=== PATIENT | male | born 1965 | race Caucasian/White ===

== ENCOUNTER 2018-08-15 14:25 | Inpatient (IN) | payer MEDICAID ==
[~2018-08-15] VITALS: Ht 177.8 cm; Wt 97.2 kg
[~2018-08-15 14:25] MED LIST: ACETAMINOPHEN-1 EAC1 ORAL; IBUPROFEN600 MG ORAL; NORCO 5-325 TA1 EACH ORAL
[2018-08-15 14:40] VITALS: BP 150/72
[2018-08-15 15:45] LABS: HEMATOCRIT 45.5 % (42.0-52.0); HEMOGLOBIN 15.7 G/DL (14.2-18.0); MEAN CORPUSCULAR VOLUME 87 FL (80-99); PLATELET COUNT 169 K/UL (150-450); RED CELL DISTRIBUTION WIDTH 10.8 % (11.6-14.8); WHITE BLOOD COUNT 19.7 K/UL (4.8-10.8)
[2018-08-15 15:54] LABS: ANION GAP 11 mmol/L (5-15); BLOOD UREA NITROGEN 29 mg/dL (7-18); CALCIUM 9.5 MG/DL (8.5-10.1); CARBON DIOXIDE 25 MMOL/L (21-32); CHLORIDE 94 MMOL/L (98-107); CREATININE 1.5 MG/DL (0.55-1.30); POTASSIUM 4.1 MMOL/L (3.5-5.1); SODIUM 130 MMOL/L (136-145)
[2018-08-15 15:57] LABS: ALANINE AMINOTRANSFERASE 16 U/L (12-78); ALBUMIN 3.5 G/DL (3.4-5.0); ALBUMIN/GLOBULIN RATIO 0.8 (1.0-2.7); ALKALINE PHOSPHATASE 110 U/L (46-116); ASPARTATE AMINO TRANSFERASE 12 U/L (15-37); BILIRUBIN,TOTAL 0.9 MG/DL (0.2-1.0)
[2018-08-15] MEDS ORDERED: Morphine Sulfate 4mg/ml Inj (IV/IM USE ONLY) IVP ONE (16:15)
[2018-08-15 16:40] VITALS: BP 151/71
[2018-08-15 17:15] LABS: APPEARANCE,URINE CLEAR; BILIRUBIN, URINE NEGATIVE (NEGATIVE); GLUCOSE, URINE (UA) 4+ (NEGATIVE); KETONES,URINE 4+ (NEGATIVE); LEUKOCYTE ESTERASE ,URINE NEGATIVE (NEGATIVE); NITRITE,URINE NEGATIVE (NEGATIVE); PH,URINE 5 (4.5-8.0); PROTEIN,URINE 3+ (NEGATIVE); UROBILINOGEN,URINE 1 MG/DL (0.0-1.0)
[2018-08-15 17:23] LABS: COLOR,URINE YELLOW
[2018-08-15] MEDS ORDERED: LOTENSIN20 MG ORAL (17:55)
[2018-08-15] MEDS ORDERED: LIPITOR20 MG ORAL (18:03)
[2018-08-15] MEDS ORDERED: LANTUS SOL100 UNIT/1 SUBQ (18:06)
[2018-08-15] MEDS ORDERED: HUMALOG100 UNIT/3 SUBQ (18:07)
[2018-08-15] MEDS ORDERED: ASPIR 8181 MG ORAL (18:12)
[2018-08-15] MEDS ORDERED: ENSURE113 GM PO (18:17)
[2018-08-15] MEDS ORDERED: LYRICA50 MG ORAL (18:17)
[2018-08-15] MEDS ORDERED: PROAIR HFA8.5 GM INH (18:18)
--- NOTE | 2018-08-15 18:23 | Emergency Room Report ---
History of Present Illness General Chief Complaint: Abdominal Pain Source: Patient, Medical Record Present Illness HPI 53-year-old male presents ED for evaluation. Complaining of abdominal pain vomiting and diarrhea 3 days. Pain is cramping, 8 out of 10, nonradiating. States that his sugar has been high and not responding to his insulin. Denies fevers or chills. Denies sick contacts or recent travel. Denies recent antibiotic use. No other aggravating relieving factors. Denies any other associated symptoms Allergies: Coded Allergies: No Known Allergies (Unverified , 05/23/14) Patient History Past Medical History: DM, HTN, asthma Past Surgical History: none Pertinent Family History: none Social History: Denies: smoking, alcohol use, drug use Immunizations: UTD Reviewed Nursing Documentation: PMH: Agreed; PSxH: Agreed Nursing Documentation-PMH Hx Hypertension: Yes Hx Asthma: Yes Hx Diabetes: Yes Review of Systems All Other Systems: negative except mentioned in HPI Physical Exam Vital Signs Date Time Temp Pulse Resp B/P (MAP) Pulse Ox O2 Delivery O2 Flow Rate FiO2 08/15/18 14:39 99.5 120 18 154/84 90 Room Air Sp02 EP Interpretation: reviewed, normal General Appearance: no apparent distress, alert, GCS 15, non-toxic Head: normocephalic, atraumatic Eyes: bilateral eye normal inspection, bilateral eye PERRL ENT: hearing grossly normal, normal pharynx, no angioedema, normal voice Neck: full range of motion, supple/symm/no masses Respiratory: chest non-tender, lungs clear, normal breath sounds, speaking full sentences Cardiovascular #1: regular rate, rhythm, no edema Cardiovascular #2: 2+ carotid (R), 2+ carotid (L), 2+ radial (R), 2+ radial (L) , 2+ dorsalis pedis (R), 2+ dorsalis pedis (L) Gastrointestinal: normal bowel sounds, soft, non-distended, no guarding, no rebound, tenderness Rectal: deferred Genitourinary: normal inspection, no CVA tenderness Musculoskeletal: back normal, gait/station normal, normal range of motion, non- tender Neurologic: alert, oriented x3, responsive, motor strength/tone normal, sensory intact, speech normal Psychiatric: judgement/insight normal, memory normal, mood/affect normal, no suicidal/homicidal ideation Reflexes: 3+ bicep (R), 3+ bicep (L), 3+ tricep (R), 3+ tricep (L), 3+ knee (R) , 3+ knee (L) Skin: normal color, no rash, warm/dry, well hydrated Lymphatic: no adenopathy Medical Decision Making Diagnostic Impression: Primary Impression: Gastroenteritis Additional Impressions: Renal insufficiency Intractable vomiting Qualified Codes: R11.2 - Nausea with vomiting, unspecified Hyperglycemia ER Course Hospital Course 53-year-old male presenting to ED with generalized weakness, elevated fingerstick, vomiting and diarhea Differential diagnoses include: ETOH/drug ingestion, sepsis, DKA Clinical course Patient placed on stretcher. On cardiac care nurse. After initial history and physical I ordered labs, IV fluids, EKG, zofran, pepcid Labs-glucose greater than 300, AG and bicarb ok, mild ketones, Cr 1.5, trop negative EKG - NSR, no acute ischemic changes intepreted by me I discussed findings with patient. Patient states he still has vomiting and nausea. Uncomfortable with discharge at this time. not tolerating PO. We'll admit for continued IV hydration and management of his diabetes Case discussed with Dr. Silver and he agreed to accept the patient to his service for further care and support i. I feel this is a highly complex case requiring extensive working including EKG/Rhythm strip, Xray/CT/US, Blood/urine lab work, repeat exams while in ED, and administration of strong opiates/narcotics for pain control, admission to hospital or close patient follow up. diagnosis - hyperglycemia, gastroenteritis, intractable vomiting, hyperglycemia admitted to floor in serious condition Labs Test 08/15/18 15:21 08/15/18 17:08 White Blood Count 19.7 K/UL (4.8-10.8) Red Blood Count 5.20 M/UL (4.70-6.10) Hemoglobin 15.7 G/DL (14.2-18.0) Hematocrit 45.5 % (42.0-52.0) Mean Corpuscular Volume 87 FL (80-99) Mean Corpuscular Hemoglobin 30.2 PG (27.0-31.0) Mean Corpuscular Hemoglobin Concent 34.5 G/DL (32.0-36.0) Red Cell Distribution Width 10.8 % (11.6-14.8) Platelet Count 169 K/UL (150-450) Mean Platelet Volume 10.7 FL (6.5-10.1) Neutrophils (%) (Auto) % (45.0-75.0) Lymphocytes (%) (Auto) % (20.0-45.0) Monocytes (%) (Auto) % (1.0-10.0) Eosinophils (%) (Auto) % (0.0-3.0) Basophils (%) (Auto) % (0.0-2.0) Differential Total Cells Counted 100 Neutrophils % (Manual) 83 % (45-75) Lymphocytes % (Manual) 7 % (20-45) Monocytes % (Manual) 8 % (1-10) Eosinophils % (Manual) 0 % (0-3) Basophils % (Manual) 0 % (0-2) Band Neutrophils 2 % (0-8) Platelet Estimate Adequate Platelet Morphology Normal Red Blood Cell Morphology Normal Sodium Level 130 MMOL/L (136-145) Potassium Level 4.1 MMOL/L (3.5-5.1) Chloride Level 94 MMOL/L (98-107) Carbon Dioxide Level 25 MMOL/L (21-32) Anion Gap 11 mmol/L (5-15) Blood Urea Nitrogen 29 mg/dL (7-18) Creatinine 1.5 MG/DL (0.55-1.30) Estimat Glomerular Filtration Rate 49.1 mL/min (>60) Glucose Level 374 MG/DL (74-106) Calcium Level 9.5 MG/DL (8.5-10.1) Magnesium Level 2.0 MG/DL (1.8-2.4) Total Bilirubin 0.9 MG/DL (0.2-1.0) Aspartate Amino Transf (AST/SGOT) 12 U/L (15-37) Alanine Aminotransferase (ALT/SGPT) 16 U/L (12-78) Alkaline Phosphatase 110 U/L (46-116) Troponin I 0.000 ng/mL (0.000-0.056) Total Protein 8.0 G/DL (6.4-8.2) Albumin 3.5 G/DL (3.4-5.0) Globulin 4.5 g/dL Albumin/Globulin Ratio 0.8 (1.0-2.7) Acetone Level Positive-small (NEGATIVE) Urine Color Yellow Urine Appearance Clear Urine pH 5 (4.5-8.0) Urine Specific [place] 1.015 (1.005-1.035) Urine Protein 3+ (NEGATIVE) Urine Glucose (UA) 4+ (NEGATIVE) Urine Ketones 4+ (NEGATIVE) Urine Blood 3+ (NEGATIVE) Urine Nitrite Negative (NEGATIVE) Urine Bilirubin Negative (NEGATIVE) Urine Urobilinogen 1 MG/DL (0.0-1.0) Urine Leukocyte Esterase Negative (NEGATIVE) Urine RBC 5-10 /HPF (0 - 0) Urine WBC 0-2 /HPF (0 - 0) Urine Squamous Epithelial Cells Occasional /LPF Urine Bacteria Few /HPF (NONE) EKG Diagnostic Results Rate: normal Rhythm: NSR ST Segments: no acute changes ASA given to the pt in ED: No Rhythm Strip Diag. Results EP Interpretation: yes Rhythm: NSR, no PVC's, no ectopy Last Vital Signs Date Time Temp Pulse Resp B/P (MAP) Pulse Ox O2 Delivery O2 Flow Rate FiO2 08/15/18 18:07 98.9 98 22 152/70 95 Room Air Status: improved Disposition: ADMITTED INPATIENT Condition: Serious Referrals: NON PHYSICIAN (PCP) Jose G Greenberg MD Aug 15, 2018 18:23
[2018-08-15 18:45] VITALS: BP 149/78
[2018-08-15 20:00] VITALS: BP 121/56
[2018-08-15] MEDS ORDERED: Nitroglycerin Subl 0.4mg tab SL PRN (20:15)
[2018-08-15] MEDS ORDERED: Ketorolac 30mg Inj IV PRN (20:15)
[2018-08-15] MEDS ORDERED: Mylanta II UD 30ml ORAL PRN (20:15)
[2018-08-15] MEDS ORDERED: Miralax 17gm pkt ORAL PRN (20:15)
[2018-08-15] MEDS ORDERED: Morphine Sulfate 4mg/ml Inj (IV/IM USE ONLY) IVP PRN (20:15)
[2018-08-15] MEDS: Atorvastatin 20mg tab ORAL SCH (21:54)
[2018-08-15] MEDS: Heparin 5000 units/ml inj SUBQ SCH (21:55)
[2018-08-15] MEDS: NovoLOG Insulin Flexpen SUBQ SCH (22:13)
[2018-08-16] VITALS: BP 132/60
[2018-08-16 04:00] VITALS: BP 131/62
--- NOTE | 2018-08-16 04:15 | Consultation ---
DATE OF CONSULTATION: 08/15/2018 GASTROENTEROLOGY CONSULTATION CONSULTING PHYSICIAN: Amber Brooks M.D. CHIEF COMPLAINT: I was asked to see this patient by Dr. Stuart Silver for evaluation of gastrointestinal symptoms. HISTORY OF PRESENT ILLNESS: The patient is a pleasant 53-year-old white man with a longstanding history of diabetes, who comes in with a one-week history of abdominal pain, nausea, vomiting, and diarrhea. The patient states that the emesis is low volume, but he is not able to eat much. The diarrhea happens two times a day. There is no hematochezia. He has never had endoscopy or colonoscopy, but does have a family history of colon cancer. He has not had any antibiotic . PAST MEDICAL HISTORY: History of insulin-dependent diabetes mellitus, hypertension, hypercholesterolemia, and history of myocardial infarction. FAMILY HISTORY: Positive for colon cancer in grandfather and some type of other cancer in paternal grandmother. SOCIAL HISTORY: The patient is . REVIEW OF SYSTEMS: Otherwise negative. ALLERGIES: None. PHYSICAL EXAMINATION: GENERAL: A pleasant white man, seen in his room with his at bedside. HEENT: Normocephalic and atraumatic. Sclerae anicteric. Oropharynx clear. NECK: Supple. CHEST: Clear to auscultation. CARDIOVASCULAR: Revealed regular rate. ABDOMEN: Soft and nontender. Good bowel sounds. There is no organomegaly or tenderness. EXTREMITIES: Revealed no edema. LABORATORY DATA: Noted. ASSESSMENT: This patient has a combination of nausea, vomiting, and diarrhea, which typically relates to gastroenteritis. The patient's stools should be checked to rule out any bacterial infections, which would possibly require antibiotic management. At this time, however, the patient appears well and therefore I would manage him conservatively. IV fluids can be given and his diet can be advanced as tolerated. The patient was advised to undergo a screening colonoscopy as an outpatient. RECOMMENDATIONS: Per above discussion and per orders written in the chart. Thank you for asking me to participate in the care of this patient. Amber Brooks M.D. DR: OLIVER JOB#: [id number] CC: AGUS
[2018-08-16] MEDS: NovoLOG Insulin Flexpen SUBQ SCH ×6 (06:08→20:33)
[2018-08-16 07:33] LABS: BASOPHILS % (AUTO) 0.5 % (0.0-2.0); EOSINOPHILS % (AUTO) 0.4 % (0.0-3.0); HEMATOCRIT 38.6 % (42.0-52.0); HEMOGLOBIN 13.5 G/DL (14.2-18.0); LYMPHOCYTES % (AUTO) 9.5 % (20.0-45.0); MEAN CORPUSCULAR VOLUME 86 FL (80-99); MONOCYTES % (AUTO) 12.5 % (1.0-10.0); NEUTROPHILS % (AUTO) 77.1 % (45.0-75.0); PLATELET COUNT 174 K/UL (150-450); RED BLOOD COUNT 4.46 M/UL (4.70-6.10); RED CELL DISTRIBUTION WIDTH 10.7 % (11.6-14.8); WHITE BLOOD COUNT 15.9 K/UL (4.8-10.8)
[2018-08-16 08:00] VITALS: BP 118/63
[2018-08-16 08:21] LABS: ALANINE AMINOTRANSFERASE 16 U/L (12-78); ALBUMIN 2.7 G/DL (3.4-5.0); ALBUMIN/GLOBULIN RATIO 0.8 (1.0-2.7); ALKALINE PHOSPHATASE 88 U/L (46-116); ANION GAP 9 mmol/L (5-15); ASPARTATE AMINO TRANSFERASE 16 U/L (15-37); BILIRUBIN,TOTAL 0.6 MG/DL (0.2-1.0); BLOOD UREA NITROGEN 20 mg/dL (7-18); CALCIUM 8.5 MG/DL (8.5-10.1); CARBON DIOXIDE 25 MMOL/L (21-32); CHLORIDE 102 MMOL/L (98-107); CHOLESTEROL 114 MG/DL (< 200); HDL CHOLESTEROL 40 MG/DL (40-60); POTASSIUM 3.5 MMOL/L (3.5-5.1); SODIUM 136 MMOL/L (136-145); TRIGLYCERIDES 124 MG/DL (30-150)
[2018-08-16] MEDS: Aspirin EC 81mg tab ORAL SCH (08:33)
[2018-08-16] MEDS: Lyrica 50mg cap ORAL SCH ×2 (08:34→17:53)
[2018-08-16] MEDS: Heparin 5000 units/ml inj SUBQ SCH ×2 (08:36→20:34)
[2018-08-16] MEDS ORDERED: Levemir Flexpen SUBQ SCH (09:00)
[2018-08-16 12:00] VITALS: BP 117/69
--- NOTE | 2018-08-16 12:17 | General Progress Note ---
Assessment/Plan Problem List: (1) Hyperglycemia ICD Codes: R73.9 - Hyperglycemia, unspecified SNOMED: 12188428 (2) Intractable vomiting ICD Codes: R11.10 - Vomiting, unspecified SNOMED: 417326043, 987475389 Qualifiers: Qualified Codes: R11.2 - Nausea with vomiting, unspecified (3) Renal insufficiency ICD Codes: N28.9 - Disorder of kidney and ureter, unspecified SNOMED: 555905275, 515313523 (4) Gastroenteritis ICD Codes: K52.9 - Noninfective gastroenteritis and colitis, unspecified SNOMED: 84226317 Assessment/Plan start Levemir 24 units daily start Novolog 6 units ac tid continue NISS ac / hs Subjective Allergies: Coded Allergies: No Known Allergies (Unverified , 05/23/14) All Systems: reviewed and negative except above Subjective 53-year-old male presents ED for evaluation. Complaining of abdominal pain vomiting and diarrhea 3 days. Pain is cramping, 8 out of 10, nonradiating. States that his sugar has been high and not responding to his insulin. Denies fevers or chills. Denies sick contacts or recent travel. Denies recent antibiotic use. No other aggravating relieving factors. Denies any other associated symptoms there is not evidence of DKA Objective Last 24 Hour Vital Signs Date Time Temp Pulse Resp B/P (MAP) Pulse Ox O2 Delivery O2 Flow Rate FiO2 08/16/18 09:00 Room Air 08/16/18 08:00 99.6 90 20 118/63 (81) 98 08/16/18 04:00 99.1 80 18 131/62 (85) 94 08/16/18 00:00 99.7 80 18 132/60 (84) 95 08/15/18 22:23 100.8 08/15/18 21:00 Room Air 08/15/18 20:00 101.2 86 18 121/56 (77) 95 08/15/18 19:03 Room Air 08/15/18 18:45 100.4 97 22 149/78 (101) 93 08/15/18 18:07 98.9 98 22 152/70 95 Room Air 08/15/18 16:40 98.7 99 18 151/71 97 Room Air 08/15/18 14:40 100 18 Room Air 08/15/18 14:40 98.9 100 18 150/72 98 Room Air 08/15/18 14:39 99.5 120 18 154/84 90 Room Air Intake and Output 08/15/18 08/16/18 19:00 07:00 Intake Total 1000 ml 500 ml Balance 1000 ml 500 ml Intake Oral 500 ml IV Total 1000 ml # Voids 1 1 Laboratory Tests 08/15/18 15:21: White Blood Count 19.7H, Red Blood Count 5.20, Hemoglobin 15.7, Hematocrit 45.5 , Mean Corpuscular Volume 87, Mean Corpuscular Hemoglobin 30.2, Mean Corpuscular Hemoglobin Concent 34.5, Red Cell Distribution Width 10.8L, Platelet Count 169, Mean Platelet Volume 10.7H, Neutrophils (%) (Auto) , Lymphocytes (%) (Auto) , Monocytes (%) (Auto) , Eosinophils (%) (Auto) , Basophils (%) (Auto) , Differential Total Cells Counted 100, Neutrophils % ( Manual) 83H, Lymphocytes % (Manual) 7L, Monocytes % (Manual) 8, Eosinophils % ( Manual) 0, Basophils % (Manual) 0, Band Neutrophils 2, Platelet Estimate Adequate, Platelet Morphology Normal, Red Blood Cell Morphology Normal, Sodium Level 130L, Potassium Level 4.1, Chloride Level 94L, Carbon Dioxide Level 25, Anion Gap 11, Blood Urea Nitrogen 29H, Creatinine 1.5H, Estimat Glomerular Filtration Rate 49.1, Glucose Level 374H, Calcium Level 9.5, Magnesium Level 2.0 , Total Bilirubin 0.9, Aspartate Amino Transf (AST/SGOT) 12L, Alanine Aminotransferase (ALT/SGPT) 16, Alkaline Phosphatase 110, Troponin I 0.000, Total Protein 8.0, Albumin 3.5, Globulin 4.5, Albumin/Globulin Ratio 0.8L, Acetone Level Positive-small 08/15/18 17:08: Urine Color Yellow, Urine Appearance Clear, Urine pH 5, Urine Specific [place] 1.015, Urine Protein 3+H, Urine Glucose (UA) 4+H, Urine Ketones 4+H, Urine Blood 3+H, Urine Nitrite Negative, Urine Bilirubin Negative, Urine Urobilinogen 1H, Urine Leukocyte Esterase Negative, Urine RBC 5-10H, Urine WBC 0-2, Urine Squamous Epithelial Cells Occasional, Urine Bacteria Few 08/16/18 05:28: White Blood Count 15.9H, Red Blood Count 4.46L, Hemoglobin 13.5L, Hematocrit 38.6L, Mean Corpuscular Volume 86, Mean Corpuscular Hemoglobin 30.3, Mean Corpuscular Hemoglobin Concent 35.1, Red Cell Distribution Width 10.7L, Platelet Count 174, Mean Platelet Volume 10.3H, Neutrophils (%) (Auto) 77.1H, Lymphocytes (%) (Auto) 9.5L, Monocytes (%) (Auto) 12.5H, Eosinophils (%) (Auto) 0.4, Basophils (%) (Auto) 0.5, Sodium Level 136, Potassium Level 3.5, Chloride Level 102, Carbon Dioxide Level 25, Anion Gap 9, Blood Urea Nitrogen 20H, Creatinine 1.0, Estimat Glomerular Filtration Rate > 60, Glucose Level 149#H, Calcium Level 8.5, Total Bilirubin 0.6, Aspartate Amino Transf (AST/SGOT) 16, Alanine Aminotransferase (ALT/SGPT) 16, Alkaline Phosphatase 88, Total Protein 6.3L, Albumin 2.7L, Globulin 3.6, Albumin/Globulin Ratio 0.8L, Hemoglobin A1c 9.5H, Triglycerides Level 124, Cholesterol Level 114, LDL Cholesterol 54, HDL Cholesterol 40, Cholesterol/HDL Ratio 2.9L, Thyroid Stimulating Hormone (TSH) 0.381 Height (Feet): 5 Height (Inches): 10.00 Weight (Pounds): 200 General Appearance: no apparent distress Neck: normal alignment Cardiovascular: regular rhythm Respiratory/Chest: lungs clear Abdomen: normal bowel sounds Edema: no edema noted Arm (L), no edema noted Arm (R), no edema noted Leg (L), no edema noted Leg (R), no edema noted Pedal (L), no edema noted Pedal (R), no edema noted Generalized Objective Current Medications Medications (Trade) Dose Ordered Sig/Rashel Route PRN Reason Start Time Stop Time Status Last Admin Dose Admin Acetaminophen (Tylenol) 650 mg Q4H PRN ORAL fever (temp>100.5F) 08/15/18 20:15 09/14/18 20:14 08/15/18 21:53 Al Hydroxide/Mg Hydroxide (Mylanta II) 30 ml Q6H PRN ORAL dyspepsia 08/15/18 20:15 09/14/18 20:14 Albuterol/ Ipratropium (Albuterol/ Ipratropium) 3 ml Q4H PRN HHN Shortness of Breath 08/15/18 20:15 08/20/18 20:14 Aspirin (Ecotrin) 81 mg DAILY ORAL 08/16/18 09:00 09/15/18 08:59 08/16/18 08:33 Atorvastatin Calcium (Lipitor) 20 mg BEDTIME ORAL 08/15/18 21:00 09/14/18 20:59 08/15/18 21:54 Clonidine HCl (Catapres Tab) 0.1 mg Q4H PRN ORAL sbp more than 160 08/15/18 20:15 09/14/18 20:14 Dextrose (Dextrose 50%) 25 ml Q30M PRN IV Hypoglycemia 08/16/18 07:30 09/15/18 07:29 Dextrose (Dextrose 50%) 50 ml Q30M PRN IV Hypoglycemia 08/16/18 07:30 09/15/18 07:29 Heparin Sodium (Porcine) (Heparin 5000 units/ml) 5,000 units EVERY 12 HOURS SUBQ 08/15/18 21:00 09/14/18 20:59 08/16/18 08:36 Insulin Aspart (NovoLOG) BEFORE MEALS AND HS SUBQ 08/15/18 22:00 09/14/18 21:59 08/16/18 06:08 Insulin Aspart (NovoLOG) 6 units NOVOTIAC SUBQ 08/16/18 11:50 09/15/18 11:49 Insulin Detemir (Levemir) 24 units DAILY SUBQ 08/16/18 09:00 09/15/18 08:59 Ketorolac Tromethamine (Toradol 30mg) 30 mg Q6H PRN IV moderate pain 4-6 08/15/18 20:15 08/20/18 20:14 Morphine Sulfate (Morphine Sulfate) 2 mg Q4H PRN IVP severe pain 7-10 08/15/18 20:15 08/22/18 20:14 Nitroglycerin (Ntg) 0.4 mg Q5M X 3 DOSES PRN SL Prn Chest Pain 08/15/18 20:15 09/14/18 20:14 Ondansetron HCl (Zofran) 4 mg Q6H PRN IVP Nausea & Vomiting 08/15/18 20:15 09/14/18 20:14 Polyethylene Glycol (Miralax) 17 gm HSPRN PRN ORAL Constipation 08/15/18 20:15 09/14/18 20:14 Pregabalin (Lyrica) 50 mg TWICE A DAY ORAL 08/16/18 09:00 09/15/18 08:59 08/16/18 08:34 Sodium Chloride 1,000 ml @ 100 mls/hr Q10H IVLG 08/15/18 21:30 09/14/18 21:29 08/16/18 08:33 Temazepam (Restoril) 15 mg HSPRN PRN ORAL Insomnia 08/15/18 20:15 08/22/18 20:14 Current Medications Medications (Trade) Dose Ordered Sig/Rashel Route PRN Reason Start Time Stop Time Status Last Admin Dose Admin Acetaminophen (Tylenol) 650 mg Q4H PRN ORAL fever (temp>100.5F) 08/15/18 20:15 09/14/18 20:14 08/15/18 21:53 Al Hydroxide/Mg Hydroxide (Mylanta II) 30 ml Q6H PRN ORAL dyspepsia 08/15/18 20:15 09/14/18 20:14 Albuterol/ Ipratropium (Albuterol/ Ipratropium) 3 ml Q4H PRN HHN Shortness of Breath 08/15/18 20:15 08/20/18 20:14 Aspirin (Ecotrin) 81 mg DAILY ORAL 08/16/18 09:00 09/15/18 08:59 08/16/18 08:33 Atorvastatin Calcium (Lipitor) 20 mg BEDTIME ORAL 08/15/18 21:00 09/14/18 20:59 08/15/18 21:54 Clonidine HCl (Catapres Tab) 0.1 mg Q4H PRN ORAL sbp more than 160 08/15/18 20:15 09/14/18 20:14 Dextrose (Dextrose 50%) 25 ml Q30M PRN IV Hypoglycemia 08/16/18 07:30 09/15/18 07:29 Dextrose (Dextrose 50%) 50 ml Q30M PRN IV Hypoglycemia 08/16/18 07:30 09/15/18 07:29 Heparin Sodium (Porcine) (Heparin 5000 units/ml) 5,000 units EVERY 12 HOURS SUBQ 08/15/18 21:00 09/14/18 20:59 08/16/18 08:36 Insulin Aspart (NovoLOG) BEFORE MEALS AND HS SUBQ 08/15/18 22:00 09/14/18 21:59 08/16/18 06:08 Insulin Aspart (NovoLOG) 6 units NOVOTIAC SUBQ 08/16/18 11:50 09/15/18 11:49 Insulin Detemir (Levemir) 24 units DAILY SUBQ 08/16/18 09:00 09/15/18 08:59 Ketorolac Tromethamine (Toradol 30mg) 30 mg Q6H PRN IV moderate pain 4-6 08/15/18 20:15 08/20/18 20:14 Morphine Sulfate (Morphine Sulfate) 2 mg Q4H PRN IVP severe pain 7-10 08/15/18 20:15 08/22/18 20:14 Nitroglycerin (Ntg) 0.4 mg Q5M X 3 DOSES PRN SL Prn Chest Pain 08/15/18 20:15 09/14/18 20:14 Ondansetron HCl (Zofran) 4 mg Q6H PRN IVP Nausea & Vomiting 08/15/18 20:15 09/14/18 20:14 Polyethylene Glycol (Miralax) 17 gm HSPRN PRN ORAL Constipation 08/15/18 20:15 09/14/18 20:14 Pregabalin (Lyrica) 50 mg TWICE A DAY ORAL 08/16/18 09:00 09/15/18 08:59 08/16/18 08:34 Sodium Chloride 1,000 ml @ 100 mls/hr Q10H IVLG 08/15/18 21:30 09/14/18 21:29 08/16/18 08:33 Temazepam (Restoril) 15 mg HSPRN PRN ORAL Insomnia 08/15/18 20:15 08/22/18 20:14 Mac Vegas MD Aug 16, 2018 12:17
[2018-08-16] MEDS: Piperacillin/Tazobactam 3.375 GM in D5W 110 ML IVPB SCH ×2 (14:12→21:40)
--- NOTE | 2018-08-16 15:19 | Cardiology Report ---
APPROVED REPORT EKG Measurement Heart [id number] Sinus tachycardia Left axis deviation Anteroseptal infarct, age undetermined Abnormal ECG
--- NOTE | 2018-08-16 15:30 | History and Physical Report ---
DATE OF ADMISSION: 08/15/2018 DATE AND TIME SEEN: 08/16/2018 at 10 a.m. CONSULTANTS: 1. Dr. Rohini Camargo. 2. Dr. Noé Thomas. 3. Dr. Cuate Purdy. 4. DrCristi . CHIEF COMPLAINT: Nausea, vomiting, and hyperglycemia. BRIEF HISTORY: This is a 53-year-old male with history of diabetes and for the past two days has been having some stomach issues with nausea and vomiting. The patient's sugar spiked and came to [facility] yesterday, diagnosed with the above, admitted to medical floor for further treatment. Currently, calm in bed, feeling a little bit better after IV fluids. No complaint. REVIEW OF SYSTEMS: No chest pain. Slight short of breath. Slight nausea and vomiting. No diarrhea. PAST MEDICAL HISTORY: Diabetes and hypertension. PAST SURGICAL HISTORY: Right elbow. ALLERGIES: Denies. MEDICATIONS: Include insulin, IV fluids, normal saline, aspirin, , atorvastatin, heparin, albuterol, Tylenol, and morphine. SOCIAL HISTORY: Positive smoking. No alcohol. No intravenous drug abuse. FAMILY HISTORY: Noncontributory. PHYSICAL EXAMINATION: GENERAL: Calm in bed, oriented x3, in no acute distress. VITAL SIGNS: Temperature is 99 pulse 90, respirations 20, and blood pressure 118/63. CARDIOVASCULAR: No murmur. LUNGS: Distant and clear. ABDOMEN: Bowel sounds positive. Slightly tender. No guarding. No rigidity. No rebound. EXTREMITIES: No cyanosis, clubbing or edema. NEUROLOGIC: The patient moves all extremities, slightly weak. LABORATORY AND DIAGNOSTIC DATA: White count 15.9, hemoglobin and hematocrit 13/38, and platelets 174,000. BMP shows BUN 20 and glucose 149, initially it was 374. Urine tox is positive for acetone, small. Urinalysis 3+ protein, 4+ glucose, 4+ ketone, 3+ blood, otherwise negative. ASSESSMENT: 1. Acute gastroenteritis, nausea and vomiting. 2. Renal insufficiency. 3. Diabetes. 4. Hyperglycemia. 5. Hypertension. PLAN: 1. Blood pressure and sugar control. 2. IV fluids. 3. Dietary followup. 4. Advance diet as tolerated. 5. CBC and BMP in the morning. Stuart Silver D.O. DR: BRODIE JOB#: [id number] CC:
--- NOTE | 2018-08-16 15:43 | Consultation ---
History of Present Illness General Date patient seen: Aug 16, 2018 Chief Complaint: Abdominal Pain Present Illness HPI 53-year-old male with hx of DM, HTN presents ED for evaluation of abdominal pain vomiting and diarrhea 3 days. States that his sugar has been high and not responding to his insulin. Denies fevers or chills. Denies sick contacts or recent travel. He was in renal failure. Allergies: Coded Allergies: INSULIN DETEMIR (Unverified Allergy, Unknown, Sweating, 08/16/18) Medication History Scheduled Albuterol Sulfate* (Proair Hfa*), 2 PUFFS INH Q6H, (Reported) Aspirin* (Aspir 81*), 81 MG ORAL DAILY, (Reported) Atorvastatin Calcium* (Lipitor*), 20 MG ORAL BEDTIME, (Reported) Benazepril Hcl* (Lotensin*), 20 MG ORAL DAILY, (Reported) Insulin Glargine (Lantus), 30 UNITS SUBQ BEDTIME, (Reported) Insulin Lispro (Humalog), 8 UNITS SUBQ BEFORE MEALS, (Reported) Pregabalin (Lyrica), 50 MG ORAL TWICE A DAY, (Reported) Scheduled PRN Ibuprofen* (Motrin*), 600 MG ORAL Q8H PRN for For Pain Miscellaneous Medications Nutritional Supplement (Ensure), 113 GM PO, (Reported) Discontinued Medications Acetaminophen With Codeine (T#3) (Tylenol #3 Tab*), 1 TAB ORAL Q8H PRN for For Pain Discontinued Reason: Pt stopped taking med Hydrocodone Bit/Acetaminophen 5-325* (Willard 5-325*), 1 TAB ORAL Q6H PRN for For Pain Discontinued Reason: Pt stopped taking med Patient History Healthcare decision maker Resuscitation status Full Code Advanced Directive on File Past Medical/Surgical History Past Medical/Surgical History: (1) Diabetes mellitus (2) Gastroparesis Review of Systems All Other Systems: negative except mentioned in HPI Physical Exam General Appearance: WD/WN Lines, tubes and drains: peripheral HEENT: normocephalic, anicteric Neck: non-tender, supple Respiratory/Chest: chest wall non-tender, lungs clear Cardiovascular/Chest: normal peripheral pulses, regularly irregular Last 24 Hour Vital Signs Date Time Temp Pulse Resp B/P (MAP) Pulse Ox O2 Delivery O2 Flow Rate FiO2 08/16/18 12:00 99.1 80 20 117/69 (85) 99 08/16/18 09:00 Room Air 08/16/18 08:00 99.6 90 20 118/63 (81) 98 08/16/18 04:00 99.1 80 18 131/62 (85) 94 08/16/18 00:00 99.7 80 18 132/60 (84) 95 08/15/18 22:23 100.8 08/15/18 21:00 Room Air 08/15/18 20:00 101.2 86 18 121/56 (77) 95 08/15/18 19:03 Room Air 08/15/18 18:45 100.4 97 22 149/78 (101) 93 08/15/18 18:07 98.9 98 22 152/70 95 Room Air 08/15/18 16:40 98.7 99 18 151/71 97 Room Air Intake and Output 08/15/18 08/16/18 19:00 07:00 Intake Total 1000 ml 500 ml Balance 1000 ml 500 ml Intake Oral 500 ml IV Total 1000 ml # Voids 1 1 Laboratory Tests Test 08/15/18 17:08 08/16/18 05:28 Urine Color Yellow Urine Appearance Clear Urine pH 5 (4.5-8.0) Urine Specific [place] 1.015 (1.005-1.035) Urine Protein 3+ (NEGATIVE) H Urine Glucose (UA) 4+ (NEGATIVE) H Urine Ketones 4+ (NEGATIVE) H Urine Blood 3+ (NEGATIVE) H Urine Nitrite Negative (NEGATIVE) Urine Bilirubin Negative (NEGATIVE) Urine Urobilinogen 1 MG/DL (0.0-1.0) H Urine Leukocyte Esterase Negative (NEGATIVE) Urine RBC 5-10 /HPF (0 - 0) H Urine WBC 0-2 /HPF (0 - 0) Urine Squamous Epithelial Cells Occasional /LPF Urine Bacteria Few /HPF (NONE) White Blood Count 15.9 K/UL (4.8-10.8) H Red Blood Count 4.46 M/UL (4.70-6.10) L Hemoglobin 13.5 G/DL (14.2-18.0) L Hematocrit 38.6 % (42.0-52.0) L Mean Corpuscular Volume 86 FL (80-99) Mean Corpuscular Hemoglobin 30.3 PG (27.0-31.0) Mean Corpuscular Hemoglobin Concent 35.1 G/DL (32.0-36.0) Red Cell Distribution Width 10.7 % (11.6-14.8) L Platelet Count 174 K/UL (150-450) Mean Platelet Volume 10.3 FL (6.5-10.1) H Neutrophils (%) (Auto) 77.1 % (45.0-75.0) H Lymphocytes (%) (Auto) 9.5 % (20.0-45.0) L Monocytes (%) (Auto) 12.5 % (1.0-10.0) H Eosinophils (%) (Auto) 0.4 % (0.0-3.0) Basophils (%) (Auto) 0.5 % (0.0-2.0) Sodium Level 136 MMOL/L (136-145) Potassium Level 3.5 MMOL/L (3.5-5.1) Chloride Level 102 MMOL/L (98-107) Carbon Dioxide Level 25 MMOL/L (21-32) Anion Gap 9 mmol/L (5-15) Blood Urea Nitrogen 20 mg/dL (7-18) H Creatinine 1.0 MG/DL (0.55-1.30) Estimat Glomerular Filtration Rate > 60 mL/min (>60) Glucose Level 149 MG/DL (74-106) #H Hemoglobin A1c 9.5 % (4.3-6.0) H Calcium Level 8.5 MG/DL (8.5-10.1) Total Bilirubin 0.6 MG/DL (0.2-1.0) Aspartate Amino Transf (AST/SGOT) 16 U/L (15-37) Alanine Aminotransferase (ALT/SGPT) 16 U/L (12-78) Alkaline Phosphatase 88 U/L (46-116) Total Protein 6.3 G/DL (6.4-8.2) L Albumin 2.7 G/DL (3.4-5.0) L Globulin 3.6 g/dL Albumin/Globulin Ratio 0.8 (1.0-2.7) L Triglycerides Level 124 MG/DL (30-150) Cholesterol Level 114 MG/DL (< 200) LDL Cholesterol 54 mg/dL (<100) HDL Cholesterol 40 MG/DL (40-60) Cholesterol/HDL Ratio 2.9 (3.3-4.4) L Thyroid Stimulating Hormone (TSH) 0.381 uiU/mL (0.358-3.740) Height (Feet): 5 Height (Inches): 10.00 Weight (Pounds): 200 Medications Current Medications Medications (Trade) Dose Ordered Sig/Rashel Route PRN Reason Start Time Stop Time Status Last Admin Dose Admin Acetaminophen (Tylenol) 650 mg Q4H PRN ORAL fever (temp>100.5F) 08/15/18 20:15 09/14/18 20:14 08/15/18 21:53 Al Hydroxide/Mg Hydroxide (Mylanta II) 30 ml Q6H PRN ORAL dyspepsia 08/15/18 20:15 09/14/18 20:14 Albuterol/ Ipratropium (Albuterol/ Ipratropium) 3 ml Q4H PRN HHN Shortness of Breath 08/15/18 20:15 08/20/18 20:14 Aspirin (Ecotrin) 81 mg DAILY ORAL 08/16/18 09:00 09/15/18 08:59 08/16/18 08:33 Atorvastatin Calcium (Lipitor) 20 mg BEDTIME ORAL 08/15/18 21:00 09/14/18 20:59 08/15/18 21:54 Clonidine HCl (Catapres Tab) 0.1 mg Q4H PRN ORAL sbp more than 160 08/15/18 20:15 09/14/18 20:14 Dextrose (Dextrose 50%) 25 ml Q30M PRN IV Hypoglycemia 08/16/18 07:30 09/15/18 07:29 Dextrose (Dextrose 50%) 50 ml Q30M PRN IV Hypoglycemia 08/16/18 07:30 09/15/18 07:29 Heparin Sodium (Porcine) (Heparin 5000 units/ml) 5,000 units EVERY 12 HOURS SUBQ 08/15/18 21:00 09/14/18 20:59 08/16/18 08:36 Insulin Aspart (NovoLOG) BEFORE MEALS AND HS SUBQ 08/15/18 22:00 09/14/18 21:59 08/16/18 12:54 Insulin Aspart (NovoLOG) 6 units NOVOTIAC SUBQ 08/16/18 11:50 09/15/18 11:49 08/16/18 12:53 Ketorolac Tromethamine (Toradol 30mg) 30 mg Q6H PRN IV moderate pain 4-6 08/15/18 20:15 08/20/18 20:14 Morphine Sulfate (Morphine Sulfate) 2 mg Q4H PRN IVP severe pain 7-10 08/15/18 20:15 08/22/18 20:14 Nitroglycerin (Ntg) 0.4 mg Q5M X 3 DOSES PRN SL Prn Chest Pain 08/15/18 20:15 09/14/18 20:14 Non-Formulary Medication (Non-Formulary Med) 1 ea Q24H SUBQ 08/17/18 10:00 09/16/18 09:59 UNV Ondansetron HCl (Zofran) 4 mg Q6H PRN IVP Nausea & Vomiting 08/15/18 20:15 09/14/18 20:14 Piperacillin Sod/ Tazobactam Sod 3.375 gm/Dextrose 110 ml @ 27.5 mls/hr Q8HR IVPB 08/16/18 14:00 08/23/18 13:59 08/16/18 14:12 Polyethylene Glycol (Miralax) 17 gm HSPRN PRN ORAL Constipation 08/15/18 20:15 09/14/18 20:14 Pregabalin (Lyrica) 50 mg TWICE A DAY ORAL 08/16/18 09:00 09/15/18 08:59 08/16/18 08:34 Sodium Chloride 1,000 ml @ 100 mls/hr Q10H IVLG 08/15/18 21:30 09/14/18 21:29 08/16/18 08:33 Temazepam (Restoril) 15 mg HSPRN PRN ORAL Insomnia 08/15/18 20:15 08/22/18 20:14 Assessment/Plan Problem List: (1) Hyperglycemia ICD Codes: R73.9 - Hyperglycemia, unspecified SNOMED: 22259536 (2) ATN (acute tubular necrosis) ICD Codes: N17.0 - Acute kidney failure with tubular necrosis SNOMED: 34638329 (3) Gastroenteritis ICD Codes: K52.9 - Noninfective gastroenteritis and colitis, unspecified SNOMED: 53793627 (4) Intractable vomiting ICD Codes: R11.10 - Vomiting, unspecified SNOMED: 188883117, 170945072 Qualifiers: Qualified Codes: R11.2 - Nausea with vomiting, unspecified (5) Gastroparesis ICD Codes: K31.84 - Gastroparesis SNOMED: 853684130 Assessment/Plan iv fluids sliding scale symptomatic treatment analgesics check electrolytes dvt prophylaxis. Rohini Camargo MD Aug 16, 2018 15:42
[2018-08-16 16:00] VITALS: BP 118/57
--- NOTE | 2018-08-16 18:16 | General Progress Note ---
Assessment/Plan Assessment/Plan Assessment - N/V, Diarrhea - Abd pain - IDDM - HTN Recommendations hydration PPI await stool w/u Subjective Allergies: Coded Allergies: INSULIN DETEMIR (Unverified Allergy, Unknown, Sweating, 08/16/18) Subjective Better still with some abd discomfort stool w/u pending Objective Last 24 Hour Vital Signs Date Time Temp Pulse Resp B/P (MAP) Pulse Ox O2 Delivery O2 Flow Rate FiO2 08/16/18 16:00 99.5 70 19 118/57 (77) 98 08/16/18 12:00 99.1 80 20 117/69 (85) 99 08/16/18 09:00 Room Air 08/16/18 08:00 99.6 90 20 118/63 (81) 98 08/16/18 04:00 99.1 80 18 131/62 (85) 94 08/16/18 00:00 99.7 80 18 132/60 (84) 95 08/15/18 22:23 100.8 08/15/18 21:00 Room Air 08/15/18 20:00 101.2 86 18 121/56 (77) 95 08/15/18 19:03 Room Air 08/15/18 18:45 100.4 97 22 149/78 (101) 93 Intake and Output 08/15/18 08/16/18 19:00 07:00 Intake Total 1000 ml 500 ml Balance 1000 ml 500 ml Intake Oral 500 ml IV Total 1000 ml # Voids 1 1 Laboratory Tests 08/16/18 05:28: White Blood Count 15.9H, Red Blood Count 4.46L, Hemoglobin 13.5L, Hematocrit 38.6L, Mean Corpuscular Volume 86, Mean Corpuscular Hemoglobin 30.3, Mean Corpuscular Hemoglobin Concent 35.1, Red Cell Distribution Width 10.7L, Platelet Count 174, Mean Platelet Volume 10.3H, Neutrophils (%) (Auto) 77.1H, Lymphocytes (%) (Auto) 9.5L, Monocytes (%) (Auto) 12.5H, Eosinophils (%) (Auto) 0.4, Basophils (%) (Auto) 0.5, Sodium Level 136, Potassium Level 3.5, Chloride Level 102, Carbon Dioxide Level 25, Anion Gap 9, Blood Urea Nitrogen 20H, Creatinine 1.0, Estimat Glomerular Filtration Rate > 60, Glucose Level 149#H, Hemoglobin A1c 9.5H, Calcium Level 8.5, Total Bilirubin 0.6, Aspartate Amino Transf (AST/SGOT) 16, Alanine Aminotransferase (ALT/SGPT) 16, Alkaline Phosphatase 88, Total Protein 6.3L, Albumin 2.7L, Globulin 3.6, Albumin/ Globulin Ratio 0.8L, Triglycerides Level 124, Cholesterol Level 114, LDL Cholesterol 54, HDL Cholesterol 40, Cholesterol/HDL Ratio 2.9L, Thyroid Stimulating Hormone (TSH) 0.381 08/16/18 16:00: Stool Occult Blood [Pending] Height (Feet): 5 Height (Inches): 10.00 Weight (Pounds): 200 Objective WDWN NCAT supple CTA RRR Soft ND NT no edema non focal Amber Brooks MD Aug 16, 2018 18:16
[2018-08-16 20:00] VITALS: BP 122/68
[2018-08-16] MEDS: Atorvastatin 20mg tab ORAL SCH (20:34)
[2018-08-17] VITALS: BP 126/65
[2018-08-17 03:45] VITALS: BP 131/67
--- NOTE | 2018-08-17 06:22 | General Progress Note ---
Assessment/Plan Problem List: (1) Hyperglycemia ICD Codes: R73.9 - Hyperglycemia, unspecified SNOMED: 52148184 (2) Intractable vomiting ICD Codes: R11.10 - Vomiting, unspecified SNOMED: 808488576, 232953027 Qualifiers: Qualified Codes: R11.2 - Nausea with vomiting, unspecified (3) Renal insufficiency ICD Codes: N28.9 - Disorder of kidney and ureter, unspecified SNOMED: 853250425, 122990837 (4) Gastroenteritis ICD Codes: K52.9 - Noninfective gastroenteritis and colitis, unspecified SNOMED: 31384515 Assessment/Plan continue Lantus 24 units daily continue Novolog 6 units ac tid continue NISS ac / hs Subjective Allergies: Coded Allergies: INSULIN DETEMIR (Unverified Allergy, Unknown, Sweating, 08/16/18) All Systems: reviewed and negative except above Subjective events noted allergic to Levemir he has his own supply of Lantus discussed with pharmacy Objective Last 24 Hour Vital Signs Date Time Temp Pulse Resp B/P (MAP) Pulse Ox O2 Delivery O2 Flow Rate FiO2 08/17/18 03:45 98.9 67 18 131/67 (88) 94 08/17/18 00:00 99.0 65 18 126/65 (85) 96 08/16/18 21:00 Room Air 08/16/18 20:30 72 18 Room Air 21 08/16/18 20:00 98.8 62 18 122/68 (86) 95 08/16/18 16:00 99.5 70 19 118/57 (77) 98 08/16/18 12:00 99.1 80 20 117/69 (85) 99 08/16/18 09:00 Room Air 08/16/18 08:00 99.6 90 20 118/63 (81) 98 Intake and Output 08/16/18 08/17/18 19:00 07:00 Intake Total 800 ml Balance 800 ml Intake Oral 800 ml # Voids 3 # Bowel Movements 1 Laboratory Tests 08/16/18 16:00: Stool Occult Blood [Pending] Height (Feet): 5 Height (Inches): 10.00 Weight (Pounds): 200 General Appearance: no apparent distress Neck: normal alignment Cardiovascular: normal rate Respiratory/Chest: lungs clear Abdomen: normal bowel sounds Objective Current Medications Medications (Trade) Dose Ordered Sig/Rashel Route PRN Reason Start Time Stop Time Status Last Admin Dose Admin Acetaminophen (Tylenol) 650 mg Q4H PRN ORAL fever (temp>100.5F) 08/15/18 20:15 09/14/18 20:14 08/15/18 21:53 Al Hydroxide/Mg Hydroxide (Mylanta II) 30 ml Q6H PRN ORAL dyspepsia 08/15/18 20:15 09/14/18 20:14 Albuterol/ Ipratropium (Albuterol/ Ipratropium) 3 ml Q4H PRN HHN Shortness of Breath 08/15/18 20:15 08/20/18 20:14 Aspirin (Ecotrin) 81 mg DAILY ORAL 08/16/18 09:00 09/15/18 08:59 08/16/18 08:33 Atorvastatin Calcium (Lipitor) 20 mg BEDTIME ORAL 08/15/18 21:00 09/14/18 20:59 08/16/18 20:34 Clonidine HCl (Catapres Tab) 0.1 mg Q4H PRN ORAL sbp more than 160 08/15/18 20:15 09/14/18 20:14 Dextrose (Dextrose 50%) 25 ml Q30M PRN IV Hypoglycemia 08/16/18 07:30 09/15/18 07:29 Dextrose (Dextrose 50%) 50 ml Q30M PRN IV Hypoglycemia 08/16/18 07:30 09/15/18 07:29 Heparin Sodium (Porcine) (Heparin 5000 units/ml) 5,000 units EVERY 12 HOURS SUBQ 08/15/18 21:00 09/14/18 20:59 08/16/18 20:34 Insulin Aspart (NovoLOG) BEFORE MEALS AND HS SUBQ 08/15/18 22:00 09/14/18 21:59 08/16/18 20:33 Insulin Aspart (NovoLOG) 6 units NOVOTIAC SUBQ 08/16/18 11:50 09/15/18 11:49 08/16/18 17:16 Ketorolac Tromethamine (Toradol 30mg) 30 mg Q6H PRN IV moderate pain 4-6 08/15/18 20:15 08/20/18 20:14 Morphine Sulfate (Morphine Sulfate) 2 mg Q4H PRN IVP severe pain 7-10 08/15/18 20:15 08/22/18 20:14 Nitroglycerin (Ntg) 0.4 mg Q5M X 3 DOSES PRN SL Prn Chest Pain 08/15/18 20:15 09/14/18 20:14 Non-Formulary Medication (Non-Formulary Med) 1 ea Q24H SUBQ 08/17/18 10:00 09/16/18 09:59 UNV Ondansetron HCl (Zofran) 4 mg Q6H PRN IVP Nausea & Vomiting 08/15/18 20:15 09/14/18 20:14 Piperacillin Sod/ Tazobactam Sod 3.375 gm/Dextrose 110 ml @ 27.5 mls/hr Q8HR IVPB 08/16/18 14:00 08/23/18 13:59 08/16/18 21:40 Polyethylene Glycol (Miralax) 17 gm HSPRN PRN ORAL Constipation 08/15/18 20:15 09/14/18 20:14 Pregabalin (Lyrica) 50 mg TWICE A DAY ORAL 08/16/18 09:00 09/15/18 08:59 08/16/18 17:53 Sodium Chloride 1,000 ml @ 100 mls/hr Q10H IVLG 08/15/18 21:30 09/14/18 21:29 08/17/18 03:25 Temazepam (Restoril) 15 mg HSPRN PRN ORAL Insomnia 08/15/18 20:15 08/22/18 20:14 Item Value Date Time Bedside Blood Glucose 239 mg/dl H 08/16/18 2100 Bedside Blood Glucose 198 mg/dl H 08/16/18 1716 Bedside Blood Glucose 267 mg/dl H 08/16/18 1254 Bedside Blood Glucose 180 mg/dl H 08/16/18 0610 Mac Vegas MD Aug 17, 2018 06:22
[2018-08-17] MEDS: Piperacillin/Tazobactam 3.375 GM in D5W 110 ML IVPB SCH ×3 (06:36→20:56)
[2018-08-17] MEDS: NovoLOG Insulin Flexpen SUBQ SCH ×7 (06:42→21:07)
[2018-08-17 08:00] VITALS: BP 109/49
[2018-08-17 08:12] LABS: BASOPHILS % (AUTO) 0.8 % (0.0-2.0); EOSINOPHILS % (AUTO) 1.5 % (0.0-3.0); HEMATOCRIT 38.5 % (42.0-52.0); HEMOGLOBIN 13.4 G/DL (14.2-18.0); LYMPHOCYTES % (AUTO) 13.3 % (20.0-45.0); MEAN CORPUSCULAR VOLUME 87 FL (80-99); MONOCYTES % (AUTO) 13.3 % (1.0-10.0); NEUTROPHILS % (AUTO) 71.2 % (45.0-75.0); PLATELET COUNT 194 K/UL (150-450); RED BLOOD COUNT 4.43 M/UL (4.70-6.10); RED CELL DISTRIBUTION WIDTH 10.6 % (11.6-14.8); WHITE BLOOD COUNT 11.9 K/UL (4.8-10.8)
[2018-08-17 08:25] LABS: ANION GAP 9 mmol/L (5-15); BLOOD UREA NITROGEN 9 mg/dL (7-18); CALCIUM 8.5 MG/DL (8.5-10.1); CARBON DIOXIDE 25 MMOL/L (21-32); CHLORIDE 102 MMOL/L (98-107); CREATININE 0.9 MG/DL (0.55-1.30); POTASSIUM 3.7 MMOL/L (3.5-5.1); SODIUM 136 MMOL/L (136-145)
[2018-08-17] MEDS: Aspirin EC 81mg tab ORAL SCH (09:17)
[2018-08-17] MEDS: Lyrica 50mg cap ORAL SCH ×2 (09:18→18:05)
[2018-08-17] MEDS: Heparin 5000 units/ml inj SUBQ SCH ×2 (09:19→20:56)
[2018-08-17 12:00] VITALS: BP 143/72
--- NOTE | 2018-08-17 12:18 | GI Progress Note ---
Assessment/Plan Problems: (1) Gastroparesis ICD Codes: K31.84 - Gastroparesis SNOMED: 131383342 (2) Hyperglycemia ICD Codes: R73.9 - Hyperglycemia, unspecified SNOMED: 53951042 (3) Intractable vomiting ICD Codes: R11.10 - Vomiting, unspecified SNOMED: 414428224, 848316444 Qualifiers: Qualified Codes: R11.2 - Nausea with vomiting, unspecified (4) Renal insufficiency ICD Codes: N28.9 - Disorder of kidney and ureter, unspecified SNOMED: 973439460, 959143484 (5) Gastroenteritis ICD Codes: K52.9 - Noninfective gastroenteritis and colitis, unspecified SNOMED: 07009156 Status: stable Status Narrative Discussed with Dr. Thomas Assessment/Plan Assessment - N/V, Diarrhea - Abd pain - IDDM - HTN -Gastroparesis OB stool negative Recommendations Symptomatic treatment at this time Advance to ADA diet hydration PPI Zofran as needed, Reglan for persistent vomiting Follow-up labs Outpatient EGD colonoscopy The patient was seen and examined at bedside and all new and available data was reviewed in the patients chart. I agree with the above findings, impression and plan. (Patient seen earlier today. Signature stamp does not reflect patient encounter time.). - Noé Thomas MD Subjective Subjective Denies any nausea or vomiting Denies any abdominal pain Objective Last 24 Hour Vital Signs Date Time Temp Pulse Resp B/P (MAP) Pulse Ox O2 Delivery O2 Flow Rate FiO2 08/17/18 09:00 Room Air 08/17/18 08:00 98.9 64 18 109/49 (69) 95 08/17/18 07:57 72 21 Room Air 21 08/17/18 03:45 98.9 67 18 131/67 (88) 94 08/17/18 00:00 99.0 65 18 126/65 (85) 96 08/16/18 21:00 Room Air 08/16/18 20:30 72 18 Room Air 21 08/16/18 20:00 98.8 62 18 122/68 (86) 95 08/16/18 16:00 99.5 70 19 118/57 (77) 98 Intake and Output 08/16/18 08/17/18 19:00 07:00 Intake Total 800 ml 600 ml Balance 800 ml 600 ml Intake Oral 800 ml 600 ml # Voids 3 2 # Bowel Movements 1 Laboratory Tests Test 08/16/18 16:00 08/17/18 06:34 Stool Occult Blood Negative (NEGATIVE) White Blood Count 11.9 K/UL (4.8-10.8) H Red Blood Count 4.43 M/UL (4.70-6.10) L Hemoglobin 13.4 G/DL (14.2-18.0) L Hematocrit 38.5 % (42.0-52.0) L Mean Corpuscular Volume 87 FL (80-99) Mean Corpuscular Hemoglobin 30.3 PG (27.0-31.0) Mean Corpuscular Hemoglobin Concent 34.8 G/DL (32.0-36.0) Red Cell Distribution Width 10.6 % (11.6-14.8) L Platelet Count 194 K/UL (150-450) Mean Platelet Volume 9.7 FL (6.5-10.1) Neutrophils (%) (Auto) 71.2 % (45.0-75.0) Lymphocytes (%) (Auto) 13.3 % (20.0-45.0) L Monocytes (%) (Auto) 13.3 % (1.0-10.0) H Eosinophils (%) (Auto) 1.5 % (0.0-3.0) Basophils (%) (Auto) 0.8 % (0.0-2.0) Sodium Level 136 MMOL/L (136-145) Potassium Level 3.7 MMOL/L (3.5-5.1) Chloride Level 102 MMOL/L (98-107) Carbon Dioxide Level 25 MMOL/L (21-32) Anion Gap 9 mmol/L (5-15) Blood Urea Nitrogen 9 mg/dL (7-18) Creatinine 0.9 MG/DL (0.55-1.30) Estimat Glomerular Filtration Rate > 60 mL/min (>60) Glucose Level 286 MG/DL (74-106) #H Calcium Level 8.5 MG/DL (8.5-10.1) Microbiology Date/Time Source Procedure Growth Status 08/16/18 13:00 Sputum Gram Stain - Final Resulted 08/16/18 13:00 Sputum Sputum Culture - Preliminary Resulted 08/16/18 16:00 Stool Clostridium difficile Toxin Assay - Final Complete 08/16/18 16:00 Stool Stool Culture - Preliminary Resulted Height (Feet): 5 Height (Inches): 10.00 Weight (Pounds): 200 General Appearance: WD/WN, no apparent distress, alert Cardiovascular: normal rate Respiratory/Chest: normal breath sounds, no respiratory distress Abdominal Exam: normal bowel sounds, non tender, soft Extremities: normal range of motion, non-tender Debby Vidal NP Aug 17, 2018 12:18
--- NOTE | 2018-08-17 14:13 | General Progress Note ---
Assessment/Plan Problem List: (1) Gastroenteritis ICD Codes: K52.9 - Noninfective gastroenteritis and colitis, unspecified SNOMED: 10224332 (2) Renal insufficiency ICD Codes: N28.9 - Disorder of kidney and ureter, unspecified SNOMED: 772676439, 655217584 (3) Intractable vomiting ICD Codes: R11.10 - Vomiting, unspecified SNOMED: 167781370, 127437598 Qualifiers: Qualified Codes: R11.2 - Nausea with vomiting, unspecified (4) Hyperglycemia ICD Codes: R73.9 - Hyperglycemia, unspecified SNOMED: 60683562 (5) Gastroparesis ICD Codes: K31.84 - Gastroparesis SNOMED: 417116022 Status: unchanged Assessment/Plan ivf adv diet cbc bmp am Subjective Constitutional: Reports: weakness Allergies: Coded Allergies: INSULIN DETEMIR (Unverified Allergy, Unknown, Sweating, 08/16/18) All Systems: reviewed and negative except above Subjective sl nausea Objective Last 24 Hour Vital Signs Date Time Temp Pulse Resp B/P (MAP) Pulse Ox O2 Delivery O2 Flow Rate FiO2 08/17/18 12:00 98.8 67 20 143/72 (95) 93 08/17/18 09:00 Room Air 08/17/18 08:00 98.9 64 18 109/49 (69) 95 08/17/18 07:57 72 21 Room Air 21 08/17/18 03:45 98.9 67 18 131/67 (88) 94 08/17/18 00:00 99.0 65 18 126/65 (85) 96 08/16/18 21:00 Room Air 08/16/18 20:30 72 18 Room Air 21 08/16/18 20:00 98.8 62 18 122/68 (86) 95 08/16/18 16:00 99.5 70 19 118/57 (77) 98 Intake and Output 08/16/18 08/17/18 19:00 07:00 Intake Total 800 ml 600 ml Balance 800 ml 600 ml Intake Oral 800 ml 600 ml # Voids 3 2 # Bowel Movements 1 Laboratory Tests 08/16/18 16:00: Stool Occult Blood Negative 08/17/18 06:34: White Blood Count 11.9H, Red Blood Count 4.43L, Hemoglobin 13.4L, Hematocrit 38.5L, Mean Corpuscular Volume 87, Mean Corpuscular Hemoglobin 30.3, Mean Corpuscular Hemoglobin Concent 34.8, Red Cell Distribution Width 10.6L, Platelet Count 194, Mean Platelet Volume 9.7, Neutrophils (%) (Auto) 71.2, Lymphocytes (%) (Auto) 13.3L, Monocytes (%) (Auto) 13.3H, Eosinophils (%) (Auto ) 1.5, Basophils (%) (Auto) 0.8, Sodium Level 136, Potassium Level 3.7, Chloride Level 102, Carbon Dioxide Level 25, Anion Gap 9, Blood Urea Nitrogen 9 , Creatinine 0.9, Estimat Glomerular Filtration Rate > 60, Glucose Level 286#H, Calcium Level 8.5 Height (Feet): 5 Height (Inches): 10.00 Weight (Pounds): 200 General Appearance: lethargic EENT: normal ENT inspection Neck: normal alignment Cardiovascular: normal peripheral pulses, normal rate, regular rhythm Respiratory/Chest: chest wall non-tender, lungs clear, normal breath sounds Abdomen: normal bowel sounds, non tender, soft Extremities: normal inspection Edema: no edema noted Arm (L), no edema noted Arm (R), no edema noted Leg (L), no edema noted Leg (R), no edema noted Pedal (L), no edema noted Pedal (R), no edema noted Generalized Neurologic: responsive, motor weakness Skin: normal pigmentation, warm/dry Stuart Silver DO Aug 17, 2018 14:12
[2018-08-17 16:00] VITALS: BP 154/67
--- NOTE | 2018-08-17 16:21 | Consultation ---
History of Present Illness General Date patient seen: Aug 17, 2018 Chief Complaint: Abdominal Pain Present Illness HPI 53 y/o M with hx of DM2, HLD, HTN, CAD/OR, asthma presented to on 08/15 with 1 week of abd pain, nausea, vomiting, poor PO intake and diarrhea x 3 days. Abd pain is described as cramping, 8/10 intensity, non radiating. Also refers his sugars has been high and not responding to insulin. Denied hematochezia, f/c, sick contacts, recent travel, recent antibiotic use upon admission. Allergies: Coded Allergies: INSULIN DETEMIR (Unverified Allergy, Unknown, Sweating, 08/16/18) Medication History Scheduled Albuterol Sulfate* (Proair Hfa*), 2 PUFFS INH Q6H, (Reported) Aspirin* (Aspir 81*), 81 MG ORAL DAILY, (Reported) Atorvastatin Calcium* (Lipitor*), 20 MG ORAL BEDTIME, (Reported) Benazepril Hcl* (Lotensin*), 20 MG ORAL DAILY, (Reported) Insulin Glargine (Lantus), 30 UNITS SUBQ BEDTIME, (Reported) Insulin Lispro (Humalog), 8 UNITS SUBQ BEFORE MEALS, (Reported) Pregabalin (Lyrica), 50 MG ORAL TWICE A DAY, (Reported) Scheduled PRN Ibuprofen* (Motrin*), 600 MG ORAL Q8H PRN for For Pain Miscellaneous Medications Nutritional Supplement (Ensure), 113 GM PO, (Reported) Discontinued Medications Acetaminophen With Codeine (T#3) (Tylenol #3 Tab*), 1 TAB ORAL Q8H PRN for For Pain Discontinued Reason: Pt stopped taking med Hydrocodone Bit/Acetaminophen 5-325* ([place] 5-325*), 1 TAB ORAL Q6H PRN for For Pain Discontinued Reason: Pt stopped taking med Patient History Healthcare decision maker Resuscitation status Full Code Advanced Directive on File Patient History Narrative Pmhx: as above Shx: Denies: smoking, alcohol use, drug use Fhx: non contributory Review of Systems All Other Systems: negative except mentioned in HPI Physical Exam Physical Exam Narrative GENERAL: A pleasant white man, seen in his room with his at bedside. HEENT: Normocephalic and atraumatic. Sclerae anicteric. Oropharynx clear. NECK: Supple. CHEST: Clear to auscultation. CARDIOVASCULAR: Revealed regular rate. ABDOMEN: Soft and nontender. Good bowel sounds. There is no organomegaly or tenderness. EXTREMITIES: Revealed no edema. Last 24 Hour Vital Signs Date Time Temp Pulse Resp B/P (MAP) Pulse Ox O2 Delivery O2 Flow Rate FiO2 08/17/18 12:00 98.8 67 20 143/72 (95) 93 08/17/18 09:00 Room Air 08/17/18 08:00 98.9 64 18 109/49 (69) 95 08/17/18 07:57 72 21 Room Air 21 08/17/18 03:45 98.9 67 18 131/67 (88) 94 08/17/18 00:00 99.0 65 18 126/65 (85) 96 08/16/18 21:00 Room Air 08/16/18 20:30 72 18 Room Air 21 08/16/18 20:00 98.8 62 18 122/68 (86) 95 Intake and Output 08/16/18 08/17/18 19:00 07:00 Intake Total 800 ml 600 ml Balance 800 ml 600 ml Intake Oral 800 ml 600 ml # Voids 3 2 # Bowel Movements 1 Laboratory Tests Test 08/17/18 06:34 White Blood Count 11.9 K/UL (4.8-10.8) H Red Blood Count 4.43 M/UL (4.70-6.10) L Hemoglobin 13.4 G/DL (14.2-18.0) L Hematocrit 38.5 % (42.0-52.0) L Mean Corpuscular Volume 87 FL (80-99) Mean Corpuscular Hemoglobin 30.3 PG (27.0-31.0) Mean Corpuscular Hemoglobin Concent 34.8 G/DL (32.0-36.0) Red Cell Distribution Width 10.6 % (11.6-14.8) L Platelet Count 194 K/UL (150-450) Mean Platelet Volume 9.7 FL (6.5-10.1) Neutrophils (%) (Auto) 71.2 % (45.0-75.0) Lymphocytes (%) (Auto) 13.3 % (20.0-45.0) L Monocytes (%) (Auto) 13.3 % (1.0-10.0) H Eosinophils (%) (Auto) 1.5 % (0.0-3.0) Basophils (%) (Auto) 0.8 % (0.0-2.0) Sodium Level 136 MMOL/L (136-145) Potassium Level 3.7 MMOL/L (3.5-5.1) Chloride Level 102 MMOL/L (98-107) Carbon Dioxide Level 25 MMOL/L (21-32) Anion Gap 9 mmol/L (5-15) Blood Urea Nitrogen 9 mg/dL (7-18) Creatinine 0.9 MG/DL (0.55-1.30) Estimat Glomerular Filtration Rate > 60 mL/min (>60) Glucose Level 286 MG/DL (74-106) #H Calcium Level 8.5 MG/DL (8.5-10.1) Height (Feet): 5 Height (Inches): 10.00 Weight (Pounds): 200 Medications Current Medications Medications (Trade) Dose Ordered Sig/Rashel Route PRN Reason Start Time Stop Time Status Last Admin Dose Admin Acetaminophen (Tylenol) 650 mg Q4H PRN ORAL fever (temp>100.5F) 08/15/18 20:15 09/14/18 20:14 08/15/18 21:53 Al Hydroxide/Mg Hydroxide (Mylanta II) 30 ml Q6H PRN ORAL dyspepsia 08/15/18 20:15 09/14/18 20:14 Albuterol/ Ipratropium (Albuterol/ Ipratropium) 3 ml Q4H PRN HHN Shortness of Breath 08/15/18 20:15 08/20/18 20:14 Aspirin (Ecotrin) 81 mg DAILY ORAL 08/16/18 09:00 09/15/18 08:59 08/17/18 09:17 Atorvastatin Calcium (Lipitor) 20 mg BEDTIME ORAL 08/15/18 21:00 09/14/18 20:59 08/16/18 20:34 Clonidine HCl (Catapres Tab) 0.1 mg Q4H PRN ORAL sbp more than 160 08/15/18 20:15 09/14/18 20:14 Dextrose (Dextrose 50%) 25 ml Q30M PRN IV Hypoglycemia 08/16/18 07:30 09/15/18 07:29 Dextrose (Dextrose 50%) 50 ml Q30M PRN IV Hypoglycemia 08/16/18 07:30 09/15/18 07:29 Heparin Sodium (Porcine) (Heparin 5000 units/ml) 5,000 units EVERY 12 HOURS SUBQ 08/15/18 21:00 09/14/18 20:59 08/17/18 09:19 Insulin Aspart (NovoLOG) BEFORE MEALS AND HS SUBQ 08/15/18 22:00 09/14/18 21:59 08/17/18 12:28 Insulin Aspart (NovoLOG) 6 units NOVOTIAC SUBQ 08/16/18 11:50 09/15/18 11:49 08/17/18 12:29 Insulin Glargine (Lantus (NON FORUMULARY)) 24 unit Q24H SQ 08/17/18 13:00 09/16/18 12:59 08/17/18 13:33 Ketorolac Tromethamine (Toradol 30mg) 30 mg Q6H PRN IV moderate pain 4-6 08/15/18 20:15 08/20/18 20:14 Morphine Sulfate (Morphine Sulfate) 2 mg Q4H PRN IVP severe pain 7-10 08/15/18 20:15 08/22/18 20:14 08/17/18 06:48 Nitroglycerin (Ntg) 0.4 mg Q5M X 3 DOSES PRN SL Prn Chest Pain 08/15/18 20:15 09/14/18 20:14 Ondansetron HCl (Zofran) 4 mg Q6H PRN IVP Nausea & Vomiting 08/15/18 20:15 09/14/18 20:14 Piperacillin Sod/ Tazobactam Sod 3.375 gm/Dextrose 110 ml @ 27.5 mls/hr Q8HR IVPB 08/16/18 14:00 08/23/18 13:59 08/17/18 13:33 Polyethylene Glycol (Miralax) 17 gm HSPRN PRN ORAL Constipation 08/15/18 20:15 09/14/18 20:14 Pregabalin (Lyrica) 50 mg TWICE A DAY ORAL 08/16/18 09:00 09/15/18 08:59 08/17/18 09:18 Sodium Chloride 1,000 ml @ 100 mls/hr Q10H IVLG 08/15/18 21:30 09/14/18 21:29 08/17/18 03:25 Temazepam (Restoril) 15 mg HSPRN PRN ORAL Insomnia 08/15/18 20:15 08/22/18 20:14 Assessment/Plan Assessment/Plan Abx: Zosyn 08/16- Assessment: Sepsis- from GI source- likely bacterial gastroenteritis -Cdiff neg -stool cx p Fever, improving Leukocytosis, improving AXEL, improving DM2 HLD HTN CAD/OR asthma Plan: -On Zosyn #2 -I have spent a significant amount of time talking to the patient about his condition and listening to his history. Patient often will deviated to talk primarily about his diabetes and his care at other hospitals. When I suggested that I will do changes on the antibiotics to a less broad antibiotic (Ie Cipro and Flagyl) he got upset and requested that I no longer be involved in his care. I will respect his wishes. Thank you for this consultation. Will sign of now. Discussed with RN and Dr Silver.. Lavonne Hess M.D. Aug 17, 2018 16:21
[2018-08-17] MEDS: Albuterol/Ipratropium 3ml neb HHN PRN (18:55)
[2018-08-17 20:40] VITALS: BP 139/69
[2018-08-17] MEDS: Atorvastatin 20mg tab ORAL SCH (20:58)
--- NOTE | 2018-08-17 21:39 | Pulmonology Progress Note ---
Assessment/Plan Problems: (1) Gastroenteritis (2) Intractable vomiting (3) Hyperglycemia (4) Gastroparesis (5) Diabetes mellitus (6) ATN (acute tubular necrosis) Assessment/Plan improving iv fluids, NS iv abx check sputum increase insulin as needed. Subjective ROS Limited/Unobtainable: No Constitutional: Reports: no symptoms HEENT: Repors: no symptoms Respiratory: Reports: no symptoms Allergies: Coded Allergies: INSULIN DETEMIR (Unverified Allergy, Unknown, Sweating, 08/16/18) Objective Last 24 Hour Vital Signs Date Time Temp Pulse Resp B/P (MAP) Pulse Ox O2 Delivery O2 Flow Rate FiO2 08/17/18 20:40 98.4 84 17 139/69 (92) 98 08/17/18 19:04 78 16 99 Room Air 21 08/17/18 18:58 76 18 96 Room Air 21 08/17/18 18:57 76 18 Room Air 21 08/17/18 16:00 99.2 66 18 154/67 (96) 95 08/17/18 12:00 98.8 67 20 143/72 (95) 93 08/17/18 09:00 Room Air 08/17/18 08:00 98.9 64 18 109/49 (69) 95 08/17/18 07:57 72 21 Room Air 21 08/17/18 03:45 98.9 67 18 131/67 (88) 94 08/17/18 00:00 99.0 65 18 126/65 (85) 96 Intake and Output 08/16/18 08/17/18 19:00 07:00 Intake Total 800 ml 600 ml Balance 800 ml 600 ml Intake Oral 800 ml 600 ml # Voids 3 2 # Bowel Movements 1 General Appearance: WD/WN HEENT: normocephalic, anicteric Respiratory/Chest: chest wall non-tender, lungs clear Cardiovascular: normal peripheral pulses, normal rate Genitourinary: normal external genitalia Skin: no rash Microbiology Date/Time Source Procedure Growth Status 08/16/18 13:00 Sputum Gram Stain - Final Resulted 08/16/18 13:00 Sputum Sputum Culture - Preliminary Resulted 08/16/18 16:00 Stool Clostridium difficile Toxin Assay - Final Complete 08/16/18 16:00 Stool Stool Culture - Preliminary Resulted Laboratory Tests 08/17/18 06:34: White Blood Count 11.9H, Red Blood Count 4.43L, Hemoglobin 13.4L, Hematocrit 38.5L, Mean Corpuscular Volume 87, Mean Corpuscular Hemoglobin 30.3, Mean Corpuscular Hemoglobin Concent 34.8, Red Cell Distribution Width 10.6L, Platelet Count 194, Mean Platelet Volume 9.7, Neutrophils (%) (Auto) 71.2, Lymphocytes (%) (Auto) 13.3L, Monocytes (%) (Auto) 13.3H, Eosinophils (%) (Auto ) 1.5, Basophils (%) (Auto) 0.8, Sodium Level 136, Potassium Level 3.7, Chloride Level 102, Carbon Dioxide Level 25, Anion Gap 9, Blood Urea Nitrogen 9 , Creatinine 0.9, Estimat Glomerular Filtration Rate > 60, Glucose Level 286#H, Calcium Level 8.5 Current Medications Medications (Trade) Dose Ordered Sig/Rashel Route PRN Reason Start Time Stop Time Status Last Admin Dose Admin Acetaminophen (Tylenol) 650 mg Q4H PRN ORAL fever (temp>100.5F) 08/15/18 20:15 09/14/18 20:14 08/15/18 21:53 Al Hydroxide/Mg Hydroxide (Mylanta II) 30 ml Q6H PRN ORAL dyspepsia 08/15/18 20:15 09/14/18 20:14 Albuterol/ Ipratropium (Albuterol/ Ipratropium) 3 ml Q4H PRN HHN Shortness of Breath 08/15/18 20:15 08/20/18 20:14 08/17/18 18:55 Aspirin (Ecotrin) 81 mg DAILY ORAL 08/16/18 09:00 09/15/18 08:59 08/17/18 09:17 Atorvastatin Calcium (Lipitor) 20 mg BEDTIME ORAL 08/15/18 21:00 09/14/18 20:59 08/17/18 20:58 Clonidine HCl (Catapres Tab) 0.1 mg Q4H PRN ORAL sbp more than 160 08/15/18 20:15 09/14/18 20:14 Dextrose (Dextrose 50%) 25 ml Q30M PRN IV Hypoglycemia 08/16/18 07:30 09/15/18 07:29 Dextrose (Dextrose 50%) 50 ml Q30M PRN IV Hypoglycemia 08/16/18 07:30 09/15/18 07:29 Heparin Sodium (Porcine) (Heparin 5000 units/ml) 5,000 units EVERY 12 HOURS SUBQ 08/15/18 21:00 09/14/18 20:59 08/17/18 20:56 Insulin Aspart (NovoLOG) BEFORE MEALS AND HS SUBQ 08/15/18 22:00 09/14/18 21:59 08/17/18 21:07 Insulin Aspart (NovoLOG) 6 units NOVOTIAC SUBQ 08/16/18 11:50 09/15/18 11:49 08/17/18 17:29 Insulin Glargine (Lantus (NON FORUMULARY)) 24 unit Q24H SQ 08/17/18 13:00 09/16/18 12:59 08/17/18 13:33 Ketorolac Tromethamine (Toradol 30mg) 30 mg Q6H PRN IV moderate pain 4-6 08/15/18 20:15 08/20/18 20:14 Morphine Sulfate (Morphine Sulfate) 2 mg Q4H PRN IVP severe pain 7-10 08/15/18 20:15 08/22/18 20:14 08/17/18 06:48 Nitroglycerin (Ntg) 0.4 mg Q5M X 3 DOSES PRN SL Prn Chest Pain 08/15/18 20:15 09/14/18 20:14 Ondansetron HCl (Zofran) 4 mg Q6H PRN IVP Nausea & Vomiting 08/15/18 20:15 09/14/18 20:14 Piperacillin Sod/ Tazobactam Sod 3.375 gm/Dextrose 110 ml @ 27.5 mls/hr Q8HR IVPB 08/16/18 14:00 08/23/18 13:59 08/17/18 20:56 Polyethylene Glycol (Miralax) 17 gm HSPRN PRN ORAL Constipation 08/15/18 20:15 09/14/18 20:14 Pregabalin (Lyrica) 50 mg TWICE A DAY ORAL 08/16/18 09:00 09/15/18 08:59 08/17/18 18:05 Sodium Chloride 1,000 ml @ 100 mls/hr Q10H IVLG 08/15/18 21:30 09/14/18 21:29 1/14/19 20:57 Temazepam (Restoril) 15 mg HSPRN PRN ORAL Insomnia 08/15/18 20:15 08/22/18 20:14 Rohini Camargo MD Aug 17, 2018 21:39
[2018-08-18] MEDS: Piperacillin/Tazobactam 3.375 GM in D5W 110 ML IVPB SCH ×3 (06:10→21:45)
[2018-08-18] MEDS: NovoLOG Insulin Flexpen SUBQ SCH ×7 (06:16→21:55)
--- NOTE | 2018-08-18 06:32 | General Progress Note ---
Assessment/Plan Problem List: (1) Hyperglycemia ICD Codes: R73.9 - Hyperglycemia, unspecified SNOMED: 85717244 (2) Intractable vomiting ICD Codes: R11.10 - Vomiting, unspecified SNOMED: 458673290, 023027960 Qualifiers: Qualified Codes: R11.2 - Nausea with vomiting, unspecified (3) Renal insufficiency ICD Codes: N28.9 - Disorder of kidney and ureter, unspecified SNOMED: 830249198, 786294666 (4) Gastroenteritis ICD Codes: K52.9 - Noninfective gastroenteritis and colitis, unspecified SNOMED: 99754688 Assessment/Plan increase Lantus to 30 units daily increase Novolog to 8 units ac tid continue NISS ac / hs Subjective Allergies: Coded Allergies: INSULIN DETEMIR (Unverified Allergy, Unknown, Sweating, 08/16/18) All Systems: reviewed and negative except above Subjective events noted glucose values on higher side Objective Last 24 Hour Vital Signs Date Time Temp Pulse Resp B/P (MAP) Pulse Ox O2 Delivery O2 Flow Rate FiO2 08/17/18 21:00 Room Air 08/17/18 20:40 98.4 84 17 139/69 (92) 98 08/17/18 19:04 78 16 99 Room Air 21 08/17/18 18:58 76 18 96 Room Air 21 08/17/18 18:57 76 18 Room Air 21 08/17/18 16:00 99.2 66 18 154/67 (96) 95 08/17/18 12:00 98.8 67 20 143/72 (95) 93 08/17/18 09:00 Room Air 08/17/18 08:00 98.9 64 18 109/49 (69) 95 08/17/18 07:57 72 21 Room Air 21 Intake and Output 08/17/18 08/18/18 18:59 06:59 Intake Total 960 ml 360 ml Output Total 1000 ml Balance -40 ml 360 ml Intake Oral 960 ml 360 ml Output Urine Total 1000 ml # Voids 2 # Bowel Movements 1 Laboratory Tests 08/17/18 06:34: White Blood Count 11.9H, Red Blood Count 4.43L, Hemoglobin 13.4L, Hematocrit 38.5L, Mean Corpuscular Volume 87, Mean Corpuscular Hemoglobin 30.3, Mean Corpuscular Hemoglobin Concent 34.8, Red Cell Distribution Width 10.6L, Platelet Count 194, Mean Platelet Volume 9.7, Neutrophils (%) (Auto) 71.2, Lymphocytes (%) (Auto) 13.3L, Monocytes (%) (Auto) 13.3H, Eosinophils (%) (Auto ) 1.5, Basophils (%) (Auto) 0.8, Sodium Level 136, Potassium Level 3.7, Chloride Level 102, Carbon Dioxide Level 25, Anion Gap 9, Blood Urea Nitrogen 9 , Creatinine 0.9, Estimat Glomerular Filtration Rate > 60, Glucose Level 286#H, Calcium Level 8.5 Height (Feet): 5 Height (Inches): 10.00 Weight (Pounds): 200 General Appearance: no apparent distress Neck: normal alignment Cardiovascular: normal rate Respiratory/Chest: lungs clear Abdomen: normal bowel sounds Pelvis: normal external exam Objective Current Medications Medications (Trade) Dose Ordered Sig/Rashel Route PRN Reason Start Time Stop Time Status Last Admin Dose Admin Acetaminophen (Tylenol) 650 mg Q4H PRN ORAL fever (temp>100.5F) 08/15/18 20:15 09/14/18 20:14 08/15/18 21:53 Al Hydroxide/Mg Hydroxide (Mylanta II) 30 ml Q6H PRN ORAL dyspepsia 08/15/18 20:15 09/14/18 20:14 Albuterol/ Ipratropium (Albuterol/ Ipratropium) 3 ml Q4H PRN HHN Shortness of Breath 08/15/18 20:15 08/20/18 20:14 08/17/18 18:55 Aspirin (Ecotrin) 81 mg DAILY ORAL 08/16/18 09:00 09/15/18 08:59 08/17/18 09:17 Atorvastatin Calcium (Lipitor) 20 mg BEDTIME ORAL 08/15/18 21:00 09/14/18 20:59 08/17/18 20:58 Clonidine HCl (Catapres Tab) 0.1 mg Q4H PRN ORAL sbp more than 160 08/15/18 20:15 09/14/18 20:14 Dextrose (Dextrose 50%) 25 ml Q30M PRN IV Hypoglycemia 08/16/18 07:30 09/15/18 07:29 Dextrose (Dextrose 50%) 50 ml Q30M PRN IV Hypoglycemia 08/16/18 07:30 09/15/18 07:29 Heparin Sodium (Porcine) (Heparin 5000 units/ml) 5,000 units EVERY 12 HOURS SUBQ 08/15/18 21:00 09/14/18 20:59 08/17/18 20:56 Insulin Aspart (NovoLOG) BEFORE MEALS AND HS SUBQ 08/15/18 22:00 09/14/18 21:59 08/18/18 06:16 Insulin Aspart (NovoLOG) 6 units NOVOTIAC SUBQ 08/16/18 11:50 09/15/18 11:49 08/18/18 06:16 Insulin Glargine (Lantus (NON FORUMULARY)) 24 unit Q24H SQ 08/17/18 13:00 09/16/18 12:59 08/17/18 13:33 Ketorolac Tromethamine (Toradol 30mg) 30 mg Q6H PRN IV moderate pain 4-6 08/15/18 20:15 08/20/18 20:14 Morphine Sulfate (Morphine Sulfate) 2 mg Q4H PRN IVP severe pain 7-10 08/15/18 20:15 08/22/18 20:14 08/17/18 06:48 Nitroglycerin (Ntg) 0.4 mg Q5M X 3 DOSES PRN SL Prn Chest Pain 08/15/18 20:15 09/14/18 20:14 Ondansetron HCl (Zofran) 4 mg Q6H PRN IVP Nausea & Vomiting 08/15/18 20:15 09/14/18 20:14 Piperacillin Sod/ Tazobactam Sod 3.375 gm/Dextrose 110 ml @ 27.5 mls/hr Q8HR IVPB 08/16/18 14:00 08/23/18 13:59 08/18/18 06:10 Polyethylene Glycol (Miralax) 17 gm HSPRN PRN ORAL Constipation 08/15/18 20:15 09/14/18 20:14 Pregabalin (Lyrica) 50 mg TWICE A DAY ORAL 08/16/18 09:00 09/15/18 08:59 08/17/18 18:05 Sodium Chloride 1,000 ml @ 100 mls/hr Q10H IVLG 08/15/18 21:30 09/14/18 21:29 08/17/18 20:57 Temazepam (Restoril) 15 mg HSPRN PRN ORAL Insomnia 08/15/18 20:15 08/22/18 20:14 Item Value Date Time Bedside Blood Glucose 239 mg/dl H 08/18/18 0616 Bedside Blood Glucose 259 mg/dl H 08/17/18 2107 Bedside Blood Glucose 301 mg/dl H 08/17/18 1729 Bedside Blood Glucose 185 mg/dl H 08/17/18 1229 Bedside Blood Glucose 281 mg/dl H 08/17/18 0642 Mac Vegas MD Aug 18, 2018 06:32
[2018-08-18 07:11] LABS: BASOPHILS % (AUTO) 0.8 % (0.0-2.0); EOSINOPHILS % (AUTO) 1.8 % (0.0-3.0); HEMATOCRIT 36.7 % (42.0-52.0); HEMOGLOBIN 13.1 G/DL (14.2-18.0); LYMPHOCYTES % (AUTO) 17.6 % (20.0-45.0); MEAN CORPUSCULAR VOLUME 86 FL (80-99); MONOCYTES % (AUTO) 10.9 % (1.0-10.0); NEUTROPHILS % (AUTO) 68.9 % (45.0-75.0); PLATELET COUNT 208 K/UL (150-450); RED BLOOD COUNT 4.27 M/UL (4.70-6.10); RED CELL DISTRIBUTION WIDTH 10.5 % (11.6-14.8); WHITE BLOOD COUNT 11.4 K/UL (4.8-10.8)
[2018-08-18 07:19] LABS: ANION GAP 9 mmol/L (5-15); BLOOD UREA NITROGEN 6 mg/dL (7-18); CALCIUM 8.3 MG/DL (8.5-10.1); CARBON DIOXIDE 26 MMOL/L (21-32); CHLORIDE 104 MMOL/L (98-107); CREATININE 0.8 MG/DL (0.55-1.30); POTASSIUM 3.4 MMOL/L (3.5-5.1); SODIUM 139 MMOL/L (136-145)
[2018-08-18 08:00] VITALS: BP 126/62
[2018-08-18] MEDS: Albuterol/Ipratropium 3ml neb HHN PRN (08:54)
[2018-08-18] MEDS: Lyrica 50mg cap ORAL SCH ×2 (09:24→18:21)
[2018-08-18] MEDS: Aspirin EC 81mg tab ORAL SCH (09:25)
[2018-08-18] MEDS: Heparin 5000 units/ml inj SUBQ SCH ×2 (09:26→21:45)
[2018-08-18 12:00] VITALS: BP 164/71
--- NOTE | 2018-08-18 13:43 | General Progress Note ---
Assessment/Plan Problem List: (1) Gastroenteritis ICD Codes: K52.9 - Noninfective gastroenteritis and colitis, unspecified SNOMED: 85136102 (2) Renal insufficiency ICD Codes: N28.9 - Disorder of kidney and ureter, unspecified SNOMED: 907864100, 337035703 (3) Intractable vomiting ICD Codes: R11.10 - Vomiting, unspecified SNOMED: 511922891, 311343481 Qualifiers: Qualified Codes: R11.2 - Nausea with vomiting, unspecified (4) Hyperglycemia ICD Codes: R73.9 - Hyperglycemia, unspecified SNOMED: 04820000 (5) Gastroparesis ICD Codes: K31.84 - Gastroparesis SNOMED: 017618072 Status: unchanged Assessment/Plan ivf adv diet cbc bmp am Subjective Constitutional: Reports: weakness Gastrointestinal/Abdominal: Reports: nausea Allergies: Coded Allergies: INSULIN DETEMIR (Unverified Allergy, Unknown, Sweating, 08/16/18) All Systems: reviewed and negative except above Subjective sl nausea Objective Last 24 Hour Vital Signs Date Time Temp Pulse Resp B/P (MAP) Pulse Ox O2 Delivery O2 Flow Rate FiO2 08/18/18 12:00 98.8 85 20 164/71 (102) 97 08/18/18 09:02 61 16 97 Room Air 21 08/18/18 09:00 Room Air 08/18/18 08:52 63 18 97 Room Air 21 08/18/18 08:52 63 20 Room Air 21 08/18/18 08:00 98.2 76 20 126/62 (83) 95 08/17/18 21:00 Room Air 08/17/18 20:40 98.4 84 17 139/69 (92) 98 08/17/18 19:04 78 16 99 Room Air 21 08/17/18 18:58 76 18 96 Room Air 21 08/17/18 18:57 76 18 Room Air 21 08/17/18 16:00 99.2 66 18 154/67 (96) 95 Intake and Output 08/17/18 08/18/18 19:00 07:00 Intake Total 960 ml 360 ml Output Total 1000 ml Balance -40 ml 360 ml Intake Oral 960 ml 360 ml Output Urine Total 1000 ml # Voids 2 # Bowel Movements 1 Laboratory Tests 08/18/18 05:45: White Blood Count 11.4H, Red Blood Count 4.27L, Hemoglobin 13.1L, Hematocrit 36.7L, Mean Corpuscular Volume 86, Mean Corpuscular Hemoglobin 30.7, Mean Corpuscular Hemoglobin Concent 35.6, Red Cell Distribution Width 10.5L, Platelet Count 208, Mean Platelet Volume 8.7, Neutrophils (%) (Auto) 68.9, Lymphocytes (%) (Auto) 17.6L, Monocytes (%) (Auto) 10.9H, Eosinophils (%) (Auto ) 1.8, Basophils (%) (Auto) 0.8, Sodium Level 139, Potassium Level 3.4L, Chloride Level 104, Carbon Dioxide Level 26, Anion Gap 9, Blood Urea Nitrogen 6L , Creatinine 0.8, Estimat Glomerular Filtration Rate > 60, Glucose Level 231H, Calcium Level 8.3L Height (Feet): 5 Height (Inches): 10.00 Weight (Pounds): 200 General Appearance: lethargic EENT: normal ENT inspection Neck: normal alignment Cardiovascular: normal peripheral pulses, normal rate, regular rhythm Respiratory/Chest: chest wall non-tender, lungs clear, normal breath sounds Abdomen: normal bowel sounds, non tender, soft Extremities: normal inspection Edema: no edema noted Arm (L), no edema noted Arm (R), no edema noted Leg (L), no edema noted Leg (R), no edema noted Pedal (L), no edema noted Pedal (R), no edema noted Generalized Neurologic: responsive, motor weakness Skin: normal pigmentation, warm/dry Stuart Silver DO Aug 18, 2018 13:43
--- NOTE | 2018-08-18 13:47 | Pulmonology Progress Note ---
Assessment/Plan Problems: (1) Gastroenteritis (2) Intractable vomiting (3) Hyperglycemia (4) Gastroparesis (5) Diabetes mellitus (6) ATN (acute tubular necrosis) Assessment/Plan BS betterimproving iv fluids, NS iv abx check sputum increase insulin as needed.\ get cxr Subjective ROS Limited/Unobtainable: No Constitutional: Reports: no symptoms HEENT: Repors: no symptoms Allergies: Coded Allergies: INSULIN DETEMIR (Unverified Allergy, Unknown, Sweating, 08/16/18) Objective Last 24 Hour Vital Signs Date Time Temp Pulse Resp B/P (MAP) Pulse Ox O2 Delivery O2 Flow Rate FiO2 08/18/18 12:00 98.8 85 20 164/71 (102) 97 08/18/18 09:02 61 16 97 Room Air 21 08/18/18 09:00 Room Air 08/18/18 08:52 63 18 97 Room Air 21 08/18/18 08:52 63 20 Room Air 21 08/18/18 08:00 98.2 76 20 126/62 (83) 95 08/17/18 21:00 Room Air 08/17/18 20:40 98.4 84 17 139/69 (92) 98 08/17/18 19:04 78 16 99 Room Air 21 08/17/18 18:58 76 18 96 Room Air 21 08/17/18 18:57 76 18 Room Air 21 08/17/18 16:00 99.2 66 18 154/67 (96) 95 Intake and Output 08/17/18 08/18/18 19:00 07:00 Intake Total 960 ml 360 ml Output Total 1000 ml Balance -40 ml 360 ml Intake Oral 960 ml 360 ml Output Urine Total 1000 ml # Voids 2 # Bowel Movements 1 General Appearance: WD/WN HEENT: normocephalic, anicteric Respiratory/Chest: chest wall non-tender, lungs clear Cardiovascular: normal peripheral pulses, normal rate Abdomen: normal bowel sounds, soft, non tender Skin: no ulcers Neurologic/Psychiatric: no motor/sensory deficits, normal mood/affect Microbiology Date/Time Source Procedure Growth Status 08/16/18 13:00 Sputum Gram Stain - Final Resulted 08/16/18 13:00 Sputum Culture - Preliminary Staphylococcus Aureus Usual Respiratory Alba Resulted 08/16/18 16:00 Stool Clostridium difficile Toxin Assay - Final Complete 08/16/18 16:00 Stool Stool Culture - Preliminary NORMAL FECAL ALBA. Resulted Laboratory Tests 08/18/18 05:45: White Blood Count 11.4H, Red Blood Count 4.27L, Hemoglobin 13.1L, Hematocrit 36.7L, Mean Corpuscular Volume 86, Mean Corpuscular Hemoglobin 30.7, Mean Corpuscular Hemoglobin Concent 35.6, Red Cell Distribution Width 10.5L, Platelet Count 208, Mean Platelet Volume 8.7, Neutrophils (%) (Auto) 68.9, Lymphocytes (%) (Auto) 17.6L, Monocytes (%) (Auto) 10.9H, Eosinophils (%) (Auto ) 1.8, Basophils (%) (Auto) 0.8, Sodium Level 139, Potassium Level 3.4L, Chloride Level 104, Carbon Dioxide Level 26, Anion Gap 9, Blood Urea Nitrogen 6L , Creatinine 0.8, Estimat Glomerular Filtration Rate > 60, Glucose Level 231H, Calcium Level 8.3L Current Medications Medications (Trade) Dose Ordered Sig/Rashel Route PRN Reason Start Time Stop Time Status Last Admin Dose Admin Acetaminophen (Tylenol) 650 mg Q4H PRN ORAL fever (temp>100.5F) 08/15/18 20:15 09/14/18 20:14 08/15/18 21:53 Al Hydroxide/Mg Hydroxide (Mylanta II) 30 ml Q6H PRN ORAL dyspepsia 08/15/18 20:15 09/14/18 20:14 Albuterol/ Ipratropium (Albuterol/ Ipratropium) 3 ml Q4H PRN HHN Shortness of Breath 08/15/18 20:15 08/20/18 20:14 08/18/18 08:54 Aspirin (Ecotrin) 81 mg DAILY ORAL 08/16/18 09:00 09/15/18 08:59 08/18/18 09:25 Atorvastatin Calcium (Lipitor) 20 mg BEDTIME ORAL 08/15/18 21:00 09/14/18 20:59 08/17/18 20:58 Clonidine HCl (Catapres Tab) 0.1 mg Q4H PRN ORAL sbp more than 160 08/15/18 20:15 09/14/18 20:14 Dextrose (Dextrose 50%) 25 ml Q30M PRN IV Hypoglycemia 08/16/18 07:30 2/12/19 07:29 Dextrose (Dextrose 50%) 50 ml Q30M PRN IV Hypoglycemia 08/16/18 07:30 09/15/18 07:29 Heparin Sodium (Porcine) (Heparin 5000 units/ml) 5,000 units EVERY 12 HOURS SUBQ 08/15/18 21:00 09/14/18 20:59 08/18/18 09:26 Insulin Aspart (NovoLOG) BEFORE MEALS AND HS SUBQ 08/15/18 22:00 09/14/18 21:59 08/18/18 12:43 Insulin Aspart (NovoLOG) 8 units NOVOTIAC SUBQ 08/18/18 11:50 09/15/18 11:49 Insulin Glargine (Lantus (NON FORUMULARY)) 30 unit Q24H SQ 08/18/18 13:00 09/16/18 12:59 08/18/18 13:20 Ketorolac Tromethamine (Toradol 30mg) 30 mg Q6H PRN IV moderate pain 4-6 08/15/18 20:15 08/20/18 20:14 Piperacillin Sod/ Tazobactam Sod 3.375 gm/Dextrose 110 ml @ 27.5 mls/hr Q8HR IVPB 08/16/18 14:00 08/23/18 13:59 08/18/18 06:10 Potassium Chloride (K-Dur) 40 meq ONCE ORAL 08/18/18 12:45 08/18/18 14:00 08/18/18 13:21 Pregabalin (Lyrica) 50 mg TWICE A DAY ORAL 08/16/18 09:00 09/15/18 08:59 08/18/18 09:24 Sodium Chloride 1,000 ml @ 100 mls/hr Q10H IVLG 08/15/18 21:30 09/14/18 21:29 08/18/18 11:35 Temazepam (Restoril) 15 mg HSPRN PRN ORAL Insomnia 08/15/18 20:15 08/22/18 20:14 Rohini Camargo MD Aug 18, 2018 13:47
--- NOTE | 2018-08-18 13:49 | GI Progress Note ---
Assessment/Plan Problems: (1) Gastroparesis ICD Codes: K31.84 - Gastroparesis SNOMED: 072469182 (2) Hyperglycemia ICD Codes: R73.9 - Hyperglycemia, unspecified SNOMED: 04064124 (3) Intractable vomiting ICD Codes: R11.10 - Vomiting, unspecified SNOMED: 874571233, 584916668 Qualifiers: Qualified Codes: R11.2 - Nausea with vomiting, unspecified (4) Renal insufficiency ICD Codes: N28.9 - Disorder of kidney and ureter, unspecified SNOMED: 647012189, 788657151 (5) Gastroenteritis ICD Codes: K52.9 - Noninfective gastroenteritis and colitis, unspecified SNOMED: 83386564 Status: stable, progressing Status Narrative Discussed with Dr. Thomas Assessment/Plan Assessment - N/V, Diarrhea - Abd pain - IDDM - HTN -Gastroparesis OB stool negative Recommendations Symptomatic treatment at this time Advance to ADA diet hydration PPI Zofran as needed, Reglan for persistent vomiting Follow-up labs Outpatient EGD colonoscopy The patient was seen and examined at bedside and all new and available data was reviewed in the patients chart. I agree with the above findings, impression and plan. (Patient seen earlier today. Signature stamp does not reflect patient encounter time.). - Noé Thomas MD Subjective Subjective Denies any nausea or vomiting Denies any abdominal pain Able to tolerate small amounts of food Objective Last 24 Hour Vital Signs Date Time Temp Pulse Resp B/P (MAP) Pulse Ox O2 Delivery O2 Flow Rate FiO2 08/18/18 12:00 98.8 85 20 164/71 (102) 97 08/18/18 09:02 61 16 97 Room Air 21 08/18/18 09:00 Room Air 08/18/18 08:52 63 18 97 Room Air 21 08/18/18 08:52 63 20 Room Air 21 08/18/18 08:00 98.2 76 20 126/62 (83) 95 08/17/18 21:00 Room Air 08/17/18 20:40 98.4 84 17 139/69 (92) 98 08/17/18 19:04 78 16 99 Room Air 21 08/17/18 18:58 76 18 96 Room Air 21 08/17/18 18:57 76 18 Room Air 21 1/14/19 16:00 99.2 66 18 154/67 (96) 95 Intake and Output 08/17/18 08/18/18 19:00 07:00 Intake Total 960 ml 387.5 ml Output Total 1000 ml Balance -40 ml 387.5 ml Intake Oral 960 ml 360 ml IV Total 27.5 ml Output Urine Total 1000 ml # Voids 2 # Bowel Movements 1 Laboratory Tests Test 08/18/18 05:45 White Blood Count 11.4 K/UL (4.8-10.8) H Red Blood Count 4.27 M/UL (4.70-6.10) L Hemoglobin 13.1 G/DL (14.2-18.0) L Hematocrit 36.7 % (42.0-52.0) L Mean Corpuscular Volume 86 FL (80-99) Mean Corpuscular Hemoglobin 30.7 PG (27.0-31.0) Mean Corpuscular Hemoglobin Concent 35.6 G/DL (32.0-36.0) Red Cell Distribution Width 10.5 % (11.6-14.8) L Platelet Count 208 K/UL (150-450) Mean Platelet Volume 8.7 FL (6.5-10.1) Neutrophils (%) (Auto) 68.9 % (45.0-75.0) Lymphocytes (%) (Auto) 17.6 % (20.0-45.0) L Monocytes (%) (Auto) 10.9 % (1.0-10.0) H Eosinophils (%) (Auto) 1.8 % (0.0-3.0) Basophils (%) (Auto) 0.8 % (0.0-2.0) Sodium Level 139 MMOL/L (136-145) Potassium Level 3.4 MMOL/L (3.5-5.1) L Chloride Level 104 MMOL/L (98-107) Carbon Dioxide Level 26 MMOL/L (21-32) Anion Gap 9 mmol/L (5-15) Blood Urea Nitrogen 6 mg/dL (7-18) L Creatinine 0.8 MG/DL (0.55-1.30) Estimat Glomerular Filtration Rate > 60 mL/min (>60) Glucose Level 231 MG/DL (74-106) H Calcium Level 8.3 MG/DL (8.5-10.1) L Height (Feet): 5 Height (Inches): 10.00 Weight (Pounds): 200 General Appearance: WD/WN, no apparent distress, alert Cardiovascular: normal rate Respiratory/Chest: normal breath sounds, no respiratory distress Abdominal Exam: normal bowel sounds, non tender, soft Extremities: normal range of motion, non-tender Debby Vidal NP Aug 18, 2018 13:49
[2018-08-18 20:00] VITALS: BP 163/76
[2018-08-18] MEDS: Atorvastatin 20mg tab ORAL SCH (21:00)
[2018-08-18 22:00] VITALS: BP 151/67
[2018-08-19] VITALS: BP 152/80
[2018-08-19 04:00] VITALS: BP 145/90
[2018-08-19] MEDS: Piperacillin/Tazobactam 3.375 GM in D5W 110 ML IVPB SCH ×2 (06:22→13:20)
[2018-08-19] MEDS: NovoLOG Insulin Flexpen SUBQ SCH ×7 (06:32→22:09)
--- NOTE | 2018-08-19 06:49 | General Progress Note ---
Assessment/Plan Problem List: (1) Hyperglycemia ICD Codes: R73.9 - Hyperglycemia, unspecified SNOMED: 01820314 (2) Intractable vomiting ICD Codes: R11.10 - Vomiting, unspecified SNOMED: 293786129, 862879415 Qualifiers: Qualified Codes: R11.2 - Nausea with vomiting, unspecified (3) Renal insufficiency ICD Codes: N28.9 - Disorder of kidney and ureter, unspecified SNOMED: 149161403, 238996530 (4) Gastroenteritis ICD Codes: K52.9 - Noninfective gastroenteritis and colitis, unspecified SNOMED: 61914067 Assessment/Plan increase Lantus to 34 units daily continue Novolog 8 units ac tid continue NISS ac / hs Subjective Allergies: Coded Allergies: INSULIN DETEMIR (Unverified Allergy, Unknown, Sweating, 08/16/18) All Systems: reviewed and negative except above Subjective events noted glucose values on higher side but improving Objective Last 24 Hour Vital Signs Date Time Temp Pulse Resp B/P (MAP) Pulse Ox O2 Delivery O2 Flow Rate FiO2 08/19/18 04:00 98.1 80 18 145/90 (108) 96 08/19/18 00:00 99.5 75 19 152/80 (104) 95 08/18/18 22:00 98.8 66 19 151/67 (95) 96 08/18/18 21:00 Room Air 08/18/18 20:20 74 17 Room Air 21 08/18/18 20:00 99.7 74 19 163/76 (105) 97 08/18/18 12:00 98.8 85 20 164/71 (102) 97 08/18/18 09:02 61 16 97 Room Air 21 08/18/18 09:00 Room Air 08/18/18 08:52 63 18 97 Room Air 21 08/18/18 08:52 63 20 Room Air 21 08/18/18 08:00 98.2 76 20 126/62 (83) 95 Intake and Output 08/18/18 08/19/18 18:59 06:59 Intake Total 1412.5 ml 710.0 ml Output Total 1330 ml Balance 82.5 ml 710.0 ml Intake Oral 720 ml 200 ml IV Total 692.5 ml 510.0 ml Output Urine Total 1330 ml # Voids 1 Height (Feet): 5 Height (Inches): 10.00 Weight (Pounds): 200 General Appearance: no apparent distress Neck: normal alignment Cardiovascular: normal rate Respiratory/Chest: lungs clear Abdomen: normal bowel sounds Objective Current Medications Medications (Trade) Dose Ordered Sig/Rashel Route PRN Reason Start Time Stop Time Status Last Admin Dose Admin Acetaminophen (Tylenol) 650 mg Q4H PRN ORAL fever (temp>100.5F) 08/15/18 20:15 09/14/18 20:14 08/15/18 21:53 Al Hydroxide/Mg Hydroxide (Mylanta II) 30 ml Q6H PRN ORAL dyspepsia 08/15/18 20:15 09/14/18 20:14 Albuterol/ Ipratropium (Albuterol/ Ipratropium) 3 ml Q4H PRN HHN Shortness of Breath 08/15/18 20:15 08/20/18 20:14 08/18/18 08:54 Aspirin (Ecotrin) 81 mg DAILY ORAL 08/16/18 09:00 09/15/18 08:59 08/18/18 09:25 Atorvastatin Calcium (Lipitor) 20 mg BEDTIME ORAL 08/15/18 21:00 09/14/18 20:59 08/18/18 21:00 Clonidine HCl (Catapres Tab) 0.1 mg Q4H PRN ORAL sbp more than 160 08/15/18 20:15 09/14/18 20:14 Dextrose (Dextrose 50%) 25 ml Q30M PRN IV Hypoglycemia 08/16/18 07:30 09/15/18 07:29 Dextrose (Dextrose 50%) 50 ml Q30M PRN IV Hypoglycemia 08/16/18 07:30 09/15/18 07:29 Heparin Sodium (Porcine) (Heparin 5000 units/ml) 5,000 units EVERY 12 HOURS SUBQ 08/15/18 21:00 09/14/18 20:59 08/18/18 21:45 Insulin Aspart (NovoLOG) BEFORE MEALS AND HS SUBQ 08/15/18 22:00 09/14/18 21:59 08/19/18 06:32 Insulin Aspart (NovoLOG) 8 units NOVOTIAC SUBQ 08/18/18 11:50 09/15/18 11:49 08/19/18 06:34 Insulin Glargine (Lantus (NON FORUMULARY)) 30 unit Q24H SQ 08/18/18 13:00 09/16/18 12:59 08/18/18 13:20 Ketorolac Tromethamine (Toradol 30mg) 30 mg Q6H PRN IV moderate pain 4-6 08/15/18 20:15 08/20/18 20:14 Piperacillin Sod/ Tazobactam Sod 3.375 gm/Dextrose 110 ml @ 27.5 mls/hr Q8HR IVPB 08/16/18 14:00 08/23/18 13:59 08/19/18 06:22 Pregabalin (Lyrica) 50 mg TWICE A DAY ORAL 08/16/18 09:00 09/15/18 08:59 08/18/18 18:21 Sodium Chloride 1,000 ml @ 100 mls/hr Q10H IVLG 08/15/18 21:30 09/14/18 21:29 08/19/18 06:23 Temazepam (Restoril) 15 mg HSPRN PRN ORAL Insomnia 08/15/18 20:15 08/22/18 20:14 Item Value Date Time Bedside Blood Glucose 215 mg/dl H 08/19/18 0634 Bedside Blood Glucose 201 mg/dl H 08/18/18 2155 Bedside Blood Glucose 286 mg/dl H 08/18/18 1741 Bedside Blood Glucose 274 mg/dl H 08/18/18 1243 Bedside Blood Glucose 239 mg/dl H 08/18/18 0616 Mac Vegas MD Aug 19, 2018 06:49
[2018-08-19 08:00] VITALS: BP 132/68
[2018-08-19 08:07] LABS: EOSINOPHILS % (AUTO) 1.6 % (0.0-3.0); HEMATOCRIT 37.1 % (42.0-52.0); LYMPHOCYTES % (AUTO) 15.3 % (20.0-45.0); MEAN CORPUSCULAR VOLUME 86 FL (80-99); MONOCYTES % (AUTO) 10.8 % (1.0-10.0); NEUTROPHILS % (AUTO) 71.4 % (45.0-75.0); PLATELET COUNT 226 K/UL (150-450); RED BLOOD COUNT 4.31 M/UL (4.70-6.10); RED CELL DISTRIBUTION WIDTH 10.6 % (11.6-14.8); WHITE BLOOD COUNT 12.4 K/UL (4.8-10.8)
[2018-08-19] MEDS: Albuterol/Ipratropium 3ml neb HHN PRN ×2 (08:07→22:35)
[2018-08-19 08:33] LABS: ANION GAP 9 mmol/L (5-15); BLOOD UREA NITROGEN 6 mg/dL (7-18); CALCIUM 8.5 MG/DL (8.5-10.1); CARBON DIOXIDE 26 MMOL/L (21-32); CHLORIDE 102 MMOL/L (98-107); CREATININE 0.8 MG/DL (0.55-1.30); POTASSIUM 3.4 MMOL/L (3.5-5.1); SODIUM 137 MMOL/L (136-145)
[2018-08-19] MEDS: Aspirin EC 81mg tab ORAL SCH (10:01)
[2018-08-19] MEDS: Lyrica 50mg cap ORAL SCH ×2 (10:01→17:11)
[2018-08-19] MEDS: Heparin 5000 units/ml inj SUBQ SCH ×2 (10:02→21:57)
--- NOTE | 2018-08-19 11:41 | GI Progress Note ---
Assessment/Plan Problems: (1) Gastroparesis ICD Codes: K31.84 - Gastroparesis SNOMED: 505952867 (2) Hyperglycemia ICD Codes: R73.9 - Hyperglycemia, unspecified SNOMED: 35574607 (3) Intractable vomiting ICD Codes: R11.10 - Vomiting, unspecified SNOMED: 215868615, 084037800 Qualifiers: Qualified Codes: R11.2 - Nausea with vomiting, unspecified (4) Renal insufficiency ICD Codes: N28.9 - Disorder of kidney and ureter, unspecified SNOMED: 790867361, 975101168 (5) Gastroenteritis ICD Codes: K52.9 - Noninfective gastroenteritis and colitis, unspecified SNOMED: 38583805 Status: stable Status Narrative Discussed with Dr. Thomas Assessment/Plan Assessment - N/V, Diarrhea - Abd pain - IDDM - HTN -Gastroparesis OB stool negative Recommendations Symptomatic treatment at this time Advance to ADA diet hydration PPI Zofran as needed, Reglan for persistent vomiting Follow-up labs PT evaluation Outpatient EGD colonoscopy The patient was seen and examined at bedside and all new and available data was reviewed in the patients chart. I agree with the above findings, impression and plan. (Patient seen earlier today. Signature stamp does not reflect patient encounter time.). - Noé Thomas MD Subjective Subjective Denies any nausea or vomiting Denies any abdominal pain Able to tolerate small amounts of food Now complaining of hip pain Objective Last 24 Hour Vital Signs Date Time Temp Pulse Resp B/P (MAP) Pulse Ox O2 Delivery O2 Flow Rate FiO2 08/19/18 09:00 Room Air 08/19/18 08:13 67 16 99 Room Air 21 08/19/18 08:05 69 18 Room Air 21 08/19/18 08:05 69 18 96 Room Air 21 08/19/18 08:00 98.5 67 20 132/68 (89) 98 08/19/18 04:00 98.1 80 18 145/90 (108) 96 08/19/18 00:00 99.5 75 19 152/80 (104) 95 08/18/18 22:00 98.8 66 19 151/67 (95) 96 08/18/18 21:00 Room Air 08/18/18 20:20 74 17 Room Air 21 08/18/18 20:00 99.7 74 19 163/76 (105) 97 08/18/18 12:00 98.8 85 20 164/71 (102) 97 Intake and Output 08/18/18 08/19/18 19:00 07:00 Intake Total 1385.0 ml 710.0 ml Output Total 1330 ml Balance 55.0 ml 710.0 ml Intake Oral 720 ml 200 ml IV Total 665.0 ml 510.0 ml Output Urine Total 1330 ml # Voids 1 Laboratory Tests Test 08/19/18 06:50 White Blood Count 12.4 K/UL (4.8-10.8) H Red Blood Count 4.31 M/UL (4.70-6.10) L Hemoglobin 13.0 G/DL (14.2-18.0) L Hematocrit 37.1 % (42.0-52.0) L Mean Corpuscular Volume 86 FL (80-99) Mean Corpuscular Hemoglobin 30.3 PG (27.0-31.0) Mean Corpuscular Hemoglobin Concent 35.2 G/DL (32.0-36.0) Red Cell Distribution Width 10.6 % (11.6-14.8) L Platelet Count 226 K/UL (150-450) Mean Platelet Volume 8.1 FL (6.5-10.1) Neutrophils (%) (Auto) 71.4 % (45.0-75.0) Lymphocytes (%) (Auto) 15.3 % (20.0-45.0) L Monocytes (%) (Auto) 10.8 % (1.0-10.0) H Eosinophils (%) (Auto) 1.6 % (0.0-3.0) Basophils (%) (Auto) 1.0 % (0.0-2.0) Sodium Level 137 MMOL/L (136-145) Potassium Level 3.4 MMOL/L (3.5-5.1) L Chloride Level 102 MMOL/L (98-107) Carbon Dioxide Level 26 MMOL/L (21-32) Anion Gap 9 mmol/L (5-15) Blood Urea Nitrogen 6 mg/dL (7-18) L Creatinine 0.8 MG/DL (0.55-1.30) Estimat Glomerular Filtration Rate > 60 mL/min (>60) Glucose Level 252 MG/DL (74-106) H Calcium Level 8.5 MG/DL (8.5-10.1) Height (Feet): 5 Height (Inches): 10.00 Weight (Pounds): 200 General Appearance: WD/WN, no apparent distress, alert Cardiovascular: normal rate Respiratory/Chest: normal breath sounds, no respiratory distress Abdominal Exam: normal bowel sounds, non tender, soft Extremities: normal range of motion, non-tender Debby Vidal NP Aug 19, 2018 11:41
[2018-08-19 12:00] VITALS: BP 140/66
--- NOTE | 2018-08-19 14:31 | General Progress Note ---
Assessment/Plan Problem List: (1) Gastroenteritis ICD Codes: K52.9 - Noninfective gastroenteritis and colitis, unspecified SNOMED: 98043647 (2) Renal insufficiency ICD Codes: N28.9 - Disorder of kidney and ureter, unspecified SNOMED: 332860022, 919379633 (3) Intractable vomiting ICD Codes: R11.10 - Vomiting, unspecified SNOMED: 047984894, 700789299 Qualifiers: Qualified Codes: R11.2 - Nausea with vomiting, unspecified (4) Hyperglycemia ICD Codes: R73.9 - Hyperglycemia, unspecified SNOMED: 59204138 (5) Gastroparesis ICD Codes: K31.84 - Gastroparesis SNOMED: 886944286 Status: unchanged Assessment/Plan ivf adv diet cbc bmp am dc plan Subjective Constitutional: Reports: weakness Allergies: Coded Allergies: INSULIN DETEMIR (Unverified Allergy, Unknown, Sweating, 08/16/18) All Systems: reviewed and negative except above Subjective getting xray Objective Last 24 Hour Vital Signs Date Time Temp Pulse Resp B/P (MAP) Pulse Ox O2 Delivery O2 Flow Rate FiO2 08/19/18 09:00 Room Air 08/19/18 08:13 67 16 99 Room Air 21 08/19/18 08:05 69 18 Room Air 21 08/19/18 08:05 69 18 96 Room Air 21 08/19/18 08:00 98.5 67 20 132/68 (89) 98 08/19/18 04:00 98.1 80 18 145/90 (108) 96 08/19/18 00:00 99.5 75 19 152/80 (104) 95 08/18/18 22:00 98.8 66 19 151/67 (95) 96 08/18/18 21:00 Room Air 08/18/18 20:20 74 17 Room Air 21 08/18/18 20:00 99.7 74 19 163/76 (105) 97 Intake and Output 08/18/18 08/19/18 19:00 07:00 Intake Total 1385.0 ml 710.0 ml Output Total 1330 ml Balance 55.0 ml 710.0 ml Intake Oral 720 ml 200 ml IV Total 665.0 ml 510.0 ml Output Urine Total 1330 ml # Voids 1 Laboratory Tests 08/19/18 06:50: White Blood Count 12.4H, Red Blood Count 4.31L, Hemoglobin 13.0L, Hematocrit 37.1L, Mean Corpuscular Volume 86, Mean Corpuscular Hemoglobin 30.3, Mean Corpuscular Hemoglobin Concent 35.2, Red Cell Distribution Width 10.6L, Platelet Count 226, Mean Platelet Volume 8.1, Neutrophils (%) (Auto) 71.4, Lymphocytes (%) (Auto) 15.3L, Monocytes (%) (Auto) 10.8H, Eosinophils (%) (Auto ) 1.6, Basophils (%) (Auto) 1.0, Sodium Level 137, Potassium Level 3.4L, Chloride Level 102, Carbon Dioxide Level 26, Anion Gap 9, Blood Urea Nitrogen 6L , Creatinine 0.8, Estimat Glomerular Filtration Rate > 60, Glucose Level 252H, Calcium Level 8.5 Height (Feet): 5 Height (Inches): 10.00 Weight (Pounds): 200 General Appearance: lethargic EENT: normal ENT inspection Neck: normal alignment Cardiovascular: normal peripheral pulses, normal rate, regular rhythm Respiratory/Chest: chest wall non-tender, lungs clear, normal breath sounds, no respiratory distress Abdomen: normal bowel sounds, non tender, soft Extremities: normal inspection Edema: no edema noted Arm (L), no edema noted Arm (R), no edema noted Leg (L), no edema noted Leg (R), no edema noted Pedal (L), no edema noted Pedal (R), no edema noted Generalized Neurologic: motor weakness Skin: normal pigmentation, warm/dry Stuart Silver DO Aug 19, 2018 14:31
--- NOTE | 2018-08-19 15:48 | Pulmonology Progress Note ---
Assessment/Plan Problems: (1) Gastroenteritis (2) Intractable vomiting (3) Hyperglycemia (4) Gastroparesis (5) Diabetes mellitus (6) ATN (acute tubular necrosis) Assessment/Plan stiil coughing sputum Staph is almost pansensitive. iv fluids, NS iv abx check sputum increase insulin as needed.\ cxr shows RLL infiltrate Subjective ROS Limited/Unobtainable: No Allergies: Coded Allergies: INSULIN DETEMIR (Unverified Allergy, Unknown, Sweating, 08/16/18) Objective Last 24 Hour Vital Signs Date Time Temp Pulse Resp B/P (MAP) Pulse Ox O2 Delivery O2 Flow Rate FiO2 08/19/18 12:00 98.1 78 19 140/66 (90) 98 08/19/18 09:00 Room Air 08/19/18 08:13 67 16 99 Room Air 21 08/19/18 08:05 69 18 Room Air 21 08/19/18 08:05 69 18 96 Room Air 21 08/19/18 08:00 98.5 67 20 132/68 (89) 98 08/19/18 04:00 98.1 80 18 145/90 (108) 96 08/19/18 00:00 99.5 75 19 152/80 (104) 95 08/18/18 22:00 98.8 66 19 151/67 (95) 96 08/18/18 21:00 Room Air 08/18/18 20:20 74 17 Room Air 21 08/18/18 20:00 99.7 74 19 163/76 (105) 97 Intake and Output 08/18/18 08/19/18 19:00 07:00 Intake Total 1385.0 ml 710.0 ml Output Total 1330 ml Balance 55.0 ml 710.0 ml Intake Oral 720 ml 200 ml IV Total 665.0 ml 510.0 ml Output Urine Total 1330 ml # Voids 1 General Appearance: WD/WN HEENT: normocephalic, anicteric Respiratory/Chest: chest wall non-tender, lungs clear Cardiovascular: normal peripheral pulses, normal rate Genitourinary: normal external genitalia Microbiology Date/Time Source Procedure Growth Status 08/16/18 16:00 Stool Clostridium difficile Toxin Assay - Final Complete 08/16/18 16:00 Stool Stool Culture - Final NO SALMONELLA,SHIGELLA,OR CAMPYLOBACT... Complete Laboratory Tests 08/19/18 06:50: White Blood Count 12.4H, Red Blood Count 4.31L, Hemoglobin 13.0L, Hematocrit 37.1L, Mean Corpuscular Volume 86, Mean Corpuscular Hemoglobin 30.3, Mean Corpuscular Hemoglobin Concent 35.2, Red Cell Distribution Width 10.6L, Platelet Count 226, Mean Platelet Volume 8.1, Neutrophils (%) (Auto) 71.4, Lymphocytes (%) (Auto) 15.3L, Monocytes (%) (Auto) 10.8H, Eosinophils (%) (Auto ) 1.6, Basophils (%) (Auto) 1.0, Sodium Level 137, Potassium Level 3.4L, Chloride Level 102, Carbon Dioxide Level 26, Anion Gap 9, Blood Urea Nitrogen 6L , Creatinine 0.8, Estimat Glomerular Filtration Rate > 60, Glucose Level 252H, Calcium Level 8.5 Current Medications Medications (Trade) Dose Ordered Sig/Rashel Route PRN Reason Start Time Stop Time Status Last Admin Dose Admin Acetaminophen (Tylenol) 650 mg Q4H PRN ORAL fever (temp>100.5F) 08/15/18 20:15 09/14/18 20:14 08/15/18 21:53 Al Hydroxide/Mg Hydroxide (Mylanta II) 30 ml Q6H PRN ORAL dyspepsia 08/15/18 20:15 09/14/18 20:14 Albuterol/ Ipratropium (Albuterol/ Ipratropium) 3 ml Q4H PRN HHN Shortness of Breath 08/15/18 20:15 08/20/18 20:14 08/19/18 08:07 Aspirin (Ecotrin) 81 mg DAILY ORAL 08/16/18 09:00 09/15/18 08:59 08/19/18 10:01 Atorvastatin Calcium (Lipitor) 20 mg BEDTIME ORAL 08/15/18 21:00 09/14/18 20:59 08/18/18 21:00 Clonidine HCl (Catapres Tab) 0.1 mg Q4H PRN ORAL sbp more than 160 08/15/18 20:15 09/14/18 20:14 Dextrose (Dextrose 50%) 25 ml Q30M PRN IV Hypoglycemia 08/16/18 07:30 09/15/18 07:29 Dextrose (Dextrose 50%) 50 ml Q30M PRN IV Hypoglycemia 08/16/18 07:30 09/15/18 07:29 Heparin Sodium (Porcine) (Heparin 5000 units/ml) 5,000 units EVERY 12 HOURS SUBQ 08/15/18 21:00 09/14/18 20:59 08/19/18 10:02 Insulin Aspart (NovoLOG) BEFORE MEALS AND HS SUBQ 08/15/18 22:00 09/14/18 21:59 08/19/18 15:06 Insulin Aspart (NovoLOG) 8 units NOVOTIAC SUBQ 08/18/18 11:50 09/15/18 11:49 08/19/18 11:52 Insulin Glargine (Lantus (NON FORUMULARY)) 32 unit Q24H SQ 08/19/18 13:00 09/16/18 12:59 08/19/18 13:20 Ketorolac Tromethamine (Toradol 30mg) 30 mg Q6H PRN IV moderate pain 4-6 08/15/18 20:15 08/20/18 20:14 08/19/18 15:03 Pregabalin (Lyrica) 50 mg TWICE A DAY ORAL 08/16/18 09:00 09/15/18 08:59 08/19/18 10:01 Temazepam (Restoril) 15 mg HSPRN PRN ORAL Insomnia 08/15/18 20:15 08/22/18 20:14 Rohini Camargo MD Aug 19, 2018 15:48
[2018-08-19 16:00] VITALS: BP 146/79
[2018-08-19 20:00] VITALS: BP 139/61
[2018-08-19] MEDS: Bactrim-DS 1 tab ORAL SCH ×2 (21:00→21:51)
[2018-08-19] MEDS: Atorvastatin 20mg tab ORAL SCH (21:49)
[2018-08-20] VITALS: BP 153/71
[2018-08-20] MEDS: NovoLOG Insulin Flexpen SUBQ SCH ×7 (06:17→20:47)
[2018-08-20 07:21] LABS: HEMATOCRIT 35.7 % (42.0-52.0); HEMOGLOBIN 12.4 G/DL (14.2-18.0); LYMPHOCYTES % (AUTO) 16.4 % (20.0-45.0); MEAN CORPUSCULAR VOLUME 87 FL (80-99); MONOCYTES % (AUTO) 13.3 % (1.0-10.0); NEUTROPHILS % (AUTO) 67.4 % (45.0-75.0); PLATELET COUNT 253 K/UL (150-450); RED BLOOD COUNT 4.12 M/UL (4.70-6.10); RED CELL DISTRIBUTION WIDTH 10.8 % (11.6-14.8); WHITE BLOOD COUNT 10.4 K/UL (4.8-10.8)
[2018-08-20 07:47] LABS: ALANINE AMINOTRANSFERASE 30 U/L (12-78); ALBUMIN 2.4 G/DL (3.4-5.0); ALBUMIN/GLOBULIN RATIO 0.6 (1.0-2.7); ALKALINE PHOSPHATASE 81 U/L (46-116); ANION GAP 9 mmol/L (5-15); ASPARTATE AMINO TRANSFERASE 29 U/L (15-37); BILIRUBIN,TOTAL 0.5 MG/DL (0.2-1.0); BLOOD UREA NITROGEN 6 mg/dL (7-18); CALCIUM 8.7 MG/DL (8.5-10.1); CARBON DIOXIDE 27 MMOL/L (21-32); CHLORIDE 102 MMOL/L (98-107); CREATININE 0.9 MG/DL (0.55-1.30); POTASSIUM 3.6 MMOL/L (3.5-5.1); SODIUM 138 MMOL/L (136-145)
[2018-08-20 07:48] LABS: PHOSPHORUS 3.2 MG/DL (2.5-4.9)
[2018-08-20 08:00] VITALS: BP 145/80
[2018-08-20] MEDS: Aspirin EC 81mg tab ORAL SCH (09:04)
[2018-08-20] MEDS: Levofloxacin 500mg tab ORAL SCH (09:04)
[2018-08-20] MEDS: Lyrica 50mg cap ORAL SCH ×2 (09:04→17:22)
[2018-08-20] MEDS: Heparin 5000 units/ml inj SUBQ SCH ×2 (09:05→20:48)
[2018-08-20 12:00] VITALS: BP 144/79
[2018-08-20] MEDS: Tylenol #3 tab (300mg/30mg) ORAL PRN ×2 (12:14→18:00)
[2018-08-20] MEDS: Benazepril 10mg tab ORAL SCH (12:15)
--- NOTE | 2018-08-20 13:16 | GI Progress Note ---
Assessment/Plan Problems: (1) Gastroparesis ICD Codes: K31.84 - Gastroparesis SNOMED: 998634448 (2) Hyperglycemia ICD Codes: R73.9 - Hyperglycemia, unspecified SNOMED: 90738290 (3) Intractable vomiting ICD Codes: R11.10 - Vomiting, unspecified SNOMED: 383431879, 733705176 Qualifiers: Qualified Codes: R11.2 - Nausea with vomiting, unspecified (4) Renal insufficiency ICD Codes: N28.9 - Disorder of kidney and ureter, unspecified SNOMED: 915903832, 333065065 (5) Gastroenteritis ICD Codes: K52.9 - Noninfective gastroenteritis and colitis, unspecified SNOMED: 46990875 Status: stable, unchanged Status Narrative Discussed with Dr. Thomas Assessment/Plan Assessment - N/V, Diarrhea - Abd pain - IDDM - HTN -Gastroparesis OB stool negative Recommendations Symptomatic treatment at this time Advance to ADA diet hydration PPI Zofran as needed, Reglan for persistent vomiting Follow-up labs PT evaluation Outpatient EGD colonoscopy The patient was seen and examined at bedside and all new and available data was reviewed in the patients chart. I agree with the above findings, impression and plan. (Patient seen earlier today. Signature stamp does not reflect patient encounter time.). - Noé Thomas MD Subjective Subjective Denies any nausea or vomiting Denies any abdominal pain Able to tolerate small amounts of food Now complaining of hip pain Objective Last 24 Hour Vital Signs Date Time Temp Pulse Resp B/P (MAP) Pulse Ox O2 Delivery O2 Flow Rate FiO2 08/20/18 12:15 144/79 08/20/18 12:00 98.4 79 20 144/79 (100) 96 08/20/18 09:00 Room Air 08/20/18 08:01 84 16 Room Air 21 08/20/18 08:00 97.9 74 20 145/80 (101) 98 08/20/18 00:00 98.6 73 19 153/71 (98) 95 08/19/18 22:44 62 20 98 Room Air 21 08/19/18 22:34 67 20 96 Room Air 21 08/19/18 22:33 67 20 Room Air 21 08/19/18 21:00 Room Air 08/19/18 20:00 98.6 68 18 139/61 (87) 97 08/19/18 16:00 98.1 72 19 146/79 (101) 99 Intake and Output 08/19/18 08/20/18 18:59 06:59 Intake Total 400 ml 360 ml Output Total 500 ml 775 ml Balance -100 ml -415 ml Intake Oral 400 ml 360 ml Output Urine Total 500 ml 775 ml # Voids 3 Laboratory Tests Test 08/20/18 05:47 White Blood Count 10.4 K/UL (4.8-10.8) Red Blood Count 4.12 M/UL (4.70-6.10) L Hemoglobin 12.4 G/DL (14.2-18.0) L Hematocrit 35.7 % (42.0-52.0) L Mean Corpuscular Volume 87 FL (80-99) Mean Corpuscular Hemoglobin 30.2 PG (27.0-31.0) Mean Corpuscular Hemoglobin Concent 34.9 G/DL (32.0-36.0) Red Cell Distribution Width 10.8 % (11.6-14.8) L Platelet Count 253 K/UL (150-450) Mean Platelet Volume 8.9 FL (6.5-10.1) Neutrophils (%) (Auto) 67.4 % (45.0-75.0) Lymphocytes (%) (Auto) 16.4 % (20.0-45.0) L Monocytes (%) (Auto) 13.3 % (1.0-10.0) H Eosinophils (%) (Auto) 2.0 % (0.0-3.0) Basophils (%) (Auto) 1.0 % (0.0-2.0) Erythrocyte Sedimentation Rate 93 MM/HR (0-20) H Sodium Level 138 MMOL/L (136-145) Potassium Level 3.6 MMOL/L (3.5-5.1) Chloride Level 102 MMOL/L (98-107) Carbon Dioxide Level 27 MMOL/L (21-32) Anion Gap 9 mmol/L (5-15) Blood Urea Nitrogen 6 mg/dL (7-18) L Creatinine 0.9 MG/DL (0.55-1.30) Estimat Glomerular Filtration Rate > 60 mL/min (>60) Glucose Level 240 MG/DL (74-106) H Calcium Level 8.7 MG/DL (8.5-10.1) Phosphorus Level 3.2 MG/DL (2.5-4.9) Magnesium Level 1.6 MG/DL (1.8-2.4) L Total Bilirubin 0.5 MG/DL (0.2-1.0) Aspartate Amino Transf (AST/SGOT) 29 U/L (15-37) Alanine Aminotransferase (ALT/SGPT) 30 U/L (12-78) Alkaline Phosphatase 81 U/L (46-116) C-Reactive Protein, Quantitative 11.4 mg/dL (0.00-0.90) H Total Protein 6.3 G/DL (6.4-8.2) L Albumin 2.4 G/DL (3.4-5.0) L Globulin 3.9 g/dL Albumin/Globulin Ratio 0.6 (1.0-2.7) L Height (Feet): 5 Height (Inches): 10.00 Weight (Pounds): 200 General Appearance: WD/WN, no apparent distress, alert Cardiovascular: normal rate Respiratory/Chest: normal breath sounds, no respiratory distress Abdominal Exam: normal bowel sounds, non tender, soft Extremities: normal range of motion, non-tender Debby Vidal NP Aug 20, 2018 13:16
[2018-08-20] MEDS ORDERED: LEVOFLOXACIN500 MG ORAL (14:05)
--- NOTE | 2018-08-20 14:07 | Pulmonology Progress Note ---
Assessment/Plan Problems: (1) Gastroenteritis (2) Intractable vomiting (3) Hyperglycemia (4) Gastroparesis (5) Diabetes mellitus (6) ATN (acute tubular necrosis) Assessment/Plan less coughing iv abx check sputum increase insulin as needed.\ cxr shows RLL infiltrate pt wants to go home tomorrow Subjective ROS Limited/Unobtainable: No Constitutional: Reports: no symptoms HEENT: Repors: no symptoms Respiratory: Reports: no symptoms Allergies: Coded Allergies: INSULIN DETEMIR (Unverified Allergy, Unknown, Sweating, 08/16/18) Objective Last 24 Hour Vital Signs Date Time Temp Pulse Resp B/P (MAP) Pulse Ox O2 Delivery O2 Flow Rate FiO2 08/20/18 12:15 144/79 08/20/18 12:00 98.4 79 20 144/79 (100) 96 08/20/18 09:00 Room Air 08/20/18 08:01 84 16 Room Air 21 08/20/18 08:00 97.9 74 20 145/80 (101) 98 08/20/18 00:00 98.6 73 19 153/71 (98) 95 08/19/18 22:44 62 20 98 Room Air 21 08/19/18 22:34 67 20 96 Room Air 21 08/19/18 22:33 67 20 Room Air 21 08/19/18 21:00 Room Air 08/19/18 20:00 98.6 68 18 139/61 (87) 97 08/19/18 16:00 98.1 72 19 146/79 (101) 99 Intake and Output 08/19/18 08/20/18 19:00 07:00 Intake Total 400 ml 360 ml Output Total 500 ml 775 ml Balance -100 ml -415 ml Intake Oral 400 ml 360 ml Output Urine Total 500 ml 775 ml # Voids 3 General Appearance: WD/WN HEENT: normocephalic Respiratory/Chest: chest wall non-tender, lungs clear Cardiovascular: normal peripheral pulses, normal rate Abdomen: soft, non tender Skin: no rash Laboratory Tests 08/20/18 05:47: White Blood Count 10.4, Red Blood Count 4.12L, Hemoglobin 12.4L, Hematocrit 35.7L, Mean Corpuscular Volume 87, Mean Corpuscular Hemoglobin 30.2, Mean Corpuscular Hemoglobin Concent 34.9, Red Cell Distribution Width 10.8L, Platelet Count 253, Mean Platelet Volume 8.9, Neutrophils (%) (Auto) 67.4, Lymphocytes (%) (Auto) 16.4L, Monocytes (%) (Auto) 13.3H, Eosinophils (%) (Auto ) 2.0, Basophils (%) (Auto) 1.0, Erythrocyte Sedimentation Rate 93H, Sodium Level 138, Potassium Level 3.6, Chloride Level 102, Carbon Dioxide Level 27, Anion Gap 9, Blood Urea Nitrogen 6L, Creatinine 0.9, Estimat Glomerular Filtration Rate > 60, Glucose Level 240H, Calcium Level 8.7, Phosphorus Level 3.2, Magnesium Level 1.6L, Total Bilirubin 0.5, Aspartate Amino Transf (AST/SGOT ) 29, Alanine Aminotransferase (ALT/SGPT) 30, Alkaline Phosphatase 81, C- Reactive Protein, Quantitative 11.4H, Total Protein 6.3L, Albumin 2.4L, Globulin 3.9, Albumin/Globulin Ratio 0.6L Current Medications Medications (Trade) Dose Ordered Sig/Rashel Route PRN Reason Start Time Stop Time Status Last Admin Dose Admin Acetaminophen (Tylenol) 650 mg Q4H PRN ORAL fever (temp>100.5F) 08/15/18 20:15 09/14/18 20:14 08/15/18 21:53 Acetaminophen/ Codeine Phosphate (Tylenol #3) 1 tab Q4H PRN ORAL SEVERE PAIN 08/20/18 12:00 08/27/18 11:59 08/20/18 12:14 Al Hydroxide/Mg Hydroxide (Mylanta II) 30 ml Q6H PRN ORAL dyspepsia 08/15/18 20:15 09/14/18 20:14 Albuterol/ Ipratropium (Albuterol/ Ipratropium) 3 ml Q4H PRN HHN Shortness of Breath 08/15/18 20:15 08/20/18 20:14 08/19/18 22:35 Aspirin (Ecotrin) 81 mg DAILY ORAL 08/16/18 09:00 09/15/18 08:59 08/20/18 09:04 Atorvastatin Calcium (Lipitor) 20 mg BEDTIME ORAL 08/15/18 21:00 09/14/18 20:59 08/19/18 21:49 Benazepril HCl (Lotensin) 20 mg DAILY ORAL 08/20/18 12:01 09/19/18 12:00 08/20/18 12:15 Clonidine HCl (Catapres Tab) 0.1 mg Q4H PRN ORAL sbp more than 160 08/15/18 20:15 09/14/18 20:14 Dextrose (Dextrose 50%) 25 ml Q30M PRN IV Hypoglycemia 08/16/18 07:30 09/15/18 07:29 Dextrose (Dextrose 50%) 50 ml Q30M PRN IV Hypoglycemia 08/16/18 07:30 09/15/18 07:29 Heparin Sodium (Porcine) (Heparin 5000 units/ml) 5,000 units EVERY 12 HOURS SUBQ 08/15/18 21:00 09/14/18 20:59 08/20/18 09:05 Ibuprofen (Advil) 600 mg Q8H PRN ORAL mild pain 08/20/18 12:00 09/19/18 11:59 Insulin Aspart (NovoLOG) BEFORE MEALS AND HS SUBQ 08/15/18 22:00 09/14/18 21:59 08/20/18 12:19 Insulin Aspart (NovoLOG) 8 units NOVOTIAC SUBQ 08/18/18 11:50 09/15/18 11:49 08/20/18 12:18 Insulin Glargine (Lantus (NON FORUMULARY)) 32 unit Q24H SQ 08/19/18 13:00 09/16/18 12:59 08/20/18 13:01 Ketorolac Tromethamine (Toradol 30mg) 30 mg Q6H PRN IV moderate pain 4-6 08/15/18 20:15 08/20/18 20:14 08/19/18 15:03 Levofloxacin (Levaquin) 500 mg DAILY ORAL 08/20/18 09:00 08/27/18 08:59 08/20/18 09:04 Pregabalin (Lyrica) 50 mg TWICE A DAY ORAL 08/16/18 09:00 09/15/18 08:59 08/20/18 09:04 Temazepam (Restoril) 15 mg HSPRN PRN ORAL Insomnia 08/15/18 20:15 08/22/18 20:14 Rohini Camargo MD Aug 20, 2018 14:07
--- NOTE | 2018-08-20 14:16 | Diagnostic Imaging Report ---
Indications: hip pain Findings: 2 views of both hips were obtained. No fracture or malalignment identified on the examination. Soft tissues are unremarkable. No evidence of AVN. Other osseous structures are unremarkable. IMPRESSION: Negative evaluation
--- NOTE | 2018-08-20 14:16 | Diagnostic Imaging Report ---
Indication: Cough Comparison: 11/01/2009 A single view chest radiograph was obtained. Findings: Ill-defined infiltrate noted within the right midlung consistent with pneumonia. Correlate clinically. Lung volumes are low bilaterally. Heart size is normal. Bones are unremarkable. IMPRESSION: Right perihilar pneumonia. Correlate clinically.
--- NOTE | 2018-08-20 14:19 | General Progress Note ---
Assessment/Plan Problem List: (1) Gastroenteritis ICD Codes: K52.9 - Noninfective gastroenteritis and colitis, unspecified SNOMED: 15680015 (2) Renal insufficiency ICD Codes: N28.9 - Disorder of kidney and ureter, unspecified SNOMED: 924673915, 544001970 (3) Intractable vomiting ICD Codes: R11.10 - Vomiting, unspecified SNOMED: 680820707, 934762208 Qualifiers: Qualified Codes: R11.2 - Nausea with vomiting, unspecified (4) Hyperglycemia ICD Codes: R73.9 - Hyperglycemia, unspecified SNOMED: 63563176 (5) Gastroparesis ICD Codes: K31.84 - Gastroparesis SNOMED: 155834869 Status: stable, progressing Assessment/Plan ivf adv diet cbc bmp am dc if clear Subjective Constitutional: Reports: weakness Allergies: Coded Allergies: INSULIN DETEMIR (Unverified Allergy, Unknown, Sweating, 08/16/18) All Systems: reviewed and negative except above Subjective calm in bed Objective Last 24 Hour Vital Signs Date Time Temp Pulse Resp B/P (MAP) Pulse Ox O2 Delivery O2 Flow Rate FiO2 08/20/18 12:15 144/79 08/20/18 12:00 98.4 79 20 144/79 (100) 96 08/20/18 09:00 Room Air 08/20/18 08:01 84 16 Room Air 21 08/20/18 08:00 97.9 74 20 145/80 (101) 98 08/20/18 00:00 98.6 73 19 153/71 (98) 95 08/19/18 22:44 62 20 98 Room Air 21 08/19/18 22:34 67 20 96 Room Air 21 08/19/18 22:33 67 20 Room Air 21 08/19/18 21:00 Room Air 08/19/18 20:00 98.6 68 18 139/61 (87) 97 08/19/18 16:00 98.1 72 19 146/79 (101) 99 Intake and Output 08/19/18 08/20/18 19:00 07:00 Intake Total 400 ml 360 ml Output Total 500 ml 775 ml Balance -100 ml -415 ml Intake Oral 400 ml 360 ml Output Urine Total 500 ml 775 ml # Voids 3 Laboratory Tests 08/20/18 05:47: White Blood Count 10.4, Red Blood Count 4.12L, Hemoglobin 12.4L, Hematocrit 35.7L, Mean Corpuscular Volume 87, Mean Corpuscular Hemoglobin 30.2, Mean Corpuscular Hemoglobin Concent 34.9, Red Cell Distribution Width 10.8L, Platelet Count 253, Mean Platelet Volume 8.9, Neutrophils (%) (Auto) 67.4, Lymphocytes (%) (Auto) 16.4L, Monocytes (%) (Auto) 13.3H, Eosinophils (%) (Auto ) 2.0, Basophils (%) (Auto) 1.0, Erythrocyte Sedimentation Rate 93H, Sodium Level 138, Potassium Level 3.6, Chloride Level 102, Carbon Dioxide Level 27, Anion Gap 9, Blood Urea Nitrogen 6L, Creatinine 0.9, Estimat Glomerular Filtration Rate > 60, Glucose Level 240H, Calcium Level 8.7, Phosphorus Level 3.2, Magnesium Level 1.6L, Total Bilirubin 0.5, Aspartate Amino Transf (AST/SGOT ) 29, Alanine Aminotransferase (ALT/SGPT) 30, Alkaline Phosphatase 81, C- Reactive Protein, Quantitative 11.4H, Total Protein 6.3L, Albumin 2.4L, Globulin 3.9, Albumin/Globulin Ratio 0.6L Height (Feet): 5 Height (Inches): 10.00 Weight (Pounds): 200 General Appearance: alert EENT: normal ENT inspection Neck: normal alignment Cardiovascular: normal peripheral pulses, normal rate, regular rhythm Respiratory/Chest: chest wall non-tender, lungs clear, normal breath sounds Abdomen: normal bowel sounds, non tender, soft Extremities: normal inspection Edema: no edema noted Arm (L), no edema noted Arm (R), no edema noted Leg (L), no edema noted Leg (R), no edema noted Pedal (L), no edema noted Pedal (R), no edema noted Generalized Neurologic: responsive, motor weakness Skin: normal pigmentation, warm/dry Stuart Silver DO Aug 20, 2018 14:19
[2018-08-20] MEDS: Albuterol/Ipratropium 3ml neb HHN PRN (15:41)
[2018-08-20 16:00] VITALS: BP 137/60
[2018-08-20 20:00] VITALS: BP 133/71
[2018-08-20] MEDS: Atorvastatin 20mg tab ORAL SCH (20:44)
[2018-08-21] VITALS: BP 142/68
[2018-08-21 04:00] VITALS: BP 143/69
[2018-08-21] MEDS: NovoLOG Insulin Flexpen SUBQ SCH ×7 (06:23→21:40)
[2018-08-21 07:32] LABS: BASOPHILS % (AUTO) 1.3 % (0.0-2.0); EOSINOPHILS % (AUTO) 2.9 % (0.0-3.0); HEMATOCRIT 38.5 % (42.0-52.0); HEMOGLOBIN 13.4 G/DL (14.2-18.0); LYMPHOCYTES % (AUTO) 26.6 % (20.0-45.0); MEAN CORPUSCULAR VOLUME 87 FL (80-99); MONOCYTES % (AUTO) 10.5 % (1.0-10.0); NEUTROPHILS % (AUTO) 58.7 % (45.0-75.0); PLATELET COUNT 319 K/UL (150-450); RED BLOOD COUNT 4.43 M/UL (4.70-6.10); RED CELL DISTRIBUTION WIDTH 11.1 % (11.6-14.8); WHITE BLOOD COUNT 9.7 K/UL (4.8-10.8)
--- NOTE | 2018-08-21 07:44 | General Progress Note ---
Assessment/Plan Problem List: (1) Gastroenteritis ICD Codes: K52.9 - Noninfective gastroenteritis and colitis, unspecified SNOMED: 27653513 (2) Renal insufficiency ICD Codes: N28.9 - Disorder of kidney and ureter, unspecified SNOMED: 230592728, 909643507 (3) Intractable vomiting ICD Codes: R11.10 - Vomiting, unspecified SNOMED: 666972239, 894716133 Qualifiers: Qualified Codes: R11.2 - Nausea with vomiting, unspecified (4) Hyperglycemia ICD Codes: R73.9 - Hyperglycemia, unspecified SNOMED: 15315118 (5) Gastroparesis ICD Codes: K31.84 - Gastroparesis SNOMED: 679321137 Status: stable, progressing Assessment/Plan ivf adv diet cbc bmp am dc if clear Subjective Constitutional: Reports: weakness Allergies: Coded Allergies: INSULIN DETEMIR (Unverified Allergy, Unknown, Sweating, 08/16/18) All Systems: reviewed and negative except above Subjective eating calm in bed Objective Last 24 Hour Vital Signs Date Time Temp Pulse Resp B/P (MAP) Pulse Ox O2 Delivery O2 Flow Rate FiO2 08/21/18 04:00 98.2 72 18 143/69 (93) 94 08/21/18 00:00 97.6 73 18 142/68 (92) 99 08/20/18 21:10 73 16 Room Air 21 08/20/18 21:00 Room Air 08/20/18 20:00 98.0 78 18 133/71 (91) 95 08/20/18 16:00 98.7 68 20 137/60 (85) 96 08/20/18 15:54 68 20 97 Room Air 21 08/20/18 15:41 68 16 94 Room Air 21 08/20/18 12:15 144/79 08/20/18 12:00 98.4 79 20 144/79 (100) 96 08/20/18 09:00 Room Air 08/20/18 08:01 84 16 Room Air 21 08/20/18 08:00 97.9 74 20 145/80 (101) 98 Intake and Output 08/20/18 08/21/18 19:00 07:00 Intake Total 1400 ml Output Total 600 ml Balance 800 ml Intake Oral 1400 ml Output Urine Total 600 ml # Voids 3 Laboratory Tests 08/21/18 06:33: White Blood Count 9.7, Red Blood Count 4.43L, Hemoglobin 13.4L, Hematocrit 38.5L , Mean Corpuscular Volume 87, Mean Corpuscular Hemoglobin 30.2, Mean Corpuscular Hemoglobin Concent 34.7, Red Cell Distribution Width 11.1L, Platelet Count 319, Mean Platelet Volume 8.1, Neutrophils (%) (Auto) 58.7, Lymphocytes (%) (Auto) 26.6, Monocytes (%) (Auto) 10.5H, Eosinophils (%) (Auto) 2.9, Basophils (%) (Auto) 1.3, Sodium Level [Pending], Potassium Level [Pending] , Chloride Level [Pending], Carbon Dioxide Level [Pending], Blood Urea Nitrogen [Pending], Creatinine [Pending], Estimat Glomerular Filtration Rate [Pending], Glucose Level [Pending], Calcium Level [Pending] Height (Feet): 5 Height (Inches): 10.00 Weight (Pounds): 200 General Appearance: lethargic EENT: normal ENT inspection Neck: normal alignment Cardiovascular: normal peripheral pulses, normal rate, regular rhythm Respiratory/Chest: chest wall non-tender, lungs clear, normal breath sounds Abdomen: normal bowel sounds, non tender, soft Extremities: normal inspection Edema: no edema noted Arm (L), no edema noted Arm (R), no edema noted Leg (L), no edema noted Leg (R), no edema noted Pedal (L), no edema noted Pedal (R), no edema noted Generalized Neurologic: responsive, motor weakness Skin: normal pigmentation, warm/dry Stuart Silver DO Aug 21, 2018 07:44
[2018-08-21 07:50] LABS: ANION GAP 6 mmol/L (5-15); BLOOD UREA NITROGEN 8 mg/dL (7-18); CARBON DIOXIDE 28 MMOL/L (21-32); CHLORIDE 105 MMOL/L (98-107); CREATININE 0.9 MG/DL (0.55-1.30); POTASSIUM 3.8 MMOL/L (3.5-5.1); SODIUM 139 MMOL/L (136-145)
[2018-08-21 08:00] VITALS: BP 128/69
[2018-08-21] MEDS: Lyrica 50mg cap ORAL SCH ×2 (09:24→18:03)
[2018-08-21] MEDS: Aspirin EC 81mg tab ORAL SCH (09:24)
[2018-08-21] MEDS: Levofloxacin 500mg tab ORAL SCH (09:24)
[2018-08-21] MEDS: Benazepril 10mg tab ORAL SCH (09:24)
[2018-08-21] MEDS: Heparin 5000 units/ml inj SUBQ SCH ×2 (09:26→21:39)
--- NOTE | 2018-08-21 10:53 | GI Progress Note ---
Assessment/Plan Problems: (1) Gastroparesis ICD Codes: K31.84 - Gastroparesis SNOMED: 895504988 (2) Hyperglycemia ICD Codes: R73.9 - Hyperglycemia, unspecified SNOMED: 60953294 (3) Intractable vomiting ICD Codes: R11.10 - Vomiting, unspecified SNOMED: 288434959, 055922997 Qualifiers: Qualified Codes: R11.2 - Nausea with vomiting, unspecified (4) Renal insufficiency ICD Codes: N28.9 - Disorder of kidney and ureter, unspecified SNOMED: 823586851, 591908378 (5) Gastroenteritis ICD Codes: K52.9 - Noninfective gastroenteritis and colitis, unspecified SNOMED: 49373145 Status: stable Status Narrative Discussed with Dr. Thomas Assessment/Plan Assessment - N/V, Diarrhea - Abd pain - IDDM - HTN -Gastroparesis OB stool negative Recommendations Symptomatic treatment at this time Advance to ADA diet hydration PPI Zofran as needed, Reglan for persistent vomiting Follow-up labs PT evaluation Outpatient EGD colonoscopy DC planning The patient was seen and examined at bedside and all new and available data was reviewed in the patients chart. I agree with the above findings, impression and plan. (Patient seen earlier today. Signature stamp does not reflect patient encounter time.). - Noé Thomas MD Subjective Subjective Denies any nausea or vomiting Denies any abdominal pain Able to tolerate small amounts of food Now complaining of hip pain Objective Last 24 Hour Vital Signs Date Time Temp Pulse Resp B/P (MAP) Pulse Ox O2 Delivery O2 Flow Rate FiO2 08/21/18 09:24 128/69 08/21/18 09:00 Room Air 08/21/18 08:00 98.7 82 21 128/69 (88) 97 08/21/18 04:00 98.2 72 18 143/69 (93) 94 08/21/18 00:00 97.6 73 18 142/68 (92) 99 08/20/18 21:10 73 16 Room Air 21 08/20/18 21:00 Room Air 08/20/18 20:00 98.0 78 18 133/71 (91) 95 08/20/18 16:00 98.7 68 20 137/60 (85) 96 08/20/18 15:54 68 20 97 Room Air 21 08/20/18 15:41 68 16 94 Room Air 21 08/20/18 12:15 144/79 08/20/18 12:00 98.4 79 20 144/79 (100) 96 Intake and Output 08/20/18 08/21/18 18:59 06:59 Intake Total 1400 ml Output Total 600 ml Balance 800 ml Intake Oral 1400 ml Output Urine Total 600 ml # Voids 3 Laboratory Tests Test 08/21/18 06:33 White Blood Count 9.7 K/UL (4.8-10.8) Red Blood Count 4.43 M/UL (4.70-6.10) L Hemoglobin 13.4 G/DL (14.2-18.0) L Hematocrit 38.5 % (42.0-52.0) L Mean Corpuscular Volume 87 FL (80-99) Mean Corpuscular Hemoglobin 30.2 PG (27.0-31.0) Mean Corpuscular Hemoglobin Concent 34.7 G/DL (32.0-36.0) Red Cell Distribution Width 11.1 % (11.6-14.8) L Platelet Count 319 K/UL (150-450) Mean Platelet Volume 8.1 FL (6.5-10.1) Neutrophils (%) (Auto) 58.7 % (45.0-75.0) Lymphocytes (%) (Auto) 26.6 % (20.0-45.0) Monocytes (%) (Auto) 10.5 % (1.0-10.0) H Eosinophils (%) (Auto) 2.9 % (0.0-3.0) Basophils (%) (Auto) 1.3 % (0.0-2.0) Sodium Level 139 MMOL/L (136-145) Potassium Level 3.8 MMOL/L (3.5-5.1) Chloride Level 105 MMOL/L (98-107) Carbon Dioxide Level 28 MMOL/L (21-32) Anion Gap 6 mmol/L (5-15) Blood Urea Nitrogen 8 mg/dL (7-18) Creatinine 0.9 MG/DL (0.55-1.30) Estimat Glomerular Filtration Rate > 60 mL/min (>60) Glucose Level 137 MG/DL (74-106) #H Calcium Level 9.0 MG/DL (8.5-10.1) Height (Feet): 5 Height (Inches): 10.00 Weight (Pounds): 200 General Appearance: WD/WN, no apparent distress, alert Cardiovascular: normal rate Respiratory/Chest: normal breath sounds, no respiratory distress Abdominal Exam: normal bowel sounds, non tender, soft Extremities: normal range of motion, non-tender Debby Vidal NP Aug 21, 2018 10:53
[2018-08-21] MEDS: Tylenol #3 tab (300mg/30mg) ORAL PRN ×2 (10:57→18:03)
--- NOTE | 2018-08-21 11:08 | Diagnostic Imaging Report ---
Indication: Dyspnea Comparison: 08/19/2018 A single view chest radiograph was obtained. Findings: Patchy infiltrates in the right midlung again demonstrated. Recommend follow-up to resolution. Heart size is borderline and stable. IMPRESSION: Right pulmonary infiltrate
[2018-08-21 12:00] VITALS: BP 135/76
--- NOTE | 2018-08-21 13:18 | Pulmonology Progress Note ---
Assessment/Plan Problems: (1) Gastroenteritis (2) Intractable vomiting (3) Hyperglycemia (4) Gastroparesis (5) Diabetes mellitus (6) ATN (acute tubular necrosis) Assessment/Plan less coughing on Levofloxacin check sputum increase insulin as needed.\ repeat cxr shows RLL infiltrate Subjective Interval Events: feeling dizzy Allergies: Coded Allergies: INSULIN DETEMIR (Unverified Allergy, Unknown, Sweating, 08/16/18) Objective Last 24 Hour Vital Signs Date Time Temp Pulse Resp B/P (MAP) Pulse Ox O2 Delivery O2 Flow Rate FiO2 08/21/18 12:15 78 16 Room Air 21 08/21/18 12:00 98.3 76 19 135/76 (95) 96 08/21/18 09:24 128/69 08/21/18 09:00 Room Air 08/21/18 08:00 98.7 82 21 128/69 (88) 97 08/21/18 04:00 98.2 72 18 143/69 (93) 94 08/21/18 00:00 97.6 73 18 142/68 (92) 99 08/20/18 21:10 73 16 Room Air 21 08/20/18 21:00 Room Air 08/20/18 20:00 98.0 78 18 133/71 (91) 95 08/20/18 16:00 98.7 68 20 137/60 (85) 96 08/20/18 15:54 68 20 97 Room Air 21 08/20/18 15:41 68 16 94 Room Air 21 Intake and Output 08/20/18 08/21/18 18:59 06:59 Intake Total 1400 ml Output Total 600 ml Balance 800 ml Intake Oral 1400 ml Output Urine Total 600 ml # Voids 3 General Appearance: WD/WN HEENT: normocephalic, atraumatic Respiratory/Chest: chest wall non-tender, lungs clear Cardiovascular: normal peripheral pulses, normal rate Abdomen: normal bowel sounds, soft, non tender Genitourinary: normal external genitalia Laboratory Tests 08/21/18 06:33: White Blood Count 9.7, Red Blood Count 4.43L, Hemoglobin 13.4L, Hematocrit 38.5L , Mean Corpuscular Volume 87, Mean Corpuscular Hemoglobin 30.2, Mean Corpuscular Hemoglobin Concent 34.7, Red Cell Distribution Width 11.1L, Platelet Count 319, Mean Platelet Volume 8.1, Neutrophils (%) (Auto) 58.7, Lymphocytes (%) (Auto) 26.6, Monocytes (%) (Auto) 10.5H, Eosinophils (%) (Auto) 2.9, Basophils (%) (Auto) 1.3, Sodium Level 139, Potassium Level 3.8, Chloride Level 105, Carbon Dioxide Level 28, Anion Gap 6, Blood Urea Nitrogen 8, Creatinine 0.9, Estimat Glomerular Filtration Rate > 60, Glucose Level 137#H, Calcium Level 9.0 Current Medications Medications (Trade) Dose Ordered Sig/Rashel Route PRN Reason Start Time Stop Time Status Last Admin Dose Admin Acetaminophen (Tylenol) 650 mg Q4H PRN ORAL fever (temp>100.5F) 08/15/18 20:15 09/14/18 20:14 08/15/18 21:53 Acetaminophen/ Codeine Phosphate (Tylenol #3) 1 tab Q4H PRN ORAL SEVERE PAIN 08/20/18 12:00 08/27/18 11:59 08/21/18 10:57 Al Hydroxide/Mg Hydroxide (Mylanta II) 30 ml Q6H PRN ORAL dyspepsia 08/15/18 20:15 09/14/18 20:14 Aspirin (Ecotrin) 81 mg DAILY ORAL 08/16/18 09:00 09/15/18 08:59 08/21/18 09:24 Atorvastatin Calcium (Lipitor) 20 mg BEDTIME ORAL 08/15/18 21:00 09/14/18 20:59 08/20/18 20:44 Benazepril HCl (Lotensin) 20 mg DAILY ORAL 08/20/18 12:01 09/19/18 12:00 08/21/18 09:24 Clonidine HCl (Catapres Tab) 0.1 mg Q4H PRN ORAL sbp more than 160 08/15/18 20:15 09/14/18 20:14 Dextrose (Dextrose 50%) 25 ml Q30M PRN IV Hypoglycemia 08/16/18 07:30 09/15/18 07:29 Dextrose (Dextrose 50%) 50 ml Q30M PRN IV Hypoglycemia 08/16/18 07:30 09/15/18 07:29 Heparin Sodium (Porcine) (Heparin 5000 units/ml) 5,000 units EVERY 12 HOURS SUBQ 08/15/18 21:00 09/14/18 20:59 08/21/18 09:26 Ibuprofen (Advil) 600 mg Q8H PRN ORAL mild pain 08/20/18 12:00 09/19/18 11:59 Insulin Aspart (NovoLOG) BEFORE MEALS AND HS SUBQ 08/15/18 22:00 09/14/18 21:59 08/21/18 06:23 Insulin Aspart (NovoLOG) 10 units NOVOTIAC SUBQ 08/21/18 11:50 09/15/18 11:49 08/21/18 12:24 Insulin Glargine (Lantus (NON FORUMULARY)) 32 unit Q24H SQ 08/19/18 13:00 09/16/18 12:59 08/21/18 13:10 Levofloxacin (Levaquin) 500 mg DAILY ORAL 08/20/18 09:00 08/27/18 08:59 08/21/18 09:24 Pregabalin (Lyrica) 50 mg TWICE A DAY ORAL 08/16/18 09:00 09/15/18 08:59 08/21/18 09:24 Temazepam (Restoril) 15 mg HSPRN PRN ORAL Insomnia 08/15/18 20:15 08/22/18 20:14 Rohini Camargo MD Aug 21, 2018 13:18
[2018-08-21] MEDS: Promethazine/Codeine 5ml UD ORAL PRN (15:00)
[2018-08-21] MEDS: Albuterol/Ipratropium 3ml neb HHN PRN ×3 (15:09→23:33)
[2018-08-21 16:00] VITALS: BP 133/74
[2018-08-21 20:00] VITALS: BP 123/70
[2018-08-21] MEDS: Atorvastatin 20mg tab ORAL SCH (21:37)
[2018-08-22] VITALS: BP 132/72
[2018-08-22] MEDS: Promethazine/Codeine 5ml UD ORAL PRN ×3 (00:41→17:02)
[2018-08-22 04:00] VITALS: BP 142/70
[2018-08-22] MEDS: NovoLOG Insulin Flexpen SUBQ SCH ×8 (05:59→21:00)
[2018-08-22] MEDS: Albuterol/Ipratropium 3ml neb HHN PRN ×4 (07:08→23:17)
[2018-08-22 07:37] LABS: BASOPHILS % (AUTO) 1.4 % (0.0-2.0); EOSINOPHILS % (AUTO) 2.6 % (0.0-3.0); HEMATOCRIT 37.1 % (42.0-52.0); HEMOGLOBIN 12.8 G/DL (14.2-18.0); LYMPHOCYTES % (AUTO) 22.3 % (20.0-45.0); MEAN CORPUSCULAR VOLUME 87 FL (80-99); MONOCYTES % (AUTO) 11.4 % (1.0-10.0); NEUTROPHILS % (AUTO) 62.4 % (45.0-75.0); PLATELET COUNT 299 K/UL (150-450); RED BLOOD COUNT 4.25 M/UL (4.70-6.10); RED CELL DISTRIBUTION WIDTH 11.3 % (11.6-14.8); WHITE BLOOD COUNT 8.5 K/UL (4.8-10.8)
[2018-08-22 08:00] VITALS: BP 148/76
[2018-08-22 08:23] LABS: ALANINE AMINOTRANSFERASE 34 U/L (12-78); ALBUMIN 2.5 G/DL (3.4-5.0); ALBUMIN/GLOBULIN RATIO 0.6 (1.0-2.7); ALKALINE PHOSPHATASE 77 U/L (46-116); ANION GAP 6 mmol/L (5-15); ASPARTATE AMINO TRANSFERASE 30 U/L (15-37); BILIRUBIN,TOTAL 0.4 MG/DL (0.2-1.0); BLOOD UREA NITROGEN 8 mg/dL (7-18); CALCIUM 8.8 MG/DL (8.5-10.1); CARBON DIOXIDE 27 MMOL/L (21-32); CHLORIDE 103 MMOL/L (98-107); SODIUM 135 MMOL/L (136-145)
[2018-08-22 08:25] LABS: PHOSPHORUS 3.2 MG/DL (2.5-4.9)
[2018-08-22] MEDS: Aspirin EC 81mg tab ORAL SCH (09:06)
[2018-08-22] MEDS: Levofloxacin 500mg tab ORAL SCH (09:07)
[2018-08-22] MEDS: Benazepril 10mg tab ORAL SCH (09:07)
[2018-08-22] MEDS: Lyrica 50mg cap ORAL SCH ×2 (09:08→17:32)
[2018-08-22] MEDS: Heparin 5000 units/ml inj SUBQ SCH ×2 (09:08→20:26)
[2018-08-22] MEDS: Tylenol #3 tab (300mg/30mg) ORAL PRN ×2 (10:17→20:22)
[2018-08-22 12:00] VITALS: BP 133/76
--- NOTE | 2018-08-22 14:39 | General Progress Note ---
Assessment/Plan Problem List: (1) Hyperglycemia ICD Codes: R73.9 - Hyperglycemia, unspecified SNOMED: 55940732 (2) Intractable vomiting ICD Codes: R11.10 - Vomiting, unspecified SNOMED: 628126508, 717983307 Qualifiers: Qualified Codes: R11.2 - Nausea with vomiting, unspecified (3) Renal insufficiency ICD Codes: N28.9 - Disorder of kidney and ureter, unspecified SNOMED: 788909409, 922430568 (4) Gastroenteritis ICD Codes: K52.9 - Noninfective gastroenteritis and colitis, unspecified SNOMED: 44928384 Assessment/Plan increase Lantus to 40 units daily change Novolog to units ac B / L / D continue NISS ac / hs Subjective Allergies: Coded Allergies: INSULIN DETEMIR (Unverified Allergy, Unknown, Sweating, 08/16/18) All Systems: reviewed and negative except above Subjective fasting and mealtime glucose are both elevated Objective Last 24 Hour Vital Signs Date Time Temp Pulse Resp B/P (MAP) Pulse Ox O2 Delivery O2 Flow Rate FiO2 08/22/18 13:55 74 18 97 Room Air 21 08/22/18 13:50 78 18 96 Room Air 21 08/22/18 12:00 97.9 77 18 133/76 (95) 100 08/22/18 09:07 148/76 08/22/18 09:00 Room Air 08/22/18 08:00 97.9 88 18 148/76 (100) 98 08/22/18 07:08 76 16 Room Air 21 08/22/18 07:08 78 16 97 Room Air 21 08/22/18 07:00 76 16 95 Room Air 21 08/22/18 04:00 98.5 86 18 142/70 (94) 98 08/22/18 00:00 98.2 77 18 132/72 (92) 97 08/21/18 23:44 71 16 98 Room Air 21 08/21/18 23:34 74 16 93 Room Air 21 08/21/18 21:00 Room Air 08/21/18 20:07 71 18 99 Room Air 21 08/21/18 20:00 98.5 75 18 123/70 (87) 96 08/21/18 19:57 77 16 94 Room Air 21 08/21/18 19:57 77 16 Room Air 21 08/21/18 16:00 97.9 85 19 133/74 (93) 97 08/21/18 15:18 66 20 97 Room Air 21 08/21/18 15:11 67 18 98 Room Air 21 Intake and Output 08/21/18 08/22/18 18:59 06:59 Intake Total 980 ml 860 ml Output Total 700 ml Balance 980 ml 160 ml Intake Oral 980 ml 860 ml Output Urine Total 700 ml # Voids 3 3 Laboratory Tests 08/22/18 07:02: White Blood Count 8.5, Red Blood Count 4.25L, Hemoglobin 12.8L, Hematocrit 37.1L , Mean Corpuscular Volume 87, Mean Corpuscular Hemoglobin 30.2, Mean Corpuscular Hemoglobin Concent 34.6, Red Cell Distribution Width 11.3L, Platelet Count 299, Mean Platelet Volume 7.8, Neutrophils (%) (Auto) 62.4, Lymphocytes (%) (Auto) 22.3, Monocytes (%) (Auto) 11.4H, Eosinophils (%) (Auto) 2.6, Basophils (%) (Auto) 1.4, Sodium Level 135L, Potassium Level 4.0, Chloride Level 103, Carbon Dioxide Level 27, Anion Gap 6, Blood Urea Nitrogen 8, Creatinine 1.0, Estimat Glomerular Filtration Rate > 60, Glucose Level 294#H, Calcium Level 8.8, Phosphorus Level 3.2, Magnesium Level 1.8, Total Bilirubin 0.4, Aspartate Amino Transf (AST/SGOT) 30, Alanine Aminotransferase (ALT/SGPT) 34, Alkaline Phosphatase 77, Total Protein 6.6, Albumin 2.5L, Globulin 4.1, Albumin/Globulin Ratio 0.6L Height (Feet): 5 Height (Inches): 10.00 Weight (Pounds): 199 General Appearance: no apparent distress Neck: normal alignment Cardiovascular: normal rate Respiratory/Chest: decreased breath sounds Abdomen: normal bowel sounds Objective Current Medications Medications (Trade) Dose Ordered Sig/Rashel Route PRN Reason Start Time Stop Time Status Last Admin Dose Admin Acetaminophen (Tylenol) 650 mg Q4H PRN ORAL fever (temp>100.5F) 08/15/18 20:15 09/14/18 20:14 08/15/18 21:53 Acetaminophen/ Codeine Phosphate (Tylenol #3) 1 tab Q4H PRN ORAL SEVERE PAIN 08/20/18 12:00 08/27/18 11:59 08/22/18 10:17 Al Hydroxide/Mg Hydroxide (Mylanta II) 30 ml Q6H PRN ORAL dyspepsia 08/15/18 20:15 09/14/18 20:14 Albuterol/ Ipratropium (Albuterol/ Ipratropium) 3 ml Q4H PRN HHN Shortness of Breath 08/21/18 15:06 08/26/18 15:05 08/22/18 13:55 Aspirin (Ecotrin) 81 mg DAILY ORAL 08/16/18 09:00 09/15/18 08:59 08/22/18 09:06 Atorvastatin Calcium (Lipitor) 20 mg BEDTIME ORAL 08/15/18 21:00 09/14/18 20:59 08/21/18 21:37 Benazepril HCl (Lotensin) 20 mg DAILY ORAL 08/20/18 12:01 09/19/18 12:00 08/22/18 09:07 Clonidine HCl (Catapres Tab) 0.1 mg Q4H PRN ORAL sbp more than 160 08/15/18 20:15 09/14/18 20:14 Dextrose (Dextrose 50%) 25 ml Q30M PRN IV Hypoglycemia 08/16/18 07:30 09/15/18 07:29 Dextrose (Dextrose 50%) 50 ml Q30M PRN IV Hypoglycemia 08/16/18 07:30 09/15/18 07:29 Heparin Sodium (Porcine) (Heparin 5000 units/ml) 5,000 units EVERY 12 HOURS SUBQ 08/15/18 21:00 09/14/18 20:59 08/22/18 09:08 Ibuprofen (Advil) 600 mg Q8H PRN ORAL mild pain 08/20/18 12:00 09/19/18 11:59 Insulin Aspart (NovoLOG) BEFORE MEALS AND HS SUBQ 08/15/18 22:00 09/14/18 21:59 08/22/18 12:16 Insulin Aspart (NovoLOG) 10 units NOVOTIAC SUBQ 08/21/18 11:50 09/15/18 11:49 08/22/18 12:15 Insulin Glargine (Lantus (NON FORUMULARY)) 40 unit Q24H SQ 08/22/18 13:00 09/16/18 12:59 08/22/18 13:32 Levofloxacin (Levaquin) 750 mg DAILY ORAL 08/22/18 09:00 08/27/18 08:59 08/22/18 09:07 Pregabalin (Lyrica) 50 mg TWICE A DAY ORAL 08/16/18 09:00 09/15/18 08:59 08/22/18 09:08 Promethazine HCl/ Codeine (Phenergan with Codeine) 5 ml Q8H PRN ORAL For Cough 08/21/18 14:45 09/20/18 14:44 08/22/18 09:06 Temazepam (Restoril) 15 mg HSPRN PRN ORAL Insomnia 08/15/18 20:15 08/22/18 20:14 08/21/18 21:37 Item Value Date Time Bedside Blood Glucose 405 mg/dl H 08/22/18 1216 Bedside Blood Glucose 282 mg/dl H 08/22/18 0630 Bedside Blood Glucose 219 mg/dl H 08/21/18 2140 Bedside Blood Glucose 103 mg/dl 08/21/18 1712 Mac Vegas MD Aug 22, 2018 14:39
[2018-08-22 16:00] VITALS: BP 131/64
--- NOTE | 2018-08-22 18:35 | General Progress Note ---
Assessment/Plan Problem List: (1) Renal insufficiency ICD Codes: N28.9 - Disorder of kidney and ureter, unspecified SNOMED: 474406223, 259876452 (2) Intractable vomiting ICD Codes: R11.10 - Vomiting, unspecified SNOMED: 171675934, 684770244 Qualifiers: Qualified Codes: R11.2 - Nausea with vomiting, unspecified (3) Hyperglycemia ICD Codes: R73.9 - Hyperglycemia, unspecified SNOMED: 27372343 (4) Gastroparesis ICD Codes: K31.84 - Gastroparesis SNOMED: 328958348 (5) Diabetes mellitus ICD Codes: E11.9 - Type 2 diabetes mellitus without complications SNOMED: 04037553 Status: progressing Assessment/Plan afebrile nausea s/p vomitting hyperglycemia niddm sugar improving reviewed chart and labs Subjective Allergies: Coded Allergies: INSULIN DETEMIR (Unverified Allergy, Unknown, Sweating, 08/16/18) Subjective nausea Objective Last 24 Hour Vital Signs Date Time Temp Pulse Resp B/P (MAP) Pulse Ox O2 Delivery O2 Flow Rate FiO2 08/22/18 16:00 98.4 90 17 131/64 (86) 95 08/22/18 13:55 74 18 97 Room Air 21 08/22/18 13:50 78 18 96 Room Air 21 08/22/18 12:00 97.9 77 18 133/76 (95) 100 08/22/18 09:07 148/76 08/22/18 09:00 Room Air 08/22/18 08:00 97.9 88 18 148/76 (100) 98 08/22/18 07:08 76 16 Room Air 21 08/22/18 07:08 78 16 97 Room Air 21 08/22/18 07:00 76 16 95 Room Air 21 08/22/18 04:00 98.5 86 18 142/70 (94) 98 08/22/18 00:00 98.2 77 18 132/72 (92) 97 08/21/18 23:44 71 16 98 Room Air 21 08/21/18 23:34 74 16 93 Room Air 21 08/21/18 21:00 Room Air 08/21/18 20:07 71 18 99 Room Air 21 08/21/18 20:00 98.5 75 18 123/70 (87) 96 08/21/18 19:57 77 16 94 Room Air 21 08/21/18 19:57 77 16 Room Air 21 Intake and Output 08/21/18 08/22/18 18:59 06:59 Intake Total 980 ml 860 ml Output Total 700 ml Balance 980 ml 160 ml Intake Oral 980 ml 860 ml Output Urine Total 700 ml # Voids 3 3 Laboratory Tests 08/22/18 07:02: White Blood Count 8.5, Red Blood Count 4.25L, Hemoglobin 12.8L, Hematocrit 37.1L , Mean Corpuscular Volume 87, Mean Corpuscular Hemoglobin 30.2, Mean Corpuscular Hemoglobin Concent 34.6, Red Cell Distribution Width 11.3L, Platelet Count 299, Mean Platelet Volume 7.8, Neutrophils (%) (Auto) 62.4, Lymphocytes (%) (Auto) 22.3, Monocytes (%) (Auto) 11.4H, Eosinophils (%) (Auto) 2.6, Basophils (%) (Auto) 1.4, Sodium Level 135L, Potassium Level 4.0, Chloride Level 103, Carbon Dioxide Level 27, Anion Gap 6, Blood Urea Nitrogen 8, Creatinine 1.0, Estimat Glomerular Filtration Rate > 60, Glucose Level 294#H, Calcium Level 8.8, Phosphorus Level 3.2, Magnesium Level 1.8, Total Bilirubin 0.4, Aspartate Amino Transf (AST/SGOT) 30, Alanine Aminotransferase (ALT/SGPT) 34, Alkaline Phosphatase 77, Total Protein 6.6, Albumin 2.5L, Globulin 4.1, Albumin/Globulin Ratio 0.6L Height (Feet): 5 Height (Inches): 10.00 Weight (Pounds): 199 Cardiovascular: normal rate Respiratory/Chest: lungs clear Abdomen: tender Kim Billings MD Aug 22, 2018 18:35
[2018-08-22] MEDS ORDERED: Sterile Water For Irrig 2000ml IRRIG ONE (19:54)
[2018-08-22 20:00] VITALS: BP 139/68
[2018-08-22] MEDS: Atorvastatin 20mg tab ORAL SCH (20:22)
[2018-08-23] VITALS: BP 110/54
[2018-08-23] MEDS: Promethazine/Codeine 5ml UD ORAL PRN ×2 (03:12→13:35)
[2018-08-23] MEDS: Albuterol/Ipratropium 3ml neb HHN PRN ×4 (03:18→15:11)
[2018-08-23 04:00] VITALS: BP 116/53
[2018-08-23] MEDS ORDERED: NovoLOG Insulin Flexpen SUBQ SCH ×3 (06:30→16:50)
[2018-08-23] MEDS ORDERED: NovoLOG Insulin Flexpen SUBQ ONE (06:30)
[2018-08-23] MEDS: NovoLOG Insulin Flexpen SUBQ SCH ×5 (06:30→21:54)
--- NOTE | 2018-08-23 07:20 | General Progress Note ---
Assessment/Plan Problem List: (1) Hyperglycemia ICD Codes: R73.9 - Hyperglycemia, unspecified SNOMED: 63867295 (2) Intractable vomiting ICD Codes: R11.10 - Vomiting, unspecified SNOMED: 996056293, 217767224 Qualifiers: Qualified Codes: R11.2 - Nausea with vomiting, unspecified (3) Renal insufficiency ICD Codes: N28.9 - Disorder of kidney and ureter, unspecified SNOMED: 791188017, 877265728 (4) Gastroenteritis ICD Codes: K52.9 - Noninfective gastroenteritis and colitis, unspecified SNOMED: 79707954 Assessment/Plan continue Lantus 40 units daily change Novolog to units ac B / L / D continue NISS ac / hs Subjective Allergies: Coded Allergies: INSULIN DETEMIR (Unverified Allergy, Unknown, Sweating, 08/16/18) All Systems: reviewed and negative except above Subjective events noted hypoglycemia yesterday evening this morning glucose is stable Objective Last 24 Hour Vital Signs Date Time Temp Pulse Resp B/P (MAP) Pulse Ox O2 Delivery O2 Flow Rate FiO2 08/23/18 04:00 99.0 80 17 116/53 (74) 95 08/23/18 03:30 75 16 98 Room Air 21 08/23/18 03:19 77 16 94 Room Air 21 08/23/18 00:00 98.9 84 17 110/54 (72) 94 08/22/18 23:28 77 16 98 Room Air 21 08/22/18 23:18 78 16 94 Room Air 21 08/22/18 21:00 Room Air 08/22/18 20:13 80 18 95 Room Air 21 08/22/18 20:01 75 16 Room Air 21 08/22/18 20:00 99.5 91 18 139/68 (91) 95 08/22/18 19:59 79 18 95 Room Air 21 08/22/18 16:00 98.4 90 17 131/64 (86) 95 08/22/18 13:55 74 18 97 Room Air 21 08/22/18 13:50 78 18 96 Room Air 21 08/22/18 12:00 97.9 77 18 133/76 (95) 100 08/22/18 09:07 148/76 08/22/18 09:00 Room Air 08/22/18 08:00 97.9 88 18 148/76 (100) 98 Intake and Output 08/22/18 08/23/18 19:00 07:00 Intake Total 240 ml 850 ml Output Total 475 ml 800 ml Balance -235 ml 50 ml Intake Oral 240 ml 850 ml Output Urine Total 475 ml 800 ml # Voids 3 4 Height (Feet): 5 Height (Inches): 10.00 Weight (Pounds): 199 General Appearance: no apparent distress Neck: normal alignment Cardiovascular: normal rate Respiratory/Chest: lungs clear Abdomen: normal bowel sounds Objective Current Medications Medications (Trade) Dose Ordered Sig/Rashel Route PRN Reason Start Time Stop Time Status Last Admin Dose Admin Acetaminophen (Tylenol) 650 mg Q4H PRN ORAL fever (temp>100.5F) 08/15/18 20:15 09/14/18 20:14 08/15/18 21:53 Acetaminophen/ Codeine Phosphate (Tylenol #3) 1 tab Q4H PRN ORAL SEVERE PAIN 08/20/18 12:00 08/27/18 11:59 08/22/18 20:22 Al Hydroxide/Mg Hydroxide (Mylanta II) 30 ml Q6H PRN ORAL dyspepsia 08/15/18 20:15 09/14/18 20:14 Albuterol/ Ipratropium (Albuterol/ Ipratropium) 3 ml Q4H PRN HHN Shortness of Breath 08/21/18 15:06 08/26/18 15:05 08/23/18 03:18 Aspirin (Ecotrin) 81 mg DAILY ORAL 08/16/18 09:00 09/15/18 08:59 08/22/18 09:06 Atorvastatin Calcium (Lipitor) 20 mg BEDTIME ORAL 08/23/18 21:00 09/22/18 20:59 Benazepril HCl (Lotensin) 20 mg DAILY ORAL 08/20/18 12:01 09/19/18 12:00 08/22/18 09:07 Clonidine HCl (Catapres Tab) 0.1 mg Q4H PRN ORAL sbp more than 160 08/15/18 20:15 09/14/18 20:14 Dextrose (Dextrose 50%) 25 ml Q30M PRN IV Hypoglycemia 08/16/18 07:30 09/15/18 07:29 Dextrose (Dextrose 50%) 50 ml Q30M PRN IV Hypoglycemia 08/16/18 07:30 09/15/18 07:29 08/22/18 20:15 Heparin Sodium (Porcine) (Heparin 5000 units/ml) 5,000 units EVERY 12 HOURS SUBQ 08/15/18 21:00 09/14/18 20:59 08/22/18 20:26 Ibuprofen (Advil) 600 mg Q8H PRN ORAL mild pain 08/20/18 12:00 09/19/18 11:59 Insulin Aspart (NovoLOG) BEFORE MEALS AND HS SUBQ 08/15/18 22:00 09/14/18 21:59 08/22/18 12:16 Insulin Aspart (NovoLOG) 10 units NOVOLOGL SUBQ 08/23/18 11:50 09/22/18 11:49 Insulin Aspart (NovoLOG) 12 units NOVOLOGS SUBQ 08/22/18 16:50 09/21/18 16:49 08/22/18 18:46 Insulin Aspart (NovoLOG) 18 units NOVOLOGB SUBQ 08/23/18 06:30 09/22/18 06:29 Insulin Glargine (Lantus (NON FORUMULARY)) 40 unit Q24H SQ 08/22/18 13:00 09/16/18 12:59 08/22/18 13:32 Levofloxacin (Levaquin) 750 mg DAILY ORAL 08/22/18 09:00 08/27/18 08:59 08/22/18 09:07 Pregabalin (Lyrica) 50 mg TWICE A DAY ORAL 08/16/18 09:00 09/15/18 08:59 08/22/18 17:32 Promethazine HCl/ Codeine (Phenergan with Codeine) 5 ml Q8H PRN ORAL For Cough 08/21/18 14:45 09/20/18 14:44 08/23/18 03:12 Item Value Date Time Bedside Blood Glucose 137 mg/dl H 08/23/18 0650 Bedside Blood Glucose 48 mg/dl L 08/22/18 2100 Bedside Blood Glucose 89 mg/dl 08/22/18 1846 Bedside Blood Glucose 405 mg/dl H 08/22/18 1216 Bedside Blood Glucose 282 mg/dl H 08/22/18 0630 Mac Vegas MD Aug 23, 2018 07:20
[2018-08-23 08:00] VITALS: BP 143/75
[2018-08-23] MEDS: Tylenol #3 tab (300mg/30mg) ORAL PRN ×2 (08:06→23:49)
[2018-08-23] MEDS: Benazepril 10mg tab ORAL SCH (08:42)
[2018-08-23] MEDS: Levofloxacin 500mg tab ORAL SCH (08:43)
[2018-08-23] MEDS: Lyrica 50mg cap ORAL SCH ×2 (08:43→17:27)
[2018-08-23] MEDS: Aspirin EC 81mg tab ORAL SCH (08:43)
[2018-08-23] MEDS: Heparin 5000 units/ml inj SUBQ SCH ×2 (08:44→21:55)
[2018-08-23 12:00] VITALS: BP 140/64
[2018-08-23 16:00] VITALS: BP 148/72
[2018-08-23 20:00] VITALS: BP 140/75
--- NOTE | 2018-08-23 20:37 | General Progress Note ---
Assessment/Plan Problem List: (1) Renal insufficiency ICD Codes: N28.9 - Disorder of kidney and ureter, unspecified SNOMED: 840172135, 979449190 (2) Intractable vomiting ICD Codes: R11.10 - Vomiting, unspecified SNOMED: 164418600, 982809623 Qualifiers: Qualified Codes: R11.2 - Nausea with vomiting, unspecified (3) Hyperglycemia ICD Codes: R73.9 - Hyperglycemia, unspecified SNOMED: 13784291 (4) Gastroparesis ICD Codes: K31.84 - Gastroparesis SNOMED: 652988220 (5) Diabetes mellitus ICD Codes: E11.9 - Type 2 diabetes mellitus without complications SNOMED: 31486035 Status: progressing Assessment/Plan gastroparesis no acute evetns s/p vomitting hyperglycemia niddm sugar improving reviewed chart and labs Subjective ROS Limited/Unobtainable: Yes Allergies: Coded Allergies: INSULIN DETEMIR (Unverified Allergy, Unknown, Sweating, 08/16/18) Subjective nausea Objective Last 24 Hour Vital Signs Date Time Temp Pulse Resp B/P (MAP) Pulse Ox O2 Delivery O2 Flow Rate FiO2 08/23/18 19:32 80 18 Room Air 21 08/23/18 16:00 98.7 89 20 148/72 (97) 99 08/23/18 15:13 98 18 89 Room Air 21 08/23/18 15:08 89 16 97 Room Air 21 08/23/18 12:00 98.5 90 19 140/64 (89) 97 08/23/18 11:24 98 16 98 Room Air 21 08/23/18 11:14 101 16 99 Room Air 21 08/23/18 09:00 Room Air 08/23/18 08:42 143/75 08/23/18 08:42 77 18 98 Room Air 21 08/23/18 08:34 73 16 95 Room Air 21 08/23/18 08:00 98.1 90 20 143/75 (97) 95 08/23/18 07:25 78 18 Room Air 21 08/23/18 04:00 99.0 80 17 116/53 (74) 95 08/23/18 03:30 75 16 98 Room Air 21 08/23/18 03:19 77 16 94 Room Air 21 08/23/18 00:00 98.9 84 17 110/54 (72) 94 08/22/18 23:28 77 16 98 Room Air 21 08/22/18 23:18 78 16 94 Room Air 21 08/22/18 21:00 Room Air Intake and Output 08/22/18 08/23/18 18:59 06:59 Intake Total 240 ml 850 ml Output Total 475 ml 800 ml Balance -235 ml 50 ml Intake Oral 240 ml 850 ml Output Urine Total 475 ml 800 ml # Voids 3 4 Height (Feet): 5 Height (Inches): 10.00 Weight (Pounds): 199 General Appearance: alert Neck: supple Cardiovascular: normal rate Respiratory/Chest: lungs clear Abdomen: soft Kim Billings MD Aug 23, 2018 20:37
[2018-08-23] MEDS: Atorvastatin 20mg tab ORAL SCH (21:52)
[2018-08-24] VITALS: BP 114/60
[2018-08-24 04:00] VITALS: BP 115/59
[2018-08-24] MEDS: NovoLOG Insulin Flexpen SUBQ SCH ×8 (06:30→21:00)
--- NOTE | 2018-08-24 07:17 | General Progress Note ---
Assessment/Plan Problem List: (1) Hyperglycemia ICD Codes: R73.9 - Hyperglycemia, unspecified SNOMED: 61655634 (2) Intractable vomiting ICD Codes: R11.10 - Vomiting, unspecified SNOMED: 277732236, 575740797 Qualifiers: Qualified Codes: R11.2 - Nausea with vomiting, unspecified (3) Renal insufficiency ICD Codes: N28.9 - Disorder of kidney and ureter, unspecified SNOMED: 828192611, 111766937 (4) Gastroenteritis ICD Codes: K52.9 - Noninfective gastroenteritis and colitis, unspecified SNOMED: 32241370 Assessment/Plan continue Lantus 40 units daily change Novolog to units ac B / L / D continue NISS ac / hs Subjective Allergies: Coded Allergies: INSULIN DETEMIR (Unverified Allergy, Unknown, Sweating, 08/16/18) All Systems: reviewed and negative except above Subjective events noted hypoglycemia this morning due to Novolog coverage last night Objective Last 24 Hour Vital Signs Date Time Temp Pulse Resp B/P (MAP) Pulse Ox O2 Delivery O2 Flow Rate FiO2 08/24/18 04:00 98.3 71 18 115/59 (77) 96 08/24/18 00:39 98.5 08/24/18 00:00 98.5 80 18 114/60 (78) 94 08/23/18 21:00 Room Air 08/23/18 20:00 98.7 81 18 140/75 (96) 95 08/23/18 19:32 80 18 Room Air 21 08/23/18 16:00 98.7 89 20 148/72 (97) 99 08/23/18 15:13 98 18 89 Room Air 21 08/23/18 15:08 89 16 97 Room Air 21 08/23/18 12:00 98.5 90 19 140/64 (89) 97 08/23/18 11:24 98 16 98 Room Air 21 08/23/18 11:14 101 16 99 Room Air 21 08/23/18 09:00 Room Air 08/23/18 08:42 143/75 08/23/18 08:42 77 18 98 Room Air 21 08/23/18 08:34 73 16 95 Room Air 21 08/23/18 08:00 98.1 90 20 143/75 (97) 95 08/23/18 07:25 78 18 Room Air 21 Intake and Output 08/23/18 08/24/18 19:00 07:00 Intake Total 1336 ml 780 ml Output Total 950 ml Balance 1336 ml -170 ml Intake Oral 1336 ml 780 ml Output Urine Total 950 ml # Voids 1 Height (Feet): 5 Height (Inches): 10.00 Weight (Pounds): 199 General Appearance: no apparent distress Neck: normal alignment Cardiovascular: normal rate Respiratory/Chest: lungs clear Abdomen: normal bowel sounds Objective Current Medications Medications (Trade) Dose Ordered Sig/Rashel Route PRN Reason Start Time Stop Time Status Last Admin Dose Admin Acetaminophen (Tylenol) 650 mg Q4H PRN ORAL fever (temp>100.5F) 08/15/18 20:15 09/14/18 20:14 08/15/18 21:53 Acetaminophen/ Codeine Phosphate (Tylenol #3) 1 tab Q4H PRN ORAL SEVERE PAIN 08/20/18 12:00 08/27/18 11:59 08/23/18 23:49 Al Hydroxide/Mg Hydroxide (Mylanta II) 30 ml Q6H PRN ORAL dyspepsia 08/15/18 20:15 09/14/18 20:14 Albuterol/ Ipratropium (Albuterol/ Ipratropium) 3 ml Q4H PRN HHN Shortness of Breath 08/21/18 15:06 08/26/18 15:05 08/23/18 15:11 Aspirin (Ecotrin) 81 mg DAILY ORAL 08/16/18 09:00 09/15/18 08:59 08/23/18 08:43 Atorvastatin Calcium (Lipitor) 20 mg BEDTIME ORAL 08/23/18 21:00 09/22/18 20:59 08/23/18 21:52 Benazepril HCl (Lotensin) 20 mg DAILY ORAL 08/20/18 12:01 09/19/18 12:00 08/23/18 08:42 Clonidine HCl (Catapres Tab) 0.1 mg Q4H PRN ORAL sbp more than 160 08/15/18 20:15 09/14/18 20:14 Dextrose (Dextrose 50%) 25 ml Q30M PRN IV Hypoglycemia 08/16/18 07:30 09/15/18 07:29 Dextrose (Dextrose 50%) 50 ml Q30M PRN IV Hypoglycemia 08/16/18 07:30 09/15/18 07:29 08/22/18 20:15 Heparin Sodium (Porcine) (Heparin 5000 units/ml) 5,000 units EVERY 12 HOURS SUBQ 08/15/18 21:00 09/14/18 20:59 08/23/18 21:55 Ibuprofen (Advil) 600 mg Q8H PRN ORAL mild pain 08/20/18 12:00 09/19/18 11:59 Insulin Aspart (NovoLOG) BEFORE MEALS AND HS SUBQ 08/15/18 22:00 09/14/18 21:59 08/24/18 07:10 Insulin Aspart (NovoLOG) 8 units NOVOLOGS SUBQ 08/23/18 16:50 09/21/18 16:49 08/23/18 17:25 Insulin Aspart (NovoLOG) 10 units NOVOLOGL SUBQ 08/23/18 11:50 09/22/18 11:49 08/23/18 12:38 Insulin Aspart (NovoLOG) 12 units NOVOLOGB SUBQ 08/24/18 06:30 09/22/18 06:29 Insulin Glargine (Lantus (NON FORUMULARY)) 40 unit Q24H SQ 08/22/18 13:00 09/16/18 12:59 08/23/18 13:30 Levofloxacin (Levaquin) 750 mg DAILY ORAL 08/22/18 09:00 08/27/18 08:59 08/23/18 08:43 Pregabalin (Lyrica) 50 mg TWICE A DAY ORAL 08/16/18 09:00 09/15/18 08:59 08/23/18 17:27 Promethazine HCl/ Codeine (Phenergan with Codeine) 5 ml Q8H PRN ORAL For Cough 08/21/18 14:45 09/20/18 14:44 08/23/18 13:35 Item Value Date Time Bedside Blood Glucose 168 mg/dl H 08/24/18 0630 Bedside Blood Glucose 103 mg/dl 08/24/18 0030 Bedside Blood Glucose 367 mg/dl H 08/23/18 2154 Bedside Blood Glucose 292 mg/dl H 08/23/18 1726 Bedside Blood Glucose 130 mg/dl H 08/23/18 1239 Bedside Blood Glucose 137 mg/dl H 08/23/18 0650 Mac Vegas MD Aug 24, 2018 07:17
[2018-08-24] MEDS: Aspirin EC 81mg tab ORAL SCH ×2 (07:22→08:33)
[2018-08-24] MEDS: Albuterol/Ipratropium 3ml neb HHN PRN ×4 (07:47→22:58)
[2018-08-24 08:00] VITALS: BP 130/82
[2018-08-24] MEDS: Levofloxacin 500mg tab ORAL SCH (08:33)
[2018-08-24] MEDS: Lyrica 50mg cap ORAL SCH ×2 (08:34→17:34)
[2018-08-24] MEDS: Benazepril 10mg tab ORAL SCH (08:34)
[2018-08-24] MEDS: Heparin 5000 units/ml inj SUBQ SCH ×2 (08:36→21:08)
[2018-08-24] MEDS: Tylenol #3 tab (300mg/30mg) ORAL PRN (10:19)
--- NOTE | 2018-08-24 10:33 | GI Progress Note ---
Assessment/Plan Problems: (1) Gastroparesis ICD Codes: K31.84 - Gastroparesis SNOMED: 982212977 (2) Hyperglycemia ICD Codes: R73.9 - Hyperglycemia, unspecified SNOMED: 10008960 (3) Intractable vomiting ICD Codes: R11.10 - Vomiting, unspecified SNOMED: 373811678, 113402639 Qualifiers: Qualified Codes: R11.2 - Nausea with vomiting, unspecified (4) Renal insufficiency ICD Codes: N28.9 - Disorder of kidney and ureter, unspecified SNOMED: 635299572, 068455230 (5) Gastroenteritis ICD Codes: K52.9 - Noninfective gastroenteritis and colitis, unspecified SNOMED: 21385730 (6) Malingering ICD Codes: Z76.5 - Malingerer [conscious simulation] SNOMED: 865503344 Status: stable Status Narrative Discussed with Dr. Thomas Assessment/Plan Assessment - N/V, Diarrhea - Abd pain - IDDM - HTN -Gastroparesis OB stool negative Recommendations Symptomatic treatment at this time Advance to ADA diet hydration PPI Zofran as needed, Reglan for persistent vomiting Follow-up labs PT evaluation Outpatient EGD colonoscopy DC planning The patient was seen and examined at bedside and all new and available data was reviewed in the patients chart. I agree with the above findings, impression and plan. (Patient seen earlier today. Signature stamp does not reflect patient encounter time.). - Noé Thomas MD Subjective Subjective Denies any nausea or vomiting Denies any abdominal pain Able to tolerate small amounts of food Now complaining of hip pain Has new onset of chest pain Objective Last 24 Hour Vital Signs Date Time Temp Pulse Resp B/P (MAP) Pulse Ox O2 Delivery O2 Flow Rate FiO2 08/24/18 08:34 130/82 08/24/18 08:00 98.5 74 20 130/82 (98) 92 08/24/18 07:48 71 15 Room Air 21 08/24/18 07:47 71 15 95 Room Air 21 08/24/18 04:00 98.3 71 18 115/59 (77) 96 08/24/18 00:39 98.5 08/24/18 00:00 98.5 80 18 114/60 (78) 94 08/23/18 21:00 Room Air 08/23/18 20:00 98.7 81 18 140/75 (96) 95 08/23/18 19:32 80 18 Room Air 21 08/23/18 16:00 98.7 89 20 148/72 (97) 99 08/23/18 15:13 98 18 89 Room Air 21 08/23/18 15:08 89 16 97 Room Air 21 08/23/18 12:00 98.5 90 19 140/64 (89) 97 08/23/18 11:24 98 16 98 Room Air 21 08/23/18 11:14 101 16 99 Room Air 21 Intake and Output 08/23/18 08/24/18 19:00 07:00 Intake Total 1336 ml 780 ml Output Total 950 ml Balance 1336 ml -170 ml Intake Oral 1336 ml 780 ml Output Urine Total 950 ml # Voids 1 Laboratory Tests Test 08/24/18 10:10 Troponin I Pending Height (Feet): 5 Height (Inches): 10.00 Weight (Pounds): 199 General Appearance: WD/WN, no apparent distress, alert Cardiovascular: normal rate Respiratory/Chest: normal breath sounds, no respiratory distress Abdominal Exam: normal bowel sounds, non tender, soft Extremities: normal range of motion, non-tender Debby Vidal NP Aug 24, 2018 10:33
[2018-08-24 12:00] VITALS: BP 128/77
--- NOTE | 2018-08-24 14:22 | Pulmonology Progress Note ---
Assessment/Plan Problems: (1) Gastroenteritis (2) Intractable vomiting (3) Hyperglycemia (4) Gastroparesis (5) Diabetes mellitus (6) ATN (acute tubular necrosis) Assessment/Plan CT chest dc Levofloxacin pt got 9 days of abx check sputum again increase insulin as needed.\ Subjective ROS Limited/Unobtainable: No Interval Events: still coughing Allergies: Coded Allergies: INSULIN DETEMIR (Unverified Allergy, Unknown, Sweating, 08/16/18) Objective Last 24 Hour Vital Signs Date Time Temp Pulse Resp B/P (MAP) Pulse Ox O2 Delivery O2 Flow Rate FiO2 08/24/18 12:00 98.2 76 20 128/77 (94) 94 08/24/18 11:55 82 17 99 Room Air 21 08/24/18 11:42 74 19 97 Room Air 21 08/24/18 09:00 Room Air 08/24/18 08:34 130/82 08/24/18 08:00 79 16 98 Room Air 21 08/24/18 08:00 98.5 74 20 130/82 (98) 92 08/24/18 07:48 71 15 Room Air 21 08/24/18 07:47 71 15 95 Room Air 21 08/24/18 04:00 98.3 71 18 115/59 (77) 96 08/24/18 00:39 98.5 08/24/18 00:00 98.5 80 18 114/60 (78) 94 08/23/18 21:00 Room Air 08/23/18 20:00 98.7 81 18 140/75 (96) 95 08/23/18 19:32 80 18 Room Air 21 08/23/18 16:00 98.7 89 20 148/72 (97) 99 08/23/18 15:13 98 18 89 Room Air 21 08/23/18 15:08 89 16 97 Room Air 21 Intake and Output 08/23/18 08/24/18 19:00 07:00 Intake Total 1336 ml 780 ml Output Total 950 ml Balance 1336 ml -170 ml Intake Oral 1336 ml 780 ml Output Urine Total 950 ml # Voids 1 General Appearance: WD/WN HEENT: normocephalic, atraumatic Respiratory/Chest: chest wall non-tender, lungs clear Cardiovascular: normal peripheral pulses, normal rate Abdomen: normal bowel sounds, soft, non tender Genitourinary: normal external genitalia Extremities: no clubbing Skin: no rash Laboratory Tests 08/24/18 10:10: Troponin I 0.010 Current Medications Medications (Trade) Dose Ordered Sig/Rashel Route PRN Reason Start Time Stop Time Status Last Admin Dose Admin Acetaminophen (Tylenol) 650 mg Q4H PRN ORAL fever (temp>100.5F) 08/15/18 20:15 09/14/18 20:14 08/15/18 21:53 Acetaminophen/ Codeine Phosphate (Tylenol #3) 1 tab Q4H PRN ORAL SEVERE PAIN 08/20/18 12:00 08/27/18 11:59 08/24/18 10:19 Al Hydroxide/Mg Hydroxide (Mylanta II) 30 ml Q6H PRN ORAL dyspepsia 08/15/18 20:15 09/14/18 20:14 Albuterol/ Ipratropium (Albuterol/ Ipratropium) 3 ml Q4H PRN HHN Shortness of Breath 08/21/18 15:06 08/26/18 15:05 08/24/18 11:41 Aspirin (Ecotrin) 81 mg DAILY ORAL 08/16/18 09:00 09/15/18 08:59 08/24/18 08:33 Atorvastatin Calcium (Lipitor) 20 mg BEDTIME ORAL 08/23/18 21:00 09/22/18 20:59 08/23/18 21:52 Benazepril HCl (Lotensin) 20 mg DAILY ORAL 08/20/18 12:01 09/19/18 12:00 08/24/18 08:34 Clonidine HCl (Catapres Tab) 0.1 mg Q4H PRN ORAL sbp more than 160 08/15/18 20:15 09/14/18 20:14 Dextrose (Dextrose 50%) 25 ml Q30M PRN IV Hypoglycemia 08/16/18 07:30 09/15/18 07:29 Dextrose (Dextrose 50%) 50 ml Q30M PRN IV Hypoglycemia 08/16/18 07:30 09/15/18 07:29 08/22/18 20:15 Heparin Sodium (Porcine) (Heparin 5000 units/ml) 5,000 units EVERY 12 HOURS SUBQ 08/15/18 21:00 09/14/18 20:59 08/24/18 08:36 Ibuprofen (Advil) 600 mg Q8H PRN ORAL mild pain 08/20/18 12:00 09/19/18 11:59 Insulin Aspart (NovoLOG) BEFORE MEALS AND HS SUBQ 08/15/18 22:00 09/14/18 21:59 08/24/18 12:28 Insulin Aspart (NovoLOG) 10 units NOVOLOGL SUBQ 08/23/18 11:50 09/22/18 11:49 08/24/18 12:22 Insulin Aspart (NovoLOG) 10 units NOVOLOGS SUBQ 08/24/18 16:50 09/21/18 16:49 Insulin Aspart (NovoLOG) 12 units NOVOLOGB SUBQ 08/24/18 06:30 09/22/18 06:29 08/24/18 06:30 Insulin Glargine (Lantus (NON FORUMULARY)) 40 unit Q24H SQ 08/22/18 13:00 09/16/18 12:59 08/24/18 13:42 Iopamidol (Isovue-300 100ml) 100 ml NOW PRN INJ Radiology Procedure 08/24/18 14:30 08/26/18 14:19 UNV Levofloxacin (Levaquin) 750 mg DAILY ORAL 08/22/18 09:00 08/27/18 08:59 08/24/18 08:33 Pregabalin (Lyrica) 50 mg TWICE A DAY ORAL 08/16/18 09:00 09/15/18 08:59 08/24/18 08:34 Promethazine HCl/ Codeine (Phenergan with Codeine) 5 ml Q8H PRN ORAL For Cough 08/21/18 14:45 09/20/18 14:44 08/23/18 13:35 Rohini Camargo MD Aug 24, 2018 14:22
[2018-08-24] MEDS ORDERED: Isovue-300 100ml vial INJ PRN ×2 (14:30→17:00)
[2018-08-24] MEDS: Sennosides 8.6mg tab ORAL SCH (14:46)
[2018-08-24 16:00] VITALS: BP 126/67
[2018-08-24] MEDS ORDERED: NovoLOG Insulin Flexpen SUBQ SCH (16:50)
[2018-08-24] MEDS: Lactulose 20gm/30ml UDC ORAL SCH (17:33)
[2018-08-24 20:58] VITALS: BP 140/75
[2018-08-24] MEDS: Miralax 17gm pkt ORAL SCH (21:06)
[2018-08-24] MEDS: Atorvastatin 20mg tab ORAL SCH (21:06)
--- NOTE | 2018-08-24 21:45 | General Progress Note ---
Assessment/Plan Problem List: (1) Renal insufficiency ICD Codes: N28.9 - Disorder of kidney and ureter, unspecified SNOMED: 239884148, 619552903 (2) Intractable vomiting ICD Codes: R11.10 - Vomiting, unspecified SNOMED: 458466966, 421680358 Qualifiers: Qualified Codes: R11.2 - Nausea with vomiting, unspecified (3) Hyperglycemia ICD Codes: R73.9 - Hyperglycemia, unspecified SNOMED: 77011814 (4) Gastroparesis ICD Codes: K31.84 - Gastroparesis SNOMED: 727097425 (5) Diabetes mellitus ICD Codes: E11.9 - Type 2 diabetes mellitus without complications SNOMED: 88371758 Status: progressing Assessment/Plan abdomin is soft no acute events s/p vomitting sugar improving reviewed chart and labs Subjective ROS Limited/Unobtainable: Yes Allergies: Coded Allergies: INSULIN DETEMIR (Unverified Allergy, Unknown, Sweating, 08/16/18) Subjective nausea Objective Last 24 Hour Vital Signs Date Time Temp Pulse Resp B/P (MAP) Pulse Ox O2 Delivery O2 Flow Rate FiO2 08/24/18 20:58 98.8 88 19 140/75 (96) 95 08/24/18 16:00 98.3 80 20 126/67 (86) 94 08/24/18 15:39 81 19 97 Room Air 21 08/24/18 15:27 79 22 96 Room Air 21 08/24/18 12:00 98.2 76 20 128/77 (94) 94 08/24/18 11:55 82 17 99 Room Air 21 08/24/18 11:42 74 19 97 Room Air 21 08/24/18 09:00 Room Air 08/24/18 08:34 130/82 08/24/18 08:00 79 16 98 Room Air 21 08/24/18 08:00 98.5 74 20 130/82 (98) 92 08/24/18 07:48 71 15 Room Air 21 08/24/18 07:47 71 15 95 Room Air 21 08/24/18 04:00 98.3 71 18 115/59 (77) 96 08/24/18 00:39 98.5 08/24/18 00:00 98.5 80 18 114/60 (78) 94 Intake and Output 08/23/18 08/24/18 18:59 06:59 Intake Total 1336 ml 780 ml Output Total 950 ml Balance 1336 ml -170 ml Intake Oral 1336 ml 780 ml Output Urine Total 950 ml # Voids 1 Laboratory Tests 08/24/18 10:10: Troponin I 0.010 08/24/18 15:45: Troponin I 0.011 Height (Feet): 5 Height (Inches): 10.00 Weight (Pounds): 199 Cardiovascular: normal rate Respiratory/Chest: lungs clear Abdomen: soft Kim Billings MD Aug 24, 2018 21:45
--- NOTE | 2018-08-24 23:37 | Cardiology Progress Note ---
Assessment/Plan Assessment/Plan The patient is seen and examined, full consult note will be dictated. Objective Last 24 Hour Vital Signs Date Time Temp Pulse Resp B/P (MAP) Pulse Ox O2 Delivery O2 Flow Rate FiO2 08/24/18 23:16 88 19 98 Room Air 21 08/24/18 22:58 88 18 98 Room Air 21 08/24/18 22:58 88 18 Room Air 21 08/24/18 21:00 Room Air 08/24/18 20:58 98.8 88 19 140/75 (96) 95 08/24/18 16:00 98.3 80 20 126/67 (86) 94 08/24/18 15:39 81 19 97 Room Air 21 08/24/18 15:27 79 22 96 Room Air 21 08/24/18 12:00 98.2 76 20 128/77 (94) 94 08/24/18 11:55 82 17 99 Room Air 21 08/24/18 11:42 74 19 97 Room Air 08/24/18 09:00 Room Air 08/24/18 08:34 130/82 08/24/18 08:00 79 16 98 Room Air 08/24/18 08:00 98.5 74 20 130/82 (98) 92 08/24/18 07:48 71 15 Room Air 08/24/18 07:47 71 15 95 Room Air 08/24/18 04:00 98.3 71 18 115/59 (77) 96 08/24/18 00:39 98.5 08/24/18 00:00 98.5 80 18 114/60 (78) 94 Intake and Output 08/23/18 08/24/18 18:59 06:59 Intake Total 1336 ml 780 ml Output Total 950 ml Balance 1336 ml -170 ml Intake Oral 1336 ml 780 ml Output Urine Total 950 ml # Voids 1 Laboratory Tests Test 08/24/18 10:10 08/24/18 15:45 Troponin I 0.010 ng/mL (0.000-0.056) 0.011 ng/mL (0.000-0.056) Miguel Angel Beckford MD Aug 24, 2018 23:37
[2018-08-25 00:14] VITALS: BP 134/77
[2018-08-25 04:04] VITALS: BP 137/71
--- NOTE | 2018-08-25 06:46 | General Progress Note ---
Assessment/Plan Problem List: (1) Hyperglycemia ICD Codes: R73.9 - Hyperglycemia, unspecified SNOMED: 99022930 (2) Intractable vomiting ICD Codes: R11.10 - Vomiting, unspecified SNOMED: 490443864, 112755388 Qualifiers: Qualified Codes: R11.2 - Nausea with vomiting, unspecified (3) Renal insufficiency ICD Codes: N28.9 - Disorder of kidney and ureter, unspecified SNOMED: 642798024, 909585060 (4) Gastroenteritis ICD Codes: K52.9 - Noninfective gastroenteritis and colitis, unspecified SNOMED: 83098509 Assessment/Plan continue Lantus 40 units daily change Novolog to units ac B / L / D continue NISS ac / hs - will lower dosage NOTE: patient has T1DM which is very brittle in nature therefore it would be impossible to have perfect glucose values. from DM stand point there is no barrier for discharge Subjective Allergies: Coded Allergies: INSULIN DETEMIR (Unverified Allergy, Unknown, Sweating, 08/16/18) All Systems: reviewed and negative except above Subjective events noted glucose values are mostly stable except low glucose last night Objective Last 24 Hour Vital Signs Date Time Temp Pulse Resp B/P (MAP) Pulse Ox O2 Delivery O2 Flow Rate FiO2 08/25/18 04:04 97.7 103 19 137/71 (93) 95 08/25/18 00:14 98.6 85 20 134/77 (96) 97 08/24/18 23:16 88 19 98 Room Air 21 08/24/18 22:58 88 18 98 Room Air 21 08/24/18 22:58 88 18 Room Air 21 08/24/18 21:00 Room Air 08/24/18 20:58 98.8 88 19 140/75 (96) 95 08/24/18 16:00 98.3 80 20 126/67 (86) 94 08/24/18 15:39 81 19 97 Room Air 21 08/24/18 15:27 79 22 96 Room Air 21 08/24/18 12:00 98.2 76 20 128/77 (94) 94 08/24/18 11:55 82 17 99 Room Air 21 08/24/18 11:42 74 19 97 Room Air 21 08/24/18 09:00 Room Air 08/24/18 08:34 130/82 08/24/18 08:00 79 16 98 Room Air 21 08/24/18 08:00 98.5 74 20 130/82 (98) 92 08/24/18 07:48 71 15 Room Air 21 08/24/18 07:47 71 15 95 Room Air 21 Intake and Output 08/24/18 08/25/18 19:00 07:00 Intake Total 920 ml 650 ml Balance 920 ml 650 ml Intake Oral 920 ml 650 ml # Voids 2 Laboratory Tests 08/24/18 10:10: Troponin I 0.010 08/24/18 15:45: Troponin I 0.011 Height (Feet): 5 Height (Inches): 10.00 Weight (Pounds): 199 General Appearance: no apparent distress Neck: normal alignment Cardiovascular: normal rate Respiratory/Chest: decreased breath sounds Abdomen: normal bowel sounds Edema: no edema noted Arm (L), no edema noted Arm (R), no edema noted Leg (L), no edema noted Leg (R), no edema noted Pedal (L), no edema noted Pedal (R), no edema noted Generalized Objective Current Medications Medications (Trade) Dose Ordered Sig/Rashel Route PRN Reason Start Time Stop Time Status Last Admin Dose Admin Acetaminophen (Tylenol) 650 mg Q4H PRN ORAL fever (temp>100.5F) 08/15/18 20:15 09/14/18 20:14 08/15/18 21:53 Acetaminophen/ Codeine Phosphate (Tylenol #3) 1 tab Q4H PRN ORAL SEVERE PAIN 08/20/18 12:00 08/27/18 11:59 08/24/18 10:19 Al Hydroxide/Mg Hydroxide (Mylanta II) 30 ml Q6H PRN ORAL dyspepsia 08/15/18 20:15 09/14/18 20:14 Albuterol/ Ipratropium (Albuterol/ Ipratropium) 3 ml Q4H PRN HHN Shortness of Breath 08/21/18 15:06 08/26/18 15:05 08/24/18 22:58 Aspirin (Ecotrin) 81 mg DAILY ORAL 08/16/18 09:00 09/15/18 08:59 08/24/18 08:33 Atorvastatin Calcium (Lipitor) 20 mg BEDTIME ORAL 08/23/18 21:00 09/22/18 20:59 08/24/18 21:06 Benazepril HCl (Lotensin) 20 mg DAILY ORAL 08/20/18 12:01 09/19/18 12:00 08/24/18 08:34 Clonidine HCl (Catapres Tab) 0.1 mg Q4H PRN ORAL sbp more than 160 08/15/18 20:15 09/14/18 20:14 Dextrose (Dextrose 50%) 25 ml Q30M PRN IV Hypoglycemia 08/16/18 07:30 09/15/18 07:29 Dextrose (Dextrose 50%) 50 ml Q30M PRN IV Hypoglycemia 08/16/18 07:30 09/15/18 07:29 08/24/18 19:11 Heparin Sodium (Porcine) (Heparin 5000 units/ml) 5,000 units EVERY 12 HOURS SUBQ 08/15/18 21:00 09/14/18 20:59 08/24/18 21:08 Ibuprofen (Advil) 600 mg Q8H PRN ORAL mild pain 08/20/18 12:00 09/19/18 11:59 Insulin Aspart (NovoLOG) BEFORE MEALS AND HS SUBQ 08/15/18 22:00 09/14/18 21:59 08/24/18 17:35 Insulin Aspart (NovoLOG) 10 units NOVOLOGL SUBQ 08/23/18 11:50 09/22/18 11:49 08/24/18 12:22 Insulin Aspart (NovoLOG) 10 units NOVOLOGS SUBQ 08/24/18 16:50 09/21/18 16:49 08/24/18 17:36 Insulin Aspart (NovoLOG) 12 units NOVOLOGB SUBQ 08/24/18 06:30 09/22/18 06:29 08/24/18 06:30 Insulin Glargine (Lantus (NON FORUMULARY)) 40 unit Q24H SQ 08/22/18 13:00 09/16/18 12:59 08/24/18 13:42 Iopamidol (Isovue-300 100ml) 100 ml NOW PRN INJ Radiology Procedure 08/24/18 14:30 08/26/18 14:19 Lactulose (Cephulac) 30 gm THREE TIMES A DAY ORAL 08/24/18 18:00 09/23/18 17:59 08/24/18 17:33 Mineral Oil (Fleet's Mineral Oil Enema) 133 ml EVERY OTHER DAY RECTAL 08/26/18 09:00 09/25/18 08:59 Polyethylene Glycol (Miralax) 17 gm BEDTIME ORAL 08/24/18 21:00 09/23/18 20:59 08/24/18 21:06 Pregabalin (Lyrica) 50 mg TWICE A DAY ORAL 08/16/18 09:00 09/15/18 08:59 08/24/18 17:34 Promethazine HCl/ Codeine (Phenergan with Codeine) 5 ml Q8H PRN ORAL For Cough 08/21/18 14:45 09/20/18 14:44 08/23/18 13:35 Sennosides (Senokot) 8.6 mg DAILY ORAL 08/24/18 14:30 09/23/18 14:29 08/24/18 14:46 Item Value Date Time Bedside Blood Glucose 163 mg/dl H 08/25/18 0630 Bedside Blood Glucose 131 mg/dl H 08/24/18 2100 Bedside Blood Glucose 137 mg/dl H 08/24/18 1736 Bedside Blood Glucose 185 mg/dl H 08/24/18 1228 Bedside Blood Glucose 168 mg/dl H 08/24/18 0630 Bedside Blood Glucose 103 mg/dl 08/24/18 0030 Mac Vegas MD Aug 25, 2018 06:46
[2018-08-25] MEDS: NovoLOG Insulin Flexpen SUBQ SCH ×6 (06:58→21:00)
[2018-08-25] MEDS: Albuterol/Ipratropium 3ml neb HHN PRN (07:49)
[2018-08-25 08:00] VITALS: BP 119/69
[2018-08-25 08:30] LABS: BASOPHILS % (AUTO) 1.1 % (0.0-2.0); EOSINOPHILS % (AUTO) 2.7 % (0.0-3.0); HEMATOCRIT 40.6 % (42.0-52.0); HEMOGLOBIN 13.9 G/DL (14.2-18.0); LYMPHOCYTES % (AUTO) 19.1 % (20.0-45.0); MEAN CORPUSCULAR VOLUME 88 FL (80-99); MONOCYTES % (AUTO) 9.1 % (1.0-10.0); NEUTROPHILS % (AUTO) 68.1 % (45.0-75.0); PLATELET COUNT 336 K/UL (150-450); RED BLOOD COUNT 4.61 M/UL (4.70-6.10); WHITE BLOOD COUNT 8.9 K/UL (4.8-10.8)
[2018-08-25] MEDS: Heparin 5000 units/ml inj SUBQ SCH ×2 (08:48→20:25)
[2018-08-25] MEDS: Sennosides 8.6mg tab ORAL SCH (08:49)
[2018-08-25] MEDS: Benazepril 10mg tab ORAL SCH (08:49)
[2018-08-25] MEDS: Aspirin EC 81mg tab ORAL SCH (08:49)
[2018-08-25] MEDS: Lyrica 50mg cap ORAL SCH ×2 (08:50→17:24)
[2018-08-25] MEDS: Lactulose 20gm/30ml UDC ORAL SCH ×3 (08:51→17:23)
--- NOTE | 2018-08-25 08:55 | Diagnostic Imaging Report ---
Clinical Indication: Shortness of breath Technique: Spiral acquisitions obtained through the chest. No IV contrast utilized, reason not stated. Multiplanar reconstructions generated. Total dose length product 700.34 mGycm. CTDIvol(s) 19.71 mGy. Dose reduction achieved using automated exposure control Comparison: none Findings: Patchy areas of consolidation are seen scattered through the right upper and lower lobes, sparing the middle lobe. These represent a combination of nodular, consolidative, and groundglass opacities. Some of these have a questionable tree-in-bud appearance as well. No infiltrates are seen in the left lung. A few areas of scarring are seen in the inferior right lower lobe. There are no effusions. No definite masses. Heart size is normal. There is minimal pericardial thickening. No mediastinal or hilar lymphadenopathy is demonstrated. Unremarkable esophagus. The included portion of the thyroid is unremarkable. No axillary or chest wall mass or adenopathy. The bones are unremarkable. The included upper abdominal anatomy is unremarkable Impression: Right upper and lower lobe scattered areas of consolidation, nodularity, groundglass and equivocal tree-in-bud opacities. Most likely represents infectious inflammatory process. Given possibly tree-in-bud opacities, the possibility of atypical infectious processes, including tuberculosis or other mycobacterial infections or fungal pneumonia pulmonary to be considered but are less likely. Noninfectious inflammatory processes should also be considered. Multifocal neoplasm such as bronchoalveolar carcinoma must less likely but also possible Findings discussed by phone with Dr. Camargo at the time of interpretation The CT scanner at [facility] is accredited by the [employer] and the scans are performed using protocols designed to limit radiation exposure to as low as reasonably achievable to attain images of sufficient resolution adequate for diagnostic evaluation.
[2018-08-25 08:57] LABS: ANION GAP 9 mmol/L (5-15); BLOOD UREA NITROGEN 13 mg/dL (7-18); CALCIUM 9.5 MG/DL (8.5-10.1); CARBON DIOXIDE 27 MMOL/L (21-32); CHLORIDE 102 MMOL/L (98-107); CREATININE 1.2 MG/DL (0.55-1.30); POTASSIUM 4.6 MMOL/L (3.5-5.1); SODIUM 138 MMOL/L (136-145)
[2018-08-25] MEDS ORDERED: Isovue-300 100ml vial INJ PRN (09:30)
[2018-08-25] MEDS ORDERED: PPD Tuberculin Skin Test 5TU IDERMAL ONE (11:00)
[2018-08-25 11:16] LABS: BASOPHILS % (AUTO) 1.5 % (0.0-2.0); EOSINOPHILS % (AUTO) 2.8 % (0.0-3.0); HEMOGLOBIN 14.7 G/DL (14.2-18.0); LYMPHOCYTES % (AUTO) 14.8 % (20.0-45.0); MEAN CORPUSCULAR VOLUME 88 FL (80-99); MONOCYTES % (AUTO) 9.7 % (1.0-10.0); NEUTROPHILS % (AUTO) 71.2 % (45.0-75.0); PLATELET COUNT 360 K/UL (150-450); RED BLOOD COUNT 4.87 M/UL (4.70-6.10); RED CELL DISTRIBUTION WIDTH 11.5 % (11.6-14.8); WHITE BLOOD COUNT 10.4 K/UL (4.8-10.8)
[2018-08-25 12:00] VITALS: BP 115/61
--- NOTE | 2018-08-25 12:53 | Pulmonology Progress Note ---
Assessment/Plan Problems: (1) Gastroenteritis (2) Intractable vomiting (3) Hyperglycemia (4) Gastroparesis (5) Diabetes mellitus (6) ATN (acute tubular necrosis) Assessment/Plan CT chest reviewed, rule out interstitial nodular pneumonia, d/w radiologist, TB needs to be ruled out Sputum for Af[employer] TB skin test increase insulin as needed.\ Subjective Interval Events: feeling weak Allergies: Coded Allergies: INSULIN DETEMIR (Unverified Allergy, Unknown, Sweating, 08/16/18) Objective Last 24 Hour Vital Signs Date Time Temp Pulse Resp B/P (MAP) Pulse Ox O2 Delivery O2 Flow Rate FiO2 08/25/18 09:00 Room Air 08/25/18 08:49 119/69 08/25/18 08:00 98.5 90 20 119/69 (86) 94 08/25/18 07:47 91 18 96 Room Air 21 08/25/18 07:47 91 18 Room Air 21 08/25/18 04:04 97.7 103 19 137/71 (93) 95 08/25/18 00:14 98.6 85 20 134/77 (96) 97 08/24/18 23:16 88 19 98 Room Air 21 08/24/18 22:58 88 18 98 Room Air 21 08/24/18 22:58 88 18 Room Air 21 08/24/18 21:00 Room Air 08/24/18 20:58 98.8 88 19 140/75 (96) 95 08/24/18 16:00 98.3 80 20 126/67 (86) 94 08/24/18 15:39 81 19 97 Room Air 21 08/24/18 15:27 79 22 96 Room Air 21 Intake and Output 08/24/18 08/25/18 19:00 07:00 Intake Total 920 ml 650 ml Balance 920 ml 650 ml Intake Oral 920 ml 650 ml # Voids 2 General Appearance: WD/WN HEENT: atraumatic, anicteric Respiratory/Chest: chest wall non-tender, normal breath sounds Cardiovascular: normal peripheral pulses, normal rate Abdomen: normal bowel sounds, soft, non tender Extremities: no cyanosis Skin: no rash Laboratory Tests 08/24/18 15:45: Troponin I 0.011 08/25/18 08:10: White Blood Count 8.9, Red Blood Count 4.61L, Hemoglobin 13.9L, Hematocrit 40.6L , Mean Corpuscular Volume 88, Mean Corpuscular Hemoglobin 30.0, Mean Corpuscular Hemoglobin Concent 34.1, Red Cell Distribution Width 11.0L, Platelet Count 336, Mean Platelet Volume 7.6, Neutrophils (%) (Auto) 68.1, Lymphocytes (%) (Auto) 19.1L, Monocytes (%) (Auto) 9.1, Eosinophils (%) (Auto) 2.7, Basophils (%) (Auto) 1.1, Sodium Level 138, Potassium Level 4.6, Chloride Level 102, Carbon Dioxide Level 27, Anion Gap 9, Blood Urea Nitrogen 13, Creatinine 1.2, Estimat Glomerular Filtration Rate > 60, Glucose Level 201H, Calcium Level 9.5 08/25/18 10:55: White Blood Count 10.4, Red Blood Count 4.87, Hemoglobin 14.7, Hematocrit 43.0, Mean Corpuscular Volume 88, Mean Corpuscular Hemoglobin 30.1, Mean Corpuscular Hemoglobin Concent 34.1, Red Cell Distribution Width 11.5L, Platelet Count 360, Mean Platelet Volume 7.7, Neutrophils (%) (Auto) 71.2, Lymphocytes (%) (Auto) 14.8L, Monocytes (%) (Auto) 9.7, Eosinophils (%) (Auto) 2.8, Basophils (%) (Auto ) 1.5, Lactate Dehydrogenase 239H, Carcinoembryonic Antigen [Pending], Blastomyces Ab Immunodiffusion [Pending], Histoplasma Mycelial Antibody [Pending ], Histoplasma Antibody w Mycelial Ag [Pending], Histoplasma Antibody with Yeast Ag [Pending], TB Test (T-Spot) [Pending], TB Test Nil Control (T-Spot) [ Pending], TB Test Panel A (T-Spot) [Pending], TB Test Panel B (T-Spot) [Pending] , TB Test Positive Control (T-Spot) [Pending] Current Medications Medications (Trade) Dose Ordered Sig/Rashel Route PRN Reason Start Time Stop Time Status Last Admin Dose Admin Acetaminophen (Tylenol) 650 mg Q4H PRN ORAL fever (temp>100.5F) 08/15/18 20:15 09/14/18 20:14 08/15/18 21:53 Acetaminophen/ Codeine Phosphate (Tylenol #3) 1 tab Q4H PRN ORAL SEVERE PAIN 08/20/18 12:00 08/27/18 11:59 08/24/18 10:19 Al Hydroxide/Mg Hydroxide (Mylanta II) 30 ml Q6H PRN ORAL dyspepsia 08/15/18 20:15 09/14/18 20:14 Albuterol/ Ipratropium (Albuterol/ Ipratropium) 3 ml Q4H PRN HHN Shortness of Breath 08/21/18 15:06 08/26/18 15:05 08/25/18 07:49 Aspirin (Ecotrin) 81 mg DAILY ORAL 08/16/18 09:00 09/15/18 08:59 08/25/18 08:49 Atorvastatin Calcium (Lipitor) 20 mg BEDTIME ORAL 08/23/18 21:00 09/22/18 20:59 08/24/18 21:06 Benazepril HCl (Lotensin) 20 mg DAILY ORAL 08/20/18 12:01 09/19/18 12:00 08/25/18 08:49 Clonidine HCl (Catapres Tab) 0.1 mg Q4H PRN ORAL sbp more than 160 08/15/18 20:15 09/14/18 20:14 Dextrose (Dextrose 50%) 25 ml Q30M PRN IV Hypoglycemia 08/16/18 07:30 09/15/18 07:29 Dextrose (Dextrose 50%) 50 ml Q30M PRN IV Hypoglycemia 08/16/18 07:30 09/15/18 07:29 08/24/18 19:11 Heparin Sodium (Porcine) (Heparin 5000 units/ml) 5,000 units EVERY 12 HOURS SUBQ 08/15/18 21:00 09/14/18 20:59 08/25/18 08:48 Ibuprofen (Advil) 600 mg Q8H PRN ORAL mild pain 08/20/18 12:00 09/19/18 11:59 Insulin Aspart (NovoLOG) BEFORE MEALS AND HS SUBQ 08/25/18 11:30 09/14/18 21:59 Insulin Aspart (NovoLOG) 8 units NOVOLOGS SUBQ 08/25/18 16:50 09/21/18 16:49 Insulin Aspart (NovoLOG) 10 units NOVOLOGL SUBQ 08/23/18 11:50 09/22/18 11:49 08/24/18 12:22 Insulin Aspart (NovoLOG) 12 units NOVOLOGB SUBQ 08/24/18 06:30 09/22/18 06:29 08/25/18 06:58 Insulin Glargine (Lantus (NON FORUMULARY)) 40 unit Q24H SQ 08/22/18 13:00 09/16/18 12:59 08/24/18 13:42 Iopamidol (Isovue-300 100ml) 100 ml NOW PRN INJ Radiology Procedure 08/24/18 14:30 08/26/18 14:19 Iopamidol (Isovue-300 100ml) 100 ml NOW PRN INJ Radiology Procedure 08/25/18 09:30 08/27/18 09:22 Lactulose (Cephulac) 30 gm THREE TIMES A DAY ORAL 08/24/18 18:00 09/23/18 17:59 08/25/18 08:51 Mineral Oil (Fleet's Mineral Oil Enema) 133 ml EVERY OTHER DAY RECTAL 08/26/18 09:00 09/25/18 08:59 Polyethylene Glycol (Miralax) 17 gm BEDTIME ORAL 08/24/18 21:00 09/23/18 20:59 08/24/18 21:06 Pregabalin (Lyrica) 50 mg TWICE A DAY ORAL 08/16/18 09:00 09/15/18 08:59 08/25/18 08:50 Promethazine HCl/ Codeine (Phenergan with Codeine) 5 ml Q8H PRN ORAL For Cough 08/21/18 14:45 09/20/18 14:44 08/23/18 13:35 Sennosides (Senokot) 8.6 mg DAILY ORAL 08/24/18 14:30 09/23/18 14:29 08/25/18 08:49 Rohini Camargo MD Aug 25, 2018 12:52
--- NOTE | 2018-08-25 12:56 | General Progress Note ---
Assessment/Plan Problem List: (1) Gastroenteritis ICD Codes: K52.9 - Noninfective gastroenteritis and colitis, unspecified SNOMED: 44387602 (2) Renal insufficiency ICD Codes: N28.9 - Disorder of kidney and ureter, unspecified SNOMED: 888697208, 093523499 (3) Intractable vomiting ICD Codes: R11.10 - Vomiting, unspecified SNOMED: 007007887, 377126909 Qualifiers: Qualified Codes: R11.2 - Nausea with vomiting, unspecified (4) Hyperglycemia ICD Codes: R73.9 - Hyperglycemia, unspecified SNOMED: 87132380 (5) Gastroparesis ICD Codes: K31.84 - Gastroparesis SNOMED: 045586944 Status: stable, progressing Assessment/Plan ivf adv diet cbc bmp am dc if clear Subjective Constitutional: Reports: weakness Allergies: Coded Allergies: INSULIN DETEMIR (Unverified Allergy, Unknown, Sweating, 08/16/18) All Systems: reviewed and negative except above Subjective in mask calm in bed Objective Last 24 Hour Vital Signs Date Time Temp Pulse Resp B/P (MAP) Pulse Ox O2 Delivery O2 Flow Rate FiO2 08/25/18 09:00 Room Air 08/25/18 08:49 119/69 08/25/18 08:00 98.5 90 20 119/69 (86) 94 08/25/18 07:47 91 18 96 Room Air 21 08/25/18 07:47 91 18 Room Air 21 08/25/18 04:04 97.7 103 19 137/71 (93) 95 08/25/18 00:14 98.6 85 20 134/77 (96) 97 08/24/18 23:16 88 19 98 Room Air 21 08/24/18 22:58 88 18 98 Room Air 21 08/24/18 22:58 88 18 Room Air 21 08/24/18 21:00 Room Air 08/24/18 20:58 98.8 88 19 140/75 (96) 95 08/24/18 16:00 98.3 80 20 126/67 (86) 94 08/24/18 15:39 81 19 97 Room Air 21 08/24/18 15:27 79 22 96 Room Air 21 Intake and Output 08/24/18 08/25/18 19:00 07:00 Intake Total 920 ml 650 ml Balance 920 ml 650 ml Intake Oral 920 ml 650 ml # Voids 2 Laboratory Tests 08/24/18 15:45: Troponin I 0.011 08/25/18 08:10: White Blood Count 8.9, Red Blood Count 4.61L, Hemoglobin 13.9L, Hematocrit 40.6L , Mean Corpuscular Volume 88, Mean Corpuscular Hemoglobin 30.0, Mean Corpuscular Hemoglobin Concent 34.1, Red Cell Distribution Width 11.0L, Platelet Count 336, Mean Platelet Volume 7.6, Neutrophils (%) (Auto) 68.1, Lymphocytes (%) (Auto) 19.1L, Monocytes (%) (Auto) 9.1, Eosinophils (%) (Auto) 2.7, Basophils (%) (Auto) 1.1, Sodium Level 138, Potassium Level 4.6, Chloride Level 102, Carbon Dioxide Level 27, Anion Gap 9, Blood Urea Nitrogen 13, Creatinine 1.2, Estimat Glomerular Filtration Rate > 60, Glucose Level 201H, Calcium Level 9.5 08/25/18 10:55: White Blood Count 10.4, Red Blood Count 4.87, Hemoglobin 14.7, Hematocrit 43.0, Mean Corpuscular Volume 88, Mean Corpuscular Hemoglobin 30.1, Mean Corpuscular Hemoglobin Concent 34.1, Red Cell Distribution Width 11.5L, Platelet Count 360, Mean Platelet Volume 7.7, Neutrophils (%) (Auto) 71.2, Lymphocytes (%) (Auto) 14.8L, Monocytes (%) (Auto) 9.7, Eosinophils (%) (Auto) 2.8, Basophils (%) (Auto ) 1.5, Lactate Dehydrogenase 239H, Carcinoembryonic Antigen [Pending], Blastomyces Ab Immunodiffusion [Pending], Histoplasma Mycelial Antibody [Pending ], Histoplasma Antibody w Mycelial Ag [Pending], Histoplasma Antibody with Yeast Ag [Pending], TB Test (T-Spot) [Pending], TB Test Nil Control (T-Spot) [ Pending], TB Test Panel A (T-Spot) [Pending], TB Test Panel B (T-Spot) [Pending] , TB Test Positive Control (T-Spot) [Pending] Height (Feet): 5 Height (Inches): 10.00 Weight (Pounds): 199 General Appearance: alert EENT: normal ENT inspection Neck: normal alignment Cardiovascular: normal peripheral pulses, normal rate, regular rhythm Respiratory/Chest: chest wall non-tender, lungs clear, normal breath sounds Abdomen: normal bowel sounds, non tender, soft Extremities: normal inspection Edema: no edema noted Arm (L), no edema noted Arm (R), no edema noted Leg (L), no edema noted Leg (R), no edema noted Pedal (L), no edema noted Pedal (R), no edema noted Generalized Neurologic: responsive, motor weakness Skin: normal pigmentation, warm/dry Stuart Silver DO Aug 25, 2018 12:56
--- NOTE | 2018-08-25 13:08 | GI Progress Note ---
Assessment/Plan Problems: (1) Gastroparesis ICD Codes: K31.84 - Gastroparesis SNOMED: 503371451 (2) Hyperglycemia ICD Codes: R73.9 - Hyperglycemia, unspecified SNOMED: 28129571 (3) Intractable vomiting ICD Codes: R11.10 - Vomiting, unspecified SNOMED: 153940024, 304032054 Qualifiers: Qualified Codes: R11.2 - Nausea with vomiting, unspecified (4) Renal insufficiency ICD Codes: N28.9 - Disorder of kidney and ureter, unspecified SNOMED: 655175179, 558618124 (5) Gastroenteritis ICD Codes: K52.9 - Noninfective gastroenteritis and colitis, unspecified SNOMED: 01364587 (6) Malingering ICD Codes: Z76.5 - Malingerer [conscious simulation] SNOMED: 128222274 Status: unchanged Status Narrative Discussed with Dr. Thomas Assessment/Plan Assessment - N/V, Diarrhea - Abd pain - IDDM - HTN -Gastroparesis OB stool negative Now airborne precautions to rule out TB Recommendations Symptomatic treatment at this time Advance to ADA diet hydration PPI Zofran as needed, Reglan for persistent vomiting Follow-up labs PT evaluation Outpatient EGD colonoscopy The patient was seen and examined at bedside and all new and available data was reviewed in the patients chart. I agree with the above findings, impression and plan. (Patient seen earlier today. Signature stamp does not reflect patient encounter time.). - Noé Thomas MD Subjective Subjective Denies any nausea or vomiting Denies any abdominal pain Able to tolerate small amounts of food Now complaining of hip pain Has new onset of chest pain Objective Last 24 Hour Vital Signs Date Time Temp Pulse Resp B/P (MAP) Pulse Ox O2 Delivery O2 Flow Rate FiO2 08/25/18 09:00 Room Air 08/25/18 08:49 119/69 08/25/18 08:00 98.5 90 20 119/69 (86) 94 08/25/18 07:47 91 18 96 Room Air 21 08/25/18 07:47 91 18 Room Air 21 08/25/18 04:04 97.7 103 19 137/71 (93) 95 08/25/18 00:14 98.6 85 20 134/77 (96) 97 08/24/18 23:16 88 19 98 Room Air 21 08/24/18 22:58 88 18 98 Room Air 21 08/24/18 22:58 88 18 Room Air 21 08/24/18 21:00 Room Air 08/24/18 20:58 98.8 88 19 140/75 (96) 95 08/24/18 16:00 98.3 80 20 126/67 (86) 94 08/24/18 15:39 81 19 97 Room Air 21 08/24/18 15:27 79 22 96 Room Air 21 Intake and Output 08/24/18 08/25/18 19:00 07:00 Intake Total 920 ml 650 ml Balance 920 ml 650 ml Intake Oral 920 ml 650 ml # Voids 2 Laboratory Tests Test 08/24/18 15:45 08/25/18 08:10 08/25/18 10:55 Troponin I 0.011 ng/mL (0.000-0.056) White Blood Count 8.9 K/UL (4.8-10.8) 10.4 K/UL (4.8-10.8) Red Blood Count 4.61 M/UL (4.70-6.10) L 4.87 M/UL (4.70-6.10) Hemoglobin 13.9 G/DL (14.2-18.0) L 14.7 G/DL (14.2-18.0) Hematocrit 40.6 % (42.0-52.0) L 43.0 % (42.0-52.0) Mean Corpuscular Volume 88 FL (80-99) 88 FL (80-99) Mean Corpuscular Hemoglobin 30.0 PG (27.0-31.0) 30.1 PG (27.0-31.0) Mean Corpuscular Hemoglobin Concent 34.1 G/DL (32.0-36.0) 34.1 G/DL (32.0-36.0) Red Cell Distribution Width 11.0 % (11.6-14.8) L 11.5 % (11.6-14.8) L Platelet Count 336 K/UL (150-450) 360 K/UL (150-450) Mean Platelet Volume 7.6 FL (6.5-10.1) 7.7 FL (6.5-10.1) Neutrophils (%) (Auto) 68.1 % (45.0-75.0) 71.2 % (45.0-75.0) Lymphocytes (%) (Auto) 19.1 % (20.0-45.0) L 14.8 % (20.0-45.0) L Monocytes (%) (Auto) 9.1 % (1.0-10.0) 9.7 % (1.0-10.0) Eosinophils (%) (Auto) 2.7 % (0.0-3.0) 2.8 % (0.0-3.0) Basophils (%) (Auto) 1.1 % (0.0-2.0) 1.5 % (0.0-2.0) Sodium Level 138 MMOL/L (136-145) Potassium Level 4.6 MMOL/L (3.5-5.1) Chloride Level 102 MMOL/L (98-107) Carbon Dioxide Level 27 MMOL/L (21-32) Anion Gap 9 mmol/L (5-15) Blood Urea Nitrogen 13 mg/dL (7-18) Creatinine 1.2 MG/DL (0.55-1.30) Estimat Glomerular Filtration Rate > 60 mL/min (>60) Glucose Level 201 MG/DL (74-106) H Calcium Level 9.5 MG/DL (8.5-10.1) Lactate Dehydrogenase 239 U/L (81-234) H Carcinoembryonic Antigen Pending Blastomyces Ab Immunodiffusion Pending Histoplasma Mycelial Antibody Pending Histoplasma Antibody w Mycelial Ag Pending Histoplasma Antibody with Yeast Ag Pending HIV (1&2) Antibody Rapid Pending TB Test (T-Spot) Pending TB Test Nil Control (T-Spot) Pending TB Test Panel A (T-Spot) Pending TB Test Panel B (T-Spot) Pending TB Test Positive Control (T-Spot) Pending Height (Feet): 5 Height (Inches): 10.00 Weight (Pounds): 199 General Appearance: WD/WN, no apparent distress, alert Cardiovascular: normal rate Respiratory/Chest: normal breath sounds, no respiratory distress Abdominal Exam: normal bowel sounds, non tender, soft Extremities: normal range of motion, non-tender Debby Vidal NP Aug 25, 2018 13:08
[2018-08-25] MEDS: Promethazine/Codeine 5ml UD ORAL PRN (14:14)
[2018-08-25 16:00] VITALS: BP 119/69
[2018-08-25 20:00] VITALS: BP 128/64
[2018-08-25] MEDS: Atorvastatin 20mg tab ORAL SCH (20:19)
[2018-08-25] MEDS: Miralax 17gm pkt ORAL SCH (20:20)
--- NOTE | 2018-08-25 23:09 | Cardiology Progress Note ---
Assessment/Plan Assessment/Plan 1. Atypical chest pain, AMI rule out by negative cardiac enzymes. Will obtain 2D echocardiography to assess LV function. 2. DM, continue ASA and atorvastatin. 3. HTN, continue benazepril. 4. CKD 5. Gastroparesis Subjective Subjective No cardiac events. Denies chest pain. Objective Last 24 Hour Vital Signs Date Time Temp Pulse Resp B/P (MAP) Pulse Ox O2 Delivery O2 Flow Rate FiO2 08/25/18 21:00 Room Air 08/25/18 20:00 97.5 84 18 128/64 (85) 94 08/25/18 16:00 98.4 92 20 119/69 (86) 97 08/25/18 12:00 98.2 83 20 115/61 (79) 97 08/25/18 09:00 Room Air 08/25/18 08:49 119/69 08/25/18 08:00 98.5 90 20 119/69 (86) 94 08/25/18 07:47 91 18 96 Room Air 21 08/25/18 07:47 91 18 Room Air 21 08/25/18 04:04 97.7 103 19 137/71 (93) 95 08/25/18 00:14 98.6 85 20 134/77 (96) 97 08/24/18 23:16 88 19 98 Room Air 21 Intake and Output 08/24/18 08/25/18 18:59 06:59 Intake Total 920 ml 650 ml Balance 920 ml 650 ml Intake Oral 920 ml 650 ml # Voids 2 Laboratory Tests Test 08/25/18 08:10 08/25/18 10:10 08/25/18 10:55 White Blood Count 8.9 K/UL (4.8-10.8) 10.4 K/UL (4.8-10.8) Red Blood Count 4.61 M/UL (4.70-6.10) L 4.87 M/UL (4.70-6.10) Hemoglobin 13.9 G/DL (14.2-18.0) L 14.7 G/DL (14.2-18.0) Hematocrit 40.6 % (42.0-52.0) L 43.0 % (42.0-52.0) Mean Corpuscular Volume 88 FL (80-99) 88 FL (80-99) Mean Corpuscular Hemoglobin 30.0 PG (27.0-31.0) 30.1 PG (27.0-31.0) Mean Corpuscular Hemoglobin Concent 34.1 G/DL (32.0-36.0) 34.1 G/DL (32.0-36.0) Red Cell Distribution Width 11.0 % (11.6-14.8) L 11.5 % (11.6-14.8) L Platelet Count 336 K/UL (150-450) 360 K/UL (150-450) Mean Platelet Volume 7.6 FL (6.5-10.1) 7.7 FL (6.5-10.1) Neutrophils (%) (Auto) 68.1 % (45.0-75.0) 71.2 % (45.0-75.0) Lymphocytes (%) (Auto) 19.1 % (20.0-45.0) L 14.8 % (20.0-45.0) L Monocytes (%) (Auto) 9.1 % (1.0-10.0) 9.7 % (1.0-10.0) Eosinophils (%) (Auto) 2.7 % (0.0-3.0) 2.8 % (0.0-3.0) Basophils (%) (Auto) 1.1 % (0.0-2.0) 1.5 % (0.0-2.0) Sodium Level 138 MMOL/L (136-145) Potassium Level 4.6 MMOL/L (3.5-5.1) Chloride Level 102 MMOL/L (98-107) Carbon Dioxide Level 27 MMOL/L (21-32) Anion Gap 9 mmol/L (5-15) Blood Urea Nitrogen 13 mg/dL (7-18) Creatinine 1.2 MG/DL (0.55-1.30) Estimat Glomerular Filtration Rate > 60 mL/min (>60) Glucose Level 201 MG/DL (74-106) H Calcium Level 9.5 MG/DL (8.5-10.1) Cryptococcus Antigen Pending Lactate Dehydrogenase 239 U/L (81-234) H Carcinoembryonic Antigen Pending Blastomyces Ab Immunodiffusion Pending Histoplasma Mycelial Antibody Pending Histoplasma Antibody w Mycelial Ag Pending Histoplasma Antibody with Yeast Ag Pending HIV (1&2) Antibody Rapid Negative (NEGATIVE) TB Test (T-Spot) Pending TB Test Nil Control (T-Spot) Pending TB Test Panel A (T-Spot) Pending TB Test Panel B (T-Spot) Pending TB Test Positive Control (T-Spot) Pending Objective HEENT: Normocephalic and atraumatic. PERRLA, EOMI. NECK: No JVD, no carotid bruit. CHEST: Clear to auscultation. CARDIOVASCULAR: Regular rate and rhythm, normal S1 S2, no murmurs, gallops or rubs. ABDOMEN: Soft and nontender. Good bowel sounds. There is no organomegaly or tenderness. EXTREMITIES: no edema, clubbing or cyanosis. Miguel Angel Beckford MD Aug 25, 2018 23:09
[2018-08-26] VITALS: BP 130/79
[2018-08-26 04:00] VITALS: BP 150/72
[2018-08-26] MEDS: NovoLOG Insulin Flexpen SUBQ SCH ×7 (06:15→21:18)
[2018-08-26] MEDS ORDERED: NovoLOG Insulin Flexpen SUBQ ONE (06:40)
--- NOTE | 2018-08-26 06:51 | General Progress Note ---
Assessment/Plan Problem List: (1) Hyperglycemia ICD Codes: R73.9 - Hyperglycemia, unspecified SNOMED: 38549494 (2) Intractable vomiting ICD Codes: R11.10 - Vomiting, unspecified SNOMED: 479182370, 478357426 Qualifiers: Qualified Codes: R11.2 - Nausea with vomiting, unspecified (3) Renal insufficiency ICD Codes: N28.9 - Disorder of kidney and ureter, unspecified SNOMED: 183832075, 358252773 (4) Gastroenteritis ICD Codes: K52.9 - Noninfective gastroenteritis and colitis, unspecified SNOMED: 98230451 Assessment/Plan reduce Lantus to 32 units qhs change Novolog to units ac B / L / D continue NISS ac / hs - will lower dosage NOTE: patient has T1DM which is very brittle in nature therefore it would be impossible to have perfect glucose values. from DM stand point there is no barrier for discharge Subjective Allergies: Coded Allergies: INSULIN DETEMIR (Unverified Allergy, Unknown, Sweating, 08/16/18) All Systems: reviewed and negative except above Subjective events noted Objective Last 24 Hour Vital Signs Date Time Temp Pulse Resp B/P (MAP) Pulse Ox O2 Delivery O2 Flow Rate FiO2 08/26/18 04:00 97.6 75 18 150/72 (98) 92 08/26/18 00:00 97.7 75 16 130/79 (96) 94 08/25/18 21:00 Room Air 08/25/18 20:00 97.5 84 18 128/64 (85) 94 08/25/18 16:00 98.4 92 20 119/69 (86) 97 08/25/18 12:00 98.2 83 20 115/61 (79) 97 08/25/18 09:00 Room Air 08/25/18 08:49 119/69 08/25/18 08:00 98.5 90 20 119/69 (86) 94 08/25/18 07:47 91 18 96 Room Air 21 08/25/18 07:47 91 18 Room Air 21 Intake and Output 08/25/18 08/26/18 19:00 07:00 Intake Total 840 ml Balance 840 ml Intake Oral 840 ml # Voids 2 2 Laboratory Tests 08/25/18 08:10: White Blood Count 8.9, Red Blood Count 4.61L, Hemoglobin 13.9L, Hematocrit 40.6L , Mean Corpuscular Volume 88, Mean Corpuscular Hemoglobin 30.0, Mean Corpuscular Hemoglobin Concent 34.1, Red Cell Distribution Width 11.0L, Platelet Count 336, Mean Platelet Volume 7.6, Neutrophils (%) (Auto) 68.1, Lymphocytes (%) (Auto) 19.1L, Monocytes (%) (Auto) 9.1, Eosinophils (%) (Auto) 2.7, Basophils (%) (Auto) 1.1, Sodium Level 138, Potassium Level 4.6, Chloride Level 102, Carbon Dioxide Level 27, Anion Gap 9, Blood Urea Nitrogen 13, Creatinine 1.2, Estimat Glomerular Filtration Rate > 60, Glucose Level 201H, Calcium Level 9.5 08/25/18 10:10: Cryptococcus Antigen [Pending] 08/25/18 10:55: White Blood Count 10.4, Red Blood Count 4.87, Hemoglobin 14.7, Hematocrit 43.0, Mean Corpuscular Volume 88, Mean Corpuscular Hemoglobin 30.1, Mean Corpuscular Hemoglobin Concent 34.1, Red Cell Distribution Width 11.5L, Platelet Count 360, Mean Platelet Volume 7.7, Neutrophils (%) (Auto) 71.2, Lymphocytes (%) (Auto) 14.8L, Monocytes (%) (Auto) 9.7, Eosinophils (%) (Auto) 2.8, Basophils (%) (Auto ) 1.5, Lactate Dehydrogenase 239H, Carcinoembryonic Antigen [Pending], Blastomyces Ab Immunodiffusion [Pending], Histoplasma Mycelial Antibody [Pending ], Histoplasma Antibody w Mycelial Ag [Pending], Histoplasma Antibody with Yeast Ag [Pending], HIV (1&2) Antibody Rapid Negative, TB Test (T-Spot) [Pending ], TB Test Nil Control (T-Spot) [Pending], TB Test Panel A (T-Spot) [Pending], TB Test Panel B (T-Spot) [Pending], TB Test Positive Control (T-Spot) [Pending] Height (Feet): 5 Height (Inches): 10.00 Weight (Pounds): 205 General Appearance: no apparent distress Neck: normal alignment Cardiovascular: normal rate Respiratory/Chest: lungs clear Abdomen: normal bowel sounds Edema: 1+ Arm (L), 1+ Arm (R), 1+ Leg (L), 1+ Leg (R), 1+ Pedal (L), 1+ Pedal ( R), 1+ Generalized Objective Current Medications Medications (Trade) Dose Ordered Sig/Rashel Route PRN Reason Start Time Stop Time Status Last Admin Dose Admin Acetaminophen (Tylenol) 650 mg Q4H PRN ORAL fever (temp>100.5F) 08/15/18 20:15 09/14/18 20:14 08/15/18 21:53 Acetaminophen/ Codeine Phosphate (Tylenol #3) 1 tab Q4H PRN ORAL SEVERE PAIN 08/20/18 12:00 08/27/18 11:59 08/24/18 10:19 Al Hydroxide/Mg Hydroxide (Mylanta II) 30 ml Q6H PRN ORAL dyspepsia 08/15/18 20:15 09/14/18 20:14 Albuterol/ Ipratropium (Albuterol/ Ipratropium) 3 ml Q4H PRN HHN Shortness of Breath 08/21/18 15:06 08/26/18 15:05 08/25/18 07:49 Aspirin (Ecotrin) 81 mg DAILY ORAL 08/16/18 09:00 09/15/18 08:59 08/25/18 08:49 Atorvastatin Calcium (Lipitor) 20 mg BEDTIME ORAL 08/23/18 21:00 09/22/18 20:59 08/25/18 20:19 Benazepril HCl (Lotensin) 20 mg DAILY ORAL 08/20/18 12:01 09/19/18 12:00 08/25/18 08:49 Clonidine HCl (Catapres Tab) 0.1 mg Q4H PRN ORAL sbp more than 160 08/15/18 20:15 09/14/18 20:14 Dextrose (Dextrose 50%) 25 ml Q30M PRN IV Hypoglycemia 08/16/18 07:30 09/15/18 07:29 Dextrose (Dextrose 50%) 50 ml Q30M PRN IV Hypoglycemia 08/16/18 07:30 09/15/18 07:29 08/24/18 19:11 Heparin Sodium (Porcine) (Heparin 5000 units/ml) 5,000 units EVERY 12 HOURS SUBQ 08/15/18 21:00 09/14/18 20:59 08/25/18 20:25 Ibuprofen (Advil) 600 mg Q8H PRN ORAL mild pain 08/20/18 12:00 09/19/18 11:59 Insulin Aspart (NovoLOG) BEFORE MEALS AND HS SUBQ 08/25/18 11:30 09/14/18 21:59 08/25/18 17:36 Insulin Aspart (NovoLOG) 8 units NOVOLOGS SUBQ 08/25/18 16:50 09/21/18 16:49 08/25/18 17:36 Insulin Aspart (NovoLOG) 8 units ONCE SUBQ 08/26/18 07:00 08/26/18 08:00 Insulin Aspart (NovoLOG) 10 units NOVOLOGL SUBQ 08/23/18 11:50 09/22/18 11:49 08/25/18 14:24 Insulin Aspart (NovoLOG) 12 units NOVOLOGB SUBQ 08/24/18 06:30 09/22/18 06:29 08/25/18 06:58 Insulin Glargine (Lantus (NON FORUMULARY)) 32 unit QHS SQ 08/26/18 21:00 09/24/18 22:00 Iopamidol (Isovue-300 100ml) 100 ml NOW PRN INJ Radiology Procedure 08/24/18 14:30 08/26/18 14:19 Iopamidol (Isovue-300 100ml) 100 ml NOW PRN INJ Radiology Procedure 08/25/18 09:30 08/27/18 09:22 Lactulose (Cephulac) 30 gm THREE TIMES A DAY ORAL 08/24/18 18:00 09/23/18 17:59 08/25/18 17:23 Mineral Oil (Fleet's Mineral Oil Enema) 133 ml EVERY OTHER DAY RECTAL 08/26/18 09:00 09/25/18 08:59 Polyethylene Glycol (Miralax) 17 gm BEDTIME ORAL 08/24/18 21:00 09/23/18 20:59 08/25/18 20:20 Pregabalin (Lyrica) 50 mg TWICE A DAY ORAL 08/16/18 09:00 09/15/18 08:59 08/25/18 17:24 Promethazine HCl/ Codeine (Phenergan with Codeine) 5 ml Q8H PRN ORAL For Cough 08/21/18 14:45 09/20/18 14:44 08/25/18 14:14 Sennosides (Senokot) 8.6 mg DAILY ORAL 08/24/18 14:30 09/23/18 14:29 08/25/18 08:49 Item Value Date Time Bedside Blood Glucose 79 mg/dl 08/26/18 0637 Bedside Blood Glucose 111 mg/dl 08/25/18 2100 Bedside Blood Glucose 256 mg/dl H 08/25/18 1736 Bedside Blood Glucose 121 mg/dl H 08/25/18 1424 Bedside Blood Glucose 163 mg/dl H 08/25/18 0658 Mac Vegas MD Aug 26, 2018 06:51
[2018-08-26] MEDS ORDERED: NovoLOG Insulin Flexpen SUBQ SCH (07:00)
[2018-08-26 08:00] VITALS: BP 146/70
[2018-08-26 08:14] LABS: BASOPHILS % (AUTO) 1.4 % (0.0-2.0); EOSINOPHILS % (AUTO) 2.3 % (0.0-3.0); HEMATOCRIT 44.5 % (42.0-52.0); HEMOGLOBIN 15.3 G/DL (14.2-18.0); LYMPHOCYTES % (AUTO) 12.5 % (20.0-45.0); MEAN CORPUSCULAR VOLUME 89 FL (80-99); MONOCYTES % (AUTO) 6.8 % (1.0-10.0); NEUTROPHILS % (AUTO) 76.9 % (45.0-75.0); PLATELET COUNT 353 K/UL (150-450); RED BLOOD COUNT 5.02 M/UL (4.70-6.10); RED CELL DISTRIBUTION WIDTH 11.2 % (11.6-14.8); WHITE BLOOD COUNT 12.1 K/UL (4.8-10.8)
[2018-08-26] MEDS ORDERED: Fleet's Mineral Oil Enema RECTAL SCH (09:00)
[2018-08-26 09:41] LABS: ALANINE AMINOTRANSFERASE 55 U/L (12-78); ALBUMIN 3.2 G/DL (3.4-5.0); ALBUMIN/GLOBULIN RATIO 0.7 (1.0-2.7); ALKALINE PHOSPHATASE 90 U/L (46-116); ANION GAP 9 mmol/L (5-15); ASPARTATE AMINO TRANSFERASE 42 U/L (15-37); BILIRUBIN,TOTAL 0.8 MG/DL (0.2-1.0); BLOOD UREA NITROGEN 10 mg/dL (7-18); CALCIUM 9.5 MG/DL (8.5-10.1); CARBON DIOXIDE 26 MMOL/L (21-32); CHLORIDE 99 MMOL/L (98-107); CREATININE 0.9 MG/DL (0.55-1.30); PHOSPHORUS 3.5 MG/DL (2.5-4.9); POTASSIUM 4.6 MMOL/L (3.5-5.1); SODIUM 134 MMOL/L (136-145)
[2018-08-26] MEDS: Lyrica 50mg cap ORAL SCH ×2 (10:20→18:30)
[2018-08-26] MEDS: Aspirin EC 81mg tab ORAL SCH (10:20)
[2018-08-26] MEDS: Benazepril 10mg tab ORAL SCH (10:20)
[2018-08-26] MEDS: Sennosides 8.6mg tab ORAL SCH (10:20)
[2018-08-26] MEDS: Lactulose 20gm/30ml UDC ORAL SCH ×2 (10:21→13:00)
[2018-08-26] MEDS: Heparin 5000 units/ml inj SUBQ SCH ×2 (10:39→21:04)
--- NOTE | 2018-08-26 11:01 | GI Progress Note ---
Assessment/Plan Problems: (1) Gastroparesis ICD Codes: K31.84 - Gastroparesis SNOMED: 965795140 (2) Hyperglycemia ICD Codes: R73.9 - Hyperglycemia, unspecified SNOMED: 00008256 (3) Intractable vomiting ICD Codes: R11.10 - Vomiting, unspecified SNOMED: 813355255, 318828945 Qualifiers: Qualified Codes: R11.2 - Nausea with vomiting, unspecified (4) Renal insufficiency ICD Codes: N28.9 - Disorder of kidney and ureter, unspecified SNOMED: 810624550, 601227315 (5) Gastroenteritis ICD Codes: K52.9 - Noninfective gastroenteritis and colitis, unspecified SNOMED: 07692524 (6) Malingering ICD Codes: Z76.5 - Malingerer [conscious simulation] SNOMED: 846210242 Status: stable Status Narrative Discussed with Dr. Thomas Assessment/Plan Assessment - N/V, Diarrhea - Abd pain - IDDM - HTN -Gastroparesis OB stool negative Now airborne precautions to rule out TB Recommendations Symptomatic treatment at this time Advance to ADA diet hydration PPI Zofran as needed, Reglan for persistent vomiting Follow-up labs PT evaluation Outpatient EGD colonoscopy The patient was seen and examined at bedside and all new and available data was reviewed in the patients chart. I agree with the above findings, impression and plan. (Patient seen earlier today. Signature stamp does not reflect patient encounter time.). - Noé Thomas MD Subjective Subjective Denies any nausea or vomiting Denies any abdominal pain Able to tolerate small amounts of food Now complaining of hip pain Has new onset of chest pain Objective Last 24 Hour Vital Signs Date Time Temp Pulse Resp B/P (MAP) Pulse Ox O2 Delivery O2 Flow Rate FiO2 08/26/18 10:20 146/70 08/26/18 09:00 Room Air 08/26/18 08:00 98.0 77 18 146/70 (95) 93 08/26/18 04:00 97.6 75 18 150/72 (98) 92 08/26/18 00:00 97.7 75 16 130/79 (96) 94 08/25/18 21:00 Room Air 08/25/18 20:00 97.5 84 18 128/64 (85) 94 08/25/18 16:00 98.4 92 20 119/69 (86) 97 08/25/18 12:00 98.2 83 20 115/61 (79) 97 Intake and Output 08/25/18 08/26/18 19:00 07:00 Intake Total 840 ml Balance 840 ml Intake Oral 840 ml # Voids 2 2 Laboratory Tests Test 08/26/18 07:38 White Blood Count 12.1 K/UL (4.8-10.8) H Red Blood Count 5.02 M/UL (4.70-6.10) Hemoglobin 15.3 G/DL (14.2-18.0) Hematocrit 44.5 % (42.0-52.0) Mean Corpuscular Volume 89 FL (80-99) Mean Corpuscular Hemoglobin 30.4 PG (27.0-31.0) Mean Corpuscular Hemoglobin Concent 34.3 G/DL (32.0-36.0) Red Cell Distribution Width 11.2 % (11.6-14.8) L Platelet Count 353 K/UL (150-450) Mean Platelet Volume 7.3 FL (6.5-10.1) Neutrophils (%) (Auto) 76.9 % (45.0-75.0) H Lymphocytes (%) (Auto) 12.5 % (20.0-45.0) L Monocytes (%) (Auto) 6.8 % (1.0-10.0) Eosinophils (%) (Auto) 2.3 % (0.0-3.0) Basophils (%) (Auto) 1.4 % (0.0-2.0) Erythrocyte Sedimentation Rate 21 MM/HR (0-20) H Sodium Level 134 MMOL/L (136-145) L Potassium Level 4.6 MMOL/L (3.5-5.1) Chloride Level 99 MMOL/L (98-107) Carbon Dioxide Level 26 MMOL/L (21-32) Anion Gap 9 mmol/L (5-15) Blood Urea Nitrogen 10 mg/dL (7-18) Creatinine 0.9 MG/DL (0.55-1.30) Estimat Glomerular Filtration Rate > 60 mL/min (>60) Glucose Level 243 MG/DL (74-106) H Calcium Level 9.5 MG/DL (8.5-10.1) Phosphorus Level 3.5 MG/DL (2.5-4.9) Magnesium Level 2.0 MG/DL (1.8-2.4) Total Bilirubin 0.8 MG/DL (0.2-1.0) Aspartate Amino Transf (AST/SGOT) 42 U/L (15-37) H Alanine Aminotransferase (ALT/SGPT) 55 U/L (12-78) Alkaline Phosphatase 90 U/L (46-116) C-Reactive Protein, Quantitative 1.7 mg/dL (0.00-0.90) H Total Protein 7.8 G/DL (6.4-8.2) Albumin 3.2 G/DL (3.4-5.0) L Globulin 4.6 g/dL Albumin/Globulin Ratio 0.7 (1.0-2.7) L Height (Feet): 5 Height (Inches): 10.00 Weight (Pounds): 205 General Appearance: WD/WN, no apparent distress, alert Cardiovascular: normal rate Respiratory/Chest: normal breath sounds, no respiratory distress Abdominal Exam: normal bowel sounds, non tender, soft Extremities: normal range of motion, non-tender Debby Vidal NP Aug 26, 2018 11:01
--- NOTE | 2018-08-26 13:19 | Pulmonology Progress Note ---
Assessment/Plan Problems: (1) Pneumonia (2) Gastroenteritis (3) Intractable vomiting (4) Hyperglycemia (5) Gastroparesis (6) Diabetes mellitus (7) ATN (acute tubular necrosis) Assessment/Plan CT chest reviewed, rule out interstitial nodular pneumonia, d/w radiologist, TB needs to be ruled out Sputum for Af[employer] TB skin test increase insulin as needed.\ Subjective ROS Limited/Unobtainable: No Constitutional: Reports: no symptoms HEENT: Repors: no symptoms Respiratory: Reports: no symptoms Allergies: Coded Allergies: INSULIN DETEMIR (Unverified Allergy, Unknown, Sweating, 08/16/18) Objective Last 24 Hour Vital Signs Date Time Temp Pulse Resp B/P (MAP) Pulse Ox O2 Delivery O2 Flow Rate FiO2 08/26/18 10:20 146/70 08/26/18 09:00 Room Air 08/26/18 08:00 98.0 77 18 146/70 (95) 93 08/26/18 04:00 97.6 75 18 150/72 (98) 92 08/26/18 00:00 97.7 75 16 130/79 (96) 94 08/25/18 21:00 Room Air 08/25/18 20:00 97.5 84 18 128/64 (85) 94 08/25/18 16:00 98.4 92 20 119/69 (86) 97 Intake and Output 08/25/18 08/26/18 19:00 07:00 Intake Total 840 ml Balance 840 ml Intake Oral 840 ml # Voids 2 2 General Appearance: WD/WN HEENT: normocephalic Respiratory/Chest: chest wall non-tender, lungs clear Cardiovascular: normal peripheral pulses, normal rate Abdomen: no organomegaly Extremities: no clubbing Skin: no rash Laboratory Tests 08/26/18 07:38: White Blood Count 12.1H, Red Blood Count 5.02, Hemoglobin 15.3, Hematocrit 44.5 , Mean Corpuscular Volume 89, Mean Corpuscular Hemoglobin 30.4, Mean Corpuscular Hemoglobin Concent 34.3, Red Cell Distribution Width 11.2L, Platelet Count 353, Mean Platelet Volume 7.3, Neutrophils (%) (Auto) 76.9H, Lymphocytes (%) (Auto) 12.5L, Monocytes (%) (Auto) 6.8, Eosinophils (%) (Auto) 2.3, Basophils (%) (Auto) 1.4, Erythrocyte Sedimentation Rate 21H, Sodium Level 134L, Potassium Level 4.6, Chloride Level 99, Carbon Dioxide Level 26, Anion Gap 9, Blood Urea Nitrogen 10, Creatinine 0.9, Estimat Glomerular Filtration Rate > 60, Glucose Level 243H, Calcium Level 9.5, Phosphorus Level 3.5, Magnesium Level 2.0, Total Bilirubin 0.8, Aspartate Amino Transf (AST/SGOT) 42H , Alanine Aminotransferase (ALT/SGPT) 55, Alkaline Phosphatase 90, C-Reactive Protein, Quantitative 1.7H, Total Protein 7.8, Albumin 3.2L, Globulin 4.6, Albumin/Globulin Ratio 0.7L Current Medications Medications (Trade) Dose Ordered Sig/Rashel Route PRN Reason Start Time Stop Time Status Last Admin Dose Admin Acetaminophen (Tylenol) 650 mg Q4H PRN ORAL fever (temp>100.5F) 08/15/18 20:15 09/14/18 20:14 08/15/18 21:53 Acetaminophen/ Codeine Phosphate (Tylenol #3) 1 tab Q4H PRN ORAL SEVERE PAIN 08/20/18 12:00 08/27/18 11:59 08/24/18 10:19 Al Hydroxide/Mg Hydroxide (Mylanta II) 30 ml Q6H PRN ORAL dyspepsia 08/15/18 20:15 09/14/18 20:14 Albuterol/ Ipratropium (Albuterol/ Ipratropium) 3 ml Q4H PRN HHN Shortness of Breath 08/21/18 15:06 08/26/18 15:05 08/25/18 07:49 Aspirin (Ecotrin) 81 mg DAILY ORAL 08/16/18 09:00 09/15/18 08:59 08/26/18 10:20 Atorvastatin Calcium (Lipitor) 20 mg BEDTIME ORAL 08/23/18 21:00 09/22/18 20:59 08/25/18 20:19 Benazepril HCl (Lotensin) 20 mg DAILY ORAL 08/20/18 12:01 09/19/18 12:00 08/26/18 10:20 Clonidine HCl (Catapres Tab) 0.1 mg Q4H PRN ORAL sbp more than 160 08/15/18 20:15 09/14/18 20:14 Dextrose (Dextrose 50%) 25 ml Q30M PRN IV Hypoglycemia 08/16/18 07:30 09/15/18 07:29 Dextrose (Dextrose 50%) 50 ml Q30M PRN IV Hypoglycemia 08/16/18 07:30 09/15/18 07:29 08/24/18 19:11 Heparin Sodium (Porcine) (Heparin 5000 units/ml) 5,000 units EVERY 12 HOURS SUBQ 08/15/18 21:00 09/14/18 20:59 08/26/18 10:39 Ibuprofen (Advil) 600 mg Q8H PRN ORAL mild pain 08/20/18 12:00 09/19/18 11:59 Insulin Aspart (NovoLOG) BEFORE MEALS AND HS SUBQ 08/25/18 11:30 09/14/18 21:59 08/25/18 17:36 Insulin Aspart (NovoLOG) 8 units NOVOLOGS SUBQ 08/25/18 16:50 09/21/18 16:49 08/25/18 17:36 Insulin Aspart (NovoLOG) 10 units NOVOLOGL SUBQ 08/23/18 11:50 09/22/18 11:49 08/26/18 12:28 Insulin Aspart (NovoLOG) 12 units NOVOLOGB SUBQ 08/24/18 06:30 09/22/18 06:29 08/25/18 06:58 Insulin Glargine (Lantus (NON FORUMULARY)) 32 unit QHS SQ 08/26/18 21:00 09/24/18 22:00 Iopamidol (Isovue-300 100ml) 100 ml NOW PRN INJ Radiology Procedure 08/24/18 14:30 08/26/18 14:19 Iopamidol (Isovue-300 100ml) 100 ml NOW PRN INJ Radiology Procedure 08/25/18 09:30 08/27/18 09:22 Ondansetron HCl (Zofran) 4 mg Q6H PRN IVP Nausea & Vomiting 08/26/18 13:15 09/25/18 13:14 Pregabalin (Lyrica) 50 mg TWICE A DAY ORAL 08/16/18 09:00 09/15/18 08:59 08/26/18 10:20 Promethazine HCl/ Codeine (Phenergan with Codeine) 5 ml Q8H PRN ORAL For Cough 08/21/18 14:45 09/20/18 14:44 08/25/18 14:14 Rohini Camargo MD Aug 26, 2018 13:19
--- NOTE | 2018-08-26 14:27 | General Progress Note ---
Assessment/Plan Problem List: (1) Gastroenteritis ICD Codes: K52.9 - Noninfective gastroenteritis and colitis, unspecified SNOMED: 16612004 (2) Renal insufficiency ICD Codes: N28.9 - Disorder of kidney and ureter, unspecified SNOMED: 766046125, 592601771 (3) Intractable vomiting ICD Codes: R11.10 - Vomiting, unspecified SNOMED: 447981545, 427975349 Qualifiers: Qualified Codes: R11.2 - Nausea with vomiting, unspecified (4) Hyperglycemia ICD Codes: R73.9 - Hyperglycemia, unspecified SNOMED: 17232552 (5) Gastroparesis ICD Codes: K31.84 - Gastroparesis SNOMED: 748443266 Status: stable, progressing Assessment/Plan ivf adv diet cbc bmp am dc if clear Subjective Constitutional: Reports: weakness Allergies: Coded Allergies: INSULIN DETEMIR (Unverified Allergy, Unknown, Sweating, 08/16/18) All Systems: reviewed and negative except above Subjective calm in bed Objective Last 24 Hour Vital Signs Date Time Temp Pulse Resp B/P (MAP) Pulse Ox O2 Delivery O2 Flow Rate FiO2 08/26/18 10:20 146/70 08/26/18 09:00 Room Air 08/26/18 08:00 98.0 77 18 146/70 (95) 93 08/26/18 04:00 97.6 75 18 150/72 (98) 92 08/26/18 00:00 97.7 75 16 130/79 (96) 94 08/25/18 21:00 Room Air 08/25/18 20:00 97.5 84 18 128/64 (85) 94 08/25/18 16:00 98.4 92 20 119/69 (86) 97 Intake and Output 08/25/18 08/26/18 19:00 07:00 Intake Total 840 ml Balance 840 ml Intake Oral 840 ml # Voids 2 2 Laboratory Tests 08/26/18 07:38: White Blood Count 12.1H, Red Blood Count 5.02, Hemoglobin 15.3, Hematocrit 44.5 , Mean Corpuscular Volume 89, Mean Corpuscular Hemoglobin 30.4, Mean Corpuscular Hemoglobin Concent 34.3, Red Cell Distribution Width 11.2L, Platelet Count 353, Mean Platelet Volume 7.3, Neutrophils (%) (Auto) 76.9H, Lymphocytes (%) (Auto) 12.5L, Monocytes (%) (Auto) 6.8, Eosinophils (%) (Auto) 2.3, Basophils (%) (Auto) 1.4, Erythrocyte Sedimentation Rate 21H, Sodium Level 134L, Potassium Level 4.6, Chloride Level 99, Carbon Dioxide Level 26, Anion Gap 9, Blood Urea Nitrogen 10, Creatinine 0.9, Estimat Glomerular Filtration Rate > 60, Glucose Level 243H, Calcium Level 9.5, Phosphorus Level 3.5, Magnesium Level 2.0, Total Bilirubin 0.8, Aspartate Amino Transf (AST/SGOT) 42H , Alanine Aminotransferase (ALT/SGPT) 55, Alkaline Phosphatase 90, C-Reactive Protein, Quantitative 1.7H, Total Protein 7.8, Albumin 3.2L, Globulin 4.6, Albumin/Globulin Ratio 0.7L Height (Feet): 5 Height (Inches): 10.00 Weight (Pounds): 205 General Appearance: lethargic EENT: normal ENT inspection Neck: normal alignment Cardiovascular: normal peripheral pulses, normal rate, regular rhythm Respiratory/Chest: chest wall non-tender, lungs clear, normal breath sounds Abdomen: normal bowel sounds, non tender, soft Extremities: normal inspection Edema: no edema noted Arm (L), no edema noted Arm (R), no edema noted Leg (L), no edema noted Leg (R), no edema noted Pedal (L), no edema noted Pedal (R), no edema noted Generalized Neurologic: responsive, motor weakness Skin: normal pigmentation, warm/dry Stuart Silver DO Aug 26, 2018 14:27
[2018-08-26 16:00] VITALS: BP 139/72
--- NOTE | 2018-08-26 18:05 | Cardiology Report ---
APPROVED REPORT EXAM: Two-dimensional and M-mode echocardiogram with Doppler and color Doppler. INDICATION Chest Pain M-Mode DIMENSIONS IVSd0.8 (0.7-1.1cm)Left Atrium (MM)2.5 (1.6-4.0cm) LVDd4.8 (3.5-5.6cm)Aortic Root3.5 (2.0-3.7cm) PWd0.9 (0.7-1.1cm)Aortic Cusp Exc.1.7 (1.5-2.0cm) IVSs1.4 cm LVDs3.3 (2.5-4.0cm) PWs2.2 cm Normal left ventricular chamber size, systolic function and wall motion . Left ventricular ejection fraction estimated to be 60-65%. No evidence of left ventricular hypertrophy. No evidence of pericardial effusion. All other cardiac chamber sizes are within normal limits. Aortic valve sclerosis with adequate cusp excursion. Mildly thickened mitral valve leaflets with normal excursion. Mitral annulus and aortic root calcification. Pulmonic valve not well visualized. IVC at 1.8cm without physiologic collapse suggestive of increased RA pressure. A color flow and spectral Doppler study was performed and revealed: No aortic regurgitation. Mitral diastolic velocities suggest reduced left ventricular relaxation c/w mild LV diastolic dysfunction (Grade I ) Trace mitral regurgitation. Trace tricuspid regurgitation. Tricuspid systolic velocities suggests peak right ventricular systolic pressure of 16mmHg.
[2018-08-26 20:00] VITALS: BP 140/71
[2018-08-26] MEDS: Promethazine/Codeine 5ml UD ORAL PRN (20:05)
[2018-08-26] MEDS: Atorvastatin 20mg tab ORAL SCH (21:02)
[2018-08-26] MEDS: Tylenol #3 tab (300mg/30mg) ORAL PRN (22:41)
--- NOTE | 2018-08-26 23:26 | Cardiology Progress Note ---
Assessment/Plan Assessment/Plan 1. Atypical chest pain, AMI rule out by negative cardiac enzymes. 2D echocardiography reveals normal LV systolic function with LVEF at 55%. 2. DM, continue ASA and atorvastatin. 3. HTN, continue benazepril. 4. CKD 5. Gastroparesis Subjective Subjective No cardiac events reported. Objective Last 24 Hour Vital Signs Date Time Temp Pulse Resp B/P (MAP) Pulse Ox O2 Delivery O2 Flow Rate FiO2 08/26/18 21:00 Room Air 08/26/18 20:59 89 20 Room Air 21 08/26/18 20:00 97.5 99 18 140/71 (94) 96 08/26/18 16:00 97.9 89 20 139/72 (94) 96 08/26/18 10:20 146/70 08/26/18 09:00 Room Air 08/26/18 08:00 98.0 77 18 146/70 (95) 93 08/26/18 04:00 97.6 75 18 150/72 (98) 92 08/26/18 00:00 97.7 75 16 130/79 (96) 94 Intake and Output 08/25/18 08/26/18 19:00 07:00 Intake Total 840 ml Balance 840 ml Intake Oral 840 ml # Voids 2 2 2D Echo: LVEF 55-60%, Grade I LVDD, RVSP 16 mmHg Laboratory Tests Test 08/26/18 07:38 White Blood Count 12.1 K/UL (4.8-10.8) H Red Blood Count 5.02 M/UL (4.70-6.10) Hemoglobin 15.3 G/DL (14.2-18.0) Hematocrit 44.5 % (42.0-52.0) Mean Corpuscular Volume 89 FL (80-99) Mean Corpuscular Hemoglobin 30.4 PG (27.0-31.0) Mean Corpuscular Hemoglobin Concent 34.3 G/DL (32.0-36.0) Red Cell Distribution Width 11.2 % (11.6-14.8) L Platelet Count 353 K/UL (150-450) Mean Platelet Volume 7.3 FL (6.5-10.1) Neutrophils (%) (Auto) 76.9 % (45.0-75.0) H Lymphocytes (%) (Auto) 12.5 % (20.0-45.0) L Monocytes (%) (Auto) 6.8 % (1.0-10.0) Eosinophils (%) (Auto) 2.3 % (0.0-3.0) Basophils (%) (Auto) 1.4 % (0.0-2.0) Erythrocyte Sedimentation Rate 21 MM/HR (0-20) H Sodium Level 134 MMOL/L (136-145) L Potassium Level 4.6 MMOL/L (3.5-5.1) Chloride Level 99 MMOL/L (98-107) Carbon Dioxide Level 26 MMOL/L (21-32) Anion Gap 9 mmol/L (5-15) Blood Urea Nitrogen 10 mg/dL (7-18) Creatinine 0.9 MG/DL (0.55-1.30) Estimat Glomerular Filtration Rate > 60 mL/min (>60) Glucose Level 243 MG/DL (74-106) H Calcium Level 9.5 MG/DL (8.5-10.1) Phosphorus Level 3.5 MG/DL (2.5-4.9) Magnesium Level 2.0 MG/DL (1.8-2.4) Total Bilirubin 0.8 MG/DL (0.2-1.0) Aspartate Amino Transf (AST/SGOT) 42 U/L (15-37) H Alanine Aminotransferase (ALT/SGPT) 55 U/L (12-78) Alkaline Phosphatase 90 U/L (46-116) C-Reactive Protein, Quantitative 1.7 mg/dL (0.00-0.90) H Total Protein 7.8 G/DL (6.4-8.2) Albumin 3.2 G/DL (3.4-5.0) L Globulin 4.6 g/dL Albumin/Globulin Ratio 0.7 (1.0-2.7) L Objective HEENT: Normocephalic and atraumatic. PERRLA, EOMI. NECK: No JVD, no carotid bruit. CHEST: Clear to auscultation. CARDIOVASCULAR: Regular rate and rhythm, normal S1 S2, no murmurs, gallops or rubs. ABDOMEN: Soft and nontender. Good bowel sounds. There is no organomegaly or tenderness. EXTREMITIES: no edema, clubbing or cyanosis. Miguel Angel Beckford MD Aug 26, 2018 23:26
[2018-08-27] VITALS: BP 130/52
[2018-08-27 04:00] VITALS: BP 112/58
--- NOTE | 2018-08-27 06:37 | General Progress Note ---
Assessment/Plan Problem List: (1) Hyperglycemia ICD Codes: R73.9 - Hyperglycemia, unspecified SNOMED: 29803023 (2) Intractable vomiting ICD Codes: R11.10 - Vomiting, unspecified SNOMED: 817091877, 119392335 Qualifiers: Qualified Codes: R11.2 - Nausea with vomiting, unspecified (3) Renal insufficiency ICD Codes: N28.9 - Disorder of kidney and ureter, unspecified SNOMED: 788500097, 406504244 (4) Gastroenteritis ICD Codes: K52.9 - Noninfective gastroenteritis and colitis, unspecified SNOMED: 66567640 Assessment/Plan increase Lantus to 36 units qhs change Novolog to 12 units ac B / L / D continue NISS ac / hs - will lower dosage NOTE: patient has T1DM which is very brittle in nature therefore it would be impossible to have perfect glucose values. from DM stand point there is no barrier for discharge Subjective Allergies: Coded Allergies: INSULIN DETEMIR (Unverified Allergy, Unknown, Sweating, 08/16/18) All Systems: reviewed and negative except above Subjective events noted Objective Last 24 Hour Vital Signs Date Time Temp Pulse Resp B/P (MAP) Pulse Ox O2 Delivery O2 Flow Rate FiO2 08/27/18 04:00 97.9 83 19 112/58 (76) 93 08/27/18 00:00 98.1 88 19 130/52 (78) 93 08/26/18 21:00 Room Air 08/26/18 20:59 89 20 Room Air 21 08/26/18 20:00 97.5 99 18 140/71 (94) 96 08/26/18 16:00 97.9 89 20 139/72 (94) 96 08/26/18 10:20 146/70 08/26/18 09:00 Room Air 08/26/18 08:00 98.0 77 18 146/70 (95) 93 Intake and Output 08/26/18 08/27/18 18:59 06:59 Intake Total 240 ml 400 ml Balance 240 ml 400 ml Intake Oral 240 ml 400 ml # Voids 2 # Bowel Movements 2 Laboratory Tests 08/26/18 07:38: White Blood Count 12.1H, Red Blood Count 5.02, Hemoglobin 15.3, Hematocrit 44.5 , Mean Corpuscular Volume 89, Mean Corpuscular Hemoglobin 30.4, Mean Corpuscular Hemoglobin Concent 34.3, Red Cell Distribution Width 11.2L, Platelet Count 353, Mean Platelet Volume 7.3, Neutrophils (%) (Auto) 76.9H, Lymphocytes (%) (Auto) 12.5L, Monocytes (%) (Auto) 6.8, Eosinophils (%) (Auto) 2.3, Basophils (%) (Auto) 1.4, Erythrocyte Sedimentation Rate 21H, Sodium Level 134L, Potassium Level 4.6, Chloride Level 99, Carbon Dioxide Level 26, Anion Gap 9, Blood Urea Nitrogen 10, Creatinine 0.9, Estimat Glomerular Filtration Rate > 60, Glucose Level 243H, Calcium Level 9.5, Phosphorus Level 3.5, Magnesium Level 2.0, Total Bilirubin 0.8, Aspartate Amino Transf (AST/SGOT) 42H , Alanine Aminotransferase (ALT/SGPT) 55, Alkaline Phosphatase 90, C-Reactive Protein, Quantitative 1.7H, Total Protein 7.8, Albumin 3.2L, Globulin 4.6, Albumin/Globulin Ratio 0.7L Height (Feet): 5 Height (Inches): 10.00 Weight (Pounds): 205 General Appearance: no apparent distress Neck: normal alignment Cardiovascular: normal rate Respiratory/Chest: crackles/rales Abdomen: normal bowel sounds Pelvis: normal external exam Objective Current Medications Medications (Trade) Dose Ordered Sig/Rashel Route PRN Reason Start Time Stop Time Status Last Admin Dose Admin Acetaminophen (Tylenol) 650 mg Q4H PRN ORAL fever (temp>100.5F) 08/15/18 20:15 09/14/18 20:14 08/15/18 21:53 Acetaminophen/ Codeine Phosphate (Tylenol #3) 1 tab Q4H PRN ORAL SEVERE PAIN 08/20/18 12:00 08/27/18 11:59 08/26/18 22:41 Al Hydroxide/Mg Hydroxide (Mylanta II) 30 ml Q6H PRN ORAL dyspepsia 08/15/18 20:15 09/14/18 20:14 Aspirin (Ecotrin) 81 mg DAILY ORAL 08/16/18 09:00 09/15/18 08:59 08/26/18 10:20 Atorvastatin Calcium (Lipitor) 20 mg BEDTIME ORAL 08/23/18 21:00 09/22/18 20:59 08/26/18 21:02 Benazepril HCl (Lotensin) 20 mg DAILY ORAL 08/20/18 12:01 09/19/18 12:00 08/26/18 10:20 Clonidine HCl (Catapres Tab) 0.1 mg Q4H PRN ORAL sbp more than 160 08/15/18 20:15 09/14/18 20:14 Dextrose (Dextrose 50%) 25 ml Q30M PRN IV Hypoglycemia 08/16/18 07:30 09/15/18 07:29 Dextrose (Dextrose 50%) 50 ml Q30M PRN IV Hypoglycemia 08/16/18 07:30 09/15/18 07:29 08/24/18 19:11 Heparin Sodium (Porcine) (Heparin 5000 units/ml) 5,000 units EVERY 12 HOURS SUBQ 08/15/18 21:00 09/14/18 20:59 08/26/18 21:04 Ibuprofen (Advil) 600 mg Q8H PRN ORAL mild pain 08/20/18 12:00 09/19/18 11:59 Insulin Aspart (NovoLOG) BEFORE MEALS AND HS SUBQ 08/25/18 11:30 09/14/18 21:59 08/26/18 21:18 Insulin Aspart (NovoLOG) 8 units NOVOLOGS SUBQ 08/25/18 16:50 09/21/18 16:49 08/26/18 18:32 Insulin Aspart (NovoLOG) 10 units NOVOLOGL SUBQ 08/23/18 11:50 09/22/18 11:49 08/26/18 12:28 Insulin Aspart (NovoLOG) 12 units NOVOLOGB SUBQ 08/24/18 06:30 09/22/18 06:29 08/25/18 06:58 Insulin Glargine (Lantus (NON FORUMULARY)) 32 unit QHS SQ 08/26/18 21:00 09/24/18 22:00 08/26/18 21:02 Iopamidol (Isovue-300 100ml) 100 ml NOW PRN INJ Radiology Procedure 08/25/18 09:30 08/27/18 09:22 Ondansetron HCl (Zofran) 4 mg Q6H PRN IVP Nausea & Vomiting 08/26/18 13:15 09/25/18 13:14 Pregabalin (Lyrica) 50 mg TWICE A DAY ORAL 08/16/18 09:00 09/15/18 08:59 08/26/18 18:30 Promethazine HCl/ Codeine (Phenergan with Codeine) 5 ml Q8H PRN ORAL For Cough 08/21/18 14:45 09/20/18 14:44 08/26/18 20:05 Item Value Date Time Bedside Blood Glucose 309 mg/dl H 08/26/18 2118 Bedside Blood Glucose 362 mg/dl H 08/26/18 1833 Bedside Blood Glucose 332 mg/dl H 08/26/18 1228 Bedside Blood Glucose 79 mg/dl 08/26/18 0726 Bedside Blood Glucose 79 mg/dl 08/26/18 0637 Mac Vegas MD Aug 27, 2018 06:37
[2018-08-27] MEDS: NovoLOG Insulin Flexpen SUBQ SCH ×7 (07:16→21:16)
[2018-08-27 08:00] VITALS: BP 107/61
[2018-08-27 08:22] LABS: BASOPHILS % (AUTO) 1.1 % (0.0-2.0); EOSINOPHILS % (AUTO) 1.9 % (0.0-3.0); HEMATOCRIT 43.4 % (42.0-52.0); LYMPHOCYTES % (AUTO) 14.6 % (20.0-45.0); MEAN CORPUSCULAR VOLUME 88 FL (80-99); MONOCYTES % (AUTO) 6.6 % (1.0-10.0); NEUTROPHILS % (AUTO) 75.8 % (45.0-75.0); PLATELET COUNT 332 K/UL (150-450); RED BLOOD COUNT 4.93 M/UL (4.70-6.10); RED CELL DISTRIBUTION WIDTH 11.2 % (11.6-14.8); WHITE BLOOD COUNT 13.8 K/UL (4.8-10.8)
[2018-08-27 08:42] LABS: ANION GAP 6 mmol/L (5-15); BLOOD UREA NITROGEN 11 mg/dL (7-18); CALCIUM 9.1 MG/DL (8.5-10.1); CARBON DIOXIDE 28 MMOL/L (21-32); CHLORIDE 99 MMOL/L (98-107); POTASSIUM 4.2 MMOL/L (3.5-5.1); SODIUM 133 MMOL/L (136-145)
[2018-08-27] MEDS: Benazepril 10mg tab ORAL SCH (09:00)
[2018-08-27] MEDS: Aspirin EC 81mg tab ORAL SCH (09:16)
[2018-08-27] MEDS: Lyrica 50mg cap ORAL SCH ×2 (09:17→17:16)
[2018-08-27] MEDS: Heparin 5000 units/ml inj SUBQ SCH ×2 (09:18→21:17)
[2018-08-27] MEDS: Promethazine/Codeine 5ml UD ORAL PRN ×2 (09:41→21:15)
--- NOTE | 2018-08-27 10:37 | Infectious Diseases Prog Note ---
Assessment/Plan Assessment/Plan Assessment: Pneumonia ( CAP vs fungal vs mycobacterial ) SCx: MSSA ( ? contaminant ) CT: Right upper and lower lobe scattered areas of consolidation, nodularity, groundglass and equivocal tree-in-bud opacities. Most likely represents infectious inflammatory process. Given possibly tree-in-bud opacities, the possibility of atypical infectious processes, including tuberculosis or other mycobacterial infections or fungal pneumonia pulmonary to be considered but are less likely. Noninfectious inflammatory processes should also be considered. Multifocal neoplasm such as bronchoalveolar carcinoma must less likely but also possible 2dEcho no Veg Fever, improving Leukocytosis, Crypt Ag, HIV: Neg DM2 HLD HTN CAD/WI asthma P: Cont pt on Zithro and Ancef d# 1 Monitor CBC Monitor CMP Monitor Sputum Cx , AFB x 3, Fungal Blood Cx x 2 Sputum MTB-PCR x 2 Coccidio AB Fungitell QFTB legio Ur Ag Subjective Allergies: Coded Allergies: INSULIN DETEMIR (Unverified Allergy, Unknown, Sweating, 08/16/18) Subjective cough and Sputum + Objective Vital Signs Last 24 Hour Vital Signs Date Time Temp Pulse Resp B/P (MAP) Pulse Ox O2 Delivery O2 Flow Rate FiO2 08/27/18 09:00 Room Air 08/27/18 09:00 107/61 08/27/18 08:52 81 20 Room Air 21 08/27/18 08:00 98.1 90 20 107/61 (76) 95 08/27/18 04:00 97.9 83 19 112/58 (76) 93 08/27/18 00:00 98.1 88 19 130/52 (78) 93 08/26/18 21:00 Room Air 08/26/18 20:59 89 20 Room Air 21 08/26/18 20:00 97.5 99 18 140/71 (94) 96 08/26/18 16:00 97.9 89 20 139/72 (94) 96 Height (Feet): 5 Height (Inches): 10.00 Weight (Pounds): 205 HEENT: atraumatic Respiratory/Chest: no respiratory distress, no accessory muscle use, rhonchi - bilaterally Cardiovascular: regular rhythm Abdomen: no organomegaly Skin: no rash Laboratory Tests Test 08/27/18 08:05 White Blood Count 13.8 K/UL (4.8-10.8) H Red Blood Count 4.93 M/UL (4.70-6.10) Hemoglobin 15.0 G/DL (14.2-18.0) Hematocrit 43.4 % (42.0-52.0) Mean Corpuscular Volume 88 FL (80-99) Mean Corpuscular Hemoglobin 30.4 PG (27.0-31.0) Mean Corpuscular Hemoglobin Concent 34.5 G/DL (32.0-36.0) Red Cell Distribution Width 11.2 % (11.6-14.8) L Platelet Count 332 K/UL (150-450) Mean Platelet Volume 8.1 FL (6.5-10.1) Neutrophils (%) (Auto) 75.8 % (45.0-75.0) H Lymphocytes (%) (Auto) 14.6 % (20.0-45.0) L Monocytes (%) (Auto) 6.6 % (1.0-10.0) Eosinophils (%) (Auto) 1.9 % (0.0-3.0) Basophils (%) (Auto) 1.1 % (0.0-2.0) Sodium Level 133 MMOL/L (136-145) L Potassium Level 4.2 MMOL/L (3.5-5.1) Chloride Level 99 MMOL/L (98-107) Carbon Dioxide Level 28 MMOL/L (21-32) Anion Gap 6 mmol/L (5-15) Blood Urea Nitrogen 11 mg/dL (7-18) Creatinine 1.0 MG/DL (0.55-1.30) Estimat Glomerular Filtration Rate > 60 mL/min (>60) Glucose Level 272 MG/DL (74-106) H Calcium Level 9.1 MG/DL (8.5-10.1) Current Medications Medications (Trade) Dose Ordered Sig/Rashel Route PRN Reason Start Time Stop Time Status Last Admin Dose Admin Acetaminophen (Tylenol) 650 mg Q4H PRN ORAL fever (temp>100.5F) 08/15/18 20:15 09/14/18 20:14 08/15/18 21:53 Acetaminophen/ Codeine Phosphate (Tylenol #3) 1 tab Q4H PRN ORAL SEVERE PAIN 08/20/18 12:00 08/27/18 11:59 08/26/18 22:41 Al Hydroxide/Mg Hydroxide (Mylanta II) 30 ml Q6H PRN ORAL dyspepsia 08/15/18 20:15 09/14/18 20:14 Aspirin (Ecotrin) 81 mg DAILY ORAL 08/16/18 09:00 09/15/18 08:59 08/27/18 09:16 Atorvastatin Calcium (Lipitor) 20 mg BEDTIME ORAL 08/23/18 21:00 09/22/18 20:59 08/26/18 21:02 Benazepril HCl (Lotensin) 20 mg DAILY ORAL 08/20/18 12:01 09/19/18 12:00 08/26/18 10:20 Clonidine HCl (Catapres Tab) 0.1 mg Q4H PRN ORAL sbp more than 160 08/15/18 20:15 09/14/18 20:14 Dextrose (Dextrose 50%) 25 ml Q30M PRN IV Hypoglycemia 08/16/18 07:30 09/15/18 07:29 Dextrose (Dextrose 50%) 50 ml Q30M PRN IV Hypoglycemia 08/16/18 07:30 09/15/18 07:29 08/24/18 19:11 Heparin Sodium (Porcine) (Heparin 5000 units/ml) 5,000 units EVERY 12 HOURS SUBQ 08/15/18 21:00 09/14/18 20:59 08/27/18 09:18 Ibuprofen (Advil) 600 mg Q8H PRN ORAL mild pain 08/20/18 12:00 09/19/18 11:59 Insulin Aspart (NovoLOG) BEFORE MEALS AND HS SUBQ 08/25/18 11:30 09/14/18 21:59 08/27/18 07:19 Insulin Aspart (NovoLOG) 12 units NOVOLOGB SUBQ 08/24/18 06:30 09/22/18 06:29 08/27/18 07:16 Insulin Aspart (NovoLOG) 12 units NOVOLOGL SUBQ 08/27/18 11:50 09/22/18 11:49 Insulin Aspart (NovoLOG) 12 units NOVOLOGS SUBQ 08/27/18 16:50 09/21/18 16:49 Insulin Glargine (Lantus (NON FORUMULARY)) 36 unit QHS SQ 08/27/18 21:00 09/24/18 22:00 Ondansetron HCl (Zofran) 4 mg Q6H PRN IVP Nausea & Vomiting 08/26/18 13:15 09/25/18 13:14 Pregabalin (Lyrica) 50 mg TWICE A DAY ORAL 08/16/18 09:00 09/15/18 08:59 08/27/18 09:17 Promethazine HCl/ Codeine (Phenergan with Codeine) 5 ml Q8H PRN ORAL For Cough 08/21/18 14:45 09/20/18 14:44 08/27/18 09:41 Lamont Wasserman MD Aug 27, 2018 10:37
[2018-08-27 12:00] VITALS: BP 113/62
[2018-08-27] MEDS: Azithromycin 500 MG in D5W 275 ML IV SCH (12:27)
[2018-08-27] MEDS: ceFAZolin sod 1 GM in D5W 55 ML IVPB SCH ×2 (12:27→20:27)
--- NOTE | 2018-08-27 12:45 | GI Progress Note ---
Assessment/Plan Problems: (1) Gastroparesis ICD Codes: K31.84 - Gastroparesis SNOMED: 274251659 (2) Hyperglycemia ICD Codes: R73.9 - Hyperglycemia, unspecified SNOMED: 22722198 (3) Intractable vomiting ICD Codes: R11.10 - Vomiting, unspecified SNOMED: 467074580, 523504059 Qualifiers: Qualified Codes: R11.2 - Nausea with vomiting, unspecified (4) Renal insufficiency ICD Codes: N28.9 - Disorder of kidney and ureter, unspecified SNOMED: 937288595, 178388755 (5) Gastroenteritis ICD Codes: K52.9 - Noninfective gastroenteritis and colitis, unspecified SNOMED: 27213100 (6) Malingering ICD Codes: Z76.5 - Malingerer [conscious simulation] SNOMED: 631576579 Status: stable, unchanged Status Narrative Discussed with Dr. Thomas Assessment/Plan Assessment - N/V, Diarrhea - Abd pain - IDDM - HTN -Gastroparesis OB stool negative Now airborne precautions to rule out TB Recommendations Symptomatic treatment at this time Advance to ADA diet hydration PPI Zofran as needed, Reglan for persistent vomiting Follow-up labs PT evaluation Outpatient EGD colonoscopy The patient was seen and examined at bedside and all new and available data was reviewed in the patients chart. I agree with the above findings, impression and plan. (Patient seen earlier today. Signature stamp does not reflect patient encounter time.). - Noé Thomas MD Subjective Subjective Denies any nausea or vomiting Denies any abdominal pain Able to tolerate small amounts of food Now complaining of hip pain Has new onset of chest pain Objective Last 24 Hour Vital Signs Date Time Temp Pulse Resp B/P (MAP) Pulse Ox O2 Delivery O2 Flow Rate FiO2 08/27/18 12:00 98.2 81 20 113/62 (79) 97 08/27/18 09:00 Room Air 08/27/18 09:00 107/61 08/27/18 08:52 81 20 Room Air 21 08/27/18 08:00 98.1 90 20 107/61 (76) 95 08/27/18 04:00 97.9 83 19 112/58 (76) 93 08/27/18 00:00 98.1 88 19 130/52 (78) 93 08/26/18 21:00 Room Air 08/26/18 20:59 89 20 Room Air 21 08/26/18 20:00 97.5 99 18 140/71 (94) 96 08/26/18 16:00 97.9 89 20 139/72 (94) 96 Intake and Output 08/26/18 08/27/18 19:00 07:00 Intake Total 240 ml 400 ml Balance 240 ml 400 ml Intake Oral 240 ml 400 ml # Voids 2 # Bowel Movements 2 Laboratory Tests Test 08/27/18 06:40 08/27/18 08:05 M. tuberculosis Complex DNA (PCR) Pending White Blood Count 13.8 K/UL (4.8-10.8) H Red Blood Count 4.93 M/UL (4.70-6.10) Hemoglobin 15.0 G/DL (14.2-18.0) Hematocrit 43.4 % (42.0-52.0) Mean Corpuscular Volume 88 FL (80-99) Mean Corpuscular Hemoglobin 30.4 PG (27.0-31.0) Mean Corpuscular Hemoglobin Concent 34.5 G/DL (32.0-36.0) Red Cell Distribution Width 11.2 % (11.6-14.8) L Platelet Count 332 K/UL (150-450) Mean Platelet Volume 8.1 FL (6.5-10.1) Neutrophils (%) (Auto) 75.8 % (45.0-75.0) H Lymphocytes (%) (Auto) 14.6 % (20.0-45.0) L Monocytes (%) (Auto) 6.6 % (1.0-10.0) Eosinophils (%) (Auto) 1.9 % (0.0-3.0) Basophils (%) (Auto) 1.1 % (0.0-2.0) Sodium Level 133 MMOL/L (136-145) L Potassium Level 4.2 MMOL/L (3.5-5.1) Chloride Level 99 MMOL/L (98-107) Carbon Dioxide Level 28 MMOL/L (21-32) Anion Gap 6 mmol/L (5-15) Blood Urea Nitrogen 11 mg/dL (7-18) Creatinine 1.0 MG/DL (0.55-1.30) Estimat Glomerular Filtration Rate > 60 mL/min (>60) Glucose Level 272 MG/DL (74-106) H Calcium Level 9.1 MG/DL (8.5-10.1) Coccidioides Antibody (Comp Fix) Pending Coccidioides IgG Antibody Pending Coccidioides IgM Antibody Pending Cryptococcus Antigen Pending HIV (1&2) Antibody Rapid Negative (NEGATIVE) Height (Feet): 5 Height (Inches): 10.00 Weight (Pounds): 205 General Appearance: WD/WN, no apparent distress, alert Cardiovascular: normal rate Respiratory/Chest: normal breath sounds, no respiratory distress Abdominal Exam: normal bowel sounds, non tender, soft Extremities: normal range of motion, non-tender Debby Vidal NP Aug 27, 2018 12:45
--- NOTE | 2018-08-27 13:51 | Pulmonology Progress Note ---
Assessment/Plan Problems: (1) Pneumonia (2) Gastroenteritis (3) Intractable vomiting (4) Hyperglycemia (5) Gastroparesis (6) Diabetes mellitus (7) ATN (acute tubular necrosis) Assessment/Plan ID input appreciated awaiting sputum Sputum for Af[employer] TB skin test pending, to be read tomorrow increase insulin as needed.\ Subjective ROS Limited/Unobtainable: No Constitutional: Reports: no symptoms HEENT: Repors: no symptoms Allergies: Coded Allergies: INSULIN DETEMIR (Unverified Allergy, Unknown, Sweating, 08/16/18) Objective Last 24 Hour Vital Signs Date Time Temp Pulse Resp B/P (MAP) Pulse Ox O2 Delivery O2 Flow Rate FiO2 08/27/18 12:00 98.2 81 20 113/62 (79) 97 08/27/18 09:00 Room Air 08/27/18 09:00 107/61 08/27/18 08:52 81 20 Room Air 21 08/27/18 08:00 98.1 90 20 107/61 (76) 95 08/27/18 04:00 97.9 83 19 112/58 (76) 93 08/27/18 00:00 98.1 88 19 130/52 (78) 93 08/26/18 21:00 Room Air 08/26/18 20:59 89 20 Room Air 21 08/26/18 20:00 97.5 99 18 140/71 (94) 96 08/26/18 16:00 97.9 89 20 139/72 (94) 96 Intake and Output 08/26/18 08/27/18 19:00 07:00 Intake Total 240 ml 400 ml Balance 240 ml 400 ml Intake Oral 240 ml 400 ml # Voids 2 # Bowel Movements 2 Objective General Appearance: WD/WN HEENT: normocephalic, atraumatic, anicteric Respiratory/Chest: chest wall non-tender, lungs clear Breasts: no masses Cardiovascular: normal peripheral pulses, normal rate Abdomen: normal bowel sounds, soft, non tender Extremities: no cyanosis Skin: no rash Neurologic/Psychiatric: punch hand II-XII grossly normal Lymphatic: no neck adenopathy General Appearance: WD/WN, no acute distress Microbiology Date/Time Source Procedure Growth Status 08/26/18 07:00 Sputum AFB Specimen Processing Tissue - Final Resulted 08/26/18 07:00 Sputum Acid Fast Bacilli Smear - Final Resulted 08/26/18 07:00 Sputum Acid Fast Bacilli Culture Pending Resulted Laboratory Tests 08/27/18 06:40: M. tuberculosis Complex DNA (PCR) [Pending] 08/27/18 08:05: White Blood Count 13.8H, Red Blood Count 4.93, Hemoglobin 15.0, Hematocrit 43.4 , Mean Corpuscular Volume 88, Mean Corpuscular Hemoglobin 30.4, Mean Corpuscular Hemoglobin Concent 34.5, Red Cell Distribution Width 11.2L, Platelet Count 332, Mean Platelet Volume 8.1, Neutrophils (%) (Auto) 75.8H, Lymphocytes (%) (Auto) 14.6L, Monocytes (%) (Auto) 6.6, Eosinophils (%) (Auto) 1.9, Basophils (%) (Auto) 1.1, Sodium Level 133L, Potassium Level 4.2, Chloride Level 99, Carbon Dioxide Level 28, Anion Gap 6, Blood Urea Nitrogen 11, Creatinine 1.0, Estimat Glomerular Filtration Rate > 60, Glucose Level 272H, Calcium Level 9.1, Coccidioides Antibody (Comp Fix) [Pending], Coccidioides IgG Antibody [Pending], Coccidioides IgM Antibody [Pending], Cryptococcus Antigen [ Pending], HIV (1&2) Antibody Rapid Negative Current Medications Medications (Trade) Dose Ordered Sig/Rashel Route PRN Reason Start Time Stop Time Status Last Admin Dose Admin Acetaminophen (Tylenol) 650 mg Q4H PRN ORAL fever (temp>100.5F) 08/15/18 20:15 09/14/18 20:14 08/15/18 21:53 Al Hydroxide/Mg Hydroxide (Mylanta II) 30 ml Q6H PRN ORAL dyspepsia 08/15/18 20:15 09/14/18 20:14 Aspirin (Ecotrin) 81 mg DAILY ORAL 08/16/18 09:00 09/15/18 08:59 08/27/18 09:16 Atorvastatin Calcium (Lipitor) 20 mg BEDTIME ORAL 08/23/18 21:00 09/22/18 20:59 08/26/18 21:02 Azithromycin 500 mg/Dextrose 275 ml @ 275 mls/hr Q24HRS IV 08/27/18 12:00 09/02/18 12:59 08/27/18 12:27 Benazepril HCl (Lotensin) 20 mg DAILY ORAL 08/20/18 12:01 09/19/18 12:00 08/26/18 10:20 Cefazolin Sodium 1 gm/Dextrose 55 ml @ 110 mls/hr Q8H IVPB 08/27/18 12:00 09/03/18 11:59 08/27/18 12:27 Clonidine HCl (Catapres Tab) 0.1 mg Q4H PRN ORAL sbp more than 160 08/15/18 20:15 09/14/18 20:14 Dextrose (Dextrose 50%) 25 ml Q30M PRN IV Hypoglycemia 08/16/18 07:30 09/15/18 07:29 Dextrose (Dextrose 50%) 50 ml Q30M PRN IV Hypoglycemia 08/16/18 07:30 09/15/18 07:29 08/24/18 19:11 Heparin Sodium (Porcine) (Heparin 5000 units/ml) 5,000 units EVERY 12 HOURS SUBQ 08/15/18 21:00 09/14/18 20:59 08/27/18 09:18 Ibuprofen (Advil) 600 mg Q8H PRN ORAL mild pain 08/20/18 12:00 09/19/18 11:59 Insulin Aspart (NovoLOG) BEFORE MEALS AND HS SUBQ 08/25/18 11:30 09/14/18 21:59 08/27/18 11:54 Insulin Aspart (NovoLOG) 12 units NOVOLOGB SUBQ 08/24/18 06:30 09/22/18 06:29 08/27/18 07:16 Insulin Aspart (NovoLOG) 12 units NOVOLOGL SUBQ 08/27/18 11:50 09/22/18 11:49 08/27/18 11:52 Insulin Aspart (NovoLOG) 12 units NOVOLOGS SUBQ 08/27/18 16:50 09/21/18 16:49 Insulin Glargine (Lantus (NON FORUMULARY)) 36 unit QHS SQ 08/27/18 21:00 09/24/18 22:00 Ondansetron HCl (Zofran) 4 mg Q6H PRN IVP Nausea & Vomiting 08/26/18 13:15 09/25/18 13:14 Pregabalin (Lyrica) 50 mg TWICE A DAY ORAL 08/16/18 09:00 09/15/18 08:59 08/27/18 09:17 Promethazine HCl/ Codeine (Phenergan with Codeine) 5 ml Q8H PRN ORAL For Cough 08/21/18 14:45 09/20/18 14:44 08/27/18 09:41 Rohini Camargo MD Aug 27, 2018 13:51
--- NOTE | 2018-08-27 15:01 | General Progress Note ---
Assessment/Plan Problem List: (1) Gastroenteritis ICD Codes: K52.9 - Noninfective gastroenteritis and colitis, unspecified SNOMED: 20292856 (2) Renal insufficiency ICD Codes: N28.9 - Disorder of kidney and ureter, unspecified SNOMED: 467150199, 645143260 (3) Intractable vomiting ICD Codes: R11.10 - Vomiting, unspecified SNOMED: 635385213, 225541717 Qualifiers: Qualified Codes: R11.2 - Nausea with vomiting, unspecified (4) Hyperglycemia ICD Codes: R73.9 - Hyperglycemia, unspecified SNOMED: 15018743 (5) Gastroparesis ICD Codes: K31.84 - Gastroparesis SNOMED: 435099896 Status: unchanged Assessment/Plan ivf adv diet cbc bmp am dc if clear Subjective Constitutional: Reports: weakness Allergies: Coded Allergies: INSULIN DETEMIR (Unverified Allergy, Unknown, Sweating, 08/16/18) All Systems: reviewed and negative except above Subjective calm in bed Objective Last 24 Hour Vital Signs Date Time Temp Pulse Resp B/P (MAP) Pulse Ox O2 Delivery O2 Flow Rate FiO2 08/27/18 12:00 98.2 81 20 113/62 (79) 97 08/27/18 09:00 Room Air 08/27/18 09:00 107/61 08/27/18 08:52 81 20 Room Air 21 08/27/18 08:00 98.1 90 20 107/61 (76) 95 08/27/18 04:00 97.9 83 19 112/58 (76) 93 08/27/18 00:00 98.1 88 19 130/52 (78) 93 08/26/18 21:00 Room Air 08/26/18 20:59 89 20 Room Air 21 08/26/18 20:00 97.5 99 18 140/71 (94) 96 08/26/18 16:00 97.9 89 20 139/72 (94) 96 Intake and Output 08/26/18 08/27/18 19:00 07:00 Intake Total 240 ml 400 ml Balance 240 ml 400 ml Intake Oral 240 ml 400 ml # Voids 2 # Bowel Movements 2 Laboratory Tests 08/27/18 06:40: M. tuberculosis Complex DNA (PCR) [Pending] 08/27/18 08:05: White Blood Count 13.8H, Red Blood Count 4.93, Hemoglobin 15.0, Hematocrit 43.4 , Mean Corpuscular Volume 88, Mean Corpuscular Hemoglobin 30.4, Mean Corpuscular Hemoglobin Concent 34.5, Red Cell Distribution Width 11.2L, Platelet Count 332, Mean Platelet Volume 8.1, Neutrophils (%) (Auto) 75.8H, Lymphocytes (%) (Auto) 14.6L, Monocytes (%) (Auto) 6.6, Eosinophils (%) (Auto) 1.9, Basophils (%) (Auto) 1.1, Sodium Level 133L, Potassium Level 4.2, Chloride Level 99, Carbon Dioxide Level 28, Anion Gap 6, Blood Urea Nitrogen 11, Creatinine 1.0, Estimat Glomerular Filtration Rate > 60, Glucose Level 272H, Calcium Level 9.1, Coccidioides Antibody (Comp Fix) [Pending], Coccidioides IgG Antibody [Pending], Coccidioides IgM Antibody [Pending], Cryptococcus Antigen [ Pending], HIV (1&2) Antibody Rapid Negative 08/27/18 08:10: Beta-(1,3)-D-Glucan [Pending] Height (Feet): 5 Height (Inches): 10.00 Weight (Pounds): 205 General Appearance: lethargic EENT: normal ENT inspection Neck: normal alignment Cardiovascular: normal peripheral pulses, normal rate, regular rhythm Respiratory/Chest: chest wall non-tender, lungs clear, normal breath sounds Abdomen: normal bowel sounds, non tender, soft Extremities: normal inspection Edema: no edema noted Arm (L), no edema noted Arm (R), no edema noted Leg (L), no edema noted Leg (R), no edema noted Pedal (L), no edema noted Pedal (R), no edema noted Generalized Neurologic: motor weakness Skin: normal pigmentation, warm/dry Stuart Silver DO Aug 27, 2018 15:01
[2018-08-27 16:00] VITALS: BP 109/52
[2018-08-27 20:13] VITALS: BP 116/68
[2018-08-27] MEDS: Atorvastatin 20mg tab ORAL SCH (21:15)
[2018-08-27] MEDS ORDERED: Albuterol/Ipratropium 3ml neb HHN PRN (22:30)
--- NOTE | 2018-08-27 23:19 | Cardiology Progress Note ---
Assessment/Plan Assessment/Plan 1. Atypical chest pain, AMI rule out by negative cardiac enzymes. 2D echocardiography reveals normal LV systolic function with LVEF at 55%. 2. DM, continue ASA and atorvastatin. 3. HTN, well controlled, continue benazepril. 4. CKD 5. Gastroparesis Subjective Subjective No cardiac events reported. Objective Last 24 Hour Vital Signs Date Time Temp Pulse Resp B/P (MAP) Pulse Ox O2 Delivery O2 Flow Rate FiO2 08/27/18 21:48 Room Air 08/27/18 20:13 98.4 81 20 116/68 (84) 96 08/27/18 16:00 97.9 74 20 109/52 (71) 97 08/27/18 12:00 98.2 81 20 113/62 (79) 97 08/27/18 09:00 Room Air 08/27/18 09:00 107/61 08/27/18 08:52 81 20 Room Air 21 08/27/18 08:00 98.1 90 20 107/61 (76) 95 08/27/18 04:00 97.9 83 19 112/58 (76) 93 08/27/18 00:00 98.1 88 19 130/52 (78) 93 Intake and Output 08/26/18 08/27/18 19:00 07:00 Intake Total 240 ml 400 ml Balance 240 ml 400 ml Intake Oral 240 ml 400 ml # Voids 2 # Bowel Movements 2 2D Echo: LVEF 55-60%, Grade I LVDD, RVSP 16 mmHg Laboratory Tests Test 08/27/18 06:40 08/27/18 08:05 08/27/18 19:20 M. tuberculosis Complex DNA (PCR) Pending White Blood Count 13.8 K/UL (4.8-10.8) H Red Blood Count 4.93 M/UL (4.70-6.10) Hemoglobin 15.0 G/DL (14.2-18.0) Hematocrit 43.4 % (42.0-52.0) Mean Corpuscular Volume 88 FL (80-99) Mean Corpuscular Hemoglobin 30.4 PG (27.0-31.0) Mean Corpuscular Hemoglobin Concent 34.5 G/DL (32.0-36.0) Red Cell Distribution Width 11.2 % (11.6-14.8) L Platelet Count 332 K/UL (150-450) Mean Platelet Volume 8.1 FL (6.5-10.1) Neutrophils (%) (Auto) 75.8 % (45.0-75.0) H Lymphocytes (%) (Auto) 14.6 % (20.0-45.0) L Monocytes (%) (Auto) 6.6 % (1.0-10.0) Eosinophils (%) (Auto) 1.9 % (0.0-3.0) Basophils (%) (Auto) 1.1 % (0.0-2.0) Sodium Level 133 MMOL/L (136-145) L Potassium Level 4.2 MMOL/L (3.5-5.1) Chloride Level 99 MMOL/L (98-107) Carbon Dioxide Level 28 MMOL/L (21-32) Anion Gap 6 mmol/L (5-15) Blood Urea Nitrogen 11 mg/dL (7-18) Creatinine 1.0 MG/DL (0.55-1.30) Estimat Glomerular Filtration Rate > 60 mL/min (>60) Glucose Level 272 MG/DL (74-106) H Calcium Level 9.1 MG/DL (8.5-10.1) Coccidioides Antibody (Comp Fix) Pending Coccidioides IgG Antibody Pending Coccidioides IgM Antibody Pending Cryptococcus Antigen Pending HIV (1&2) Antibody Rapid Negative (NEGATIVE) Beta-(1,3)-D-Glucan Pending Microbiology Date/Time Source Procedure Growth Status 08/27/18 06:40 Sputum Gram Stain - Final Resulted 08/27/18 06:40 Sputum Sputum Culture Pending Resulted 08/26/18 07:00 Sputum AFB Specimen Processing Tissue - Final Resulted 08/26/18 07:00 Sputum Acid Fast Bacilli Smear - Final Resulted 08/26/18 07:00 Sputum Acid Fast Bacilli Culture Pending Resulted Objective HEENT: Normocephalic and atraumatic. PERRLA, EOMI. NECK: No JVD, no carotid bruit. CHEST: Clear to auscultation. CARDIOVASCULAR: Regular rate and rhythm, normal S1 S2, no murmurs, gallops or rubs. ABDOMEN: Soft and nontender. Good bowel sounds. There is no organomegaly or tenderness. EXTREMITIES: no edema, clubbing or cyanosis. Miguel Angel Beckford MD Aug 27, 2018 23:19
[2018-08-28] VITALS (7 sets, daily range): BP systolic 99–129; BP diastolic 56–77
[2018-08-28] MEDS: ceFAZolin sod 1 GM in D5W 55 ML IVPB SCH ×3 (04:52→20:30)
--- NOTE | 2018-08-28 06:21 | General Progress Note ---
Assessment/Plan Problem List: (1) Hyperglycemia ICD Codes: R73.9 - Hyperglycemia, unspecified SNOMED: 09783004 (2) Intractable vomiting ICD Codes: R11.10 - Vomiting, unspecified SNOMED: 729175255, 132812439 Qualifiers: Qualified Codes: R11.2 - Nausea with vomiting, unspecified (3) Renal insufficiency ICD Codes: N28.9 - Disorder of kidney and ureter, unspecified SNOMED: 821105176, 052803074 (4) Gastroenteritis ICD Codes: K52.9 - Noninfective gastroenteritis and colitis, unspecified SNOMED: 72562792 Assessment/Plan continue Lantus 36 units qhs continue Novolog 12 units ac B / L / D continue NISS ac / hs - will lower dosage NOTE: patient has T1DM which is very brittle in nature therefore it would be impossible to have perfect glucose values. from DM stand point there is no barrier for discharge Subjective Allergies: Coded Allergies: INSULIN DETEMIR (Unverified Allergy, Unknown, Sweating, 08/16/18) All Systems: reviewed and negative except above Subjective events noted Objective Last 24 Hour Vital Signs Date Time Temp Pulse Resp B/P (MAP) Pulse Ox O2 Delivery O2 Flow Rate FiO2 08/28/18 04:00 97.6 75 18 111/59 (76) 95 08/28/18 03:33 77 20 Room Air 21 08/28/18 00:52 98.2 92 20 99/56 (70) 95 08/27/18 21:48 Room Air 08/27/18 20:13 98.4 81 20 116/68 (84) 96 08/27/18 16:00 97.9 74 20 109/52 (71) 97 08/27/18 12:00 98.2 81 20 113/62 (79) 97 08/27/18 09:00 Room Air 08/27/18 09:00 107/61 08/27/18 08:52 81 20 Room Air 21 08/27/18 08:00 98.1 90 20 107/61 (76) 95 Intake and Output 08/27/18 08/28/18 19:00 07:00 Intake Total 810 ml 55 ml Balance 810 ml 55 ml Intake Oral 480 ml IV Total 330 ml 55 ml Laboratory Tests 08/27/18 06:40: M. tuberculosis Complex DNA (PCR) [Pending] 08/27/18 08:05: White Blood Count 13.8H, Red Blood Count 4.93, Hemoglobin 15.0, Hematocrit 43.4 , Mean Corpuscular Volume 88, Mean Corpuscular Hemoglobin 30.4, Mean Corpuscular Hemoglobin Concent 34.5, Red Cell Distribution Width 11.2L, Platelet Count 332, Mean Platelet Volume 8.1, Neutrophils (%) (Auto) 75.8H, Lymphocytes (%) (Auto) 14.6L, Monocytes (%) (Auto) 6.6, Eosinophils (%) (Auto) 1.9, Basophils (%) (Auto) 1.1, Sodium Level 133L, Potassium Level 4.2, Chloride Level 99, Carbon Dioxide Level 28, Anion Gap 6, Blood Urea Nitrogen 11, Creatinine 1.0, Estimat Glomerular Filtration Rate > 60, Glucose Level 272H, Calcium Level 9.1, Coccidioides Antibody (Comp Fix) [Pending], Coccidioides IgG Antibody [Pending], Coccidioides IgM Antibody [Pending], Cryptococcus Antigen [ Pending], HIV (1&2) Antibody Rapid Negative 08/27/18 19:20: Beta-(1,3)-D-Glucan [Pending] Height (Feet): 5 Height (Inches): 10.00 Weight (Pounds): 205 General Appearance: no apparent distress Neck: normal alignment Cardiovascular: normal rate Respiratory/Chest: normal breath sounds Abdomen: normal bowel sounds Objective Current Medications Medications (Trade) Dose Ordered Sig/Rashel Route PRN Reason Start Time Stop Time Status Last Admin Dose Admin Acetaminophen (Tylenol) 650 mg Q4H PRN ORAL fever (temp>100.5F) 08/15/18 20:15 09/14/18 20:14 08/15/18 21:53 Al Hydroxide/Mg Hydroxide (Mylanta II) 30 ml Q6H PRN ORAL dyspepsia 08/15/18 20:15 09/14/18 20:14 Albuterol/ Ipratropium (Albuterol/ Ipratropium) 3 ml Q4H PRN HHN Shortness of Breath 08/27/18 22:30 09/01/18 22:29 Aspirin (Ecotrin) 81 mg DAILY ORAL 08/16/18 09:00 09/15/18 08:59 08/27/18 09:16 Atorvastatin Calcium (Lipitor) 20 mg BEDTIME ORAL 08/23/18 21:00 09/22/18 20:59 08/27/18 21:15 Azithromycin 500 mg/Dextrose 275 ml @ 275 mls/hr Q24HRS IV 08/27/18 12:00 09/02/18 12:59 08/27/18 12:27 Benazepril HCl (Lotensin) 20 mg DAILY ORAL 08/20/18 12:01 09/19/18 12:00 08/26/18 10:20 Cefazolin Sodium 1 gm/Dextrose 55 ml @ 110 mls/hr Q8H IVPB 08/27/18 12:00 09/03/18 11:59 08/28/18 04:52 Clonidine HCl (Catapres Tab) 0.1 mg Q4H PRN ORAL sbp more than 160 08/15/18 20:15 09/14/18 20:14 Dextrose (Dextrose 50%) 25 ml Q30M PRN IV Hypoglycemia 08/16/18 07:30 09/15/18 07:29 Dextrose (Dextrose 50%) 50 ml Q30M PRN IV Hypoglycemia 08/16/18 07:30 09/15/18 07:29 08/24/18 19:11 Heparin Sodium (Porcine) (Heparin 5000 units/ml) 5,000 units EVERY 12 HOURS SUBQ 08/15/18 21:00 09/14/18 20:59 08/27/18 21:17 Ibuprofen (Advil) 600 mg Q8H PRN ORAL mild pain 08/20/18 12:00 09/19/18 11:59 Insulin Aspart (NovoLOG) BEFORE MEALS AND HS SUBQ 08/25/18 11:30 09/14/18 21:59 08/27/18 21:16 Insulin Aspart (NovoLOG) 12 units NOVOLOGB SUBQ 08/24/18 06:30 09/22/18 06:29 08/27/18 07:16 Insulin Aspart (NovoLOG) 12 units NOVOLOGL SUBQ 08/27/18 11:50 09/22/18 11:49 08/27/18 11:52 Insulin Aspart (NovoLOG) 12 units NOVOLOGS SUBQ 08/27/18 16:50 09/21/18 16:49 08/27/18 17:12 Insulin Glargine (Lantus (NON FORUMULARY)) 36 unit QHS SQ 08/27/18 21:00 09/24/18 22:00 08/27/18 21:15 Ondansetron HCl (Zofran) 4 mg Q6H PRN IVP Nausea & Vomiting 08/26/18 13:15 09/25/18 13:14 Pregabalin (Lyrica) 50 mg TWICE A DAY ORAL 08/16/18 09:00 09/15/18 08:59 08/27/18 17:16 Promethazine HCl/ Codeine (Phenergan with Codeine) 5 ml Q8H PRN ORAL For Cough 08/21/18 14:45 09/20/18 14:44 08/27/18 21:15 Item Value Date Time Bedside Blood Glucose 243 mg/dl H 08/27/18 2116 Bedside Blood Glucose 361 mg/dl H 08/27/18 1712 Bedside Blood Glucose 215 mg/dl H 08/27/18 1154 Bedside Blood Glucose 204 mg/dl H 08/27/18 0719 Bedside Blood Glucose 204 mg/dl H 08/27/18 0644 Mac Vegas MD Aug 28, 2018 06:21
[2018-08-28] MEDS: NovoLOG Insulin Flexpen SUBQ SCH ×7 (06:54→20:53)
[2018-08-28 08:12] LABS: BASOPHILS % (AUTO) 1.4 % (0.0-2.0); EOSINOPHILS % (AUTO) 2.4 % (0.0-3.0); HEMOGLOBIN 13.8 G/DL (14.2-18.0); MEAN CORPUSCULAR VOLUME 87 FL (80-99); MONOCYTES % (AUTO) 7.6 % (1.0-10.0); NEUTROPHILS % (AUTO) 68.6 % (45.0-75.0); PLATELET COUNT 312 K/UL (150-450); RED BLOOD COUNT 4.59 M/UL (4.70-6.10); RED CELL DISTRIBUTION WIDTH 10.9 % (11.6-14.8); WHITE BLOOD COUNT 10.5 K/UL (4.8-10.8)
[2018-08-28 08:22] LABS: ANION GAP 9 mmol/L (5-15); BLOOD UREA NITROGEN 11 mg/dL (7-18); CALCIUM 8.6 MG/DL (8.5-10.1); CARBON DIOXIDE 29 MMOL/L (21-32); CHLORIDE 100 MMOL/L (98-107); POTASSIUM 4.4 MMOL/L (3.5-5.1); SODIUM 137 MMOL/L (136-145)
[2018-08-28] MEDS: Lyrica 50mg cap ORAL SCH ×2 (09:35→17:16)
[2018-08-28] MEDS: Aspirin EC 81mg tab ORAL SCH (09:36)
[2018-08-28] MEDS: Benazepril 10mg tab ORAL SCH (09:36)
[2018-08-28] MEDS: Heparin 5000 units/ml inj SUBQ SCH ×2 (09:44→20:43)
--- NOTE | 2018-08-28 11:21 | General Progress Note ---
Assessment/Plan Problem List: (1) Gastroenteritis ICD Codes: K52.9 - Noninfective gastroenteritis and colitis, unspecified SNOMED: 90562328 (2) Renal insufficiency ICD Codes: N28.9 - Disorder of kidney and ureter, unspecified SNOMED: 981968042, 823559915 (3) Intractable vomiting ICD Codes: R11.10 - Vomiting, unspecified SNOMED: 880436578, 857081176 Qualifiers: Qualified Codes: R11.2 - Nausea with vomiting, unspecified (4) Hyperglycemia ICD Codes: R73.9 - Hyperglycemia, unspecified SNOMED: 28931440 (5) Gastroparesis ICD Codes: K31.84 - Gastroparesis SNOMED: 643285316 Status: stable, progressing Assessment/Plan ivf adv diet cbc bmp am dc if clear Subjective Constitutional: Reports: weakness Allergies: Coded Allergies: INSULIN DETEMIR (Unverified Allergy, Unknown, Sweating, 08/16/18) All Systems: reviewed and negative except above Subjective calm in bed Objective Last 24 Hour Vital Signs Date Time Temp Pulse Resp B/P (MAP) Pulse Ox O2 Delivery O2 Flow Rate FiO2 08/28/18 09:36 120/65 08/28/18 08:00 97.5 92 20 120/65 (83) 99 08/28/18 04:00 97.6 75 18 111/59 (76) 95 08/28/18 03:33 77 20 Room Air 21 08/28/18 00:52 98.2 92 20 99/56 (70) 95 08/27/18 21:48 Room Air 08/27/18 20:13 98.4 81 20 116/68 (84) 96 08/27/18 16:00 97.9 74 20 109/52 (71) 97 08/27/18 12:00 98.2 81 20 113/62 (79) 97 Intake and Output 08/27/18 08/28/18 18:59 06:59 Intake Total 810 ml 295 ml Balance 810 ml 295 ml Intake Oral 480 ml 240 ml IV Total 330 ml 55 ml # Voids 4 Laboratory Tests 08/27/18 19:20: Beta-(1,3)-D-Glucan [Pending] 08/28/18 06:07: Histoplasma Antigen [Pending], Urine Legionella Antigen [Pending] 08/28/18 07:58: White Blood Count 10.5, Red Blood Count 4.59L, Hemoglobin 13.8L, Hematocrit 40.0L, Mean Corpuscular Volume 87, Mean Corpuscular Hemoglobin 30.0, Mean Corpuscular Hemoglobin Concent 34.4, Red Cell Distribution Width 10.9L, Platelet Count 312, Mean Platelet Volume 8.0, Neutrophils (%) (Auto) 68.6, Lymphocytes (%) (Auto) 20.0, Monocytes (%) (Auto) 7.6, Eosinophils (%) (Auto) 2.4, Basophils (%) (Auto) 1.4, Sodium Level 137, Potassium Level 4.4, Chloride Level 100, Carbon Dioxide Level 29, Anion Gap 9, Blood Urea Nitrogen 11, Creatinine 1.0, Estimat Glomerular Filtration Rate > 60, Glucose Level 287H, Calcium Level 8.6, Mycoplasma pneumoniae IgG Antibody [Pending], Mycoplasma pneumoniae IgM Ab Titer [Pending] Height (Feet): 5 Height (Inches): 10.00 Weight (Pounds): 205 General Appearance: lethargic EENT: normal ENT inspection Neck: normal alignment Cardiovascular: normal peripheral pulses, normal rate, regular rhythm Respiratory/Chest: chest wall non-tender, lungs clear, normal breath sounds Abdomen: normal bowel sounds, non tender, soft Extremities: normal inspection Edema: no edema noted Arm (L), no edema noted Arm (R), no edema noted Leg (L), no edema noted Leg (R), no edema noted Pedal (L), no edema noted Pedal (R), no edema noted Generalized Neurologic: motor weakness Skin: normal pigmentation, warm/dry Stuart Silver DO Aug 28, 2018 11:21
--- NOTE | 2018-08-28 11:33 | GI Progress Note ---
Assessment/Plan Problems: (1) Gastroparesis ICD Codes: K31.84 - Gastroparesis SNOMED: 071255780 (2) Hyperglycemia ICD Codes: R73.9 - Hyperglycemia, unspecified SNOMED: 04373323 (3) Intractable vomiting ICD Codes: R11.10 - Vomiting, unspecified SNOMED: 603766797, 416126841 Qualifiers: Qualified Codes: R11.2 - Nausea with vomiting, unspecified (4) Renal insufficiency ICD Codes: N28.9 - Disorder of kidney and ureter, unspecified SNOMED: 131202521, 409311997 (5) Gastroenteritis ICD Codes: K52.9 - Noninfective gastroenteritis and colitis, unspecified SNOMED: 10531083 (6) Malingering ICD Codes: Z76.5 - Malingerer [conscious simulation] SNOMED: 102651896 Status: unchanged Status Narrative Discussed with Dr. Thomas Assessment/Plan Assessment - N/V, Diarrhea - Abd pain - IDDM - HTN -Gastroparesis OB stool negative Now airborne precautions to rule out TB Recommendations Symptomatic treatment at this time Advance to ADA diet hydration PPI Zofran as needed, Reglan for persistent vomiting Follow-up labs PT evaluation Outpatient EGD colonoscopy The patient was seen and examined at bedside and all new and available data was reviewed in the patients chart. I agree with the above findings, impression and plan. (Patient seen earlier today. Signature stamp does not reflect patient encounter time.). - Noé Thomas MD Subjective Subjective Denies any nausea or vomiting Denies any abdominal pain Able to tolerate small amounts of food Now complaining of hip pain Has new onset of chest pain Objective Last 24 Hour Vital Signs Date Time Temp Pulse Resp B/P (MAP) Pulse Ox O2 Delivery O2 Flow Rate FiO2 08/28/18 09:36 120/65 08/28/18 08:00 97.5 92 20 120/65 (83) 99 08/28/18 04:00 97.6 75 18 111/59 (76) 95 08/28/18 03:33 77 20 Room Air 21 08/28/18 00:52 98.2 92 20 99/56 (70) 95 08/27/18 21:48 Room Air 08/27/18 20:13 98.4 81 20 116/68 (84) 96 08/27/18 16:00 97.9 74 20 109/52 (71) 97 08/27/18 12:00 98.2 81 20 113/62 (79) 97 Intake and Output 08/27/18 08/28/18 18:59 06:59 Intake Total 810 ml 295 ml Balance 810 ml 295 ml Intake Oral 480 ml 240 ml IV Total 330 ml 55 ml # Voids 4 Laboratory Tests Test 08/27/18 19:20 08/28/18 06:07 08/28/18 07:58 Beta-(1,3)-D-Glucan Pending Histoplasma Antigen Pending Urine Legionella Antigen Pending White Blood Count 10.5 K/UL (4.8-10.8) Red Blood Count 4.59 M/UL (4.70-6.10) L Hemoglobin 13.8 G/DL (14.2-18.0) L Hematocrit 40.0 % (42.0-52.0) L Mean Corpuscular Volume 87 FL (80-99) Mean Corpuscular Hemoglobin 30.0 PG (27.0-31.0) Mean Corpuscular Hemoglobin Concent 34.4 G/DL (32.0-36.0) Red Cell Distribution Width 10.9 % (11.6-14.8) L Platelet Count 312 K/UL (150-450) Mean Platelet Volume 8.0 FL (6.5-10.1) Neutrophils (%) (Auto) 68.6 % (45.0-75.0) Lymphocytes (%) (Auto) 20.0 % (20.0-45.0) Monocytes (%) (Auto) 7.6 % (1.0-10.0) Eosinophils (%) (Auto) 2.4 % (0.0-3.0) Basophils (%) (Auto) 1.4 % (0.0-2.0) Sodium Level 137 MMOL/L (136-145) Potassium Level 4.4 MMOL/L (3.5-5.1) Chloride Level 100 MMOL/L (98-107) Carbon Dioxide Level 29 MMOL/L (21-32) Anion Gap 9 mmol/L (5-15) Blood Urea Nitrogen 11 mg/dL (7-18) Creatinine 1.0 MG/DL (0.55-1.30) Estimat Glomerular Filtration Rate > 60 mL/min (>60) Glucose Level 287 MG/DL (74-106) H Calcium Level 8.6 MG/DL (8.5-10.1) Mycoplasma pneumoniae IgG Antibody Pending Mycoplasma pneumoniae IgM Ab Titer Pending Height (Feet): 5 Height (Inches): 10.00 Weight (Pounds): 205 General Appearance: WD/WN, no apparent distress, alert Cardiovascular: normal rate Respiratory/Chest: normal breath sounds, no respiratory distress Abdominal Exam: normal bowel sounds, non tender, soft Extremities: normal range of motion, non-tender Debby Vidal NP Aug 28, 2018 11:33
[2018-08-28] MEDS: Azithromycin 500 MG in D5W 275 ML IV SCH (12:13)
--- NOTE | 2018-08-28 12:48 | Pulmonology Progress Note ---
Assessment/Plan Problems: (1) Pneumonia (2) Gastroenteritis (3) Intractable vomiting (4) Hyperglycemia (5) Gastroparesis (6) Diabetes mellitus (7) ATN (acute tubular necrosis) Assessment/Plan ID input appreciated awaiting sputum ppd (--) Sputum for Afb sputum culture pending serology pending Subjective ROS Limited/Unobtainable: No Interval Events: doing the same, still with cough Allergies: Coded Allergies: INSULIN DETEMIR (Unverified Allergy, Unknown, Sweating, 08/16/18) Objective Last 24 Hour Vital Signs Date Time Temp Pulse Resp B/P (MAP) Pulse Ox O2 Delivery O2 Flow Rate FiO2 08/28/18 12:00 97.5 81 20 113/77 (89) 99 08/28/18 09:36 120/65 08/28/18 08:00 97.5 92 20 120/65 (83) 99 08/28/18 04:00 97.6 75 18 111/59 (76) 95 08/28/18 03:33 77 20 Room Air 21 08/28/18 00:52 98.2 92 20 99/56 (70) 95 08/27/18 21:48 Room Air 08/27/18 20:13 98.4 81 20 116/68 (84) 96 08/27/18 16:00 97.9 74 20 109/52 (71) 97 Intake and Output 08/27/18 08/28/18 18:59 06:59 Intake Total 810 ml 295 ml Balance 810 ml 295 ml Intake Oral 480 ml 240 ml IV Total 330 ml 55 ml # Voids 4 Objective General Appearance: WD/WN HEENT: normocephalic, atraumatic, anicteric Respiratory/Chest: chest wall non-tender, lungs clear Breasts: no masses Cardiovascular: normal peripheral pulses, normal rate Abdomen: normal bowel sounds, soft, non tender Extremities: no cyanosis Skin: no rash Neurologic/Psychiatric: butt trimmer II-XII grossly normal Lymphatic: no neck adenopathy Microbiology Date/Time Source Procedure Growth Status 08/27/18 06:40 Sputum Gram Stain - Final Resulted 08/27/18 06:40 Sputum Sputum Culture - Preliminary Resulted 08/26/18 07:00 Sputum AFB Specimen Processing Tissue - Final Resulted 08/26/18 07:00 Sputum Acid Fast Bacilli Smear - Final Resulted 08/26/18 07:00 Sputum Acid Fast Bacilli Culture Pending Resulted Laboratory Tests 08/27/18 19:20: Beta-(1,3)-D-Glucan [Pending] 08/28/18 06:07: Histoplasma Antigen [Pending], Urine Legionella Antigen [Pending] 08/28/18 07:58: White Blood Count 10.5, Red Blood Count 4.59L, Hemoglobin 13.8L, Hematocrit 40.0L, Mean Corpuscular Volume 87, Mean Corpuscular Hemoglobin 30.0, Mean Corpuscular Hemoglobin Concent 34.4, Red Cell Distribution Width 10.9L, Platelet Count 312, Mean Platelet Volume 8.0, Neutrophils (%) (Auto) 68.6, Lymphocytes (%) (Auto) 20.0, Monocytes (%) (Auto) 7.6, Eosinophils (%) (Auto) 2.4, Basophils (%) (Auto) 1.4, Sodium Level 137, Potassium Level 4.4, Chloride Level 100, Carbon Dioxide Level 29, Anion Gap 9, Blood Urea Nitrogen 11, Creatinine 1.0, Estimat Glomerular Filtration Rate > 60, Glucose Level 287H, Calcium Level 8.6, Mycoplasma pneumoniae IgG Antibody [Pending], Mycoplasma pneumoniae IgM Ab Titer [Pending] Current Medications Medications (Trade) Dose Ordered Sig/Rashel Route PRN Reason Start Time Stop Time Status Last Admin Dose Admin Acetaminophen (Tylenol) 650 mg Q4H PRN ORAL fever (temp>100.5F) 08/15/18 20:15 09/14/18 20:14 08/15/18 21:53 Al Hydroxide/Mg Hydroxide (Mylanta II) 30 ml Q6H PRN ORAL dyspepsia 08/15/18 20:15 09/14/18 20:14 Albuterol/ Ipratropium (Albuterol/ Ipratropium) 3 ml Q4H PRN HHN Shortness of Breath 08/27/18 22:30 09/01/18 22:29 Aspirin (Ecotrin) 81 mg DAILY ORAL 08/16/18 09:00 09/15/18 08:59 08/28/18 09:36 Atorvastatin Calcium (Lipitor) 20 mg BEDTIME ORAL 08/23/18 21:00 09/22/18 20:59 08/27/18 21:15 Azithromycin 500 mg/Dextrose 275 ml @ 275 mls/hr Q24HRS IV 08/27/18 12:00 09/02/18 12:59 08/28/18 12:13 Benazepril HCl (Lotensin) 20 mg DAILY ORAL 08/20/18 12:01 09/19/18 12:00 08/28/18 09:36 Cefazolin Sodium 1 gm/Dextrose 55 ml @ 110 mls/hr Q8H IVPB 08/27/18 12:00 09/03/18 11:59 08/28/18 04:52 Clonidine HCl (Catapres Tab) 0.1 mg Q4H PRN ORAL sbp more than 160 08/15/18 20:15 09/14/18 20:14 Dextrose (Dextrose 50%) 25 ml Q30M PRN IV Hypoglycemia 08/16/18 07:30 09/15/18 07:29 Dextrose (Dextrose 50%) 50 ml Q30M PRN IV Hypoglycemia 08/16/18 07:30 09/15/18 07:29 08/24/18 19:11 Heparin Sodium (Porcine) (Heparin 5000 units/ml) 5,000 units EVERY 12 HOURS SUBQ 08/15/18 21:00 09/14/18 20:59 08/28/18 09:44 Ibuprofen (Advil) 600 mg Q8H PRN ORAL mild pain 08/20/18 12:00 09/19/18 11:59 Insulin Aspart (NovoLOG) BEFORE MEALS AND HS SUBQ 08/25/18 11:30 09/14/18 21:59 08/28/18 11:30 Insulin Aspart (NovoLOG) 12 units NOVOLOGB SUBQ 08/24/18 06:30 09/22/18 06:29 08/28/18 06:55 Insulin Aspart (NovoLOG) 12 units NOVOLOGL SUBQ 08/27/18 11:50 09/22/18 11:49 08/28/18 12:24 Insulin Aspart (NovoLOG) 12 units NOVOLOGS SUBQ 08/27/18 16:50 09/21/18 16:49 08/27/18 17:12 Insulin Glargine (Lantus (NON FORUMULARY)) 36 unit QHS SQ 08/27/18 21:00 09/24/18 22:00 08/27/18 21:15 Ondansetron HCl (Zofran) 4 mg Q6H PRN IVP Nausea & Vomiting 08/26/18 13:15 09/25/18 13:14 Pregabalin (Lyrica) 50 mg TWICE A DAY ORAL 08/16/18 09:00 09/15/18 08:59 08/28/18 09:35 Promethazine HCl/ Codeine (Phenergan with Codeine) 5 ml Q8H PRN ORAL For Cough 08/21/18 14:45 09/20/18 14:44 08/27/18 21:15 Rohini Camargo MD Aug 28, 2018 12:48
[2018-08-28] MEDS: Promethazine/Codeine 5ml UD ORAL PRN (15:13)
--- NOTE | 2018-08-28 17:41 | Cardiology Progress Note ---
Assessment/Plan Assessment/Plan 1. Atypical chest pain, AMI rule out by negative cardiac enzymes. 2D echocardiography reveals normal LV systolic function with LVEF at 55%. 2. DM, continue ASA and atorvastatin. 3. HTN, continue benazepril. 4. CKD, normal creatinine level. 5. Gastroparesis Subjective Subjective No cardiac events reported. Objective Last 24 Hour Vital Signs Date Time Temp Pulse Resp B/P (MAP) Pulse Ox O2 Delivery O2 Flow Rate FiO2 08/28/18 16:00 98.2 79 20 129/76 (93) 95 08/28/18 12:00 97.5 81 20 113/77 (89) 99 08/28/18 09:36 120/65 08/28/18 09:00 Room Air 08/28/18 08:00 97.5 92 20 120/65 (83) 99 08/28/18 04:00 97.6 75 18 111/59 (76) 95 08/28/18 03:33 77 20 Room Air 21 08/28/18 00:52 98.2 92 20 99/56 (70) 95 08/27/18 21:48 Room Air 08/27/18 20:13 98.4 81 20 116/68 (84) 96 Intake and Output 08/27/18 08/28/18 19:00 07:00 Intake Total 810 ml 295 ml Balance 810 ml 295 ml Intake Oral 480 ml 240 ml IV Total 330 ml 55 ml # Voids 4 2D Echo: LVEF 60-65%, Grade I LVDD, RVSP 16 mmHg Laboratory Tests Test 08/27/18 19:20 08/28/18 06:07 08/28/18 07:58 Beta-(1,3)-D-Glucan Pending Histoplasma Antigen Pending Urine Legionella Antigen Pending White Blood Count 10.5 K/UL (4.8-10.8) Red Blood Count 4.59 M/UL (4.70-6.10) L Hemoglobin 13.8 G/DL (14.2-18.0) L Hematocrit 40.0 % (42.0-52.0) L Mean Corpuscular Volume 87 FL (80-99) Mean Corpuscular Hemoglobin 30.0 PG (27.0-31.0) Mean Corpuscular Hemoglobin Concent 34.4 G/DL (32.0-36.0) Red Cell Distribution Width 10.9 % (11.6-14.8) L Platelet Count 312 K/UL (150-450) Mean Platelet Volume 8.0 FL (6.5-10.1) Neutrophils (%) (Auto) 68.6 % (45.0-75.0) Lymphocytes (%) (Auto) 20.0 % (20.0-45.0) Monocytes (%) (Auto) 7.6 % (1.0-10.0) Eosinophils (%) (Auto) 2.4 % (0.0-3.0) Basophils (%) (Auto) 1.4 % (0.0-2.0) Sodium Level 137 MMOL/L (136-145) Potassium Level 4.4 MMOL/L (3.5-5.1) Chloride Level 100 MMOL/L (98-107) Carbon Dioxide Level 29 MMOL/L (21-32) Anion Gap 9 mmol/L (5-15) Blood Urea Nitrogen 11 mg/dL (7-18) Creatinine 1.0 MG/DL (0.55-1.30) Estimat Glomerular Filtration Rate > 60 mL/min (>60) Glucose Level 287 MG/DL (74-106) H Calcium Level 8.6 MG/DL (8.5-10.1) Mycoplasma pneumoniae IgG Antibody Pending Mycoplasma pneumoniae IgM Ab Titer Pending Microbiology Date/Time Source Procedure Growth Status 08/27/18 06:40 Sputum Gram Stain - Final Resulted 08/27/18 06:40 Sputum Sputum Culture - Preliminary Resulted 08/27/18 06:40 Sputum AFB Specimen Processing Tissue - Final Resulted 08/27/18 06:40 Sputum Acid Fast Bacilli Smear - Final Resulted 08/27/18 06:40 Sputum Acid Fast Bacilli Culture Pending Resulted 08/26/18 07:00 Sputum AFB Specimen Processing Tissue - Final Resulted 08/26/18 07:00 Sputum Acid Fast Bacilli Smear - Final Resulted 08/26/18 07:00 Sputum Acid Fast Bacilli Culture Pending Resulted Objective HEENT: Normocephalic and atraumatic. PERRLA, EOMI. NECK: No JVD, no carotid bruit. CHEST: Clear to auscultation. CARDIOVASCULAR: Regular rate and rhythm, normal S1 S2, no murmurs, gallops or rubs. ABDOMEN: Soft and nontender. Good bowel sounds. There is no organomegaly or tenderness. EXTREMITIES: no edema, clubbing or cyanosis. Miguel Angel Beckford MD Aug 28, 2018 17:41
[2018-08-28] MEDS: Atorvastatin 20mg tab ORAL SCH (20:30)
[2018-08-29] VITALS: BP 93/51
[2018-08-29] MEDS: ceFAZolin sod 1 GM in D5W 55 ML IVPB SCH ×3 (03:22→21:14)
[2018-08-29 04:00] VITALS: BP 115/72
[2018-08-29] MEDS: NovoLOG Insulin Flexpen SUBQ SCH ×7 (06:30→21:19)
[2018-08-29 06:39] LABS: ANION GAP 7 mmol/L (5-15); BLOOD UREA NITROGEN 11 mg/dL (7-18); CALCIUM 9.1 MG/DL (8.5-10.1); CARBON DIOXIDE 29 MMOL/L (21-32); CHLORIDE 104 MMOL/L (98-107); CREATININE 0.9 MG/DL (0.55-1.30); POTASSIUM 3.8 MMOL/L (3.5-5.1); SODIUM 140 MMOL/L (136-145)
[2018-08-29 06:40] LABS: EOSINOPHILS % (AUTO) 2.8 % (0.0-3.0); HEMATOCRIT 39.1 % (42.0-52.0); HEMOGLOBIN 13.6 G/DL (14.2-18.0); LYMPHOCYTES % (AUTO) 31.9 % (20.0-45.0); MEAN CORPUSCULAR VOLUME 87 FL (80-99); MONOCYTES % (AUTO) 9.7 % (1.0-10.0); NEUTROPHILS % (AUTO) 53.6 % (45.0-75.0); PLATELET COUNT 302 K/UL (150-450); RED CELL DISTRIBUTION WIDTH 11.1 % (11.6-14.8); WHITE BLOOD COUNT 7.2 K/UL (4.8-10.8)
--- NOTE | 2018-08-29 07:54 | General Progress Note ---
Assessment/Plan Problem List: (1) Diabetes mellitus ICD Codes: E11.9 - Type 2 diabetes mellitus without complications SNOMED: 78347987 (2) Gastroparesis ICD Codes: K31.84 - Gastroparesis SNOMED: 246347571 (3) Hyperglycemia ICD Codes: R73.9 - Hyperglycemia, unspecified SNOMED: 59905347 (4) Intractable vomiting ICD Codes: R11.10 - Vomiting, unspecified SNOMED: 860281149, 253047755 Qualifiers: Qualified Codes: R11.2 - Nausea with vomiting, unspecified (5) Renal insufficiency ICD Codes: N28.9 - Disorder of kidney and ureter, unspecified SNOMED: 215817690, 784243929 (6) Gastroenteritis ICD Codes: K52.9 - Noninfective gastroenteritis and colitis, unspecified SNOMED: 25783226 Assessment/Plan Symptomatic treatment at this time AdvancADA diet hydration PPI Zofran as needed, Reglan for persistent vomiting Follow-up labs PT evaluation Outpatient EGD colonoscopy Subjective ROS Limited/Unobtainable: Yes Allergies: Coded Allergies: INSULIN DETEMIR (Unverified Allergy, Unknown, Sweating, 08/16/18) Subjective no event over night Objective Last 24 Hour Vital Signs Date Time Temp Pulse Resp B/P (MAP) Pulse Ox O2 Delivery O2 Flow Rate FiO2 08/29/18 04:00 97.6 75 18 115/72 (86) 95 08/29/18 00:00 97.2 65 18 93/51 (65) 98 08/28/18 21:29 97.2 08/28/18 21:00 Room Air 08/28/18 20:00 80 18 Room Air 21 08/28/18 19:50 96.6 80 18 118/72 (87) 97 08/28/18 16:00 98.2 79 20 129/76 (93) 95 08/28/18 12:00 97.5 81 20 113/77 (89) 99 08/28/18 09:36 120/65 08/28/18 09:00 Room Air 08/28/18 08:00 97.5 92 20 120/65 (83) 99 Intake and Output 08/28/18 08/29/18 19:00 07:00 Intake Total 1050 ml 110 ml Output Total 1400 ml Balance 1050 ml -1290 ml Intake Oral 720 ml IV Total 330 ml 110 ml Output Urine Total 1400 ml # Voids 2 # Bowel Movements 1 Laboratory Tests 08/28/18 07:58: White Blood Count 10.5, Red Blood Count 4.59L, Hemoglobin 13.8L, Hematocrit 40.0L, Mean Corpuscular Volume 87, Mean Corpuscular Hemoglobin 30.0, Mean Corpuscular Hemoglobin Concent 34.4, Red Cell Distribution Width 10.9L, Platelet Count 312, Mean Platelet Volume 8.0, Neutrophils (%) (Auto) 68.6, Lymphocytes (%) (Auto) 20.0, Monocytes (%) (Auto) 7.6, Eosinophils (%) (Auto) 2.4, Basophils (%) (Auto) 1.4, Sodium Level 137, Potassium Level 4.4, Chloride Level 100, Carbon Dioxide Level 29, Anion Gap 9, Blood Urea Nitrogen 11, Creatinine 1.0, Estimat Glomerular Filtration Rate > 60, Glucose Level 287H, Calcium Level 8.6, Mycoplasma pneumoniae IgG Antibody [Pending], Mycoplasma pneumoniae IgM Ab Titer [Pending] 08/29/18 05:10: White Blood Count 7.2, Red Blood Count 4.50L, Hemoglobin 13.6L, Hematocrit 39.1L , Mean Corpuscular Volume 87, Mean Corpuscular Hemoglobin 30.3, Mean Corpuscular Hemoglobin Concent 34.8, Red Cell Distribution Width 11.1L, Platelet Count 302, Mean Platelet Volume 8.0, Neutrophils (%) (Auto) 53.6, Lymphocytes (%) (Auto) 31.9, Monocytes (%) (Auto) 9.7, Eosinophils (%) (Auto) 2.8, Basophils (%) (Auto) 2.0, Sodium Level 140, Potassium Level 3.8, Chloride Level 104, Carbon Dioxide Level 29, Anion Gap 7, Blood Urea Nitrogen 11, Creatinine 0.9, Estimat Glomerular Filtration Rate > 60, Glucose Level 73#L, Calcium Level 9.1 Height (Feet): 5 Height (Inches): 10.00 Weight (Pounds): 205 General Appearance: no apparent distress EENT: normal ENT inspection Neck: supple Cardiovascular: normal rate Respiratory/Chest: decreased breath sounds Abdomen: normal bowel sounds, non tender, soft Extremities: non-tender Noé Thomas MD Aug 29, 2018 07:54
[2018-08-29 08:00] VITALS: BP 121/70
[2018-08-29] MEDS: Aspirin EC 81mg tab ORAL SCH (08:11)
[2018-08-29] MEDS: Benazepril 10mg tab ORAL SCH (08:11)
[2018-08-29] MEDS: Lyrica 50mg cap ORAL SCH ×2 (08:12→17:08)
[2018-08-29] MEDS: Heparin 5000 units/ml inj SUBQ SCH ×2 (08:20→21:18)
--- NOTE | 2018-08-29 09:00 | General Progress Note ---
Assessment/Plan Problem List: (1) Gastroenteritis ICD Codes: K52.9 - Noninfective gastroenteritis and colitis, unspecified SNOMED: 79031831 (2) Renal insufficiency ICD Codes: N28.9 - Disorder of kidney and ureter, unspecified SNOMED: 191019749, 838182342 (3) Intractable vomiting ICD Codes: R11.10 - Vomiting, unspecified SNOMED: 541211573, 211512739 Qualifiers: Qualified Codes: R11.2 - Nausea with vomiting, unspecified (4) Hyperglycemia ICD Codes: R73.9 - Hyperglycemia, unspecified SNOMED: 39166719 (5) Gastroparesis ICD Codes: K31.84 - Gastroparesis SNOMED: 674067668 Status: unchanged Assessment/Plan ivf adv diet cbc bmp am dc if clear Subjective Constitutional: Reports: weakness Allergies: Coded Allergies: INSULIN DETEMIR (Unverified Allergy, Unknown, Sweating, 08/16/18) All Systems: reviewed and negative except above Subjective calm in bed sl cough Objective Last 24 Hour Vital Signs Date Time Temp Pulse Resp B/P (MAP) Pulse Ox O2 Delivery O2 Flow Rate FiO2 08/29/18 08:11 121/70 08/29/18 08:00 97.5 87 20 121/70 (87) 98 08/29/18 07:52 78 16 Room Air 21 08/29/18 04:00 97.6 75 18 115/72 (86) 95 08/29/18 00:00 97.2 65 18 93/51 (65) 98 08/28/18 21:29 97.2 08/28/18 21:00 Room Air 08/28/18 20:00 80 18 Room Air 21 08/28/18 19:50 96.6 80 18 118/72 (87) 97 08/28/18 16:00 98.2 79 20 129/76 (93) 95 08/28/18 12:00 97.5 81 20 113/77 (89) 99 08/28/18 09:36 120/65 08/28/18 09:00 Room Air Intake and Output 08/28/18 08/29/18 19:00 07:00 Intake Total 1050 ml 110 ml Output Total 1400 ml Balance 1050 ml -1290 ml Intake Oral 720 ml IV Total 330 ml 110 ml Output Urine Total 1400 ml # Voids 2 # Bowel Movements 1 Laboratory Tests 08/29/18 05:10: White Blood Count 7.2, Red Blood Count 4.50L, Hemoglobin 13.6L, Hematocrit 39.1L , Mean Corpuscular Volume 87, Mean Corpuscular Hemoglobin 30.3, Mean Corpuscular Hemoglobin Concent 34.8, Red Cell Distribution Width 11.1L, Platelet Count 302, Mean Platelet Volume 8.0, Neutrophils (%) (Auto) 53.6, Lymphocytes (%) (Auto) 31.9, Monocytes (%) (Auto) 9.7, Eosinophils (%) (Auto) 2.8, Basophils (%) (Auto) 2.0, Sodium Level 140, Potassium Level 3.8, Chloride Level 104, Carbon Dioxide Level 29, Anion Gap 7, Blood Urea Nitrogen 11, Creatinine 0.9, Estimat Glomerular Filtration Rate > 60, Glucose Level 73#L, Calcium Level 9.1 Height (Feet): 5 Height (Inches): 10.00 Weight (Pounds): 205 General Appearance: lethargic EENT: normal ENT inspection Neck: normal alignment Cardiovascular: normal peripheral pulses, normal rate, regular rhythm Respiratory/Chest: chest wall non-tender, lungs clear, normal breath sounds Abdomen: normal bowel sounds, non tender, soft Extremities: normal inspection Edema: no edema noted Arm (L), no edema noted Arm (R), no edema noted Leg (L), no edema noted Leg (R), no edema noted Pedal (L), no edema noted Pedal (R), no edema noted Generalized Neurologic: motor weakness Skin: normal pigmentation, warm/dry Stuart Silver DO Aug 29, 2018 09:00
--- NOTE | 2018-08-29 09:08 | Infectious Diseases Prog Note ---
Assessment/Plan Assessment/Plan Pneumonia ( CAP vs fungal vs mycobacterial ) SCx: MSSA ( ? contaminant ) CT: Right upper and lower lobe scattered areas of consolidation, nodularity, groundglass and equivocal tree-in-bud opacities. Most likely represents infectious inflammatory process. Given possibly tree-in-bud opacities, the possibility of atypical infectious processes, including tuberculosis or other mycobacterial infections or fungal pneumonia pulmonary to be considered but are less likely. Noninfectious inflammatory processes should also be considered. Multifocal neoplasm such as bronchoalveolar carcinoma must less likely but also possible 2dEcho no Veg Fever, improving Leukocytosis, Crypt Ag, HIV: Neg DM2 HLD HTN CAD/KS asthma P: Cont pt on Zithro and Ancef d# 3/ Clinically improving so will hold off on empiric anti fungal for now Monitor CBC Monitor CMP Monitor Sputum Cx , AFB x 3, Fungal Blood Cx x 2 Sputum MTB-PCR x 2 Coccidio AB Fungitell QFTB legio Ur Ag Subjective Allergies: Coded Allergies: INSULIN DETEMIR (Unverified Allergy, Unknown, Sweating, 08/16/18) Subjective Afebrile Satting well on RA No Leukocytosis Still cough a lot Objective Vital Signs Last 24 Hour Vital Signs Date Time Temp Pulse Resp B/P (MAP) Pulse Ox O2 Delivery O2 Flow Rate FiO2 08/29/18 08:11 121/70 08/29/18 08:00 97.5 87 20 121/70 (87) 98 08/29/18 07:52 78 16 Room Air 21 08/29/18 04:00 97.6 75 18 115/72 (86) 95 08/29/18 00:00 97.2 65 18 93/51 (65) 98 08/28/18 21:29 97.2 08/28/18 21:00 Room Air 08/28/18 20:00 80 18 Room Air 21 08/28/18 19:50 96.6 80 18 118/72 (87) 97 08/28/18 16:00 98.2 79 20 129/76 (93) 95 08/28/18 12:00 97.5 81 20 113/77 (89) 99 08/28/18 09:36 120/65 Height (Feet): 5 Height (Inches): 10.00 Weight (Pounds): 205 Objective HEENT: NCAT, MMM Respiratory/Chest: no respiratory distress, no accessory muscle use, rhonchi - bilaterally Cardiovascular: regular rhythm Abdomen: no organomegaly Skin: no rash Microbiology Date/Time Source Procedure Growth Status 08/27/18 11:30 Blood Blood Culture - Preliminary NO GROWTH AFTER 24 HOURS Resulted 08/27/18 11:30 Blood Blood Culture - Preliminary NO GROWTH AFTER 24 HOURS Resulted 08/27/18 06:40 Sputum Gram Stain - Final Resulted 08/27/18 06:40 Sputum Sputum Culture - Preliminary NORMAL UPPER RESPIRATORY YURIDIA AT 24 ... Resulted 08/27/18 06:40 Sputum AFB Specimen Processing Tissue - Final Resulted 08/27/18 06:40 Sputum Acid Fast Bacilli Smear - Final Resulted 08/27/18 06:40 Sputum Acid Fast Bacilli Culture Pending Resulted Laboratory Tests Test 08/29/18 05:10 White Blood Count 7.2 K/UL (4.8-10.8) Red Blood Count 4.50 M/UL (4.70-6.10) L Hemoglobin 13.6 G/DL (14.2-18.0) L Hematocrit 39.1 % (42.0-52.0) L Mean Corpuscular Volume 87 FL (80-99) Mean Corpuscular Hemoglobin 30.3 PG (27.0-31.0) Mean Corpuscular Hemoglobin Concent 34.8 G/DL (32.0-36.0) Red Cell Distribution Width 11.1 % (11.6-14.8) L Platelet Count 302 K/UL (150-450) Mean Platelet Volume 8.0 FL (6.5-10.1) Neutrophils (%) (Auto) 53.6 % (45.0-75.0) Lymphocytes (%) (Auto) 31.9 % (20.0-45.0) Monocytes (%) (Auto) 9.7 % (1.0-10.0) Eosinophils (%) (Auto) 2.8 % (0.0-3.0) Basophils (%) (Auto) 2.0 % (0.0-2.0) Sodium Level 140 MMOL/L (136-145) Potassium Level 3.8 MMOL/L (3.5-5.1) Chloride Level 104 MMOL/L (98-107) Carbon Dioxide Level 29 MMOL/L (21-32) Anion Gap 7 mmol/L (5-15) Blood Urea Nitrogen 11 mg/dL (7-18) Creatinine 0.9 MG/DL (0.55-1.30) Estimat Glomerular Filtration Rate > 60 mL/min (>60) Glucose Level 73 MG/DL (74-106) #L Calcium Level 9.1 MG/DL (8.5-10.1) Current Medications Medications (Trade) Dose Ordered Sig/Rashel Route PRN Reason Start Time Stop Time Status Last Admin Dose Admin Acetaminophen (Tylenol) 650 mg Q4H PRN ORAL fever (temp>100.5F) 08/15/18 20:15 09/14/18 20:14 08/15/18 21:53 Al Hydroxide/Mg Hydroxide (Mylanta II) 30 ml Q6H PRN ORAL dyspepsia 08/15/18 20:15 09/14/18 20:14 Albuterol/ Ipratropium (Albuterol/ Ipratropium) 3 ml Q4H PRN HHN Shortness of Breath 08/27/18 22:30 09/01/18 22:29 Aspirin (Ecotrin) 81 mg DAILY ORAL 08/16/18 09:00 09/15/18 08:59 08/29/18 08:11 Atorvastatin Calcium (Lipitor) 20 mg BEDTIME ORAL 08/23/18 21:00 09/22/18 20:59 08/28/18 20:30 Azithromycin 500 mg/Dextrose 275 ml @ 275 mls/hr Q24HRS IV 08/27/18 12:00 09/02/18 12:59 08/28/18 12:13 Benazepril HCl (Lotensin) 20 mg DAILY ORAL 08/20/18 12:01 09/19/18 12:00 08/29/18 08:11 Cefazolin Sodium 1 gm/Dextrose 55 ml @ 110 mls/hr Q8H IVPB 08/27/18 12:00 09/03/18 11:59 08/29/18 03:22 Clonidine HCl (Catapres Tab) 0.1 mg Q4H PRN ORAL sbp more than 160 08/15/18 20:15 09/14/18 20:14 Dextrose (Dextrose 50%) 25 ml Q30M PRN IV Hypoglycemia 08/16/18 07:30 09/15/18 07:29 Dextrose (Dextrose 50%) 50 ml Q30M PRN IV Hypoglycemia 08/16/18 07:30 09/15/18 07:29 08/24/18 19:11 Heparin Sodium (Porcine) (Heparin 5000 units/ml) 5,000 units EVERY 12 HOURS SUBQ 08/15/18 21:00 09/14/18 20:59 08/29/18 08:20 Ibuprofen (Advil) 600 mg Q8H PRN ORAL mild pain 08/20/18 12:00 09/19/18 11:59 08/28/18 20:59 Insulin Aspart (NovoLOG) BEFORE MEALS AND HS SUBQ 08/25/18 11:30 09/14/18 21:59 08/28/18 20:53 Insulin Aspart (NovoLOG) 12 units NOVOLOGB SUBQ 08/24/18 06:30 09/22/18 06:29 08/28/18 06:55 Insulin Aspart (NovoLOG) 12 units NOVOLOGL SUBQ 08/27/18 11:50 09/22/18 11:49 08/28/18 12:24 Insulin Aspart (NovoLOG) 12 units NOVOLOGS SUBQ 08/27/18 16:50 09/21/18 16:49 08/28/18 17:22 Insulin Glargine (Lantus (NON FORUMULARY)) 36 unit QHS SQ 08/27/18 21:00 09/24/18 22:00 08/28/18 20:54 Ondansetron HCl (Zofran) 4 mg Q6H PRN IVP Nausea & Vomiting 08/26/18 13:15 09/25/18 13:14 Pregabalin (Lyrica) 50 mg TWICE A DAY ORAL 08/16/18 09:00 09/15/18 08:59 08/29/18 08:12 Promethazine HCl/ Codeine (Phenergan with Codeine) 5 ml Q8H PRN ORAL For Cough 08/21/18 14:45 09/20/18 14:44 08/28/18 15:13 Terence Snell MD Aug 29, 2018 09:08
--- NOTE | 2018-08-29 09:52 | Pulmonology Progress Note ---
Assessment/Plan Problems: (1) Pneumonia (2) Gastroenteritis (3) Intractable vomiting (4) Hyperglycemia (5) Gastroparesis (6) Diabetes mellitus (7) ATN (acute tubular necrosis) Assessment/Plan no new complains awaiting sputum ppd (--) Sputum for Afb all reviewed sputum culture pending serology pending Subjective ROS Limited/Unobtainable: No Constitutional: Reports: no symptoms HEENT: Repors: no symptoms Allergies: Coded Allergies: INSULIN DETEMIR (Unverified Allergy, Unknown, Sweating, 08/16/18) Objective Last 24 Hour Vital Signs Date Time Temp Pulse Resp B/P (MAP) Pulse Ox O2 Delivery O2 Flow Rate FiO2 08/29/18 08:11 121/70 08/29/18 08:00 97.5 87 20 121/70 (87) 98 08/29/18 07:52 78 16 Room Air 21 08/29/18 04:00 97.6 75 18 115/72 (86) 95 08/29/18 00:00 97.2 65 18 93/51 (65) 98 08/28/18 21:29 97.2 08/28/18 21:00 Room Air 08/28/18 20:00 80 18 Room Air 21 08/28/18 19:50 96.6 80 18 118/72 (87) 97 08/28/18 16:00 98.2 79 20 129/76 (93) 95 08/28/18 12:00 97.5 81 20 113/77 (89) 99 Intake and Output 08/28/18 08/29/18 19:00 07:00 Intake Total 1050 ml 110 ml Output Total 1400 ml Balance 1050 ml -1290 ml Intake Oral 720 ml IV Total 330 ml 110 ml Output Urine Total 1400 ml # Voids 2 # Bowel Movements 1 Objective General Appearance: WD/WN HEENT: normocephalic, atraumatic, anicteric Respiratory/Chest: chest wall non-tender, lungs clear Breasts: no masses Cardiovascular: normal peripheral pulses, normal rate Abdomen: normal bowel sounds, soft, non tender Extremities: no cyanosis Skin: no rash 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 Resulted 08/27/18 06:40 Sputum AFB Specimen Processing Tissue - Final Resulted 08/27/18 06:40 Sputum Acid Fast Bacilli Smear - Final Resulted 08/27/18 06:40 Sputum Acid Fast Bacilli Culture Pending Resulted Laboratory Tests 08/29/18 05:10: White Blood Count 7.2, Red Blood Count 4.50L, Hemoglobin 13.6L, Hematocrit 39.1L , Mean Corpuscular Volume 87, Mean Corpuscular Hemoglobin 30.3, Mean Corpuscular Hemoglobin Concent 34.8, Red Cell Distribution Width 11.1L, Platelet Count 302, Mean Platelet Volume 8.0, Neutrophils (%) (Auto) 53.6, Lymphocytes (%) (Auto) 31.9, Monocytes (%) (Auto) 9.7, Eosinophils (%) (Auto) 2.8, Basophils (%) (Auto) 2.0, Sodium Level 140, Potassium Level 3.8, Chloride Level 104, Carbon Dioxide Level 29, Anion Gap 7, Blood Urea Nitrogen 11, Creatinine 0.9, Estimat Glomerular Filtration Rate > 60, Glucose Level 73#L, Calcium Level 9.1 Current Medications Medications (Trade) Dose Ordered Sig/Rashel Route PRN Reason Start Time Stop Time Status Last Admin Dose Admin Acetaminophen (Tylenol) 650 mg Q4H PRN ORAL fever (temp>100.5F) 08/15/18 20:15 09/14/18 20:14 08/15/18 21:53 Al Hydroxide/Mg Hydroxide (Mylanta II) 30 ml Q6H PRN ORAL dyspepsia 08/15/18 20:15 09/14/18 20:14 Albuterol/ Ipratropium (Albuterol/ Ipratropium) 3 ml Q4H PRN HHN Shortness of Breath 08/27/18 22:30 09/01/18 22:29 Aspirin (Ecotrin) 81 mg DAILY ORAL 08/16/18 09:00 09/15/18 08:59 08/29/18 08:11 Atorvastatin Calcium (Lipitor) 20 mg BEDTIME ORAL 08/23/18 21:00 09/22/18 20:59 08/28/18 20:30 Azithromycin 500 mg/Dextrose 275 ml @ 275 mls/hr Q24HRS IV 08/27/18 12:00 09/02/18 12:59 08/28/18 12:13 Benazepril HCl (Lotensin) 20 mg DAILY ORAL 08/20/18 12:01 09/19/18 12:00 08/29/18 08:11 Cefazolin Sodium 1 gm/Dextrose 55 ml @ 110 mls/hr Q8H IVPB 08/27/18 12:00 09/03/18 11:59 08/29/18 03:22 Clonidine HCl (Catapres Tab) 0.1 mg Q4H PRN ORAL sbp more than 160 08/15/18 20:15 09/14/18 20:14 Dextrose (Dextrose 50%) 25 ml Q30M PRN IV Hypoglycemia 08/16/18 07:30 09/15/18 07:29 Dextrose (Dextrose 50%) 50 ml Q30M PRN IV Hypoglycemia 08/16/18 07:30 09/15/18 07:29 08/24/18 19:11 Heparin Sodium (Porcine) (Heparin 5000 units/ml) 5,000 units EVERY 12 HOURS SUBQ 08/15/18 21:00 09/14/18 20:59 08/29/18 08:20 Ibuprofen (Advil) 600 mg Q8H PRN ORAL mild pain 08/20/18 12:00 09/19/18 11:59 08/28/18 20:59 Insulin Aspart (NovoLOG) BEFORE MEALS AND HS SUBQ 08/25/18 11:30 09/14/18 21:59 08/28/18 20:53 Insulin Aspart (NovoLOG) 12 units NOVOLOGB SUBQ 08/24/18 06:30 09/22/18 06:29 08/28/18 06:55 Insulin Aspart (NovoLOG) 12 units NOVOLOGL SUBQ 08/27/18 11:50 09/22/18 11:49 08/28/18 12:24 Insulin Aspart (NovoLOG) 12 units NOVOLOGS SUBQ 08/27/18 16:50 09/21/18 16:49 08/28/18 17:22 Insulin Glargine (Lantus (NON FORUMULARY)) 36 unit QHS SQ 08/27/18 21:00 09/24/18 22:00 08/28/18 20:54 Ondansetron HCl (Zofran) 4 mg Q6H PRN IVP Nausea & Vomiting 08/26/18 13:15 09/25/18 13:14 Pregabalin (Lyrica) 50 mg TWICE A DAY ORAL 08/16/18 09:00 09/15/18 08:59 08/29/18 08:12 Promethazine HCl/ Codeine (Phenergan with Codeine) 5 ml Q8H PRN ORAL For Cough 08/21/18 14:45 09/20/18 14:44 08/28/18 15:13 Rohini Camargo MD Aug 29, 2018 09:52
[2018-08-29] MEDS ORDERED: NS 275ml ONE (10:46)
[2018-08-29] MEDS ORDERED: Tubing IV Secondary IV ONE (10:46)
[2018-08-29 11:48] VITALS: BP 129/77
[2018-08-29] MEDS: Azithromycin 500 MG in D5W 275 ML IV SCH (12:10)
[2018-08-29 16:00] VITALS: BP 132/76
[2018-08-29 20:00] VITALS: BP 120/68
[2018-08-29] MEDS: Atorvastatin 20mg tab ORAL SCH (21:11)
[2018-08-29] MEDS: Promethazine/Codeine 5ml UD ORAL PRN (21:32)
--- NOTE | 2018-08-29 23:50 | Cardiology Progress Note ---
Assessment/Plan Assessment/Plan 1. Atypical chest pain, no ischemic features on the ECG, negative troponin I levels, 2D echocardiography reveals normal LV systolic function with LVEF at 55 %. 2. DM, continue ASA and atorvastatin. 3. HTN, well controlled, continue benazepril. 4. CKD 5. Gastroparesis Subjective Subjective No cardiac events reported. Objective Last 24 Hour Vital Signs Date Time Temp Pulse Resp B/P (MAP) Pulse Ox O2 Delivery O2 Flow Rate FiO2 08/29/18 20:00 97.5 81 18 120/68 (85) 97 08/29/18 16:00 98.4 86 18 132/76 (94) 97 08/29/18 11:48 97.1 85 18 129/77 (94) 97 08/29/18 09:00 Room Air 08/29/18 08:11 121/70 08/29/18 08:00 97.5 87 20 121/70 (87) 98 08/29/18 07:52 78 16 Room Air 21 08/29/18 04:00 97.6 75 18 115/72 (86) 95 08/29/18 00:00 97.2 65 18 93/51 (65) 98 Intake and Output 08/28/18 08/29/18 19:00 07:00 Intake Total 1050 ml 110 ml Output Total 1400 ml Balance 1050 ml -1290 ml Intake Oral 720 ml IV Total 330 ml 110 ml Output Urine Total 1400 ml # Voids 2 # Bowel Movements 1 2D Echo: LVEF 60-65%, Grade I LVDD, RVSP 16 mmHg Laboratory Tests Test 08/29/18 05:10 White Blood Count 7.2 K/UL (4.8-10.8) Red Blood Count 4.50 M/UL (4.70-6.10) L Hemoglobin 13.6 G/DL (14.2-18.0) L Hematocrit 39.1 % (42.0-52.0) L Mean Corpuscular Volume 87 FL (80-99) Mean Corpuscular Hemoglobin 30.3 PG (27.0-31.0) Mean Corpuscular Hemoglobin Concent 34.8 G/DL (32.0-36.0) Red Cell Distribution Width 11.1 % (11.6-14.8) L Platelet Count 302 K/UL (150-450) Mean Platelet Volume 8.0 FL (6.5-10.1) Neutrophils (%) (Auto) 53.6 % (45.0-75.0) Lymphocytes (%) (Auto) 31.9 % (20.0-45.0) Monocytes (%) (Auto) 9.7 % (1.0-10.0) Eosinophils (%) (Auto) 2.8 % (0.0-3.0) Basophils (%) (Auto) 2.0 % (0.0-2.0) Sodium Level 140 MMOL/L (136-145) Potassium Level 3.8 MMOL/L (3.5-5.1) Chloride Level 104 MMOL/L (98-107) Carbon Dioxide Level 29 MMOL/L (21-32) Anion Gap 7 mmol/L (5-15) Blood Urea Nitrogen 11 mg/dL (7-18) Creatinine 0.9 MG/DL (0.55-1.30) Estimat Glomerular Filtration Rate > 60 mL/min (>60) Glucose Level 73 MG/DL (74-106) #L Calcium Level 9.1 MG/DL (8.5-10.1) Microbiology Date/Time Source Procedure Growth Status 08/27/18 11:30 Blood Blood Culture - Preliminary NO GROWTH AFTER 24 HOURS Resulted 08/27/18 11:30 Blood Blood Culture - Preliminary NO GROWTH AFTER 24 HOURS Resulted 08/28/18 05:56 Sputum AFB Specimen Processing Tissue - Final Resulted 08/28/18 05:56 Sputum Acid Fast Bacilli Smear Pending Resulted 08/28/18 05:56 Sputum Acid Fast Bacilli Culture Pending Resulted 08/27/18 06:40 Sputum Gram Stain - Final Resulted 08/27/18 06:40 Sputum Sputum Culture - Preliminary NORMAL UPPER RESPIRATORY YURIDIA AT 24 ... Resulted 08/27/18 06:40 Sputum AFB Specimen Processing Tissue - Final Resulted 08/27/18 06:40 Sputum Acid Fast Bacilli Smear - Final Resulted 08/27/18 06:40 Sputum Acid Fast Bacilli Culture Pending Resulted Objective HEENT: Normocephalic and atraumatic. PERRLA, EOMI. NECK: No JVD, no carotid bruit. CHEST: Clear to auscultation. CARDIOVASCULAR: Regular rate and rhythm, normal S1 S2, no murmurs, gallops or rubs. ABDOMEN: Soft and nontender. Good bowel sounds. There is no organomegaly or tenderness. EXTREMITIES: no edema, clubbing or cyanosis. Miguel Angel Beckford MD Aug 29, 2018 23:50
[2018-08-30] VITALS: BP 112/58
[2018-08-30 04:00] VITALS: BP 104/54
[2018-08-30] MEDS: NovoLOG Insulin Flexpen SUBQ SCH ×7 (05:34→21:06)
[2018-08-30] MEDS: ceFAZolin sod 1 GM in D5W 55 ML IVPB SCH ×3 (05:46→21:04)
[2018-08-30 07:00] LABS: BASOPHILS % (AUTO) 1.9 % (0.0-2.0); EOSINOPHILS % (AUTO) 3.2 % (0.0-3.0); HEMATOCRIT 37.4 % (42.0-52.0); LYMPHOCYTES % (AUTO) 37.7 % (20.0-45.0); MEAN CORPUSCULAR VOLUME 87 FL (80-99); MONOCYTES % (AUTO) 9.8 % (1.0-10.0); NEUTROPHILS % (AUTO) 47.4 % (45.0-75.0); PLATELET COUNT 279 K/UL (150-450); RED BLOOD COUNT 4.27 M/UL (4.70-6.10); WHITE BLOOD COUNT 6.5 K/UL (4.8-10.8)
[2018-08-30 07:07] LABS: ANION GAP 7 mmol/L (5-15); BLOOD UREA NITROGEN 14 mg/dL (7-18); CALCIUM 9.3 MG/DL (8.5-10.1); CARBON DIOXIDE 29 MMOL/L (21-32); CHLORIDE 103 MMOL/L (98-107); CREATININE 0.9 MG/DL (0.55-1.30); SODIUM 139 MMOL/L (136-145)
--- NOTE | 2018-08-30 07:37 | General Progress Note ---
Assessment/Plan Problem List: (1) Diabetes mellitus ICD Codes: E11.9 - Type 2 diabetes mellitus without complications SNOMED: 56861463 (2) Gastroparesis ICD Codes: K31.84 - Gastroparesis SNOMED: 386630631 (3) Hyperglycemia ICD Codes: R73.9 - Hyperglycemia, unspecified SNOMED: 79876853 (4) Intractable vomiting ICD Codes: R11.10 - Vomiting, unspecified SNOMED: 948740296, 440016338 Qualifiers: Qualified Codes: R11.2 - Nausea with vomiting, unspecified (5) Renal insufficiency ICD Codes: N28.9 - Disorder of kidney and ureter, unspecified SNOMED: 265098490, 090641479 (6) Gastroenteritis ICD Codes: K52.9 - Noninfective gastroenteritis and colitis, unspecified SNOMED: 83366138 Assessment/Plan Symptomatic treatment at this time ADA diet hydration PPI Zofran as needed, Reglan for persistent vomiting Follow-up labs PT evaluation Outpatient EGD colonoscopy Subjective ROS Limited/Unobtainable: No Allergies: Coded Allergies: INSULIN DETEMIR (Unverified Allergy, Unknown, Sweating, 08/16/18) Subjective no event over night Objective Last 24 Hour Vital Signs Date Time Temp Pulse Resp B/P (MAP) Pulse Ox O2 Delivery O2 Flow Rate FiO2 08/30/18 04:00 97.8 73 18 104/54 (71) 96 08/30/18 00:00 97.3 73 18 112/58 (76) 96 08/29/18 21:00 Room Air 08/29/18 20:30 80 16 Room Air 21 08/29/18 20:00 97.5 81 18 120/68 (85) 97 08/29/18 16:00 98.4 86 18 132/76 (94) 97 08/29/18 11:48 97.1 85 18 129/77 (94) 97 08/29/18 09:00 Room Air 08/29/18 08:11 121/70 08/29/18 08:00 97.5 87 20 121/70 (87) 98 08/29/18 07:52 78 16 Room Air 21 Intake and Output 08/29/18 08/30/18 19:00 07:00 Intake Total 1810 ml 435 ml Balance 1810 ml 435 ml Intake Oral 480 ml 380 ml IV Total 330 ml 55 ml Other 1000 ml # Voids 3 Laboratory Tests 08/30/18 05:00: White Blood Count 6.5, Red Blood Count 4.27L, Hemoglobin 13.0L, Hematocrit 37.4L , Mean Corpuscular Volume 87, Mean Corpuscular Hemoglobin 30.5, Mean Corpuscular Hemoglobin Concent 34.8, Red Cell Distribution Width 11.0L, Platelet Count 279, Mean Platelet Volume 8.7, Neutrophils (%) (Auto) 47.4, Lymphocytes (%) (Auto) 37.7, Monocytes (%) (Auto) 9.8, Eosinophils (%) (Auto) 3.2H, Basophils (%) (Auto) 1.9, Sodium Level 139, Potassium Level 4.0, Chloride Level 103, Carbon Dioxide Level 29, Anion Gap 7, Blood Urea Nitrogen 14, Creatinine 0.9, Estimat Glomerular Filtration Rate > 60, Glucose Level 129H, Calcium Level 9.3 Height (Feet): 5 Height (Inches): 10.00 Weight (Pounds): 205 General Appearance: no apparent distress EENT: normal ENT inspection Neck: supple Cardiovascular: normal rate Respiratory/Chest: decreased breath sounds Abdomen: normal bowel sounds, non tender, soft Extremities: non-tender Noé Thomas MD Aug 30, 2018 07:37
--- NOTE | 2018-08-30 07:53 | General Progress Note ---
Assessment/Plan Problem List: (1) Hyperglycemia ICD Codes: R73.9 - Hyperglycemia, unspecified SNOMED: 62623344 (2) Intractable vomiting ICD Codes: R11.10 - Vomiting, unspecified SNOMED: 737279568, 722328343 Qualifiers: Qualified Codes: R11.2 - Nausea with vomiting, unspecified (3) Renal insufficiency ICD Codes: N28.9 - Disorder of kidney and ureter, unspecified SNOMED: 726276173, 824705366 (4) Gastroenteritis ICD Codes: K52.9 - Noninfective gastroenteritis and colitis, unspecified SNOMED: 00143389 Assessment/Plan continue Lantus 36 units qhs change Novolog tjo units ac B / L / D continue NISS ac / hs NOTE: patient has T1DM which is very brittle in nature therefore it would be impossible to have perfect glucose values. from DM stand point there is no barrier for discharge Subjective Allergies: Coded Allergies: INSULIN DETEMIR (Unverified Allergy, Unknown, Sweating, 08/16/18) All Systems: reviewed and negative except above Subjective feeling better in repiratory isolation Objective Last 24 Hour Vital Signs Date Time Temp Pulse Resp B/P (MAP) Pulse Ox O2 Delivery O2 Flow Rate FiO2 08/30/18 04:00 97.8 73 18 104/54 (71) 96 08/30/18 00:00 97.3 73 18 112/58 (76) 96 08/29/18 21:00 Room Air 08/29/18 20:30 80 16 Room Air 21 08/29/18 20:00 97.5 81 18 120/68 (85) 97 08/29/18 16:00 98.4 86 18 132/76 (94) 97 08/29/18 11:48 97.1 85 18 129/77 (94) 97 08/29/18 09:00 Room Air 08/29/18 08:11 121/70 08/29/18 08:00 97.5 87 20 121/70 (87) 98 Intake and Output 08/29/18 08/30/18 19:00 07:00 Intake Total 1810 ml 435 ml Balance 1810 ml 435 ml Intake Oral 480 ml 380 ml IV Total 330 ml 55 ml Other 1000 ml # Voids 3 Laboratory Tests 08/30/18 05:00: White Blood Count 6.5, Red Blood Count 4.27L, Hemoglobin 13.0L, Hematocrit 37.4L , Mean Corpuscular Volume 87, Mean Corpuscular Hemoglobin 30.5, Mean Corpuscular Hemoglobin Concent 34.8, Red Cell Distribution Width 11.0L, Platelet Count 279, Mean Platelet Volume 8.7, Neutrophils (%) (Auto) 47.4, Lymphocytes (%) (Auto) 37.7, Monocytes (%) (Auto) 9.8, Eosinophils (%) (Auto) 3.2H, Basophils (%) (Auto) 1.9, Sodium Level 139, Potassium Level 4.0, Chloride Level 103, Carbon Dioxide Level 29, Anion Gap 7, Blood Urea Nitrogen 14, Creatinine 0.9, Estimat Glomerular Filtration Rate > 60, Glucose Level 129H, Calcium Level 9.3 Height (Feet): 5 Height (Inches): 10.00 Weight (Pounds): 205 General Appearance: no apparent distress Neck: normal alignment Cardiovascular: normal rate Respiratory/Chest: normal breath sounds Abdomen: normal bowel sounds Pelvis: normal external exam Objective Current Medications Medications (Trade) Dose Ordered Sig/Rashel Route PRN Reason Start Time Stop Time Status Last Admin Dose Admin Acetaminophen (Tylenol) 650 mg Q4H PRN ORAL fever (temp>100.5F) 08/15/18 20:15 09/14/18 20:14 08/15/18 21:53 Al Hydroxide/Mg Hydroxide (Mylanta II) 30 ml Q6H PRN ORAL dyspepsia 08/15/18 20:15 09/14/18 20:14 Albuterol/ Ipratropium (Albuterol/ Ipratropium) 3 ml Q4H PRN HHN Shortness of Breath 08/27/18 22:30 09/01/18 22:29 Aspirin (Ecotrin) 81 mg DAILY ORAL 08/16/18 09:00 09/15/18 08:59 08/29/18 08:11 Atorvastatin Calcium (Lipitor) 20 mg BEDTIME ORAL 08/23/18 21:00 09/22/18 20:59 08/29/18 21:11 Azithromycin 500 mg/Dextrose 275 ml @ 275 mls/hr Q24HRS IV 08/27/18 12:00 09/02/18 12:59 08/29/18 12:10 Benazepril HCl (Lotensin) 20 mg DAILY ORAL 08/20/18 12:01 09/19/18 12:00 08/29/18 08:11 Cefazolin Sodium 1 gm/Dextrose 55 ml @ 110 mls/hr Q8HR IVPB 08/29/18 14:00 09/05/18 13:59 08/30/18 05:46 Clonidine HCl (Catapres Tab) 0.1 mg Q4H PRN ORAL sbp more than 160 08/15/18 20:15 09/14/18 20:14 Dextrose (Dextrose 50%) 25 ml Q30M PRN IV Hypoglycemia 08/16/18 07:30 09/15/18 07:29 Dextrose (Dextrose 50%) 50 ml Q30M PRN IV Hypoglycemia 08/16/18 07:30 09/15/18 07:29 08/24/18 19:11 Docusate Sodium (Colace) 100 mg TWICE A DAY ORAL 08/30/18 09:00 09/29/18 08:59 Heparin Sodium (Porcine) (Heparin 5000 units/ml) 5,000 units EVERY 12 HOURS SUBQ 08/15/18 21:00 09/14/18 20:59 08/29/18 21:18 Ibuprofen (Advil) 600 mg Q8H PRN ORAL mild pain 08/20/18 12:00 09/19/18 11:59 08/29/18 21:13 Insulin Aspart (NovoLOG) BEFORE MEALS AND HS SUBQ 08/25/18 11:30 09/14/18 21:59 08/29/18 21:19 Insulin Aspart (NovoLOG) 12 units NOVOLOGB SUBQ 08/24/18 06:30 09/22/18 06:29 08/30/18 07:05 Insulin Aspart (NovoLOG) 12 units NOVOLOGL SUBQ 08/27/18 11:50 09/22/18 11:49 08/29/18 12:25 Insulin Aspart (NovoLOG) 12 units NOVOLOGS SUBQ 08/27/18 16:50 09/21/18 16:49 08/28/18 17:22 Insulin Glargine (Lantus (NON FORUMULARY)) 36 unit QHS SQ 08/27/18 21:00 09/24/18 22:00 08/29/18 21:19 Ondansetron HCl (Zofran) 4 mg Q6H PRN IVP Nausea & Vomiting 08/26/18 13:15 09/25/18 13:14 Polyethylene Glycol (Miralax) 17 gm BEDTIME ORAL 08/30/18 21:00 09/29/18 20:59 Pregabalin (Lyrica) 50 mg TWICE A DAY ORAL 08/16/18 09:00 09/15/18 08:59 08/29/18 17:08 Promethazine HCl/ Codeine (Phenergan with Codeine) 5 ml Q8H PRN ORAL For Cough 08/21/18 14:45 09/20/18 14:44 08/29/18 21:32 Item Value Date Time Bedside Blood Glucose 120 mg/dl 08/30/18 0705 Bedside Blood Glucose 316 mg/dl H 08/29/18 2119 Bedside Blood Glucose 76 mg/dl 08/29/18 1650 Bedside Blood Glucose 285 mg/dl H 08/29/18 1225 Bedside Blood Glucose 74 mg/dl 08/29/18 0630 Mac Vegas MD Aug 30, 2018 07:53
[2018-08-30 08:00] VITALS: BP 137/70
--- NOTE | 2018-08-30 08:35 | General Progress Note ---
Assessment/Plan Problem List: (1) Gastroenteritis ICD Codes: K52.9 - Noninfective gastroenteritis and colitis, unspecified SNOMED: 46754168 (2) Renal insufficiency ICD Codes: N28.9 - Disorder of kidney and ureter, unspecified SNOMED: 356223317, 144350287 (3) Intractable vomiting ICD Codes: R11.10 - Vomiting, unspecified SNOMED: 194148689, 723732831 Qualifiers: Qualified Codes: R11.2 - Nausea with vomiting, unspecified (4) Hyperglycemia ICD Codes: R73.9 - Hyperglycemia, unspecified SNOMED: 58019345 (5) Gastroparesis ICD Codes: K31.84 - Gastroparesis SNOMED: 380346430 Status: unchanged Assessment/Plan ivf adv diet cbc bmp am dc if clear Subjective Constitutional: Reports: weakness Allergies: Coded Allergies: INSULIN DETEMIR (Unverified Allergy, Unknown, Sweating, 08/16/18) All Systems: reviewed and negative except above Subjective calm in bed sl cough Objective Last 24 Hour Vital Signs Date Time Temp Pulse Resp B/P (MAP) Pulse Ox O2 Delivery O2 Flow Rate FiO2 08/30/18 08:09 79 16 Room Air 21 08/30/18 04:00 97.8 73 18 104/54 (71) 96 08/30/18 00:00 97.3 73 18 112/58 (76) 96 08/29/18 21:00 Room Air 08/29/18 20:30 80 16 Room Air 21 08/29/18 20:00 97.5 81 18 120/68 (85) 97 08/29/18 16:00 98.4 86 18 132/76 (94) 97 08/29/18 11:48 97.1 85 18 129/77 (94) 97 08/29/18 09:00 Room Air Intake and Output 08/29/18 08/30/18 19:00 07:00 Intake Total 1810 ml 435 ml Balance 1810 ml 435 ml Intake Oral 480 ml 380 ml IV Total 330 ml 55 ml Other 1000 ml # Voids 3 Laboratory Tests 08/30/18 05:00: White Blood Count 6.5, Red Blood Count 4.27L, Hemoglobin 13.0L, Hematocrit 37.4L , Mean Corpuscular Volume 87, Mean Corpuscular Hemoglobin 30.5, Mean Corpuscular Hemoglobin Concent 34.8, Red Cell Distribution Width 11.0L, Platelet Count 279, Mean Platelet Volume 8.7, Neutrophils (%) (Auto) 47.4, Lymphocytes (%) (Auto) 37.7, Monocytes (%) (Auto) 9.8, Eosinophils (%) (Auto) 3.2H, Basophils (%) (Auto) 1.9, Sodium Level 139, Potassium Level 4.0, Chloride Level 103, Carbon Dioxide Level 29, Anion Gap 7, Blood Urea Nitrogen 14, Creatinine 0.9, Estimat Glomerular Filtration Rate > 60, Glucose Level 129H, Calcium Level 9.3 Height (Feet): 5 Height (Inches): 10.00 Weight (Pounds): 205 General Appearance: lethargic EENT: normal ENT inspection Neck: normal alignment Cardiovascular: normal peripheral pulses, normal rate, regular rhythm Respiratory/Chest: chest wall non-tender, lungs clear, normal breath sounds Abdomen: normal bowel sounds, non tender, soft Extremities: normal inspection Edema: no edema noted Arm (L), no edema noted Arm (R), no edema noted Leg (L), no edema noted Leg (R), no edema noted Pedal (L), no edema noted Pedal (R), no edema noted Generalized Neurologic: motor weakness Skin: normal pigmentation, warm/dry Stuart Silver DO Aug 30, 2018 08:34
[2018-08-30] MEDS: Benazepril 10mg tab ORAL SCH (09:11)
[2018-08-30] MEDS: Docusate 100mg cap ORAL SCH ×2 (09:11→17:59)
[2018-08-30] MEDS: Aspirin EC 81mg tab ORAL SCH (09:11)
[2018-08-30] MEDS: Lyrica 50mg cap ORAL SCH ×2 (09:13→18:00)
[2018-08-30] MEDS: Heparin 5000 units/ml inj SUBQ SCH ×2 (09:14→21:05)
[2018-08-30 12:00] VITALS: BP 131/73
--- NOTE | 2018-08-30 12:29 | Pulmonology Progress Note ---
Assessment/Plan Problems: (1) Pneumonia (2) Gastroenteritis (3) Intractable vomiting (4) Hyperglycemia (5) Gastroparesis (6) Diabetes mellitus (7) ATN (acute tubular necrosis) Assessment/Plan awaiting sputum ppd (--) Sputum for Af[employer] sputum culture pending serology pending Subjective ROS Limited/Unobtainable: No Constitutional: Reports: no symptoms HEENT: Repors: no symptoms Allergies: Coded Allergies: INSULIN DETEMIR (Unverified Allergy, Unknown, Sweating, 08/16/18) Objective Last 24 Hour Vital Signs Date Time Temp Pulse Resp B/P (MAP) Pulse Ox O2 Delivery O2 Flow Rate FiO2 08/30/18 09:11 137/70 08/30/18 09:00 Room Air 08/30/18 08:09 79 16 Room Air 21 08/30/18 08:00 97.5 100 22 137/70 (92) 98 08/30/18 04:00 97.8 73 18 104/54 (71) 96 08/30/18 00:00 97.3 73 18 112/58 (76) 96 08/29/18 21:00 Room Air 08/29/18 20:30 80 16 Room Air 21 08/29/18 20:00 97.5 81 18 120/68 (85) 97 08/29/18 16:00 98.4 86 18 132/76 (94) 97 Intake and Output 08/29/18 08/30/18 19:00 07:00 Intake Total 1810 ml 435 ml Balance 1810 ml 435 ml Intake Oral 480 ml 380 ml IV Total 330 ml 55 ml Other 1000 ml # Voids 3 Objective General Appearance: WD/WN HEENT: normocephalic, atraumatic, anicteric Respiratory/Chest: chest wall non-tender, lungs clear Breasts: no masses Cardiovascular: normal peripheral pulses, normal rate Abdomen: normal bowel sounds, soft, non tender Extremities: no cyanosis Skin: no rash 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 Lymphatic: no neck adenopathy Microbiology Date/Time Source Procedure Growth Status 08/28/18 05:56 Sputum AFB Specimen Processing Tissue - Final Resulted 08/28/18 05:56 Sputum Acid Fast Bacilli Smear Pending Resulted 08/28/18 05:56 Sputum Acid Fast Bacilli Culture Pending Resulted Laboratory Tests 08/30/18 05:00: White Blood Count 6.5, Red Blood Count 4.27L, Hemoglobin 13.0L, Hematocrit 37.4L , Mean Corpuscular Volume 87, Mean Corpuscular Hemoglobin 30.5, Mean Corpuscular Hemoglobin Concent 34.8, Red Cell Distribution Width 11.0L, Platelet Count 279, Mean Platelet Volume 8.7, Neutrophils (%) (Auto) 47.4, Lymphocytes (%) (Auto) 37.7, Monocytes (%) (Auto) 9.8, Eosinophils (%) (Auto) 3.2H, Basophils (%) (Auto) 1.9, Sodium Level 139, Potassium Level 4.0, Chloride Level 103, Carbon Dioxide Level 29, Anion Gap 7, Blood Urea Nitrogen 14, Creatinine 0.9, Estimat Glomerular Filtration Rate > 60, Glucose Level 129H, Calcium Level 9.3 Current Medications Medications (Trade) Dose Ordered Sig/Rashel Route PRN Reason Start Time Stop Time Status Last Admin Dose Admin Acetaminophen (Tylenol) 650 mg Q4H PRN ORAL fever (temp>100.5F) 08/15/18 20:15 09/14/18 20:14 08/15/18 21:53 Al Hydroxide/Mg Hydroxide (Mylanta II) 30 ml Q6H PRN ORAL dyspepsia 08/15/18 20:15 09/14/18 20:14 Albuterol/ Ipratropium (Albuterol/ Ipratropium) 3 ml Q4H PRN HHN Shortness of Breath 08/27/18 22:30 09/01/18 22:29 Aspirin (Ecotrin) 81 mg DAILY ORAL 08/16/18 09:00 09/15/18 08:59 08/30/18 09:11 Atorvastatin Calcium (Lipitor) 20 mg BEDTIME ORAL 08/23/18 21:00 09/22/18 20:59 08/29/18 21:11 Azithromycin 500 mg/Dextrose 275 ml @ 275 mls/hr Q24HRS IV 08/27/18 12:00 09/02/18 12:59 08/29/18 12:10 Benazepril HCl (Lotensin) 20 mg DAILY ORAL 08/20/18 12:01 09/19/18 12:00 08/30/18 09:11 Cefazolin Sodium 1 gm/Dextrose 55 ml @ 110 mls/hr Q8HR IVPB 08/29/18 14:00 09/05/18 13:59 08/30/18 05:46 Clonidine HCl (Catapres Tab) 0.1 mg Q4H PRN ORAL sbp more than 160 08/15/18 20:15 09/14/18 20:14 Dextrose (Dextrose 50%) 25 ml Q30M PRN IV Hypoglycemia 08/16/18 07:30 09/15/18 07:29 Dextrose (Dextrose 50%) 50 ml Q30M PRN IV Hypoglycemia 08/16/18 07:30 09/15/18 07:29 08/24/18 19:11 Docusate Sodium (Colace) 100 mg TWICE A DAY ORAL 08/30/18 09:00 09/29/18 08:59 08/30/18 09:11 Heparin Sodium (Porcine) (Heparin 5000 units/ml) 5,000 units EVERY 12 HOURS SUBQ 08/15/18 21:00 09/14/18 20:59 08/30/18 09:14 Ibuprofen (Advil) 600 mg Q8H PRN ORAL mild pain 08/20/18 12:00 09/19/18 11:59 08/29/18 21:13 Insulin Aspart (NovoLOG) BEFORE MEALS AND HS SUBQ 08/25/18 11:30 09/14/18 21:59 08/29/18 21:19 Insulin Aspart (NovoLOG) 10 units NOVOLOGL SUBQ 08/30/18 11:50 09/22/18 11:49 Insulin Aspart (NovoLOG) 12 units NOVOLOGB SUBQ 08/31/18 06:30 09/22/18 06:29 Insulin Aspart (NovoLOG) 12 units NOVOLOGS SUBQ 08/30/18 16:50 09/21/18 16:49 Insulin Glargine (Lantus (NON FORUMULARY)) 36 unit QHS SQ 08/30/18 21:00 09/24/18 22:00 Ondansetron HCl (Zofran) 4 mg Q6H PRN IVP Nausea & Vomiting 08/26/18 13:15 09/25/18 13:14 Polyethylene Glycol (Miralax) 17 gm BEDTIME ORAL 08/30/18 21:00 09/29/18 20:59 Pregabalin (Lyrica) 50 mg TWICE A DAY ORAL 08/16/18 09:00 09/15/18 08:59 08/30/18 09:13 Promethazine HCl/ Codeine (Phenergan with Codeine) 5 ml Q8H PRN ORAL For Cough 08/21/18 14:45 09/20/18 14:44 08/29/18 21:32 Rohini Camargo MD Aug 30, 2018 12:29
[2018-08-30] MEDS: Azithromycin 500 MG in D5W 275 ML IV SCH (12:38)
[2018-08-30] MEDS: Albuterol/Ipratropium 3ml neb HHN SCH ×2 (15:08→20:26)
[2018-08-30 16:00] VITALS: BP 128/77
--- NOTE | 2018-08-30 16:33 | Consultation ---
History of Present Illness General Date patient seen: Aug 30, 2018 Chief Complaint: Abdominal Pain Reason for Consultation: finger laceration Present Illness HPI 53 year old male currently admitted for medical care and management lacerated his distal finger today with razor blade while shaving. bleeding noted. pressure applied. surgery called to evaluate. patient seen, chart reviewed, patient examined. since bleeding has stopped. mild pain Allergies: Coded Allergies: INSULIN DETEMIR (Unverified Allergy, Unknown, Sweating, 08/16/18) Medication History Scheduled Albuterol Sulfate* (Proair Hfa*), 2 PUFFS INH Q6H, (Reported) Aspirin* (Aspir 81*), 81 MG ORAL DAILY, (Reported) Atorvastatin Calcium* (Lipitor*), 20 MG ORAL BEDTIME, (Reported) Benazepril Hcl* (Lotensin*), 20 MG ORAL DAILY, (Reported) Insulin Glargine (Lantus), 30 UNITS SUBQ BEDTIME, (Reported) Insulin Lispro (Humalog), 8 UNITS SUBQ BEFORE MEALS, (Reported) Levofloxacin (Levofloxacin*), 750 MG ORAL DAILY Pregabalin (Lyrica), 50 MG ORAL TWICE A DAY, (Reported) Scheduled PRN Ibuprofen* (Motrin*), 600 MG ORAL Q8H PRN for For Pain Miscellaneous Medications Nutritional Supplement (Ensure), 113 GM PO, (Reported) Patient History History Provided By: Patient, Medical Record, PMD Healthcare decision maker Resuscitation status Full Code Advanced Directive on File Past Medical/Surgical History Past Medical/Surgical History: (1) Gastroenteritis (2) Renal insufficiency (3) Intractable vomiting (4) Hyperglycemia (5) Gastroparesis (6) Diabetes mellitus (7) ATN (acute tubular necrosis) (8) Malingering (9) Pneumonia Review of Systems All Other Systems: negative except mentioned in HPI Physical Exam General Appearance: no apparent distress, alert Lines, tubes and drains: peripheral HEENT: mucous membranes moist Neck: normal inspection Respiratory/Chest: normal breath sounds, no respiratory distress, no accessory muscle use Cardiovascular/Chest: regular rhythm Abdomen: soft, no organomegaly, no mass Extremities: normal inspection, other Skin Exam: warm/dry, other Neurologic: alert, oriented x 3 Last 24 Hour Vital Signs Date Time Temp Pulse Resp B/P (MAP) Pulse Ox O2 Delivery O2 Flow Rate FiO2 08/30/18 15:16 84 16 99 Room Air 21 08/30/18 15:08 75 16 96 Room Air 21 08/30/18 15:08 21 08/30/18 12:00 97.5 98 20 131/73 (92) 98 08/30/18 09:11 137/70 08/30/18 09:00 Room Air 08/30/18 08:09 79 16 Room Air 21 08/30/18 08:00 97.5 100 22 137/70 (92) 98 08/30/18 04:00 97.8 73 18 104/54 (71) 96 08/30/18 00:00 97.3 73 18 112/58 (76) 96 08/29/18 21:00 Room Air 08/29/18 20:30 80 16 Room Air 21 08/29/18 20:00 97.5 81 18 120/68 (85) 97 Intake and Output 08/29/18 08/30/18 18:59 06:59 Intake Total 1810 ml 435 ml Balance 1810 ml 435 ml Intake Oral 480 ml 380 ml IV Total 330 ml 55 ml Other 1000 ml # Voids 3 Laboratory Tests Test 08/30/18 05:00 White Blood Count 6.5 K/UL (4.8-10.8) Red Blood Count 4.27 M/UL (4.70-6.10) L Hemoglobin 13.0 G/DL (14.2-18.0) L Hematocrit 37.4 % (42.0-52.0) L Mean Corpuscular Volume 87 FL (80-99) Mean Corpuscular Hemoglobin 30.5 PG (27.0-31.0) Mean Corpuscular Hemoglobin Concent 34.8 G/DL (32.0-36.0) Red Cell Distribution Width 11.0 % (11.6-14.8) L Platelet Count 279 K/UL (150-450) Mean Platelet Volume 8.7 FL (6.5-10.1) Neutrophils (%) (Auto) 47.4 % (45.0-75.0) Lymphocytes (%) (Auto) 37.7 % (20.0-45.0) Monocytes (%) (Auto) 9.8 % (1.0-10.0) Eosinophils (%) (Auto) 3.2 % (0.0-3.0) H Basophils (%) (Auto) 1.9 % (0.0-2.0) Sodium Level 139 MMOL/L (136-145) Potassium Level 4.0 MMOL/L (3.5-5.1) Chloride Level 103 MMOL/L (98-107) Carbon Dioxide Level 29 MMOL/L (21-32) Anion Gap 7 mmol/L (5-15) Blood Urea Nitrogen 14 mg/dL (7-18) Creatinine 0.9 MG/DL (0.55-1.30) Estimat Glomerular Filtration Rate > 60 mL/min (>60) Glucose Level 129 MG/DL (74-106) H Calcium Level 9.3 MG/DL (8.5-10.1) Height (Feet): 5 Height (Inches): 10.00 Weight (Pounds): 205 Medications Current Medications Medications (Trade) Dose Ordered Sig/Rashel Route PRN Reason Start Time Stop Time Status Last Admin Dose Admin Acetaminophen (Tylenol) 650 mg Q4H PRN ORAL fever (temp>100.5F) 08/15/18 20:15 09/14/18 20:14 08/15/18 21:53 Al Hydroxide/Mg Hydroxide (Mylanta II) 30 ml Q6H PRN ORAL dyspepsia 08/15/18 20:15 09/14/18 20:14 Albuterol/ Ipratropium (Albuterol/ Ipratropium) 3 ml Q4H PRN HHN Shortness of Breath 08/27/18 22:30 09/01/18 22:29 Albuterol/ Ipratropium (Albuterol/ Ipratropium) 3 ml Q4HRT HHN 08/30/18 15:00 09/04/18 14:59 08/30/18 15:08 Aspirin (Ecotrin) 81 mg DAILY ORAL 08/16/18 09:00 09/15/18 08:59 08/30/18 09:11 Atorvastatin Calcium (Lipitor) 20 mg BEDTIME ORAL 08/23/18 21:00 09/22/18 20:59 08/29/18 21:11 Azithromycin 500 mg/Dextrose 275 ml @ 275 mls/hr Q24HRS IV 08/27/18 12:00 09/02/18 12:59 08/30/18 12:38 Benazepril HCl (Lotensin) 20 mg DAILY ORAL 08/20/18 12:01 09/19/18 12:00 08/30/18 09:11 Cefazolin Sodium 1 gm/Dextrose 55 ml @ 110 mls/hr Q8HR IVPB 08/29/18 14:00 09/05/18 13:59 08/30/18 15:02 Clonidine HCl (Catapres Tab) 0.1 mg Q4H PRN ORAL sbp more than 160 08/15/18 20:15 09/14/18 20:14 Dextrose (Dextrose 50%) 25 ml Q30M PRN IV Hypoglycemia 08/16/18 07:30 09/15/18 07:29 Dextrose (Dextrose 50%) 50 ml Q30M PRN IV Hypoglycemia 08/16/18 07:30 09/15/18 07:29 08/24/18 19:11 Docusate Sodium (Colace) 100 mg TWICE A DAY ORAL 08/30/18 09:00 09/29/18 08:59 08/30/18 09:11 Heparin Sodium (Porcine) (Heparin 5000 units/ml) 5,000 units EVERY 12 HOURS SUBQ 08/15/18 21:00 09/14/18 20:59 08/30/18 09:14 Ibuprofen (Advil) 600 mg Q8H PRN ORAL mild pain 08/20/18 12:00 09/19/18 11:59 08/29/18 21:13 Insulin Aspart (NovoLOG) BEFORE MEALS AND HS SUBQ 08/25/18 11:30 09/14/18 21:59 08/29/18 21:19 Insulin Aspart (NovoLOG) 10 units NOVOLOGL SUBQ 08/30/18 11:50 09/22/18 11:49 08/30/18 12:35 Insulin Aspart (NovoLOG) 12 units NOVOLOGB SUBQ 08/31/18 06:30 09/22/18 06:29 Insulin Aspart (NovoLOG) 12 units NOVOLOGS SUBQ 08/30/18 16:50 09/21/18 16:49 Insulin Glargine (Lantus (NON FORUMULARY)) 36 unit QHS SQ 08/30/18 21:00 09/24/18 22:00 Ondansetron HCl (Zofran) 4 mg Q6H PRN IVP Nausea & Vomiting 08/26/18 13:15 09/25/18 13:14 Polyethylene Glycol (Miralax) 17 gm BEDTIME ORAL 08/30/18 21:00 09/29/18 20:59 Pregabalin (Lyrica) 50 mg TWICE A DAY ORAL 08/16/18 09:00 09/15/18 08:59 08/30/18 09:13 Promethazine HCl/ Codeine (Phenergan with Codeine) 5 ml Q8H PRN ORAL For Cough 08/21/18 14:45 09/20/18 14:44 08/29/18 21:32 Assessment/Plan Problem List: (1) Finger laceration Assessment & Plan: laceration to left ring finger while shaving today. hemostasis now. dressings applied no signs of infection acutely. keep dressings in place for now - steri-strips/ gauze asked patient about tetanus. states had it in last 10 years but not sure about last 5 years will give tetanus booster will monitor for signs of infection thank you ICD Codes: S61.219A - Laceration without foreign body of unspecified finger without damage to nail, initial encounter SNOMED: 652219338 Qualifiers: Qualified Codes: S61.215A - Laceration without foreign body of left ring finger without damage to nail, initial encounter Marv Brandon Aug 30, 2018 16:33
[2018-08-30] MEDS ORDERED: Tetanus-Diphtheria Toxoid 0.5ml IM ONE (17:30)
[2018-08-30 20:00] VITALS: BP 125/79
--- NOTE | 2018-08-30 20:33 | Cardiology Progress Note ---
Assessment/Plan Assessment/Plan 1. Atypical chest pain, no ischemic features on the ECG, negative troponin I levels, 2D echocardiography reveals normal LV systolic function with LVEF at 55 %. 2. DM, continue ASA and atorvastatin. 3. HTN, well controlled, continue benazepril. 4. CKD 5. Gastroparesis Subjective Subjective No cardiac events reported. Objective Last 24 Hour Vital Signs Date Time Temp Pulse Resp B/P (MAP) Pulse Ox O2 Delivery O2 Flow Rate FiO2 08/30/18 20:25 77 20 97 Room Air 21 08/30/18 20:25 77 20 Room Air 21 08/30/18 16:00 97.5 93 19 128/77 (94) 97 08/30/18 15:16 84 16 99 Room Air 21 08/30/18 15:08 75 16 96 Room Air 21 08/30/18 15:08 21 08/30/18 12:00 97.5 98 20 131/73 (92) 98 08/30/18 09:11 137/70 08/30/18 09:00 Room Air 08/30/18 08:09 79 16 Room Air 21 08/30/18 08:00 97.5 100 22 137/70 (92) 98 08/30/18 04:00 97.8 73 18 104/54 (71) 96 08/30/18 00:00 97.3 73 18 112/58 (76) 96 08/29/18 21:00 Room Air Intake and Output 08/29/18 08/30/18 19:00 07:00 Intake Total 1810 ml 435 ml Balance 1810 ml 435 ml Intake Oral 480 ml 380 ml IV Total 330 ml 55 ml Other 1000 ml # Voids 3 2D Echo: LVEF 60-65%, Grade I LVDD, RVSP 16 mmHg Laboratory Tests Test 08/30/18 05:00 White Blood Count 6.5 K/UL (4.8-10.8) Red Blood Count 4.27 M/UL (4.70-6.10) L Hemoglobin 13.0 G/DL (14.2-18.0) L Hematocrit 37.4 % (42.0-52.0) L Mean Corpuscular Volume 87 FL (80-99) Mean Corpuscular Hemoglobin 30.5 PG (27.0-31.0) Mean Corpuscular Hemoglobin Concent 34.8 G/DL (32.0-36.0) Red Cell Distribution Width 11.0 % (11.6-14.8) L Platelet Count 279 K/UL (150-450) Mean Platelet Volume 8.7 FL (6.5-10.1) Neutrophils (%) (Auto) 47.4 % (45.0-75.0) Lymphocytes (%) (Auto) 37.7 % (20.0-45.0) Monocytes (%) (Auto) 9.8 % (1.0-10.0) Eosinophils (%) (Auto) 3.2 % (0.0-3.0) H Basophils (%) (Auto) 1.9 % (0.0-2.0) Sodium Level 139 MMOL/L (136-145) Potassium Level 4.0 MMOL/L (3.5-5.1) Chloride Level 103 MMOL/L (98-107) Carbon Dioxide Level 29 MMOL/L (21-32) Anion Gap 7 mmol/L (5-15) Blood Urea Nitrogen 14 mg/dL (7-18) Creatinine 0.9 MG/DL (0.55-1.30) Estimat Glomerular Filtration Rate > 60 mL/min (>60) Glucose Level 129 MG/DL (74-106) H Calcium Level 9.3 MG/DL (8.5-10.1) Microbiology Date/Time Source Procedure Growth Status 08/28/18 05:56 Sputum AFB Specimen Processing Tissue - Final Resulted 08/28/18 05:56 Sputum Acid Fast Bacilli Smear Pending Resulted 08/28/18 05:56 Sputum Acid Fast Bacilli Culture Pending Resulted Objective HEENT: Normocephalic and atraumatic. PERRLA, EOMI. NECK: No JVD, no carotid bruit. CHEST: Clear to auscultation. CARDIOVASCULAR: Regular rate and rhythm, normal S1 S2, no murmurs, gallops or rubs. ABDOMEN: Soft and nontender. Good bowel sounds. There is no organomegaly or tenderness. EXTREMITIES: no edema, clubbing or cyanosis. Miguel Angel Beckford MD Aug 30, 2018 20:33
[2018-08-30] MEDS: Miralax 17gm pkt ORAL SCH ×2 (21:00→21:03)
[2018-08-30] MEDS: Promethazine/Codeine 5ml UD ORAL PRN (21:03)
[2018-08-30] MEDS: Atorvastatin 20mg tab ORAL SCH (21:03)
[2018-08-31] VITALS: BP 133/69
[2018-08-31] MEDS: Albuterol/Ipratropium 3ml neb HHN SCH ×7 (00:13→23:17)
[2018-08-31] MEDS: ceFAZolin sod 1 GM in D5W 55 ML IVPB SCH ×3 (06:00→21:32)
--- NOTE | 2018-08-31 06:40 | General Progress Note ---
Assessment/Plan Problem List: (1) Hyperglycemia ICD Codes: R73.9 - Hyperglycemia, unspecified SNOMED: 45108294 (2) Intractable vomiting ICD Codes: R11.10 - Vomiting, unspecified SNOMED: 473329049, 949693561 Qualifiers: Qualified Codes: R11.2 - Nausea with vomiting, unspecified (3) Renal insufficiency ICD Codes: N28.9 - Disorder of kidney and ureter, unspecified SNOMED: 334656422, 438835878 (4) Gastroenteritis ICD Codes: K52.9 - Noninfective gastroenteritis and colitis, unspecified SNOMED: 11288763 Assessment/Plan continue Lantus 36 units qhs continue Novolog units ac B / L / D continue NISS ac / hs NOTE: patient has T1DM which is very brittle in nature therefore it would be impossible to have perfect glucose values. from DM stand point there is no barrier for discharge Subjective Allergies: Coded Allergies: INSULIN DETEMIR (Unverified Allergy, Unknown, Sweating, 08/16/18) All Systems: reviewed and negative except above Subjective events noted Objective Last 24 Hour Vital Signs Date Time Temp Pulse Resp B/P (MAP) Pulse Ox O2 Delivery O2 Flow Rate FiO2 08/31/18 04:04 Room Air 08/31/18 04:03 Room Air 08/31/18 00:17 78 20 99 Room Air 08/31/18 00:10 81 20 98 Room Air 08/31/18 00:00 97.3 82 18 133/69 (90) 97 08/30/18 21:00 Room Air 08/30/18 20:34 81 20 99 Room Air 08/30/18 20:25 77 20 97 Room Air 08/30/18 20:25 77 20 Room Air 08/30/18 20:00 97.4 90 19 125/79 (94) 95 08/30/18 16:00 97.5 93 19 128/77 (94) 97 08/30/18 15:16 84 16 99 Room Air 08/30/18 15:08 75 16 96 Room Air 08/30/18 15:08 21 08/30/18 12:00 97.5 98 20 131/73 (92) 98 08/30/18 09:11 137/70 08/30/18 09:00 Room Air 08/30/18 08:09 79 16 Room Air 21 08/30/18 08:00 97.5 100 22 137/70 (92) 98 Intake and Output 08/30/18 08/31/18 19:00 07:00 Intake Total 1610 ml 855 ml Output Total 2000 ml Balance 1610 ml -1145 ml Intake Oral 1280 ml 800 ml IV Total 330 ml 55 ml Output Urine Total 2000 ml # Voids 8 2 Height (Feet): 5 Height (Inches): 10.00 Weight (Pounds): 205 General Appearance: no apparent distress Neck: normal alignment Cardiovascular: normal rate Respiratory/Chest: normal breath sounds Abdomen: normal bowel sounds Objective Current Medications Medications (Trade) Dose Ordered Sig/Rashel Route PRN Reason Start Time Stop Time Status Last Admin Dose Admin Acetaminophen (Tylenol) 650 mg Q4H PRN ORAL fever (temp>100.5F) 08/15/18 20:15 09/14/18 20:14 08/15/18 21:53 Al Hydroxide/Mg Hydroxide (Mylanta II) 30 ml Q6H PRN ORAL dyspepsia 08/15/18 20:15 09/14/18 20:14 Albuterol/ Ipratropium (Albuterol/ Ipratropium) 3 ml Q4H PRN HHN Shortness of Breath 08/27/18 22:30 09/01/18 22:29 Albuterol/ Ipratropium (Albuterol/ Ipratropium) 3 ml Q4HRT HHN 08/30/18 15:00 09/04/18 14:59 08/31/18 00:13 Aspirin (Ecotrin) 81 mg DAILY ORAL 08/16/18 09:00 09/15/18 08:59 08/30/18 09:11 Atorvastatin Calcium (Lipitor) 20 mg BEDTIME ORAL 08/23/18 21:00 09/22/18 20:59 08/30/18 21:03 Azithromycin 500 mg/Dextrose 275 ml @ 275 mls/hr Q24HRS IV 08/27/18 12:00 09/02/18 12:59 08/30/18 12:38 Benazepril HCl (Lotensin) 20 mg DAILY ORAL 08/20/18 12:01 09/19/18 12:00 08/30/18 09:11 Cefazolin Sodium 1 gm/Dextrose 55 ml @ 110 mls/hr Q8HR IVPB 08/29/18 14:00 09/05/18 13:59 08/31/18 06:00 Clonidine HCl (Catapres Tab) 0.1 mg Q4H PRN ORAL sbp more than 160 08/15/18 20:15 09/14/18 20:14 Dextrose (Dextrose 50%) 25 ml Q30M PRN IV Hypoglycemia 08/16/18 07:30 09/15/18 07:29 Dextrose (Dextrose 50%) 50 ml Q30M PRN IV Hypoglycemia 08/16/18 07:30 09/15/18 07:29 08/24/18 19:11 Docusate Sodium (Colace) 100 mg TWICE A DAY ORAL 08/30/18 09:00 09/29/18 08:59 08/30/18 17:59 Heparin Sodium (Porcine) (Heparin 5000 units/ml) 5,000 units EVERY 12 HOURS SUBQ 08/15/18 21:00 09/14/18 20:59 08/30/18 21:05 Ibuprofen (Advil) 600 mg Q8H PRN ORAL mild pain 08/20/18 12:00 09/19/18 11:59 08/29/18 21:13 Insulin Aspart (NovoLOG) BEFORE MEALS AND HS SUBQ 08/25/18 11:30 09/14/18 21:59 08/30/18 21:06 Insulin Aspart (NovoLOG) 10 units NOVOLOGL SUBQ 08/30/18 11:50 09/22/18 11:49 08/30/18 12:35 Insulin Aspart (NovoLOG) 12 units NOVOLOGB SUBQ 08/31/18 06:30 09/22/18 06:29 Insulin Aspart (NovoLOG) 12 units NOVOLOGS SUBQ 08/30/18 16:50 09/21/18 16:49 08/30/18 17:09 Insulin Glargine (Lantus (NON FORUMULARY)) 36 unit QHS SQ 08/30/18 21:00 09/24/18 22:00 08/30/18 21:05 Ondansetron HCl (Zofran) 4 mg Q6H PRN IVP Nausea & Vomiting 08/26/18 13:15 09/25/18 13:14 Polyethylene Glycol (Miralax) 17 gm BEDTIME ORAL 08/30/18 21:00 09/29/18 20:59 Pregabalin (Lyrica) 50 mg TWICE A DAY ORAL 08/16/18 09:00 09/15/18 08:59 08/30/18 18:00 Promethazine HCl/ Codeine (Phenergan with Codeine) 5 ml Q8H PRN ORAL For Cough 08/21/18 14:45 09/20/18 14:44 08/30/18 21:03 Tetanus/ Diphtheria Toxoids Adsorbed (Tetanus/ Diphtheria Toxoid adsorbed) 0.5 ml ONCE ONCE IM 08/31/18 09:00 08/31/18 09:01 Item Value Date Time Bedside Blood Glucose 246 mg/dl H 08/31/18 0610 Bedside Blood Glucose 226 mg/dl H 08/30/18 2106 Bedside Blood Glucose 132 mg/dl H 08/30/18 1709 Bedside Blood Glucose 120 mg/dl 08/30/18 1235 Mac Vegas MD Aug 31, 2018 06:40
[2018-08-31] MEDS: NovoLOG Insulin Flexpen SUBQ SCH ×7 (06:57→21:05)
[2018-08-31 08:00] VITALS: BP 139/70
[2018-08-31 08:23] LABS: BASOPHILS % (AUTO) 2.8 % (0.0-2.0); EOSINOPHILS % (AUTO) 2.7 % (0.0-3.0); HEMATOCRIT 38.9 % (42.0-52.0); HEMOGLOBIN 13.4 G/DL (14.2-18.0); MEAN CORPUSCULAR VOLUME 88 FL (80-99); MONOCYTES % (AUTO) 8.7 % (1.0-10.0); NEUTROPHILS % (AUTO) 51.9 % (45.0-75.0); PLATELET COUNT 277 K/UL (150-450); RED BLOOD COUNT 4.41 M/UL (4.70-6.10); RED CELL DISTRIBUTION WIDTH 11.1 % (11.6-14.8); WHITE BLOOD COUNT 5.3 K/UL (4.8-10.8)
[2018-08-31] MEDS ORDERED: Tetanus-Diphtheria Toxoid 0.5ml IM ONE (09:00)
[2018-08-31 09:07] LABS: ANION GAP 8 mmol/L (5-15); BLOOD UREA NITROGEN 12 mg/dL (7-18); CALCIUM 9.4 MG/DL (8.5-10.1); CARBON DIOXIDE 27 MMOL/L (21-32); CHLORIDE 101 MMOL/L (98-107); POTASSIUM 4.4 MMOL/L (3.5-5.1); SODIUM 135 MMOL/L (136-145)
--- NOTE | 2018-08-31 09:10 | Diagnostic Imaging Report ---
Indication: Cough Technique: One view of the chest Comparison: 08/24/[address], 08/21/2018 chest radiograph Findings: Previously demonstrated right suprahilar opacity has markedly improved, nearly resolved. Right midlung opacities likewise appear improved. No new infiltrates. The pleural spaces are clear. The heart size is normal Impression: Improving right lung infiltrates, over 9 days
[2018-08-31] MEDS: Docusate 100mg cap ORAL SCH ×2 (09:48→18:01)
[2018-08-31] MEDS: Lyrica 50mg cap ORAL SCH ×2 (09:49→18:01)
[2018-08-31] MEDS: Benazepril 10mg tab ORAL SCH (09:50)
[2018-08-31] MEDS: Aspirin EC 81mg tab ORAL SCH (09:50)
[2018-08-31] MEDS: Heparin 5000 units/ml inj SUBQ SCH ×2 (09:54→21:09)
--- NOTE | 2018-08-31 09:58 | Infectious Diseases Prog Note ---
Assessment/Plan Assessment/Plan Pneumonia ( CAP vs fungal vs mycobacterial ) SCx: MSSA ( ? contaminant ) CT: Right upper and lower lobe scattered areas of consolidation, nodularity, groundglass and equivocal tree-in-bud opacities. Most likely represents infectious inflammatory process. Given possibly tree-in-bud opacities, the possibility of atypical infectious processes, including tuberculosis or other mycobacterial infections or fungal pneumonia pulmonary to be considered but are less likely. Noninfectious inflammatory processes should also be considered. Multifocal neoplasm such as bronchoalveolar carcinoma must less likely but also possible 2dEcho no Veg Fever, improving Leukocytosis, Crypt Ag, HIV: Neg AFB Neg x 2 DM2 HLD HTN CAD/PA asthma P: Cont pt on Zithro and Ancef d# 5/7 Clinically improving so will hold off on empiric anti fungal for now Monitor CBC Monitor CMP Monitor Sputum Cx , AFB x 3, Fungal Blood Cx x 2 Sputum MTB-PCR x 2 Coccidio AB Fungitell QFTB legio Ur Ag Subjective Allergies: Coded Allergies: INSULIN DETEMIR (Unverified Allergy, Unknown, Sweating, 08/16/18) Subjective Afebrile Satting well on RA No Leukocytosis 2 AFB stains neg, 1 in lab and still pending Objective Vital Signs Last 24 Hour Vital Signs Date Time Temp Pulse Resp B/P (MAP) Pulse Ox O2 Delivery O2 Flow Rate FiO2 08/31/18 09:50 139/70 08/31/18 08:13 97 19 99 Room Air 21 08/31/18 08:04 92 19 Room Air 08/31/18 08:01 92 19 97 Room Air 08/31/18 08:00 97.7 97 19 139/70 (93) 96 08/31/18 04:04 Room Air 21 08/31/18 04:03 Room Air 21 08/31/18 00:17 78 20 99 Room Air 21 08/31/18 00:10 81 20 98 Room Air 21 08/31/18 00:00 97.3 82 18 133/69 (90) 97 08/30/18 21:00 Room Air 08/30/18 20:34 81 20 99 Room Air 21 08/30/18 20:25 77 20 97 Room Air 21 08/30/18 20:25 77 20 Room Air 21 08/30/18 20:00 97.4 90 19 125/79 (94) 95 08/30/18 16:00 97.5 93 19 128/77 (94) 97 08/30/18 15:16 84 16 99 Room Air 21 08/30/18 15:08 75 16 96 Room Air 21 08/30/18 15:08 21 08/30/18 12:00 97.5 98 20 131/73 (92) 98 Height (Feet): 5 Height (Inches): 10.00 Weight (Pounds): 205 Objective HEENT: NCAT, MMM Respiratory/Chest: CATB, no respiratory distress Cardiovascular: regular rhythm Abdomen: no organomegaly Skin: no rash Laboratory Tests Test 08/31/18 07:37 White Blood Count 5.3 K/UL (4.8-10.8) Red Blood Count 4.41 M/UL (4.70-6.10) L Hemoglobin 13.4 G/DL (14.2-18.0) L Hematocrit 38.9 % (42.0-52.0) L Mean Corpuscular Volume 88 FL (80-99) Mean Corpuscular Hemoglobin 30.4 PG (27.0-31.0) Mean Corpuscular Hemoglobin Concent 34.4 G/DL (32.0-36.0) Red Cell Distribution Width 11.1 % (11.6-14.8) L Platelet Count 277 K/UL (150-450) Mean Platelet Volume 8.5 FL (6.5-10.1) Neutrophils (%) (Auto) 51.9 % (45.0-75.0) Lymphocytes (%) (Auto) 34.0 % (20.0-45.0) Monocytes (%) (Auto) 8.7 % (1.0-10.0) Eosinophils (%) (Auto) 2.7 % (0.0-3.0) Basophils (%) (Auto) 2.8 % (0.0-2.0) H Sodium Level 135 MMOL/L (136-145) L Potassium Level 4.4 MMOL/L (3.5-5.1) Chloride Level 101 MMOL/L (98-107) Carbon Dioxide Level 27 MMOL/L (21-32) Anion Gap 8 mmol/L (5-15) Blood Urea Nitrogen 12 mg/dL (7-18) Creatinine 1.0 MG/DL (0.55-1.30) Estimat Glomerular Filtration Rate > 60 mL/min (>60) Glucose Level 280 MG/DL (74-106) #H Calcium Level 9.4 MG/DL (8.5-10.1) Current Medications Medications (Trade) Dose Ordered Sig/Rashel Route PRN Reason Start Time Stop Time Status Last Admin Dose Admin Acetaminophen (Tylenol) 650 mg Q4H PRN ORAL fever (temp>100.5F) 08/15/18 20:15 09/14/18 20:14 08/15/18 21:53 Al Hydroxide/Mg Hydroxide (Mylanta II) 30 ml Q6H PRN ORAL dyspepsia 08/15/18 20:15 09/14/18 20:14 Albuterol/ Ipratropium (Albuterol/ Ipratropium) 3 ml Q4H PRN HHN Shortness of Breath 08/27/18 22:30 09/01/18 22:29 Albuterol/ Ipratropium (Albuterol/ Ipratropium) 3 ml Q4HRT HHN 08/30/18 15:00 09/04/18 14:59 08/31/18 08:01 Aspirin (Ecotrin) 81 mg DAILY ORAL 08/16/18 09:00 09/15/18 08:59 08/31/18 09:50 Atorvastatin Calcium (Lipitor) 20 mg BEDTIME ORAL 08/23/18 21:00 09/22/18 20:59 08/30/18 21:03 Azithromycin 500 mg/Dextrose 275 ml @ 275 mls/hr Q24HRS IV 08/27/18 12:00 09/02/18 12:59 08/30/18 12:38 Benazepril HCl (Lotensin) 20 mg DAILY ORAL 08/20/18 12:01 09/19/18 12:00 08/31/18 09:50 Cefazolin Sodium 1 gm/Dextrose 55 ml @ 110 mls/hr Q8HR IVPB 08/29/18 14:00 09/05/18 13:59 08/31/18 06:00 Clonidine HCl (Catapres Tab) 0.1 mg Q4H PRN ORAL sbp more than 160 08/15/18 20:15 09/14/18 20:14 Dextrose (Dextrose 50%) 25 ml Q30M PRN IV Hypoglycemia 08/16/18 07:30 09/15/18 07:29 Dextrose (Dextrose 50%) 50 ml Q30M PRN IV Hypoglycemia 08/16/18 07:30 09/15/18 07:29 08/24/18 19:11 Docusate Sodium (Colace) 100 mg TWICE A DAY ORAL 08/30/18 09:00 09/29/18 08:59 08/31/18 09:48 Heparin Sodium (Porcine) (Heparin 5000 units/ml) 5,000 units EVERY 12 HOURS SUBQ 08/15/18 21:00 09/14/18 20:59 08/31/18 09:54 Ibuprofen (Advil) 600 mg Q8H PRN ORAL mild pain 08/20/18 12:00 09/19/18 11:59 08/29/18 21:13 Insulin Aspart (NovoLOG) BEFORE MEALS AND HS SUBQ 08/25/18 11:30 09/14/18 21:59 08/31/18 06:57 Insulin Aspart (NovoLOG) 10 units NOVOLOGL SUBQ 08/30/18 11:50 09/22/18 11:49 08/30/18 12:35 Insulin Aspart (NovoLOG) 12 units NOVOLOGB SUBQ 08/31/18 06:30 09/22/18 06:29 08/31/18 06:58 Insulin Aspart (NovoLOG) 12 units NOVOLOGS SUBQ 08/30/18 16:50 09/21/18 16:49 08/30/18 17:09 Insulin Glargine (Lantus (NON FORUMULARY)) 36 unit QHS SQ 08/30/18 21:00 09/24/18 22:00 08/30/18 21:05 Ondansetron HCl (Zofran) 4 mg Q6H PRN IVP Nausea & Vomiting 08/26/18 13:15 09/25/18 13:14 Polyethylene Glycol (Miralax) 17 gm BEDTIME ORAL 08/30/18 21:00 09/29/18 20:59 Pregabalin (Lyrica) 50 mg TWICE A DAY ORAL 08/16/18 09:00 09/15/18 08:59 08/31/18 09:49 Promethazine HCl/ Codeine (Phenergan with Codeine) 5 ml Q8H PRN ORAL For Cough 08/21/18 14:45 09/20/18 14:44 08/30/18 21:03 Terence Snell MD Aug 31, 2018 09:58
--- NOTE | 2018-08-31 11:38 | GI Progress Note ---
Assessment/Plan Problems: (1) Gastroparesis ICD Codes: K31.84 - Gastroparesis SNOMED: 369037992 (2) Hyperglycemia ICD Codes: R73.9 - Hyperglycemia, unspecified SNOMED: 65293220 (3) Intractable vomiting ICD Codes: R11.10 - Vomiting, unspecified SNOMED: 804469421, 767408622 Qualifiers: Qualified Codes: R11.2 - Nausea with vomiting, unspecified (4) Renal insufficiency ICD Codes: N28.9 - Disorder of kidney and ureter, unspecified SNOMED: 234249946, 568397085 (5) Gastroenteritis ICD Codes: K52.9 - Noninfective gastroenteritis and colitis, unspecified SNOMED: 07316207 (6) Malingering ICD Codes: Z76.5 - Malingerer [conscious simulation] SNOMED: 843627037 Status: stable Status Narrative Discussed with Dr. Thomas Assessment/Plan Assessment - N/V, Diarrhea - Abd pain - IDDM - HTN -Gastroparesis OB stool negative Now airborne precautions to rule out TB Recommendations Symptomatic treatment at this time Advance to ADA diet hydration PPI Zofran as needed, Reglan for persistent vomiting Follow-up labs PT evaluation Outpatient EGD colonoscopy The patient was seen and examined at bedside and all new and available data was reviewed in the patients chart. I agree with the above findings, impression and plan. (Patient seen earlier today. Signature stamp does not reflect patient encounter time.). - Noé Thomas MD Subjective Subjective Denies any nausea or vomiting Denies any abdominal pain Able to tolerate small amounts of food Now complaining of hip pain Has new onset of chest pain Objective Last 24 Hour Vital Signs Date Time Temp Pulse Resp B/P (MAP) Pulse Ox O2 Delivery O2 Flow Rate FiO2 08/31/18 09:50 139/70 08/31/18 08:13 97 19 99 Room Air 08/31/18 08:04 92 19 Room Air 08/31/18 08:01 92 19 97 Room Air 08/31/18 08:00 97.7 97 19 139/70 (93) 96 08/31/18 08:00 Room Air 08/31/18 04:04 Room Air 08/31/18 04:03 Room Air 08/31/18 00:17 78 20 99 Room Air 08/31/18 00:10 81 20 98 Room Air 21 08/31/18 00:00 97.3 82 18 133/69 (90) 97 08/30/18 21:00 Room Air 08/30/18 20:34 81 20 99 Room Air 21 08/30/18 20:25 77 20 97 Room Air 21 08/30/18 20:25 77 20 Room Air 21 08/30/18 20:00 97.4 90 19 125/79 (94) 95 08/30/18 16:00 97.5 93 19 128/77 (94) 97 08/30/18 15:16 84 16 99 Room Air 21 08/30/18 15:08 75 16 96 Room Air 21 08/30/18 15:08 21 08/30/18 12:00 97.5 98 20 131/73 (92) 98 Intake and Output 08/30/18 08/31/18 19:00 07:00 Intake Total 1610 ml 855 ml Output Total 2000 ml Balance 1610 ml -1145 ml Intake Oral 1280 ml 800 ml IV Total 330 ml 55 ml Output Urine Total 2000 ml # Voids 8 3 Laboratory Tests Test 08/31/18 07:37 White Blood Count 5.3 K/UL (4.8-10.8) Red Blood Count 4.41 M/UL (4.70-6.10) L Hemoglobin 13.4 G/DL (14.2-18.0) L Hematocrit 38.9 % (42.0-52.0) L Mean Corpuscular Volume 88 FL (80-99) Mean Corpuscular Hemoglobin 30.4 PG (27.0-31.0) Mean Corpuscular Hemoglobin Concent 34.4 G/DL (32.0-36.0) Red Cell Distribution Width 11.1 % (11.6-14.8) L Platelet Count 277 K/UL (150-450) Mean Platelet Volume 8.5 FL (6.5-10.1) Neutrophils (%) (Auto) 51.9 % (45.0-75.0) Lymphocytes (%) (Auto) 34.0 % (20.0-45.0) Monocytes (%) (Auto) 8.7 % (1.0-10.0) Eosinophils (%) (Auto) 2.7 % (0.0-3.0) Basophils (%) (Auto) 2.8 % (0.0-2.0) H Sodium Level 135 MMOL/L (136-145) L Potassium Level 4.4 MMOL/L (3.5-5.1) Chloride Level 101 MMOL/L (98-107) Carbon Dioxide Level 27 MMOL/L (21-32) Anion Gap 8 mmol/L (5-15) Blood Urea Nitrogen 12 mg/dL (7-18) Creatinine 1.0 MG/DL (0.55-1.30) Estimat Glomerular Filtration Rate > 60 mL/min (>60) Glucose Level 280 MG/DL (74-106) #H Calcium Level 9.4 MG/DL (8.5-10.1) Height (Feet): 5 Height (Inches): 10.00 Weight (Pounds): 205 General Appearance: WD/WN, no apparent distress, alert Cardiovascular: normal rate Respiratory/Chest: normal breath sounds, no respiratory distress Abdominal Exam: normal bowel sounds, non tender, soft Extremities: normal range of motion, non-tender Debby Vidal NP Aug 31, 2018 11:38
[2018-08-31 12:00] VITALS: BP 117/74
[2018-08-31] MEDS: Azithromycin 500 MG in D5W 275 ML IV SCH (12:24)
--- NOTE | 2018-08-31 12:28 | Surgery Progress Note ---
Surgery Progress Note Subjective Additional Comments no acute events. stable. comfortable. no pain. did not want tetanus shot yesterday Objective Last 24 Hour Vital Signs Date Time Temp Pulse Resp B/P (MAP) Pulse Ox O2 Delivery O2 Flow Rate FiO2 08/31/18 12:00 80 18 99 Nasal Cannula 2.0 08/31/18 12:00 97.3 79 18 117/74 (88) 97 08/31/18 11:50 77 20 97 Room Air 08/31/18 09:50 139/70 08/31/18 08:13 97 19 99 Room Air 08/31/18 08:04 92 19 Room Air 08/31/18 08:01 92 19 97 Room Air 08/31/18 08:00 97.7 97 19 139/70 (93) 96 08/31/18 08:00 Room Air 08/31/18 04:04 Room Air 08/31/18 04:03 Room Air 08/31/18 00:17 78 20 99 Room Air 08/31/18 00:10 81 20 98 Room Air 08/31/18 00:00 97.3 82 18 133/69 (90) 97 08/30/18 21:00 Room Air 08/30/18 20:34 81 20 99 Room Air 08/30/18 20:25 77 20 97 Room Air 08/30/18 20:25 77 20 Room Air 21 08/30/18 20:00 97.4 90 19 125/79 (94) 95 08/30/18 16:00 97.5 93 19 128/77 (94) 97 08/30/18 15:16 84 16 99 Room Air 08/30/18 15:08 75 16 96 Room Air 08/30/18 15:08 21 I&O Intake and Output 08/30/18 08/31/18 19:00 07:00 Intake Total 1610 ml 855 ml Output Total 2000 ml Balance 1610 ml -1145 ml Intake Oral 1280 ml 800 ml IV Total 330 ml 55 ml Output Urine Total 2000 ml # Voids 8 3 Dressing: dry Wound: clean Drains: none Cardiovascular: RSR Respiratory: clear Abdomen: soft, flat, present bowel sounds, non-distended Extremities: no cyanosis, other Laboratory Tests Test 08/31/18 07:37 White Blood Count 5.3 K/UL (4.8-10.8) Red Blood Count 4.41 M/UL (4.70-6.10) L Hemoglobin 13.4 G/DL (14.2-18.0) L Hematocrit 38.9 % (42.0-52.0) L Mean Corpuscular Volume 88 FL (80-99) Mean Corpuscular Hemoglobin 30.4 PG (27.0-31.0) Mean Corpuscular Hemoglobin Concent 34.4 G/DL (32.0-36.0) Red Cell Distribution Width 11.1 % (11.6-14.8) L Platelet Count 277 K/UL (150-450) Mean Platelet Volume 8.5 FL (6.5-10.1) Neutrophils (%) (Auto) 51.9 % (45.0-75.0) Lymphocytes (%) (Auto) 34.0 % (20.0-45.0) Monocytes (%) (Auto) 8.7 % (1.0-10.0) Eosinophils (%) (Auto) 2.7 % (0.0-3.0) Basophils (%) (Auto) 2.8 % (0.0-2.0) H Sodium Level 135 MMOL/L (136-145) L Potassium Level 4.4 MMOL/L (3.5-5.1) Chloride Level 101 MMOL/L (98-107) Carbon Dioxide Level 27 MMOL/L (21-32) Anion Gap 8 mmol/L (5-15) Blood Urea Nitrogen 12 mg/dL (7-18) Creatinine 1.0 MG/DL (0.55-1.30) Estimat Glomerular Filtration Rate > 60 mL/min (>60) Glucose Level 280 MG/DL (74-106) #H Calcium Level 9.4 MG/DL (8.5-10.1) Plan Problems: (1) Finger laceration Assessment & Plan: laceration to left ring finger while shaving today. hemostasis now. dressings applied no signs of infection acutely. keep dressings in place for now - steri-strips/ gauze asked patient about tetanus. states had it in last 10 years but not sure about last 5 years will give tetanus booster will monitor for signs of infection thank you Marv Brandon Aug 31, 2018 12:28
--- NOTE | 2018-08-31 13:38 | General Progress Note ---
Assessment/Plan Problem List: (1) Gastroenteritis ICD Codes: K52.9 - Noninfective gastroenteritis and colitis, unspecified SNOMED: 07638951 (2) Renal insufficiency ICD Codes: N28.9 - Disorder of kidney and ureter, unspecified SNOMED: 511598143, 590205829 (3) Intractable vomiting ICD Codes: R11.10 - Vomiting, unspecified SNOMED: 007560906, 684368399 Qualifiers: Qualified Codes: R11.2 - Nausea with vomiting, unspecified (4) Hyperglycemia ICD Codes: R73.9 - Hyperglycemia, unspecified SNOMED: 29589414 (5) Gastroparesis ICD Codes: K31.84 - Gastroparesis SNOMED: 199027119 Status: stable, progressing Assessment/Plan ivf adv diet dc if clear Subjective Constitutional: Reports: weakness Allergies: Coded Allergies: INSULIN DETEMIR (Unverified Allergy, Unknown, Sweating, 08/16/18) All Systems: reviewed and negative except above Subjective calm in bed sl cough Objective Last 24 Hour Vital Signs Date Time Temp Pulse Resp B/P (MAP) Pulse Ox O2 Delivery O2 Flow Rate FiO2 08/31/18 12:00 80 18 99 Nasal Cannula 2.0 08/31/18 12:00 97.3 79 18 117/74 (88) 97 08/31/18 11:50 77 20 97 Room Air 08/31/18 09:50 139/70 08/31/18 08:13 97 19 99 Room Air 08/31/18 08:04 92 19 Room Air 08/31/18 08:01 92 19 97 Room Air 08/31/18 08:00 97.7 97 19 139/70 (93) 96 08/31/18 08:00 Room Air 08/31/18 04:04 Room Air 08/31/18 04:03 Room Air 08/31/18 00:17 78 20 99 Room Air 08/31/18 00:10 81 20 98 Room Air 08/31/18 00:00 97.3 82 18 133/69 (90) 97 08/30/18 21:00 Room Air 08/30/18 20:34 81 20 99 Room Air 08/30/18 20:25 77 20 97 Room Air 08/30/18 20:25 77 20 Room Air 08/30/18 20:00 97.4 90 19 125/79 (94) 95 08/30/18 16:00 97.5 93 19 128/77 (94) 97 08/30/18 15:16 84 16 99 Room Air 21 08/30/18 15:08 75 16 96 Room Air 21 08/30/18 15:08 21 Intake and Output 08/30/18 08/31/18 19:00 07:00 Intake Total 1610 ml 855 ml Output Total 2000 ml Balance 1610 ml -1145 ml Intake Oral 1280 ml 800 ml IV Total 330 ml 55 ml Output Urine Total 2000 ml # Voids 8 3 Laboratory Tests 08/31/18 07:37: White Blood Count 5.3, Red Blood Count 4.41L, Hemoglobin 13.4L, Hematocrit 38.9L , Mean Corpuscular Volume 88, Mean Corpuscular Hemoglobin 30.4, Mean Corpuscular Hemoglobin Concent 34.4, Red Cell Distribution Width 11.1L, Platelet Count 277, Mean Platelet Volume 8.5, Neutrophils (%) (Auto) 51.9, Lymphocytes (%) (Auto) 34.0, Monocytes (%) (Auto) 8.7, Eosinophils (%) (Auto) 2.7, Basophils (%) (Auto) 2.8H, Sodium Level 135L, Potassium Level 4.4, Chloride Level 101, Carbon Dioxide Level 27, Anion Gap 8, Blood Urea Nitrogen 12 , Creatinine 1.0, Estimat Glomerular Filtration Rate > 60, Glucose Level 280#H, Calcium Level 9.4 Height (Feet): 5 Height (Inches): 10.00 Weight (Pounds): 205 General Appearance: lethargic EENT: normal ENT inspection Neck: normal alignment Cardiovascular: normal peripheral pulses, normal rate, regular rhythm Respiratory/Chest: chest wall non-tender, lungs clear, normal breath sounds Abdomen: normal bowel sounds, non tender, soft Extremities: normal inspection Edema: no edema noted Arm (L), no edema noted Arm (R), no edema noted Leg (L), no edema noted Leg (R), no edema noted Pedal (L), no edema noted Pedal (R), no edema noted Generalized Neurologic: motor weakness Skin: normal pigmentation, warm/dry Stuart Silver DO Aug 31, 2018 13:38
--- NOTE | 2018-08-31 14:21 | Pulmonology Progress Note ---
Assessment/Plan Problems: (1) Pneumonia (2) Gastroenteritis (3) Intractable vomiting (4) Hyperglycemia (5) Gastroparesis (6) Diabetes mellitus (7) ATN (acute tubular necrosis) Assessment/Plan improving slowly awaiting sputum ppd (--) Sputum for Afb sputum culture pending serology pending Subjective ROS Limited/Unobtainable: No Constitutional: Reports: no symptoms HEENT: Repors: no symptoms Respiratory: Reports: no symptoms Allergies: Coded Allergies: INSULIN DETEMIR (Unverified Allergy, Unknown, Sweating, 08/16/18) Objective Last 24 Hour Vital Signs Date Time Temp Pulse Resp B/P (MAP) Pulse Ox O2 Delivery O2 Flow Rate FiO2 08/31/18 12:00 80 18 99 Nasal Cannula 2.0 28 08/31/18 12:00 97.3 79 18 117/74 (88) 97 08/31/18 11:50 77 20 97 Room Air 08/31/18 09:50 139/70 08/31/18 08:13 97 19 99 Room Air 08/31/18 08:04 92 19 Room Air 08/31/18 08:01 92 19 97 Room Air 21 08/31/18 08:00 97.7 97 19 139/70 (93) 96 08/31/18 08:00 Room Air 08/31/18 04:04 Room Air 21 08/31/18 04:03 Room Air 21 08/31/18 00:17 78 20 99 Room Air 21 08/31/18 00:10 81 20 98 Room Air 21 08/31/18 00:00 97.3 82 18 133/69 (90) 97 08/30/18 21:00 Room Air 08/30/18 20:34 81 20 99 Room Air 21 08/30/18 20:25 77 20 97 Room Air 21 08/30/18 20:25 77 20 Room Air 21 08/30/18 20:00 97.4 90 19 125/79 (94) 95 08/30/18 16:00 97.5 93 19 128/77 (94) 97 08/30/18 15:16 84 16 99 Room Air 21 08/30/18 15:08 75 16 96 Room Air 21 08/30/18 15:08 21 Intake and Output 08/30/18 08/31/18 19:00 07:00 Intake Total 1610 ml 855 ml Output Total 2000 ml Balance 1610 ml -1145 ml Intake Oral 1280 ml 800 ml IV Total 330 ml 55 ml Output Urine Total 2000 ml # Voids 8 3 Objective General Appearance: WD/WN HEENT: normocephalic, atraumatic, anicteric Respiratory/Chest: chest wall non-tender, lungs clear Breasts: no masses Cardiovascular: normal peripheral pulses, normal rate Abdomen: normal bowel sounds, soft, non tender Extremities: no cyanosis Skin: no rash 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 grossly normal Lymphatic: no neck adenopathy Laboratory Tests 08/31/18 07:37: White Blood Count 5.3, Red Blood Count 4.41L, Hemoglobin 13.4L, Hematocrit 38.9L , Mean Corpuscular Volume 88, Mean Corpuscular Hemoglobin 30.4, Mean Corpuscular Hemoglobin Concent 34.4, Red Cell Distribution Width 11.1L, Platelet Count 277, Mean Platelet Volume 8.5, Neutrophils (%) (Auto) 51.9, Lymphocytes (%) (Auto) 34.0, Monocytes (%) (Auto) 8.7, Eosinophils (%) (Auto) 2.7, Basophils (%) (Auto) 2.8H, Sodium Level 135L, Potassium Level 4.4, Chloride Level 101, Carbon Dioxide Level 27, Anion Gap 8, Blood Urea Nitrogen 12 , Creatinine 1.0, Estimat Glomerular Filtration Rate > 60, Glucose Level 280#H, Calcium Level 9.4 Current Medications Medications (Trade) Dose Ordered Sig/Rashel Route PRN Reason Start Time Stop Time Status Last Admin Dose Admin Acetaminophen (Tylenol) 650 mg Q4H PRN ORAL fever (temp>100.5F) 08/15/18 20:15 09/14/18 20:14 08/15/18 21:53 Al Hydroxide/Mg Hydroxide (Mylanta II) 30 ml Q6H PRN ORAL dyspepsia 08/15/18 20:15 09/14/18 20:14 Albuterol/ Ipratropium (Albuterol/ Ipratropium) 3 ml Q4H PRN HHN Shortness of Breath 08/27/18 22:30 09/01/18 22:29 Albuterol/ Ipratropium (Albuterol/ Ipratropium) 3 ml Q4HRT HHN 08/30/18 15:00 09/04/18 14:59 08/31/18 11:50 Aspirin (Ecotrin) 81 mg DAILY ORAL 08/16/18 09:00 09/15/18 08:59 08/31/18 09:50 Atorvastatin Calcium (Lipitor) 20 mg BEDTIME ORAL 08/23/18 21:00 09/22/18 20:59 08/30/18 21:03 Azithromycin 500 mg/Dextrose 275 ml @ 275 mls/hr Q24HRS IV 08/27/18 12:00 09/02/18 12:59 08/31/18 12:24 Benazepril HCl (Lotensin) 20 mg DAILY ORAL 08/20/18 12:01 09/19/18 12:00 08/31/18 09:50 Cefazolin Sodium 1 gm/Dextrose 55 ml @ 110 mls/hr Q8HR IVPB 08/29/18 14:00 09/05/18 13:59 08/31/18 06:00 Clonidine HCl (Catapres Tab) 0.1 mg Q4H PRN ORAL sbp more than 160 08/15/18 20:15 09/14/18 20:14 Dextrose (Dextrose 50%) 25 ml Q30M PRN IV Hypoglycemia 08/16/18 07:30 09/15/18 07:29 Dextrose (Dextrose 50%) 50 ml Q30M PRN IV Hypoglycemia 08/16/18 07:30 09/15/18 07:29 08/24/18 19:11 Docusate Sodium (Colace) 100 mg TWICE A DAY ORAL 08/30/18 09:00 09/29/18 08:59 08/31/18 09:48 Heparin Sodium (Porcine) (Heparin 5000 units/ml) 5,000 units EVERY 12 HOURS SUBQ 08/15/18 21:00 09/14/18 20:59 08/31/18 09:54 Ibuprofen (Advil) 600 mg Q8H PRN ORAL mild pain 08/20/18 12:00 09/19/18 11:59 08/29/18 21:13 Insulin Aspart (NovoLOG) BEFORE MEALS AND HS SUBQ 08/25/18 11:30 09/14/18 21:59 08/31/18 06:57 Insulin Aspart (NovoLOG) 10 units NOVOLOGL SUBQ 08/30/18 11:50 09/22/18 11:49 08/31/18 12:24 Insulin Aspart (NovoLOG) 12 units NOVOLOGB SUBQ 08/31/18 06:30 09/22/18 06:29 08/31/18 06:58 Insulin Aspart (NovoLOG) 12 units NOVOLOGS SUBQ 08/30/18 16:50 09/21/18 16:49 08/30/18 17:09 Insulin Glargine (Lantus (NON FORUMULARY)) 36 unit QHS SQ 08/30/18 21:00 09/24/18 22:00 08/30/18 21:05 Ondansetron HCl (Zofran) 4 mg Q6H PRN IVP Nausea & Vomiting 08/26/18 13:15 09/25/18 13:14 Polyethylene Glycol (Miralax) 17 gm BEDTIME ORAL 08/30/18 21:00 09/29/18 20:59 Pregabalin (Lyrica) 50 mg TWICE A DAY ORAL 08/16/18 09:00 09/15/18 08:59 08/31/18 09:49 Promethazine HCl/ Codeine (Phenergan with Codeine) 5 ml Q8H PRN ORAL For Cough 08/21/18 14:45 09/20/18 14:44 08/30/18 21:03 Rohini Camargo MD Aug 31, 2018 14:21
[2018-08-31 20:00] VITALS: BP 117/74
[2018-08-31] MEDS: Miralax 17gm pkt ORAL SCH ×2 (21:00→21:10)
[2018-08-31] MEDS: Atorvastatin 20mg tab ORAL SCH (21:10)
--- NOTE | 2018-08-31 23:52 | Cardiology Progress Note ---
Assessment/Plan Assessment/Plan 1. Atypical chest pain, no ischemic features on the ECG, negative troponin I levels, 2D echocardiography reveals normal LV systolic function with LVEF at 55 %. 2. DM, continue ASA and atorvastatin. 3. HTN, well controlled, continue benazepril. 4. CKD 5. Gastroparesis Subjective Subjective No cardiac events reported. Denies chest pain or SOB. Objective Last 24 Hour Vital Signs Date Time Temp Pulse Resp B/P (MAP) Pulse Ox O2 Delivery O2 Flow Rate FiO2 08/31/18 23:24 79 16 100 Nasal Cannula 2.0 08/31/18 23:17 82 18 97 Nasal Cannula 2.0 08/31/18 21:00 Room Air 08/31/18 20:56 77 16 99 Nasal Cannula 2.0 08/31/18 20:49 98 Nasal Cannula 2.0 08/31/18 20:49 76 16 98 Nasal Cannula 2.0 08/31/18 20:48 Nasal Cannula 2.0 08/31/18 20:00 97.3 79 16 117/74 (88) 98 08/31/18 15:45 79 16 98 Nasal Cannula 2.0 08/31/18 15:37 99 Nasal Cannula 2.0 08/31/18 15:37 Nasal Cannula 2.0 08/31/18 15:35 79 15 99 Nasal Cannula 2.0 08/31/18 12:00 80 18 99 Nasal Cannula 2.0 08/31/18 12:00 97.3 79 18 117/74 (88) 97 08/31/18 11:50 77 20 97 Room Air 08/31/18 09:50 139/70 08/31/18 08:13 97 19 99 Room Air 08/31/18 08:04 92 19 Room Air 08/31/18 08:01 92 19 97 Room Air 08/31/18 08:00 97.7 97 19 139/70 (93) 96 08/31/18 08:00 Room Air 08/31/18 04:04 Room Air 08/31/18 04:03 Room Air 08/31/18 00:17 78 20 99 Room Air 08/31/18 00:10 81 20 98 Room Air 08/31/18 00:00 97.3 82 18 133/69 (90) 97 Intake and Output 08/30/18 08/31/18 19:00 07:00 Intake Total 1610 ml 855 ml Output Total 2000 ml Balance 1610 ml -1145 ml Intake Oral 1280 ml 800 ml IV Total 330 ml 55 ml Output Urine Total 2000 ml # Voids 8 3 2D Echo: LVEF 60-65%, Grade I LVDD, RVSP 16 mmHg Laboratory Tests Test 08/31/18 07:37 White Blood Count 5.3 K/UL (4.8-10.8) Red Blood Count 4.41 M/UL (4.70-6.10) L Hemoglobin 13.4 G/DL (14.2-18.0) L Hematocrit 38.9 % (42.0-52.0) L Mean Corpuscular Volume 88 FL (80-99) Mean Corpuscular Hemoglobin 30.4 PG (27.0-31.0) Mean Corpuscular Hemoglobin Concent 34.4 G/DL (32.0-36.0) Red Cell Distribution Width 11.1 % (11.6-14.8) L Platelet Count 277 K/UL (150-450) Mean Platelet Volume 8.5 FL (6.5-10.1) Neutrophils (%) (Auto) 51.9 % (45.0-75.0) Lymphocytes (%) (Auto) 34.0 % (20.0-45.0) Monocytes (%) (Auto) 8.7 % (1.0-10.0) Eosinophils (%) (Auto) 2.7 % (0.0-3.0) Basophils (%) (Auto) 2.8 % (0.0-2.0) H Sodium Level 135 MMOL/L (136-145) L Potassium Level 4.4 MMOL/L (3.5-5.1) Chloride Level 101 MMOL/L (98-107) Carbon Dioxide Level 27 MMOL/L (21-32) Anion Gap 8 mmol/L (5-15) Blood Urea Nitrogen 12 mg/dL (7-18) Creatinine 1.0 MG/DL (0.55-1.30) Estimat Glomerular Filtration Rate > 60 mL/min (>60) Glucose Level 280 MG/DL (74-106) #H Calcium Level 9.4 MG/DL (8.5-10.1) Objective HEENT: Normocephalic and atraumatic. PERRLA, EOMI. NECK: No JVD, no carotid bruit. CHEST: Clear to auscultation. CARDIOVASCULAR: Regular rate and rhythm, normal S1 S2, no murmurs, gallops or rubs. ABDOMEN: Soft and nontender. Good bowel sounds. There is no organomegaly or tenderness. EXTREMITIES: no edema, clubbing or cyanosis. Miguel Angel Beckford MD Aug 31, 2018 23:52
[2018-09-01] MEDS: Albuterol/Ipratropium 3ml neb HHN SCH ×5 (03:00→20:04)
[2018-09-01 04:00] VITALS: BP 111/57
[2018-09-01] MEDS: ceFAZolin sod 1 GM in D5W 55 ML IVPB SCH ×3 (06:07→22:02)
[2018-09-01] MEDS: NovoLOG Insulin Flexpen SUBQ SCH ×8 (06:30→21:08)
[2018-09-01 06:44] LABS: BASOPHILS % (AUTO) 2.2 % (0.0-2.0); EOSINOPHILS % (AUTO) 3.1 % (0.0-3.0); HEMATOCRIT 36.9 % (42.0-52.0); HEMOGLOBIN 12.7 G/DL (14.2-18.0); LYMPHOCYTES % (AUTO) 34.5 % (20.0-45.0); MEAN CORPUSCULAR VOLUME 88 FL (80-99); MONOCYTES % (AUTO) 8.9 % (1.0-10.0); NEUTROPHILS % (AUTO) 51.3 % (45.0-75.0); PLATELET COUNT 249 K/UL (150-450); RED CELL DISTRIBUTION WIDTH 11.2 % (11.6-14.8); WHITE BLOOD COUNT 5.8 K/UL (4.8-10.8)
--- NOTE | 2018-09-01 07:07 | General Progress Note ---
Assessment/Plan Problem List: (1) Hyperglycemia ICD Codes: R73.9 - Hyperglycemia, unspecified SNOMED: 79433654 (2) Intractable vomiting ICD Codes: R11.10 - Vomiting, unspecified SNOMED: 676824959, 177470260 Qualifiers: Qualified Codes: R11.2 - Nausea with vomiting, unspecified (3) Renal insufficiency ICD Codes: N28.9 - Disorder of kidney and ureter, unspecified SNOMED: 314180238, 402542507 (4) Gastroenteritis ICD Codes: K52.9 - Noninfective gastroenteritis and colitis, unspecified SNOMED: 57886878 Assessment/Plan continue Lantus 36 units qhs continue Novolog units ac B / L / D continue NISS ac / hs NOTE: patient has T1DM which is very brittle in nature therefore it would be impossible to have perfect glucose values. from DM stand point there is no barrier for discharge Subjective Allergies: Coded Allergies: INSULIN DETEMIR (Unverified Allergy, Unknown, Sweating, 08/16/18) All Systems: reviewed and negative except above Subjective events noted Objective Last 24 Hour Vital Signs Date Time Temp Pulse Resp B/P (MAP) Pulse Ox O2 Delivery O2 Flow Rate FiO2 09/01/18 04:00 97.9 79 18 111/57 (75) 96 09/01/18 02:55 Nasal Cannula 2.0 09/01/18 02:55 92 19 97 Nasal Cannula 2.0 08/31/18 23:24 79 16 100 Nasal Cannula 2.0 08/31/18 23:17 82 18 97 Nasal Cannula 2.0 08/31/18 21:00 Room Air 08/31/18 20:56 77 16 99 Nasal Cannula 2.0 08/31/18 20:49 98 Nasal Cannula 2.0 08/31/18 20:49 76 16 98 Nasal Cannula 2.0 08/31/18 20:48 Nasal Cannula 2.0 08/31/18 20:00 97.3 79 16 117/74 (88) 98 08/31/18 15:45 79 16 98 Nasal Cannula 2.0 08/31/18 15:37 99 Nasal Cannula 2.0 08/31/18 15:37 Nasal Cannula 2.0 08/31/18 15:35 79 15 99 Nasal Cannula 2.0 08/31/18 12:00 80 18 99 Nasal Cannula 2.0 28 08/31/18 12:00 97.3 79 18 117/74 (88) 97 08/31/18 11:50 77 20 97 Room Air 21 08/31/18 09:50 139/70 08/31/18 08:13 97 19 99 Room Air 21 08/31/18 08:04 92 19 Room Air 21 08/31/18 08:01 92 19 97 Room Air 21 08/31/18 08:00 97.7 97 19 139/70 (93) 96 08/31/18 08:00 Room Air Intake and Output 08/31/18 09/01/18 19:00 07:00 Intake Total 1000 ml Output Total 800 ml Balance 1000 ml -800 ml Intake Oral 1000 ml Output Urine Total 800 ml # Voids 2 2 Laboratory Tests 08/31/18 07:37: White Blood Count 5.3, Red Blood Count 4.41L, Hemoglobin 13.4L, Hematocrit 38.9L , Mean Corpuscular Volume 88, Mean Corpuscular Hemoglobin 30.4, Mean Corpuscular Hemoglobin Concent 34.4, Red Cell Distribution Width 11.1L, Platelet Count 277, Mean Platelet Volume 8.5, Neutrophils (%) (Auto) 51.9, Lymphocytes (%) (Auto) 34.0, Monocytes (%) (Auto) 8.7, Eosinophils (%) (Auto) 2.7, Basophils (%) (Auto) 2.8H, Sodium Level 135L, Potassium Level 4.4, Chloride Level 101, Carbon Dioxide Level 27, Anion Gap 8, Blood Urea Nitrogen 12 , Creatinine 1.0, Estimat Glomerular Filtration Rate > 60, Glucose Level 280#H, Calcium Level 9.4 09/01/18 05:10: White Blood Count [Pending], Red Blood Count [Pending], Hemoglobin [Pending], Hematocrit [Pending], Mean Corpuscular Volume [Pending], Mean Corpuscular Hemoglobin [Pending], Mean Corpuscular Hemoglobin Concent [Pending], Red Cell Distribution Width [Pending], Platelet Count [Pending], Mean Platelet Volume [ Pending], Neutrophils (%) (Auto) [Pending], Lymphocytes (%) (Auto) [Pending], Monocytes (%) (Auto) [Pending], Eosinophils (%) (Auto) [Pending], Basophils (%) (Auto) [Pending], Sodium Level [Pending], Potassium Level [Pending], Chloride Level [Pending], Carbon Dioxide Level [Pending], Blood Urea Nitrogen [Pending], Creatinine [Pending], Estimat Glomerular Filtration Rate [Pending], Glucose Level [Pending], Calcium Level [Pending], Erythrocyte Sedimentation Rate [ Pending], Phosphorus Level [Pending], Magnesium Level [Pending], Total Bilirubin [Pending], Aspartate Amino Transf (AST/SGOT) [Pending], Alanine Aminotransferase (ALT/SGPT) [Pending], Alkaline Phosphatase [Pending], C- Reactive Protein, Quantitative [Pending], Total Protein [Pending], Albumin [ Pending], Globulin [Pending] Height (Feet): 5 Height (Inches): 10.00 Weight (Pounds): 205 General Appearance: no apparent distress Neck: normal alignment Cardiovascular: normal rate Respiratory/Chest: normal breath sounds Abdomen: normal bowel sounds Pelvis: normal external exam Objective Current Medications Medications (Trade) Dose Ordered Sig/Rashel Route PRN Reason Start Time Stop Time Status Last Admin Dose Admin Acetaminophen (Tylenol) 650 mg Q4H PRN ORAL fever (temp>100.5F) 08/15/18 20:15 09/14/18 20:14 08/15/18 21:53 Al Hydroxide/Mg Hydroxide (Mylanta II) 30 ml Q6H PRN ORAL dyspepsia 08/15/18 20:15 09/14/18 20:14 Albuterol/ Ipratropium (Albuterol/ Ipratropium) 3 ml Q4H PRN HHN Shortness of Breath 08/27/18 22:30 09/01/18 22:29 Albuterol/ Ipratropium (Albuterol/ Ipratropium) 3 ml Q4HRT HHN 08/30/18 15:00 09/04/18 14:59 08/31/18 23:17 Aspirin (Ecotrin) 81 mg DAILY ORAL 08/16/18 09:00 09/15/18 08:59 08/31/18 09:50 Atorvastatin Calcium (Lipitor) 20 mg BEDTIME ORAL 08/23/18 21:00 09/22/18 20:59 08/31/18 21:10 Azithromycin (Zithromax) 500 mg Q24H ORAL 09/01/18 12:00 09/02/18 11:59 Benazepril HCl (Lotensin) 20 mg DAILY ORAL 08/20/18 12:01 09/19/18 12:00 08/31/18 09:50 Cefazolin Sodium 1 gm/Dextrose 55 ml @ 110 mls/hr Q8HR IVPB 08/29/18 14:00 09/05/18 13:59 09/01/18 06:07 Clonidine HCl (Catapres Tab) 0.1 mg Q4H PRN ORAL sbp more than 160 08/15/18 20:15 09/14/18 20:14 Dextrose (Dextrose 50%) 25 ml Q30M PRN IV Hypoglycemia 08/16/18 07:30 09/15/18 07:29 Dextrose (Dextrose 50%) 50 ml Q30M PRN IV Hypoglycemia 08/16/18 07:30 09/15/18 07:29 08/24/18 19:11 Docusate Sodium (Colace) 100 mg TWICE A DAY ORAL 08/30/18 09:00 09/29/18 08:59 08/31/18 18:01 Heparin Sodium (Porcine) (Heparin 5000 units/ml) 5,000 units EVERY 12 HOURS SUBQ 08/15/18 21:00 09/14/18 20:59 08/31/18 21:09 Ibuprofen (Advil) 600 mg Q8H PRN ORAL mild pain 08/20/18 12:00 09/19/18 11:59 08/29/18 21:13 Insulin Aspart (NovoLOG) BEFORE MEALS AND HS SUBQ 08/25/18 11:30 09/14/18 21:59 08/31/18 21:05 Insulin Aspart (NovoLOG) 10 units NOVOLOGL SUBQ 08/30/18 11:50 09/22/18 11:49 08/31/18 12:24 Insulin Aspart (NovoLOG) 12 units NOVOLOGB SUBQ 08/31/18 06:30 09/22/18 06:29 08/31/18 06:58 Insulin Aspart (NovoLOG) 12 units NOVOLOGS SUBQ 08/30/18 16:50 09/21/18 16:49 08/31/18 18:07 Insulin Glargine (Lantus (NON FORUMULARY)) 36 unit QHS SQ 08/30/18 21:00 09/24/18 22:00 08/31/18 21:03 Ondansetron HCl (Zofran) 4 mg Q6H PRN IVP Nausea & Vomiting 08/26/18 13:15 09/25/18 13:14 Polyethylene Glycol (Miralax) 17 gm BEDTIME ORAL 08/30/18 21:00 09/29/18 20:59 Pregabalin (Lyrica) 50 mg TWICE A DAY ORAL 08/16/18 09:00 09/15/18 08:59 08/31/18 18:01 Promethazine HCl/ Codeine (Phenergan with Codeine) 5 ml Q8H PRN ORAL For Cough 08/21/18 14:45 09/20/18 14:44 08/30/18 21:03 Item Value Date Time Bedside Blood Glucose 111 mg/dl 09/01/18 0702 Bedside Blood Glucose 177 mg/dl H 08/31/18 2105 Bedside Blood Glucose 169 mg/dl H 08/31/18 1808 Bedside Blood Glucose 150 mg/dl H 08/31/18 1224 Bedside Blood Glucose 246 mg/dl H 08/31/18 0658 Mac Vegas MD Sep 01, 2018 07:07
[2018-09-01 07:28] LABS: ALANINE AMINOTRANSFERASE 33 U/L (12-78); ALBUMIN 3.2 G/DL (3.4-5.0); ALKALINE PHOSPHATASE 77 U/L (46-116); ANION GAP 6 mmol/L (5-15); ASPARTATE AMINO TRANSFERASE 26 U/L (15-37); BLOOD UREA NITROGEN 12 mg/dL (7-18); CALCIUM 9.5 MG/DL (8.5-10.1); CARBON DIOXIDE 29 MMOL/L (21-32); CHLORIDE 105 MMOL/L (98-107); CREATININE 0.9 MG/DL (0.55-1.30); POTASSIUM 3.9 MMOL/L (3.5-5.1); SODIUM 140 MMOL/L (136-145)
[2018-09-01 07:51] LABS: PHOSPHORUS 4.1 MG/DL (2.5-4.9)
[2018-09-01 08:00] VITALS: BP 132/78
[2018-09-01 08:08] LABS: BILIRUBIN,TOTAL 0.6 MG/DL (0.2-1.0)
[2018-09-01] MEDS: Aspirin EC 81mg tab ORAL SCH (08:30)
[2018-09-01] MEDS: Docusate 100mg cap ORAL SCH ×2 (08:30→17:23)
[2018-09-01] MEDS: Benazepril 10mg tab ORAL SCH (08:30)
[2018-09-01] MEDS: Lyrica 50mg cap ORAL SCH ×2 (08:31→17:23)
[2018-09-01] MEDS: Heparin 5000 units/ml inj SUBQ SCH ×2 (08:37→21:08)
[2018-09-01] MEDS: Promethazine/Codeine 5ml UD ORAL PRN (08:41)
--- NOTE | 2018-09-01 09:33 | Infectious Diseases Prog Note ---
Assessment/Plan Assessment/Plan Pneumonia ( CAP vs fungal vs mycobacterial ) SCx: MSSA ( ? contaminant ) CT: Right upper and lower lobe scattered areas of consolidation, nodularity, groundglass and equivocal tree-in-bud opacities. Most likely represents infectious inflammatory process. Given possibly tree-in-bud opacities, the possibility of atypical infectious processes, including tuberculosis or other mycobacterial infections or fungal pneumonia pulmonary to be considered but are less likely. Noninfectious inflammatory processes should also be considered. Multifocal neoplasm such as bronchoalveolar carcinoma must less likely but also possible 2dEcho no Veg Fever, improving Leukocytosis, Crypt Ag, HIV: Neg AFB Neg x 2 DM2 HLD HTN CAD/FL asthma P: Cont pt on Zithro and Ancef d# 6/7 Clinically improving so will hold off on empiric anti fungal for now Monitor CBC Monitor CMP Monitor Sputum Cx , AFB x 3, Fungal Blood Cx x 2 Sputum MTB-PCR x 2 Coccidio AB Fungitell QFTB legio Ur Ag Subjective Allergies: Coded Allergies: INSULIN DETEMIR (Unverified Allergy, Unknown, Sweating, 08/16/18) Subjective Afebrile No Leukocytosis 2 AFB stains neg, 1 in lab and still pending Objective Vital Signs Last 24 Hour Vital Signs Date Time Temp Pulse Resp B/P (MAP) Pulse Ox O2 Delivery O2 Flow Rate FiO2 09/01/18 08:30 132/78 09/01/18 08:00 97.5 84 20 132/78 (96) 94 09/01/18 08:00 80 20 99 Room Air 09/01/18 07:53 Nasal Cannula 2.0 09/01/18 07:53 79 20 98 Room Air 09/01/18 07:53 98 Nasal Cannula 09/01/18 04:00 97.9 79 18 111/57 (75) 96 09/01/18 02:55 Nasal Cannula 2.0 09/01/18 02:55 92 19 97 Nasal Cannula 2.0 08/31/18 23:24 79 16 100 Nasal Cannula 2.0 08/31/18 23:17 82 18 97 Nasal Cannula 2.0 08/31/18 21:00 Room Air 08/31/18 20:56 77 16 99 Nasal Cannula 2.0 08/31/18 20:49 98 Nasal Cannula 2.0 08/31/18 20:49 76 16 98 Nasal Cannula 2.0 28 08/31/18 20:48 Nasal Cannula 2.0 08/31/18 20:00 97.3 79 16 117/74 (88) 98 08/31/18 15:45 79 16 98 Nasal Cannula 2.0 28 08/31/18 15:37 99 Nasal Cannula 2.0 28 08/31/18 15:37 Nasal Cannula 2.0 08/31/18 15:35 79 15 99 Nasal Cannula 2.0 08/31/18 12:00 80 18 99 Nasal Cannula 2.0 28 08/31/18 12:00 97.3 79 18 117/74 (88) 97 08/31/18 11:50 77 20 97 Room Air 08/31/18 09:50 139/70 Height (Feet): 5 Height (Inches): 10.00 Weight (Pounds): 205 Objective GEN; NAD HEENT: NCAT, MMM Respiratory/Chest: CATB, no respiratory distress Cardiovascular: regular rhythm Abdomen: no organomegaly Skin: no rash Laboratory Tests Test 09/01/18 05:10 White Blood Count 5.8 K/UL (4.8-10.8) Red Blood Count 4.20 M/UL (4.70-6.10) L Hemoglobin 12.7 G/DL (14.2-18.0) L Hematocrit 36.9 % (42.0-52.0) L Mean Corpuscular Volume 88 FL (80-99) Mean Corpuscular Hemoglobin 30.2 PG (27.0-31.0) Mean Corpuscular Hemoglobin Concent 34.4 G/DL (32.0-36.0) Red Cell Distribution Width 11.2 % (11.6-14.8) L Platelet Count 249 K/UL (150-450) Mean Platelet Volume 8.5 FL (6.5-10.1) Neutrophils (%) (Auto) 51.3 % (45.0-75.0) Lymphocytes (%) (Auto) 34.5 % (20.0-45.0) Monocytes (%) (Auto) 8.9 % (1.0-10.0) Eosinophils (%) (Auto) 3.1 % (0.0-3.0) H Basophils (%) (Auto) 2.2 % (0.0-2.0) H Erythrocyte Sedimentation Rate 40 MM/HR (0-20) H Sodium Level 140 MMOL/L (136-145) Potassium Level 3.9 MMOL/L (3.5-5.1) Chloride Level 105 MMOL/L (98-107) Carbon Dioxide Level 29 MMOL/L (21-32) Anion Gap 6 mmol/L (5-15) Blood Urea Nitrogen 12 mg/dL (7-18) Creatinine 0.9 MG/DL (0.55-1.30) Estimat Glomerular Filtration Rate > 60 mL/min (>60) Glucose Level 133 MG/DL (74-106) #H Calcium Level 9.5 MG/DL (8.5-10.1) Phosphorus Level 4.1 MG/DL (2.5-4.9) Magnesium Level 1.8 MG/DL (1.8-2.4) Total Bilirubin 0.6 MG/DL (0.2-1.0) Aspartate Amino Transf (AST/SGOT) 26 U/L (15-37) Alanine Aminotransferase (ALT/SGPT) 33 U/L (12-78) Alkaline Phosphatase 77 U/L (46-116) C-Reactive Protein, Quantitative < 0.4 mg/dL (0.00-0.90) Total Protein 6.5 G/DL (6.4-8.2) Albumin 3.2 G/DL (3.4-5.0) L Globulin 3.3 g/dL Albumin/Globulin Ratio 1.0 (1.0-2.7) Current Medications Medications (Trade) Dose Ordered Sig/Rashel Route PRN Reason Start Time Stop Time Status Last Admin Dose Admin Acetaminophen (Tylenol) 650 mg Q4H PRN ORAL fever (temp>100.5F) 08/15/18 20:15 09/14/18 20:14 08/15/18 21:53 Al Hydroxide/Mg Hydroxide (Mylanta II) 30 ml Q6H PRN ORAL dyspepsia 08/15/18 20:15 09/14/18 20:14 Albuterol/ Ipratropium (Albuterol/ Ipratropium) 3 ml Q4H PRN HHN Shortness of Breath 08/27/18 22:30 09/01/18 22:29 Albuterol/ Ipratropium (Albuterol/ Ipratropium) 3 ml Q4HRT HHN 08/30/18 15:00 09/04/18 14:59 09/01/18 07:51 Aspirin (Ecotrin) 81 mg DAILY ORAL 08/16/18 09:00 09/15/18 08:59 09/01/18 08:30 Atorvastatin Calcium (Lipitor) 20 mg BEDTIME ORAL 08/23/18 21:00 09/22/18 20:59 08/31/18 21:10 Azithromycin (Zithromax) 500 mg Q24H ORAL 09/01/18 12:00 09/02/18 11:59 Benazepril HCl (Lotensin) 20 mg DAILY ORAL 08/20/18 12:01 09/19/18 12:00 09/01/18 08:30 Cefazolin Sodium 1 gm/Dextrose 55 ml @ 110 mls/hr Q8HR IVPB 08/29/18 14:00 09/05/18 13:59 09/01/18 06:07 Clonidine HCl (Catapres Tab) 0.1 mg Q4H PRN ORAL sbp more than 160 08/15/18 20:15 09/14/18 20:14 Dextrose (Dextrose 50%) 25 ml Q30M PRN IV Hypoglycemia 08/16/18 07:30 09/15/18 07:29 Dextrose (Dextrose 50%) 50 ml Q30M PRN IV Hypoglycemia 08/16/18 07:30 09/15/18 07:29 08/24/18 19:11 Docusate Sodium (Colace) 100 mg TWICE A DAY ORAL 08/30/18 09:00 09/29/18 08:59 09/01/18 08:30 Heparin Sodium (Porcine) (Heparin 5000 units/ml) 5,000 units EVERY 12 HOURS SUBQ 08/15/18 21:00 09/14/18 20:59 09/01/18 08:37 Ibuprofen (Advil) 600 mg Q8H PRN ORAL mild pain 08/20/18 12:00 09/19/18 11:59 08/29/18 21:13 Insulin Aspart (NovoLOG) BEFORE MEALS AND HS SUBQ 08/25/18 11:30 09/14/18 21:59 08/31/18 21:05 Insulin Aspart (NovoLOG) 10 units NOVOLOGL SUBQ 08/30/18 11:50 09/22/18 11:49 08/31/18 12:24 Insulin Aspart (NovoLOG) 12 units NOVOLOGB SUBQ 08/31/18 06:30 09/22/18 06:29 09/01/18 06:30 Insulin Aspart (NovoLOG) 12 units NOVOLOGS SUBQ 08/30/18 16:50 09/21/18 16:49 08/31/18 18:07 Insulin Glargine (Lantus (NON FORUMULARY)) 36 unit QHS SQ 08/30/18 21:00 09/24/18 22:00 08/31/18 21:03 Ondansetron HCl (Zofran) 4 mg Q6H PRN IVP Nausea & Vomiting 08/26/18 13:15 09/25/18 13:14 Polyethylene Glycol (Miralax) 17 gm BEDTIME ORAL 08/30/18 21:00 09/29/18 20:59 Pregabalin (Lyrica) 50 mg TWICE A DAY ORAL 08/16/18 09:00 09/15/18 08:59 09/01/18 08:31 Promethazine HCl/ Codeine (Phenergan with Codeine) 5 ml Q8H PRN ORAL For Cough 08/21/18 14:45 09/20/18 14:44 09/01/18 08:41 Terence Snell MD Sep 01, 2018 09:33
--- NOTE | 2018-09-01 11:45 | Surgery Progress Note ---
Surgery Progress Note Subjective Additional Comments no acute events. stable. Objective Last 24 Hour Vital Signs Date Time Temp Pulse Resp B/P (MAP) Pulse Ox O2 Delivery O2 Flow Rate FiO2 09/01/18 11:16 77 20 99 Room Air 09/01/18 11:11 74 20 97 Room Air 09/01/18 09:00 Room Air 09/01/18 08:30 132/78 09/01/18 08:00 97.5 84 20 132/78 (96) 94 09/01/18 08:00 80 20 99 Room Air 09/01/18 07:53 Nasal Cannula 2.0 09/01/18 07:53 79 20 98 Room Air 09/01/18 07:53 98 Nasal Cannula 09/01/18 04:00 97.9 79 18 111/57 (75) 96 09/01/18 02:55 Nasal Cannula 2.0 09/01/18 02:55 92 19 97 Nasal Cannula 2.0 08/31/18 23:24 79 16 100 Nasal Cannula 2.0 08/31/18 23:17 82 18 97 Nasal Cannula 2.0 08/31/18 21:00 Room Air 08/31/18 20:56 77 16 99 Nasal Cannula 2.0 28 08/31/18 20:49 98 Nasal Cannula 2.0 08/31/18 20:49 76 16 98 Nasal Cannula 2.0 08/31/18 20:48 Nasal Cannula 2.0 08/31/18 20:00 97.3 79 16 117/74 (88) 98 08/31/18 15:45 79 16 98 Nasal Cannula 2.0 28 08/31/18 15:37 99 Nasal Cannula 2.0 28 08/31/18 15:37 Nasal Cannula 2.0 28 08/31/18 15:35 79 15 99 Nasal Cannula 2.0 28 08/31/18 12:00 80 18 99 Nasal Cannula 2.0 28 08/31/18 12:00 97.3 79 18 117/74 (88) 97 08/31/18 11:50 77 20 97 Room Air I&O Intake and Output 08/31/18 09/01/18 19:00 07:00 Intake Total 1000 ml Output Total 800 ml Balance 1000 ml -800 ml Intake Oral 1000 ml Output Urine Total 800 ml # Voids 2 2 Dressing: dry Wound: clean Drains: none Cardiovascular: RSR Respiratory: clear Abdomen: soft, non-tender, present bowel sounds, non-distended Extremities: no edema, no cyanosis Laboratory Tests Test 09/01/18 05:10 White Blood Count 5.8 K/UL (4.8-10.8) Red Blood Count 4.20 M/UL (4.70-6.10) L Hemoglobin 12.7 G/DL (14.2-18.0) L Hematocrit 36.9 % (42.0-52.0) L Mean Corpuscular Volume 88 FL (80-99) Mean Corpuscular Hemoglobin 30.2 PG (27.0-31.0) Mean Corpuscular Hemoglobin Concent 34.4 G/DL (32.0-36.0) Red Cell Distribution Width 11.2 % (11.6-14.8) L Platelet Count 249 K/UL (150-450) Mean Platelet Volume 8.5 FL (6.5-10.1) Neutrophils (%) (Auto) 51.3 % (45.0-75.0) Lymphocytes (%) (Auto) 34.5 % (20.0-45.0) Monocytes (%) (Auto) 8.9 % (1.0-10.0) Eosinophils (%) (Auto) 3.1 % (0.0-3.0) H Basophils (%) (Auto) 2.2 % (0.0-2.0) H Erythrocyte Sedimentation Rate 40 MM/HR (0-20) H Sodium Level 140 MMOL/L (136-145) Potassium Level 3.9 MMOL/L (3.5-5.1) Chloride Level 105 MMOL/L (98-107) Carbon Dioxide Level 29 MMOL/L (21-32) Anion Gap 6 mmol/L (5-15) Blood Urea Nitrogen 12 mg/dL (7-18) Creatinine 0.9 MG/DL (0.55-1.30) Estimat Glomerular Filtration Rate > 60 mL/min (>60) Glucose Level 133 MG/DL (74-106) #H Calcium Level 9.5 MG/DL (8.5-10.1) Phosphorus Level 4.1 MG/DL (2.5-4.9) Magnesium Level 1.8 MG/DL (1.8-2.4) Total Bilirubin 0.6 MG/DL (0.2-1.0) Aspartate Amino Transf (AST/SGOT) 26 U/L (15-37) Alanine Aminotransferase (ALT/SGPT) 33 U/L (12-78) Alkaline Phosphatase 77 U/L (46-116) C-Reactive Protein, Quantitative < 0.4 mg/dL (0.00-0.90) Total Protein 6.5 G/DL (6.4-8.2) Albumin 3.2 G/DL (3.4-5.0) L Globulin 3.3 g/dL Albumin/Globulin Ratio 1.0 (1.0-2.7) Plan Problems: (1) Finger laceration Assessment & Plan: laceration to left ring finger while shaving today. hemostasis now. dressings applied no signs of infection acutely. keep dressings in place for now - steri-strips/ gauze asked patient about tetanus. states had it in last 10 years but not sure about last 5 years will give tetanus booster will monitor for signs of infection okay to d/c from surgical standpoint keep hand clean. remove dressings in 1 week. thank you Marv Brandon Sep 01, 2018 11:45
[2018-09-01 12:00] VITALS: BP 128/78
[2018-09-01] MEDS: Azithromycin 250mg tab ORAL SCH ×3 (12:00→17:29)
--- NOTE | 2018-09-01 13:31 | General Progress Note ---
Assessment/Plan Problem List: (1) Gastroenteritis ICD Codes: K52.9 - Noninfective gastroenteritis and colitis, unspecified SNOMED: 14453405 (2) Renal insufficiency ICD Codes: N28.9 - Disorder of kidney and ureter, unspecified SNOMED: 736095415, 840632956 (3) Intractable vomiting ICD Codes: R11.10 - Vomiting, unspecified SNOMED: 089389607, 845784910 Qualifiers: Qualified Codes: R11.2 - Nausea with vomiting, unspecified (4) Hyperglycemia ICD Codes: R73.9 - Hyperglycemia, unspecified SNOMED: 02132584 (5) Gastroparesis ICD Codes: K31.84 - Gastroparesis SNOMED: 091256185 Status: unchanged Assessment/Plan ivf adv diet dc if clear Subjective Constitutional: Reports: weakness Allergies: Coded Allergies: INSULIN DETEMIR (Unverified Allergy, Unknown, Sweating, 08/16/18) All Systems: reviewed and negative except above Subjective calm in bed sl cough Objective Last 24 Hour Vital Signs Date Time Temp Pulse Resp B/P (MAP) Pulse Ox O2 Delivery O2 Flow Rate FiO2 09/01/18 12:00 97.7 82 18 128/78 (95) 97 09/01/18 11:16 77 20 99 Room Air 09/01/18 11:11 74 20 97 Room Air 09/01/18 09:00 Room Air 09/01/18 08:30 132/78 09/01/18 08:00 97.5 84 20 132/78 (96) 94 09/01/18 08:00 80 20 99 Room Air 09/01/18 07:53 Nasal Cannula 2.0 09/01/18 07:53 79 20 98 Room Air 09/01/18 07:53 98 Nasal Cannula 09/01/18 04:00 97.9 79 18 111/57 (75) 96 09/01/18 02:55 Nasal Cannula 2.0 09/01/18 02:55 92 19 97 Nasal Cannula 2.0 08/31/18 23:24 79 16 100 Nasal Cannula 2.0 08/31/18 23:17 82 18 97 Nasal Cannula 2.0 08/31/18 21:00 Room Air 08/31/18 20:56 77 16 99 Nasal Cannula 2.0 08/31/18 20:49 98 Nasal Cannula 2.0 28 08/31/18 20:49 76 16 98 Nasal Cannula 2.0 28 08/31/18 20:48 Nasal Cannula 2.0 28 08/31/18 20:00 97.3 79 16 117/74 (88) 98 08/31/18 15:45 79 16 98 Nasal Cannula 2.0 28 08/31/18 15:37 99 Nasal Cannula 2.0 28 08/31/18 15:37 Nasal Cannula 2.0 28 08/31/18 15:35 79 15 99 Nasal Cannula 2.0 Intake and Output 08/31/18 09/01/18 19:00 07:00 Intake Total 1000 ml Output Total 800 ml Balance 1000 ml -800 ml Intake Oral 1000 ml Output Urine Total 800 ml # Voids 2 2 Laboratory Tests 09/01/18 05:10: White Blood Count 5.8, Red Blood Count 4.20L, Hemoglobin 12.7L, Hematocrit 36.9L , Mean Corpuscular Volume 88, Mean Corpuscular Hemoglobin 30.2, Mean Corpuscular Hemoglobin Concent 34.4, Red Cell Distribution Width 11.2L, Platelet Count 249, Mean Platelet Volume 8.5, Neutrophils (%) (Auto) 51.3, Lymphocytes (%) (Auto) 34.5, Monocytes (%) (Auto) 8.9, Eosinophils (%) (Auto) 3.1H, Basophils (%) (Auto) 2.2H, Erythrocyte Sedimentation Rate 40H, Sodium Level 140, Potassium Level 3.9, Chloride Level 105, Carbon Dioxide Level 29, Anion Gap 6, Blood Urea Nitrogen 12, Creatinine 0.9, Estimat Glomerular Filtration Rate > 60, Glucose Level 133#H, Calcium Level 9.5, Phosphorus Level 4.1, Magnesium Level 1.8, Total Bilirubin 0.6, Aspartate Amino Transf (AST/SGOT ) 26, Alanine Aminotransferase (ALT/SGPT) 33, Alkaline Phosphatase 77, C- Reactive Protein, Quantitative < 0.4, Total Protein 6.5, Albumin 3.2L, Globulin 3.3, Albumin/Globulin Ratio 1.0 Height (Feet): 5 Height (Inches): 10.00 Weight (Pounds): 205 General Appearance: lethargic EENT: normal ENT inspection Neck: normal alignment Cardiovascular: normal peripheral pulses, normal rate, regular rhythm Respiratory/Chest: chest wall non-tender, lungs clear, normal breath sounds Abdomen: normal bowel sounds, non tender, soft Extremities: normal inspection Edema: no edema noted Arm (L), no edema noted Arm (R), no edema noted Leg (L), no edema noted Leg (R), no edema noted Pedal (L), no edema noted Pedal (R), no edema noted Generalized Neurologic: motor weakness Skin: normal pigmentation, warm/dry Stuart Silver DO Sep 01, 2018 13:31
--- NOTE | 2018-09-01 13:45 | GI Progress Note ---
Assessment/Plan Problems: (1) Gastroparesis ICD Codes: K31.84 - Gastroparesis SNOMED: 752897800 (2) Hyperglycemia ICD Codes: R73.9 - Hyperglycemia, unspecified SNOMED: 17324365 (3) Intractable vomiting ICD Codes: R11.10 - Vomiting, unspecified SNOMED: 161278450, 896252924 Qualifiers: Qualified Codes: R11.2 - Nausea with vomiting, unspecified (4) Renal insufficiency ICD Codes: N28.9 - Disorder of kidney and ureter, unspecified SNOMED: 465565412, 863174232 (5) Gastroenteritis ICD Codes: K52.9 - Noninfective gastroenteritis and colitis, unspecified SNOMED: 45125127 (6) Malingering ICD Codes: Z76.5 - Malingerer [conscious simulation] SNOMED: 138887985 Status: stable, unchanged Status Narrative Discussed with Dr. Thomas Assessment/Plan Assessment - N/V, Diarrhea - Abd pain - IDDM - HTN -Gastroparesis OB stool negative Now airborne precautions to rule out TB Recommendations Symptomatic treatment at this time Advance to ADA diet hydration PPI Zofran as needed, Reglan for persistent vomiting Follow-up labs PT evaluation Outpatient EGD colonoscopy The patient was seen and examined at bedside and all new and available data was reviewed in the patients chart. I agree with the above findings, impression and plan. (Patient seen earlier today. Signature stamp does not reflect patient encounter time.). - Noé Thomas MD Subjective Subjective Denies any nausea or vomiting Denies any abdominal pain Able to tolerate small amounts of food Now complaining of hip pain Has new onset of chest pain Objective Last 24 Hour Vital Signs Date Time Temp Pulse Resp B/P (MAP) Pulse Ox O2 Delivery O2 Flow Rate FiO2 09/01/18 12:00 97.7 82 18 128/78 (95) 97 09/01/18 11:16 77 20 99 Room Air 21 09/01/18 11:11 74 20 97 Room Air 21 09/01/18 09:00 Room Air 09/01/18 08:30 132/78 09/01/18 08:00 97.5 84 20 132/78 (96) 94 09/01/18 08:00 80 20 99 Room Air 21 09/01/18 07:53 Nasal Cannula 2.0 28 09/01/18 07:53 79 20 98 Room Air 09/01/18 07:53 98 Nasal Cannula 09/01/18 04:00 97.9 79 18 111/57 (75) 96 09/01/18 02:55 Nasal Cannula 2.0 09/01/18 02:55 92 19 97 Nasal Cannula 2.0 08/31/18 23:24 79 16 100 Nasal Cannula 2.0 08/31/18 23:17 82 18 97 Nasal Cannula 2.0 08/31/18 21:00 Room Air 08/31/18 20:56 77 16 99 Nasal Cannula 2.0 08/31/18 20:49 98 Nasal Cannula 2.0 08/31/18 20:49 76 16 98 Nasal Cannula 2.0 08/31/18 20:48 Nasal Cannula 2.0 08/31/18 20:00 97.3 79 16 117/74 (88) 98 08/31/18 15:45 79 16 98 Nasal Cannula 2.0 08/31/18 15:37 99 Nasal Cannula 2.0 08/31/18 15:37 Nasal Cannula 2.0 08/31/18 15:35 79 15 99 Nasal Cannula 2.0 Intake and Output 08/31/18 09/01/18 19:00 07:00 Intake Total 1000 ml Output Total 800 ml Balance 1000 ml -800 ml Intake Oral 1000 ml Output Urine Total 800 ml # Voids 2 2 Laboratory Tests Test 09/01/18 05:10 White Blood Count 5.8 K/UL (4.8-10.8) Red Blood Count 4.20 M/UL (4.70-6.10) L Hemoglobin 12.7 G/DL (14.2-18.0) L Hematocrit 36.9 % (42.0-52.0) L Mean Corpuscular Volume 88 FL (80-99) Mean Corpuscular Hemoglobin 30.2 PG (27.0-31.0) Mean Corpuscular Hemoglobin Concent 34.4 G/DL (32.0-36.0) Red Cell Distribution Width 11.2 % (11.6-14.8) L Platelet Count 249 K/UL (150-450) Mean Platelet Volume 8.5 FL (6.5-10.1) Neutrophils (%) (Auto) 51.3 % (45.0-75.0) Lymphocytes (%) (Auto) 34.5 % (20.0-45.0) Monocytes (%) (Auto) 8.9 % (1.0-10.0) Eosinophils (%) (Auto) 3.1 % (0.0-3.0) H Basophils (%) (Auto) 2.2 % (0.0-2.0) H Erythrocyte Sedimentation Rate 40 MM/HR (0-20) H Sodium Level 140 MMOL/L (136-145) Potassium Level 3.9 MMOL/L (3.5-5.1) Chloride Level 105 MMOL/L (98-107) Carbon Dioxide Level 29 MMOL/L (21-32) Anion Gap 6 mmol/L (5-15) Blood Urea Nitrogen 12 mg/dL (7-18) Creatinine 0.9 MG/DL (0.55-1.30) Estimat Glomerular Filtration Rate > 60 mL/min (>60) Glucose Level 133 MG/DL (74-106) #H Calcium Level 9.5 MG/DL (8.5-10.1) Phosphorus Level 4.1 MG/DL (2.5-4.9) Magnesium Level 1.8 MG/DL (1.8-2.4) Total Bilirubin 0.6 MG/DL (0.2-1.0) Aspartate Amino Transf (AST/SGOT) 26 U/L (15-37) Alanine Aminotransferase (ALT/SGPT) 33 U/L (12-78) Alkaline Phosphatase 77 U/L (46-116) C-Reactive Protein, Quantitative < 0.4 mg/dL (0.00-0.90) Total Protein 6.5 G/DL (6.4-8.2) Albumin 3.2 G/DL (3.4-5.0) L Globulin 3.3 g/dL Albumin/Globulin Ratio 1.0 (1.0-2.7) Height (Feet): 5 Height (Inches): 10.00 Weight (Pounds): 205 General Appearance: WD/WN, no apparent distress, alert Cardiovascular: normal rate Respiratory/Chest: normal breath sounds, no respiratory distress Abdominal Exam: normal bowel sounds, non tender, soft Extremities: normal range of motion, non-tender Debby Vidal CR[employer]ING MACHINE OPERATOR Sep 01, 2018 13:45
--- NOTE | 2018-09-01 14:20 | Pulmonology Progress Note ---
Assessment/Plan Problems: (1) Pneumonia (2) Gastroenteritis (3) Intractable vomiting (4) Hyperglycemia (5) Gastroparesis (6) Diabetes mellitus (7) ATN (acute tubular necrosis) Assessment/Plan awaiting sputum ppd (--) Sputum for [employer] sputum culture pending serology pending Subjective ROS Limited/Unobtainable: No Constitutional: Reports: no symptoms HEENT: Repors: no symptoms Respiratory: Reports: no symptoms Allergies: Coded Allergies: INSULIN DETEMIR (Unverified Allergy, Unknown, Sweating, 08/16/18) Objective Last 24 Hour Vital Signs Date Time Temp Pulse Resp B/P (MAP) Pulse Ox O2 Delivery O2 Flow Rate FiO2 09/01/18 12:00 97.7 82 18 128/78 (95) 97 09/01/18 11:16 77 20 99 Room Air 09/01/18 11:11 74 20 97 Room Air 09/01/18 09:00 Room Air 09/01/18 08:30 132/78 09/01/18 08:00 97.5 84 20 132/78 (96) 94 09/01/18 08:00 80 20 99 Room Air 09/01/18 07:53 Nasal Cannula 2.0 09/01/18 07:53 79 20 98 Room Air 09/01/18 07:53 98 Nasal Cannula 09/01/18 04:00 97.9 79 18 111/57 (75) 96 09/01/18 02:55 Nasal Cannula 2.0 09/01/18 02:55 92 19 97 Nasal Cannula 2.0 08/31/18 23:24 79 16 100 Nasal Cannula 2.0 08/31/18 23:17 82 18 97 Nasal Cannula 2.0 08/31/18 21:00 Room Air 08/31/18 20:56 77 16 99 Nasal Cannula 2.0 08/31/18 20:49 98 Nasal Cannula 2.0 08/31/18 20:49 76 16 98 Nasal Cannula 2.0 08/31/18 20:48 Nasal Cannula 2.0 08/31/18 20:00 97.3 79 16 117/74 (88) 98 08/31/18 15:45 79 16 98 Nasal Cannula 2.0 08/31/18 15:37 99 Nasal Cannula 2.0 08/31/18 15:37 Nasal Cannula 2.0 28 08/31/18 15:35 79 15 99 Nasal Cannula 2.0 28 Intake and Output 08/31/18 09/01/18 19:00 07:00 Intake Total 1000 ml Output Total 800 ml Balance 1000 ml -800 ml Intake Oral 1000 ml Output Urine Total 800 ml # Voids 2 2 Objective General Appearance: WD/WN HEENT: normocephalic, atraumatic, anicteric Respiratory/Chest: chest wall non-tender, lungs clear Breasts: no masses Cardiovascular: normal peripheral pulses, normal rate Abdomen: normal bowel sounds, soft, non tender Extremities: no cyanosis Skin: no rash Neurologic/Psychiatric: overhauler II-XII grossly normal Lymphatic: no neck adenopathy Laboratory Tests 09/01/18 05:10: White Blood Count 5.8, Red Blood Count 4.20L, Hemoglobin 12.7L, Hematocrit 36.9L , Mean Corpuscular Volume 88, Mean Corpuscular Hemoglobin 30.2, Mean Corpuscular Hemoglobin Concent 34.4, Red Cell Distribution Width 11.2L, Platelet Count 249, Mean Platelet Volume 8.5, Neutrophils (%) (Auto) 51.3, Lymphocytes (%) (Auto) 34.5, Monocytes (%) (Auto) 8.9, Eosinophils (%) (Auto) 3.1H, Basophils (%) (Auto) 2.2H, Erythrocyte Sedimentation Rate 40H, Sodium Level 140, Potassium Level 3.9, Chloride Level 105, Carbon Dioxide Level 29, Anion Gap 6, Blood Urea Nitrogen 12, Creatinine 0.9, Estimat Glomerular Filtration Rate > 60, Glucose Level 133#H, Calcium Level 9.5, Phosphorus Level 4.1, Magnesium Level 1.8, Total Bilirubin 0.6, Aspartate Amino Transf (AST/SGOT ) 26, Alanine Aminotransferase (ALT/SGPT) 33, Alkaline Phosphatase 77, C- Reactive Protein, Quantitative < 0.4, Total Protein 6.5, Albumin 3.2L, Globulin 3.3, Albumin/Globulin Ratio 1.0 Current Medications Medications (Trade) Dose Ordered Sig/Rashel Route PRN Reason Start Time Stop Time Status Last Admin Dose Admin Acetaminophen (Tylenol) 650 mg Q4H PRN ORAL fever (temp>100.5F) 08/15/18 20:15 09/14/18 20:14 08/15/18 21:53 Al Hydroxide/Mg Hydroxide (Mylanta II) 30 ml Q6H PRN ORAL dyspepsia 08/15/18 20:15 09/14/18 20:14 Albuterol/ Ipratropium (Albuterol/ Ipratropium) 3 ml Q4H PRN HHN Shortness of Breath 08/27/18 22:30 09/01/18 22:29 Albuterol/ Ipratropium (Albuterol/ Ipratropium) 3 ml Q4HRT HHN 08/30/18 15:00 09/04/18 14:59 09/01/18 11:08 Aspirin (Ecotrin) 81 mg DAILY ORAL 08/16/18 09:00 09/15/18 08:59 09/01/18 08:30 Atorvastatin Calcium (Lipitor) 20 mg BEDTIME ORAL 08/23/18 21:00 09/22/18 20:59 08/31/18 21:10 Azithromycin (Zithromax) 500 mg Q24H ORAL 09/01/18 12:00 09/02/18 11:59 Benazepril HCl (Lotensin) 20 mg DAILY ORAL 08/20/18 12:01 09/19/18 12:00 09/01/18 08:30 Cefazolin Sodium 1 gm/Dextrose 55 ml @ 110 mls/hr Q8HR IVPB 08/29/18 14:00 09/05/18 13:59 09/01/18 13:07 Clonidine HCl (Catapres Tab) 0.1 mg Q4H PRN ORAL sbp more than 160 08/15/18 20:15 09/14/18 20:14 Dextrose (Dextrose 50%) 25 ml Q30M PRN IV Hypoglycemia 08/16/18 07:30 09/15/18 07:29 Dextrose (Dextrose 50%) 50 ml Q30M PRN IV Hypoglycemia 08/16/18 07:30 09/15/18 07:29 08/24/18 19:11 Docusate Sodium (Colace) 100 mg TWICE A DAY ORAL 08/30/18 09:00 09/29/18 08:59 09/01/18 08:30 Heparin Sodium (Porcine) (Heparin 5000 units/ml) 5,000 units EVERY 12 HOURS SUBQ 08/15/18 21:00 09/14/18 20:59 09/01/18 08:37 Ibuprofen (Advil) 600 mg Q8H PRN ORAL mild pain 08/20/18 12:00 09/19/18 11:59 08/29/18 21:13 Insulin Aspart (NovoLOG) BEFORE MEALS AND HS SUBQ 08/25/18 11:30 09/14/18 21:59 08/31/18 21:05 Insulin Aspart (NovoLOG) 10 units NOVOLOGL SUBQ 08/30/18 11:50 09/22/18 11:49 08/31/18 12:24 Insulin Aspart (NovoLOG) 12 units NOVOLOGB SUBQ 08/31/18 06:30 09/22/18 06:29 09/01/18 06:30 Insulin Aspart (NovoLOG) 12 units NOVOLOGS SUBQ 08/30/18 16:50 09/21/18 16:49 08/31/18 18:07 Insulin Glargine (Lantus (NON FORUMULARY)) 36 unit QHS SQ 08/30/18 21:00 09/24/18 22:00 08/31/18 21:03 Ondansetron HCl (Zofran) 4 mg Q6H PRN IVP Nausea & Vomiting 08/26/18 13:15 09/25/18 13:14 Polyethylene Glycol (Miralax) 17 gm BEDTIME ORAL 08/30/18 21:00 09/29/18 20:59 Pregabalin (Lyrica) 50 mg TWICE A DAY ORAL 08/16/18 09:00 09/15/18 08:59 09/01/18 08:31 Promethazine HCl/ Codeine (Phenergan with Codeine) 5 ml Q8H PRN ORAL For Cough 08/21/18 14:45 09/20/18 14:44 09/01/18 08:41 Rohini Camargo MD Sep 01, 2018 14:20
[2018-09-01 16:00] VITALS: BP 138/84
[2018-09-01 20:00] VITALS: BP 145/80
[2018-09-01] MEDS: Miralax 17gm pkt ORAL SCH (21:00)
[2018-09-01] MEDS: Atorvastatin 20mg tab ORAL SCH (21:07)
--- NOTE | 2018-09-01 23:59 | Cardiology Progress Note ---
Assessment/Plan Assessment/Plan 1. Atypical chest pain, no ischemic features on the ECG, negative troponin I levels, 2D echocardiography reveals normal LV systolic function with LVEF at 55 %. 2. DM, continue ASA and atorvastatin. 3. HTN, well controlled, continue benazepril. 4. CKD 5. Gastroparesis Subjective Subjective Clinically the same, no cardiac events reported. Objective Last 24 Hour Vital Signs Date Time Temp Pulse Resp B/P (MAP) Pulse Ox O2 Delivery O2 Flow Rate FiO2 09/01/18 21:00 Room Air 09/01/18 20:10 85 20 99 Room Air 09/01/18 20:01 Room Air 21 09/01/18 20:01 75 20 97 Room Air 09/01/18 20:01 97 Room Air 09/01/18 20:00 98.1 86 20 145/80 (101) 100 09/01/18 16:00 97.3 96 20 138/84 (102) 98 09/01/18 15:57 74 20 99 Room Air 09/01/18 15:23 73 20 97 Room Air 09/01/18 12:00 97.7 82 18 128/78 (95) 97 09/01/18 11:16 77 20 99 Room Air 09/01/18 11:11 74 20 97 Room Air 09/01/18 09:00 Room Air 09/01/18 08:30 132/78 09/01/18 08:00 97.5 84 20 132/78 (96) 94 09/01/18 08:00 80 20 99 Room Air 09/01/18 07:53 Nasal Cannula 2.0 28 09/01/18 07:53 79 20 98 Room Air 09/01/18 07:53 98 Nasal Cannula 09/01/18 04:00 97.9 79 18 111/57 (75) 96 09/01/18 02:55 Nasal Cannula 2.0 28 09/01/18 02:55 92 19 97 Nasal Cannula 2.0 28 Intake and Output 08/31/18 09/01/18 18:59 06:59 Intake Total 1000 ml Output Total 800 ml Balance 1000 ml -800 ml Intake Oral 1000 ml Output Urine Total 800 ml # Voids 2 2 2D Echo: LVEF 60-65%, Grade I LVDD, RVSP 16 mmHg Laboratory Tests Test 09/01/18 05:10 White Blood Count 5.8 K/UL (4.8-10.8) Red Blood Count 4.20 M/UL (4.70-6.10) L Hemoglobin 12.7 G/DL (14.2-18.0) L Hematocrit 36.9 % (42.0-52.0) L Mean Corpuscular Volume 88 FL (80-99) Mean Corpuscular Hemoglobin 30.2 PG (27.0-31.0) Mean Corpuscular Hemoglobin Concent 34.4 G/DL (32.0-36.0) Red Cell Distribution Width 11.2 % (11.6-14.8) L Platelet Count 249 K/UL (150-450) Mean Platelet Volume 8.5 FL (6.5-10.1) Neutrophils (%) (Auto) 51.3 % (45.0-75.0) Lymphocytes (%) (Auto) 34.5 % (20.0-45.0) Monocytes (%) (Auto) 8.9 % (1.0-10.0) Eosinophils (%) (Auto) 3.1 % (0.0-3.0) H Basophils (%) (Auto) 2.2 % (0.0-2.0) H Erythrocyte Sedimentation Rate 40 MM/HR (0-20) H Sodium Level 140 MMOL/L (136-145) Potassium Level 3.9 MMOL/L (3.5-5.1) Chloride Level 105 MMOL/L (98-107) Carbon Dioxide Level 29 MMOL/L (21-32) Anion Gap 6 mmol/L (5-15) Blood Urea Nitrogen 12 mg/dL (7-18) Creatinine 0.9 MG/DL (0.55-1.30) Estimat Glomerular Filtration Rate > 60 mL/min (>60) Glucose Level 133 MG/DL (74-106) #H Calcium Level 9.5 MG/DL (8.5-10.1) Phosphorus Level 4.1 MG/DL (2.5-4.9) Magnesium Level 1.8 MG/DL (1.8-2.4) Total Bilirubin 0.6 MG/DL (0.2-1.0) Aspartate Amino Transf (AST/SGOT) 26 U/L (15-37) Alanine Aminotransferase (ALT/SGPT) 33 U/L (12-78) Alkaline Phosphatase 77 U/L (46-116) C-Reactive Protein, Quantitative < 0.4 mg/dL (0.00-0.90) Total Protein 6.5 G/DL (6.4-8.2) Albumin 3.2 G/DL (3.4-5.0) L Globulin 3.3 g/dL Albumin/Globulin Ratio 1.0 (1.0-2.7) Objective HEENT: Normocephalic and atraumatic. PERRLA, EOMI. NECK: No JVD, no carotid bruit. CHEST: Clear to auscultation. CARDIOVASCULAR: Regular rate and rhythm, normal S1 S2, no murmurs, gallops or rubs. ABDOMEN: Soft and nontender. Good bowel sounds. There is no organomegaly or tenderness. EXTREMITIES: no edema, clubbing or cyanosis. Miguel Angel Beckford MD Sep 01, 2018 23:59
[2018-09-02] VITALS: BP 113/53
[2018-09-02] MEDS: Albuterol/Ipratropium 3ml neb HHN SCH ×7 (00:08→22:14)
[2018-09-02 04:00] VITALS: BP 141/73
[2018-09-02] MEDS: ceFAZolin sod 1 GM in D5W 55 ML IVPB SCH ×3 (06:06→21:26)
[2018-09-02] MEDS: NovoLOG Insulin Flexpen SUBQ SCH ×7 (07:06→21:00)
--- NOTE | 2018-09-02 07:34 | General Progress Note ---
Assessment/Plan Problem List: (1) Hyperglycemia ICD Codes: R73.9 - Hyperglycemia, unspecified SNOMED: 94667795 (2) Intractable vomiting ICD Codes: R11.10 - Vomiting, unspecified SNOMED: 450204660, 470493465 Qualifiers: Qualified Codes: R11.2 - Nausea with vomiting, unspecified (3) Renal insufficiency ICD Codes: N28.9 - Disorder of kidney and ureter, unspecified SNOMED: 691608395, 626665773 (4) Gastroenteritis ICD Codes: K52.9 - Noninfective gastroenteritis and colitis, unspecified SNOMED: 86022800 Assessment/Plan continue Lantus 36 units qhs change Novolog to 10 units ac B / L / D continue NISS ac / hs NOTE: patient has T1DM which is very brittle in nature therefore it would be impossible to have perfect glucose values. from DM stand point there is no barrier for discharge Subjective Allergies: Coded Allergies: INSULIN DETEMIR (Unverified Allergy, Unknown, Sweating, 08/16/18) All Systems: reviewed and negative except above Subjective events noted elevated glucose last night - I was notified by RN - insulin adjusted - fasting glucose improved Objective Last 24 Hour Vital Signs Date Time Temp Pulse Resp B/P (MAP) Pulse Ox O2 Delivery O2 Flow Rate FiO2 09/02/18 04:00 98.1 89 20 141/73 (95) 99 09/02/18 03:38 78 20 98 Room Air 09/02/18 03:27 79 20 97 Room Air 09/02/18 00:13 83 20 99 Room Air 09/02/18 00:07 84 20 97 Room Air 09/02/18 00:00 98.1 88 18 113/53 (73) 95 09/01/18 21:00 Room Air 09/01/18 20:10 85 20 99 Room Air 21 09/01/18 20:01 Room Air 21 09/01/18 20:01 75 20 97 Room Air 21 09/01/18 20:01 97 Room Air 21 09/01/18 20:00 98.1 86 20 145/80 (101) 100 09/01/18 16:00 97.3 96 20 138/84 (102) 98 09/01/18 15:57 74 20 99 Room Air 09/01/18 15:23 73 20 97 Room Air 21 09/01/18 12:00 97.7 82 18 128/78 (95) 97 09/01/18 11:16 77 20 99 Room Air 21 09/01/18 11:11 74 20 97 Room Air 21 09/01/18 09:00 Room Air 09/01/18 08:30 132/78 09/01/18 08:00 97.5 84 20 132/78 (96) 94 09/01/18 08:00 80 20 99 Room Air 21 09/01/18 07:53 Nasal Cannula 2.0 28 09/01/18 07:53 79 20 98 Room Air 21 09/01/18 07:53 98 Nasal Cannula 21 Intake and Output 09/01/18 09/02/18 19:00 07:00 Intake Total 1000 ml 960 ml Output Total 900 ml 1100 ml Balance 100 ml -140 ml Intake Oral 1000 ml Other 960 ml Output Urine Total 900 ml 1100 ml Height (Feet): 5 Height (Inches): 10.00 Weight (Pounds): 214 General Appearance: no apparent distress Neck: normal alignment Cardiovascular: normal rate Respiratory/Chest: normal breath sounds Abdomen: normal bowel sounds Pelvis: normal external exam Objective Current Medications Medications (Trade) Dose Ordered Sig/Rashel Route PRN Reason Start Time Stop Time Status Last Admin Dose Admin Acetaminophen (Tylenol) 650 mg Q4H PRN ORAL fever (temp>100.5F) 08/15/18 20:15 09/14/18 20:14 08/15/18 21:53 Al Hydroxide/Mg Hydroxide (Mylanta II) 30 ml Q6H PRN ORAL dyspepsia 08/15/18 20:15 09/14/18 20:14 Albuterol/ Ipratropium (Albuterol/ Ipratropium) 3 ml Q4HRT HHN 08/30/18 15:00 09/04/18 14:59 09/02/18 03:28 Aspirin (Ecotrin) 81 mg DAILY ORAL 08/16/18 09:00 09/15/18 08:59 09/01/18 08:30 Atorvastatin Calcium (Lipitor) 20 mg BEDTIME ORAL 08/23/18 21:00 09/22/18 20:59 09/01/18 21:07 Azithromycin (Zithromax) 500 mg Q24H ORAL 09/01/18 12:00 09/02/18 11:59 09/01/18 17:29 Benazepril HCl (Lotensin) 20 mg DAILY ORAL 08/20/18 12:01 09/19/18 12:00 09/01/18 08:30 Cefazolin Sodium 1 gm/Dextrose 55 ml @ 110 mls/hr Q8HR IVPB 08/29/18 14:00 09/05/18 13:59 09/02/18 06:06 Clonidine HCl (Catapres Tab) 0.1 mg Q4H PRN ORAL sbp more than 160 08/15/18 20:15 09/14/18 20:14 Dextrose (Dextrose 50%) 25 ml Q30M PRN IV Hypoglycemia 08/16/18 07:30 09/15/18 07:29 Dextrose (Dextrose 50%) 50 ml Q30M PRN IV Hypoglycemia 08/16/18 07:30 09/15/18 07:29 08/24/18 19:11 Docusate Sodium (Colace) 100 mg TWICE A DAY ORAL 08/30/18 09:00 09/29/18 08:59 09/01/18 17:23 Heparin Sodium (Porcine) (Heparin 5000 units/ml) 5,000 units EVERY 12 HOURS SUBQ 08/15/18 21:00 09/14/18 20:59 09/01/18 21:08 Ibuprofen (Advil) 600 mg Q8H PRN ORAL mild pain 08/20/18 12:00 09/19/18 11:59 08/29/18 21:13 Insulin Aspart (NovoLOG) BEFORE MEALS AND HS SUBQ 08/25/18 11:30 09/14/18 21:59 09/02/18 07:07 Insulin Aspart (NovoLOG) 10 units NOVOLOGL SUBQ 08/30/18 11:50 09/22/18 11:49 09/01/18 17:25 Insulin Aspart (NovoLOG) 12 units NOVOLOGB SUBQ 08/31/18 06:30 09/22/18 06:29 09/02/18 07:06 Insulin Aspart (NovoLOG) 12 units NOVOLOGS SUBQ 08/30/18 16:50 09/21/18 16:49 09/01/18 17:28 Insulin Glargine (Lantus (NON FORUMULARY)) 36 unit QHS SQ 08/30/18 21:00 09/24/18 22:00 09/01/18 21:08 Ondansetron HCl (Zofran) 4 mg Q6H PRN IVP Nausea & Vomiting 08/26/18 13:15 09/25/18 13:14 Polyethylene Glycol (Miralax) 17 gm BEDTIME ORAL 08/30/18 21:00 09/29/18 20:59 Pregabalin (Lyrica) 50 mg TWICE A DAY ORAL 08/16/18 09:00 09/15/18 08:59 09/01/18 17:23 Promethazine HCl/ Codeine (Phenergan with Codeine) 5 ml Q8H PRN ORAL For Cough 08/21/18 14:45 09/20/18 14:44 09/01/18 08:41 Item Value Date Time Bedside Blood Glucose 183 mg/dl H 09/02/18 0627 Bedside Blood Glucose 435 mg/dl H 09/01/18 2108 Bedside Blood Glucose 318 mg/dl H 09/01/18 1835 Bedside Blood Glucose 84 mg/dl 09/01/18 1150 Bedside Blood Glucose 79 mg/dl 09/01/18 0922 Bedside Blood Glucose 110 mg/dl 09/01/18 0630 Mac Vegas MD Sep 02, 2018 07:34
[2018-09-02 08:00] VITALS: BP 133/79
[2018-09-02] MEDS: Aspirin EC 81mg tab ORAL SCH (09:16)
[2018-09-02] MEDS: Docusate 100mg cap ORAL SCH ×2 (09:16→18:37)
[2018-09-02] MEDS: Lyrica 50mg cap ORAL SCH ×2 (09:16→18:37)
[2018-09-02] MEDS: Benazepril 10mg tab ORAL SCH (09:16)
[2018-09-02] MEDS: Heparin 5000 units/ml inj SUBQ SCH ×2 (09:23→21:14)
[2018-09-02 12:00] VITALS: BP 127/81
--- NOTE | 2018-09-02 13:29 | General Progress Note ---
Assessment/Plan Problem List: (1) Gastroenteritis ICD Codes: K52.9 - Noninfective gastroenteritis and colitis, unspecified SNOMED: 08834272 (2) Renal insufficiency ICD Codes: N28.9 - Disorder of kidney and ureter, unspecified SNOMED: 788773941, 997954233 (3) Intractable vomiting ICD Codes: R11.10 - Vomiting, unspecified SNOMED: 930524238, 758399254 Qualifiers: Qualified Codes: R11.2 - Nausea with vomiting, unspecified (4) Hyperglycemia ICD Codes: R73.9 - Hyperglycemia, unspecified SNOMED: 24608615 (5) Gastroparesis ICD Codes: K31.84 - Gastroparesis SNOMED: 105380475 Status: unchanged Assessment/Plan ivf adv diet cbc bmp am dc if clear Subjective Constitutional: Reports: weakness Allergies: Coded Allergies: INSULIN DETEMIR (Unverified Allergy, Unknown, Sweating, 08/16/18) All Systems: reviewed and negative except above Subjective calm in bed sl cough Objective Last 24 Hour Vital Signs Date Time Temp Pulse Resp B/P (MAP) Pulse Ox O2 Delivery O2 Flow Rate FiO2 09/02/18 11:15 81 18 99 Room Air 21 09/02/18 11:00 84 18 97 Room Air 09/02/18 09:16 141/73 09/02/18 09:06 79 18 99 Room Air 09/02/18 09:00 Room Air 09/02/18 08:58 Room Air 21 09/02/18 08:58 81 18 98 Room Air 09/02/18 08:58 98 Room Air 09/02/18 08:00 97.8 91 19 133/79 (97) 97 09/02/18 04:00 98.1 89 20 141/73 (95) 99 09/02/18 03:38 78 20 98 Room Air 21 09/02/18 03:27 79 20 97 Room Air 21 09/02/18 00:13 83 20 99 Room Air 21 09/02/18 00:07 84 20 97 Room Air 21 09/02/18 00:00 98.1 88 18 113/53 (73) 95 09/01/18 21:00 Room Air 09/01/18 20:10 85 20 99 Room Air 21 09/01/18 20:01 Room Air 21 09/01/18 20:01 75 20 97 Room Air 21 09/01/18 20:01 97 Room Air 21 09/01/18 20:00 98.1 86 20 145/80 (101) 100 09/01/18 16:00 97.3 96 20 138/84 (102) 98 09/01/18 15:57 74 20 99 Room Air 21 09/01/18 15:23 73 20 97 Room Air 21 Intake and Output 09/01/18 09/02/18 19:00 07:00 Intake Total 1000 ml 960 ml Output Total 900 ml 1100 ml Balance 100 ml -140 ml Intake Oral 1000 ml Other 960 ml Output Urine Total 900 ml 1100 ml Height (Feet): 5 Height (Inches): 10.00 Weight (Pounds): 214 General Appearance: lethargic EENT: normal ENT inspection Neck: normal alignment Cardiovascular: normal peripheral pulses, normal rate, regular rhythm Respiratory/Chest: chest wall non-tender, lungs clear, normal breath sounds Abdomen: normal bowel sounds, non tender, soft Extremities: normal inspection Edema: no edema noted Arm (L), no edema noted Arm (R), no edema noted Leg (L), no edema noted Leg (R), no edema noted Pedal (L), no edema noted Pedal (R), no edema noted Generalized Neurologic: motor weakness Skin: normal pigmentation, warm/dry Stuart Silver DO Sep 02, 2018 13:29
--- NOTE | 2018-09-02 14:40 | GI Progress Note ---
Assessment/Plan Problems: (1) Gastroparesis ICD Codes: K31.84 - Gastroparesis SNOMED: 489308271 (2) Hyperglycemia ICD Codes: R73.9 - Hyperglycemia, unspecified SNOMED: 82312961 (3) Intractable vomiting ICD Codes: R11.10 - Vomiting, unspecified SNOMED: 021849866, 836034615 Qualifiers: Qualified Codes: R11.2 - Nausea with vomiting, unspecified (4) Renal insufficiency ICD Codes: N28.9 - Disorder of kidney and ureter, unspecified SNOMED: 830761418, 027819987 (5) Gastroenteritis ICD Codes: K52.9 - Noninfective gastroenteritis and colitis, unspecified SNOMED: 44007680 (6) Malingering ICD Codes: Z76.5 - Malingerer [conscious simulation] SNOMED: 441286703 Status: stable Status Narrative Discussed with Dr. Thomas. Assessment/Plan Assessment - N/V, Diarrhea - Abd pain - IDDM - HTN -Gastroparesis OB stool negative Now airborne precautions to rule out TB Recommendations Symptomatic treatment at this time Advance to ADA diet add Senokot prn hydration PPI Zofran as needed, Reglan for persistent vomiting Follow-up labs PT evaluation Outpatient EGD colonoscopy The patient was seen and examined at bedside and all new and available data was reviewed in the patients chart. I agree with the above findings, impression and plan. (Patient seen earlier today. Signature stamp does not reflect patient encounter time.). - Noé Thomas MD Subjective Subjective Denies any nausea or vomiting Denies any abdominal pain new complaint of constipation Objective Last 24 Hour Vital Signs Date Time Temp Pulse Resp B/P (MAP) Pulse Ox O2 Delivery O2 Flow Rate FiO2 09/02/18 12:00 96.9 89 18 127/81 (96) 96 09/02/18 11:15 81 18 99 Room Air 21 09/02/18 11:00 84 18 97 Room Air 09/02/18 09:16 141/73 09/02/18 09:06 79 18 99 Room Air 21 09/02/18 09:00 Room Air 09/02/18 08:58 Room Air 21 09/02/18 08:58 81 18 98 Room Air 21 09/02/18 08:58 98 Room Air 09/02/18 08:00 97.8 91 19 133/79 (97) 97 09/02/18 04:00 98.1 89 20 141/73 (95) 99 09/02/18 03:38 78 20 98 Room Air 21 09/02/18 03:27 79 20 97 Room Air 21 09/02/18 00:13 83 20 99 Room Air 21 09/02/18 00:07 84 20 97 Room Air 21 09/02/18 00:00 98.1 88 18 113/53 (73) 95 09/01/18 21:00 Room Air 09/01/18 20:10 85 20 99 Room Air 21 09/01/18 20:01 Room Air 21 09/01/18 20:01 75 20 97 Room Air 21 09/01/18 20:01 97 Room Air 21 09/01/18 20:00 98.1 86 20 145/80 (101) 100 09/01/18 16:00 97.3 96 20 138/84 (102) 98 09/01/18 15:57 74 20 99 Room Air 21 09/01/18 15:23 73 20 97 Room Air 21 Intake and Output 09/01/18 09/02/18 19:00 07:00 Intake Total 1000 ml 960 ml Output Total 900 ml 1100 ml Balance 100 ml -140 ml Intake Oral 1000 ml Other 960 ml Output Urine Total 900 ml 1100 ml Height (Feet): 5 Height (Inches): 10.00 Weight (Pounds): 214 General Appearance: WD/WN, no apparent distress, alert Cardiovascular: normal rate Respiratory/Chest: normal breath sounds, no respiratory distress Abdominal Exam: normal bowel sounds, non tender, soft Extremities: normal range of motion, non-tender Debby Vidal [employer] Sep 02, 2018 14:40
[2018-09-02] MEDS ORDERED: Sennosides 8.6mg tab ORAL PRN (14:45)
--- NOTE | 2018-09-02 14:55 | Infectious Diseases Prog Note ---
Assessment/Plan Assessment/Plan Pneumonia ( CAP vs fungal vs mycobacterial ) SCx: MSSA ( ? contaminant ) CT: Right upper and lower lobe scattered areas of consolidation, nodularity, groundglass and equivocal tree-in-bud opacities. Most likely represents infectious inflammatory process. Given possibly tree-in-bud opacities, the possibility of atypical infectious processes, including tuberculosis or other mycobacterial infections or fungal pneumonia pulmonary to be considered but are less likely. Noninfectious inflammatory processes should also be considered. Multifocal neoplasm such as bronchoalveolar carcinoma must less likely but also possible 2dEcho no Veg Fever, improving Leukocytosis, Crypt Ag, HIV: Neg AFB Neg x 2 DM2 HLD HTN CAD/[place] asthma P: Cont pt on Zithro and Cefazolin d# 7/14 for severe Clinically improving so will hold off on empiric anti fungal for now Monitor CBC Monitor CMP Monitor Sputum Cx , AFB x 3, Fungal Blood Cx x 2 Sputum MTB-PCR x 2 Coccidio AB Fungitell QFTB legio Ur Ag Subjective Allergies: Coded Allergies: INSULIN DETEMIR (Unverified Allergy, Unknown, Sweating, 08/16/18) Subjective Afebrile No Leukocytosis 2 AFB stains neg, 1 in lab and still pending Id has been 5 days so I will just order a new one Objective Vital Signs Last 24 Hour Vital Signs Date Time Temp Pulse Resp B/P (MAP) Pulse Ox O2 Delivery O2 Flow Rate FiO2 09/02/18 12:00 96.9 89 18 127/81 (96) 96 09/02/18 11:15 81 18 99 Room Air 09/02/18 11:00 84 18 97 Room Air 09/02/18 09:16 141/73 09/02/18 09:06 79 18 99 Room Air 09/02/18 09:00 Room Air 09/02/18 08:58 Room Air 21 09/02/18 08:58 81 18 98 Room Air 21 09/02/18 08:58 98 Room Air 09/02/18 08:00 97.8 91 19 133/79 (97) 97 09/02/18 04:00 98.1 89 20 141/73 (95) 99 09/02/18 03:38 78 20 98 Room Air 21 09/02/18 03:27 79 20 97 Room Air 21 09/02/18 00:13 83 20 99 Room Air 21 09/02/18 00:07 84 20 97 Room Air 21 09/02/18 00:00 98.1 88 18 113/53 (73) 95 09/01/18 21:00 Room Air 09/01/18 20:10 85 20 99 Room Air 21 09/01/18 20:01 Room Air 21 09/01/18 20:01 75 20 97 Room Air 21 09/01/18 20:01 97 Room Air 21 09/01/18 20:00 98.1 86 20 145/80 (101) 100 09/01/18 16:00 97.3 96 20 138/84 (102) 98 09/01/18 15:57 74 20 99 Room Air 21 09/01/18 15:23 73 20 97 Room Air 21 Height (Feet): 5 Height (Inches): 10.00 Weight (Pounds): 214 Objective GEN; NAD, On RA HEENT: NCAT, MMM Respiratory/Chest: CATB, no respiratory distress Cardiovascular: regular rhythm Abdomen: no organomegaly Skin: no rash Current Medications Medications (Trade) Dose Ordered Sig/Rashel Route PRN Reason Start Time Stop Time Status Last Admin Dose Admin Acetaminophen (Tylenol) 650 mg Q4H PRN ORAL fever (temp>100.5F) 08/15/18 20:15 09/14/18 20:14 08/15/18 21:53 Al Hydroxide/Mg Hydroxide (Mylanta II) 30 ml Q6H PRN ORAL dyspepsia 08/15/18 20:15 09/14/18 20:14 Albuterol/ Ipratropium (Albuterol/ Ipratropium) 3 ml Q4HRT HHN 08/30/18 15:00 09/04/18 14:59 09/02/18 11:00 Aspirin (Ecotrin) 81 mg DAILY ORAL 08/16/18 09:00 09/15/18 08:59 09/02/18 09:16 Atorvastatin Calcium (Lipitor) 20 mg BEDTIME ORAL 08/23/18 21:00 09/22/18 20:59 09/01/18 21:07 Benazepril HCl (Lotensin) 20 mg DAILY ORAL 08/20/18 12:01 09/19/18 12:00 09/02/18 09:16 Cefazolin Sodium 1 gm/Dextrose 55 ml @ 110 mls/hr Q8HR IVPB 08/29/18 14:00 09/05/18 13:59 09/02/18 06:06 Clonidine HCl (Catapres Tab) 0.1 mg Q4H PRN ORAL sbp more than 160 08/15/18 20:15 09/14/18 20:14 Dextrose (Dextrose 50%) 25 ml Q30M PRN IV Hypoglycemia 08/16/18 07:30 09/15/18 07:29 Dextrose (Dextrose 50%) 50 ml Q30M PRN IV Hypoglycemia 08/16/18 07:30 09/15/18 07:29 08/24/18 19:11 Docusate Sodium (Colace) 100 mg TWICE A DAY ORAL 08/30/18 09:00 09/29/18 08:59 09/02/18 09:16 Heparin Sodium (Porcine) (Heparin 5000 units/ml) 5,000 units EVERY 12 HOURS SUBQ 08/15/18 21:00 09/14/18 20:59 09/02/18 09:23 Ibuprofen (Advil) 600 mg Q8H PRN ORAL mild pain 08/20/18 12:00 09/19/18 11:59 08/29/18 21:13 Insulin Aspart (NovoLOG) BEFORE MEALS AND HS SUBQ 08/25/18 11:30 09/14/18 21:59 09/02/18 07:07 Insulin Aspart (NovoLOG) 10 units NOVOTIAC SUBQ 09/02/18 11:50 10/02/18 11:49 Insulin Glargine (Lantus (NON FORUMULARY)) 36 unit QHS SQ 08/30/18 21:00 09/24/18 22:00 09/01/18 21:08 Ondansetron HCl (Zofran) 4 mg Q6H PRN IVP Nausea & Vomiting 08/26/18 13:15 09/25/18 13:14 Polyethylene Glycol (Miralax) 17 gm BEDTIME ORAL 08/30/18 21:00 09/29/18 20:59 Pregabalin (Lyrica) 50 mg TWICE A DAY ORAL 08/16/18 09:00 09/15/18 08:59 09/02/18 09:16 Promethazine HCl/ Codeine (Phenergan with Codeine) 5 ml Q8H PRN ORAL For Cough 08/21/18 14:45 09/20/18 14:44 09/01/18 08:41 Sennosides (Senokot) 8.6 mg DAILYPRN PRN ORAL Constipation 09/02/18 14:45 10/02/18 14:44 Terence Snell MD Sep 02, 2018 14:55
[2018-09-02 16:00] VITALS: BP 130/76
--- NOTE | 2018-09-02 16:07 | Surgery Progress Note ---
Surgery Progress Note Subjective Symptoms: improved, pain absent Additional Comments dressings removed. wound looks great. healing Objective Last 24 Hour Vital Signs Date Time Temp Pulse Resp B/P (MAP) Pulse Ox O2 Delivery O2 Flow Rate FiO2 09/02/18 15:56 82 18 99 Room Air 09/02/18 15:46 85 18 98 Room Air 21 09/02/18 12:00 96.9 89 18 127/81 (96) 96 09/02/18 11:15 81 18 99 Room Air 09/02/18 11:00 84 18 97 Room Air 09/02/18 09:16 141/73 09/02/18 09:06 79 18 99 Room Air 09/02/18 09:00 Room Air 09/02/18 08:58 Room Air 09/02/18 08:58 81 18 98 Room Air 09/02/18 08:58 98 Room Air 09/02/18 08:00 97.8 91 19 133/79 (97) 97 09/02/18 04:00 98.1 89 20 141/73 (95) 99 09/02/18 03:38 78 20 98 Room Air 09/02/18 03:27 79 20 97 Room Air 09/02/18 00:13 83 20 99 Room Air 09/02/18 00:07 84 20 97 Room Air 09/02/18 00:00 98.1 88 18 113/53 (73) 95 09/01/18 21:00 Room Air 09/01/18 20:10 85 20 99 Room Air 09/01/18 20:01 Room Air 09/01/18 20:01 75 20 97 Room Air 09/01/18 20:01 97 Room Air 09/01/18 20:00 98.1 86 20 145/80 (101) 100 I&O Intake and Output 09/01/18 09/02/18 19:00 07:00 Intake Total 1000 ml 960 ml Output Total 900 ml 1100 ml Balance 100 ml -140 ml Intake Oral 1000 ml Other 960 ml Output Urine Total 900 ml 1100 ml Dressing: dry Wound: clean Drains: none Cardiovascular: RSR Respiratory: clear Abdomen: soft, present bowel sounds Extremities: no edema, no tenderness, no cyanosis Plan Problems: (1) Finger laceration Assessment & Plan: laceration to left ring finger while shaving today. hemostasis now. dressings applied no signs of infection acutely. keep dressings in place for now - steri-strips/ gauze asked patient about tetanus. states had it in last 10 years but not sure about last 5 years will give tetanus booster will monitor for signs of infection dressings removed. wound looks great. healing well. no signs of infection okay to keep open to air okay to d/c from surgical standpoint keep hand clean. thank you Marv Brandon Sep 02, 2018 16:07
[2018-09-02 19:46] VITALS: BP 134/84
[2018-09-02] MEDS: Miralax 17gm pkt ORAL SCH (21:12)
[2018-09-02] MEDS: Atorvastatin 20mg tab ORAL SCH (21:12)
--- NOTE | 2018-09-02 22:52 | Cardiology Progress Note ---
Assessment/Plan Assessment/Plan 1. Atypical chest pain, no ischemic features on the ECG, negative troponin I levels, 2D echocardiography reveals normal LV systolic function with LVEF at 55 %. 2. DM, continue ASA and atorvastatin. 3. HTN, well controlled, continue benazepril, clonidine as needed. 4. AXEL, resolved. Subjective Subjective No cardiac events reported. Objective Last 24 Hour Vital Signs Date Time Temp Pulse Resp B/P (MAP) Pulse Ox O2 Delivery O2 Flow Rate FiO2 09/02/18 22:22 85 18 100 Room Air 21 09/02/18 22:15 82 18 97 Room Air 21 09/02/18 19:53 Room Air 09/02/18 19:46 98.6 82 18 134/84 (101) 100 09/02/18 19:34 Room Air 09/02/18 19:34 Room Air 21 09/02/18 19:33 97 Room Air 21 09/02/18 19:33 Room Air 21 09/02/18 16:00 98.4 89 19 130/76 (94) 98 09/02/18 15:56 82 18 99 Room Air 21 09/02/18 15:46 85 18 98 Room Air 21 09/02/18 12:00 96.9 89 18 127/81 (96) 96 09/02/18 11:15 81 18 99 Room Air 09/02/18 11:00 84 18 97 Room Air 09/02/18 09:16 141/73 09/02/18 09:06 79 18 99 Room Air 09/02/18 09:00 Room Air 09/02/18 08:58 Room Air 09/02/18 08:58 81 18 98 Room Air 09/02/18 08:58 98 Room Air 09/02/18 08:00 97.8 91 19 133/79 (97) 97 09/02/18 04:00 98.1 89 20 141/73 (95) 99 09/02/18 03:38 78 20 98 Room Air 09/02/18 03:27 79 20 97 Room Air 21 09/02/18 00:13 83 20 99 Room Air 09/02/18 00:07 84 20 97 Room Air 09/02/18 00:00 98.1 88 18 113/53 (73) 95 Intake and Output 09/01/18 09/02/18 18:59 06:59 Intake Total 1000 ml 960 ml Output Total 900 ml 1100 ml Balance 100 ml -140 ml Intake Oral 1000 ml Other 960 ml Output Urine Total 900 ml 1100 ml 2D Echo: LVEF 60-65%, Grade I LVDD, RVSP 16 mmHg Objective HEENT: Normocephalic and atraumatic. PERRLA, EOMI. NECK: No JVD, no carotid bruit. CHEST: Clear to auscultation. CARDIOVASCULAR: Regular rate and rhythm, normal S1 S2, no murmurs, gallops or rubs. ABDOMEN: Soft and nontender. Good bowel sounds. There is no organomegaly or tenderness. EXTREMITIES: no edema, clubbing or cyanosis. Miguel Angel Beckford MD Sep 02, 2018 22:52
[2018-09-03] MEDS: Albuterol/Ipratropium 3ml neb HHN SCH ×4 (03:00→15:00)
[2018-09-03 04:03] VITALS: BP 98/51
[2018-09-03] MEDS: ceFAZolin sod 1 GM in D5W 55 ML IVPB SCH (05:26)
[2018-09-03] MEDS: NovoLOG Insulin Flexpen SUBQ SCH ×4 (06:33→12:48)
--- NOTE | 2018-09-03 07:14 | General Progress Note ---
Assessment/Plan Problem List: (1) Hyperglycemia ICD Codes: R73.9 - Hyperglycemia, unspecified SNOMED: 61857829 (2) Intractable vomiting ICD Codes: R11.10 - Vomiting, unspecified SNOMED: 601600570, 664731958 Qualifiers: Qualified Codes: R11.2 - Nausea with vomiting, unspecified (3) Renal insufficiency ICD Codes: N28.9 - Disorder of kidney and ureter, unspecified SNOMED: 528660153, 988484599 (4) Gastroenteritis ICD Codes: K52.9 - Noninfective gastroenteritis and colitis, unspecified SNOMED: 57653674 Assessment/Plan continue Lantus 36 units qhs continue Novolog 10 units ac B / L / D continue NISS ac / hs NOTE: patient has T1DM which is very brittle in nature therefore it would be impossible to have perfect glucose values. from DM stand point there is no barrier for discharge Subjective Allergies: Coded Allergies: INSULIN DETEMIR (Unverified Allergy, Unknown, Sweating, 08/16/18) All Systems: reviewed and negative except above Subjective events noted glucose values more stable in the past 24 hours Objective Last 24 Hour Vital Signs Date Time Temp Pulse Resp B/P (MAP) Pulse Ox O2 Delivery O2 Flow Rate FiO2 09/03/18 04:03 98.0 74 18 98/51 (67) 100 09/03/18 04:02 Room Air 09/03/18 03:55 Room Air 21 09/02/18 22:22 85 18 100 Room Air 09/02/18 22:15 82 18 97 Room Air 09/02/18 19:53 Room Air 09/02/18 19:46 98.6 82 18 134/84 (101) 100 09/02/18 19:34 Room Air 21 09/02/18 19:34 Room Air 21 09/02/18 19:33 97 Room Air 21 09/02/18 19:33 Room Air 21 09/02/18 16:00 98.4 89 19 130/76 (94) 98 09/02/18 15:56 82 18 99 Room Air 21 09/02/18 15:46 85 18 98 Room Air 21 09/02/18 12:00 96.9 89 18 127/81 (96) 96 09/02/18 11:15 81 18 99 Room Air 09/02/18 11:00 84 18 97 Room Air 21 09/02/18 09:16 141/73 09/02/18 09:06 79 18 99 Room Air 21 09/02/18 09:00 Room Air 09/02/18 08:58 Room Air 21 09/02/18 08:58 81 18 98 Room Air 21 09/02/18 08:58 98 Room Air 21 09/02/18 08:00 97.8 91 19 133/79 (97) 97 Intake and Output 09/02/18 09/03/18 19:00 07:00 Intake Total 1200 ml 110 ml Balance 1200 ml 110 ml IV Total 110 ml Other 1200 ml Height (Feet): 5 Height (Inches): 10.00 Weight (Pounds): 214 General Appearance: no apparent distress Neck: normal alignment Cardiovascular: normal rate Respiratory/Chest: normal breath sounds Abdomen: normal bowel sounds Objective Current Medications Medications (Trade) Dose Ordered Sig/Rashel Route PRN Reason Start Time Stop Time Status Last Admin Dose Admin Acetaminophen (Tylenol) 650 mg Q4H PRN ORAL fever (temp>100.5F) 08/15/18 20:15 09/14/18 20:14 08/15/18 21:53 Al Hydroxide/Mg Hydroxide (Mylanta II) 30 ml Q6H PRN ORAL dyspepsia 08/15/18 20:15 09/14/18 20:14 Albuterol/ Ipratropium (Albuterol/ Ipratropium) 3 ml Q4HRT HHN 08/30/18 15:00 09/04/18 14:59 09/02/18 22:14 Aspirin (Ecotrin) 81 mg DAILY ORAL 08/16/18 09:00 09/15/18 08:59 09/02/18 09:16 Atorvastatin Calcium (Lipitor) 20 mg BEDTIME ORAL 08/23/18 21:00 09/22/18 20:59 09/02/18 21:12 Azithromycin (Zithromax) 250 mg DAILY ORAL 09/03/18 09:00 09/10/18 08:59 Benazepril HCl (Lotensin) 20 mg DAILY ORAL 08/20/18 12:01 09/19/18 12:00 09/02/18 09:16 Cefazolin Sodium 1 gm/Dextrose 55 ml @ 110 mls/hr Q8HR IVPB 08/29/18 14:00 09/05/18 13:59 09/03/18 05:26 Clonidine HCl (Catapres Tab) 0.1 mg Q4H PRN ORAL sbp more than 160 08/15/18 20:15 09/14/18 20:14 Dextrose (Dextrose 50%) 25 ml Q30M PRN IV Hypoglycemia 08/16/18 07:30 09/15/18 07:29 Dextrose (Dextrose 50%) 50 ml Q30M PRN IV Hypoglycemia 08/16/18 07:30 09/15/18 07:29 08/24/18 19:11 Docusate Sodium (Colace) 100 mg TWICE A DAY ORAL 08/30/18 09:00 09/29/18 08:59 09/02/18 18:37 Heparin Sodium (Porcine) (Heparin 5000 units/ml) 5,000 units EVERY 12 HOURS SUBQ 08/15/18 21:00 09/14/18 20:59 09/02/18 21:14 Ibuprofen (Advil) 600 mg Q8H PRN ORAL mild pain 08/20/18 12:00 09/19/18 11:59 08/29/18 21:13 Insulin Aspart (NovoLOG) BEFORE MEALS AND HS SUBQ 08/25/18 11:30 09/14/18 21:59 09/03/18 06:33 Insulin Aspart (NovoLOG) 10 units NOVOTIAC SUBQ 09/02/18 11:50 10/02/18 11:49 09/03/18 06:34 Insulin Glargine (Lantus (NON FORUMULARY)) 36 unit QHS SQ 08/30/18 21:00 09/24/18 22:00 09/02/18 21:26 Ondansetron HCl (Zofran) 4 mg Q6H PRN IVP Nausea & Vomiting 08/26/18 13:15 09/25/18 13:14 Polyethylene Glycol (Miralax) 17 gm BEDTIME ORAL 08/30/18 21:00 09/29/18 20:59 09/02/18 21:12 Pregabalin (Lyrica) 50 mg TWICE A DAY ORAL 08/16/18 09:00 09/15/18 08:59 09/02/18 18:37 Promethazine HCl/ Codeine (Phenergan with Codeine) 5 ml Q8H PRN ORAL For Cough 08/21/18 14:45 09/20/18 14:44 09/01/18 08:41 Sennosides (Senokot) 8.6 mg DAILYPRN PRN ORAL Constipation 09/02/18 14:45 10/02/18 14:44 Item Value Date Time Bedside Blood Glucose 287 mg/dl H 09/03/18 0641 Bedside Blood Glucose 97 mg/dl 09/02/18 2130 Bedside Blood Glucose 262 mg/dl H 09/02/18 1708 Bedside Blood Glucose 134 mg/dl H 09/02/18 1150 Bedside Blood Glucose 183 mg/dl H 09/02/18 0707 Bedside Blood Glucose 183 mg/dl H 09/02/18 0627 Mac Vegas MD Sep 03, 2018 07:14
[2018-09-03 08:00] VITALS: BP 122/68
--- NOTE | 2018-09-03 08:33 | Infectious Diseases Prog Note ---
Assessment/Plan Assessment/Plan Pneumonia ( CAP ) SCx: MSSA ( ? contaminant ) Given response to Abx atypical or fungal infection unlikely CT: Right upper and lower lobe scattered areas of consolidation, nodularity, groundglass and equivocal tree-in-bud opacities. Most likely represents infectious inflammatory process. Given possibly tree-in-bud opacities, the possibility of atypical infectious processes, including tuberculosis or other mycobacterial infections or fungal pneumonia pulmonary to be considered but are less likely. Noninfectious inflammatory processes should also be considered. Multifocal neoplasm such as bronchoalveolar carcinoma must less likely but also possible 2dEcho no Veg Fever, improving Leukocytosis, Crypt Ag, HIV: Neg AFB Neg x 3 DM2 HLD HTN CAD/[place] asthma P: - Monitor off abx - 09/03/18 SP on Azithro and Cefazolin d# 8 for severe PNA - S/P Zosyn - S/P Levofloxacin Monitor CBC Monitor CMP OK to D/C from an ID perspective Subjective Allergies: Coded Allergies: INSULIN DETEMIR (Unverified Allergy, Unknown, Sweating, 08/16/18) Subjective Awake and feeling well this morning. Ready to leave Afebrile No Leukocytosis 3 AFB stains neg Objective Vital Signs Last 24 Hour Vital Signs Date Time Temp Pulse Resp B/P (MAP) Pulse Ox O2 Delivery O2 Flow Rate FiO2 09/03/18 07:40 80 16 100 Room Air 09/03/18 07:30 96 Room Air 09/03/18 07:30 Room Air 09/03/18 07:30 78 16 98 Room Air 09/03/18 04:03 98.0 74 18 98/51 (67) 100 09/03/18 04:02 Room Air 09/03/18 03:55 Room Air 21 09/02/18 22:22 85 18 100 Room Air 21 09/02/18 22:15 82 18 97 Room Air 09/02/18 19:53 Room Air 09/02/18 19:46 98.6 82 18 134/84 (101) 100 09/02/18 19:34 Room Air 21 09/02/18 19:34 Room Air 21 09/02/18 19:33 97 Room Air 21 09/02/18 19:33 Room Air 21 09/02/18 16:00 98.4 89 19 130/76 (94) 98 09/02/18 15:56 82 18 99 Room Air 21 09/02/18 15:46 85 18 98 Room Air 09/02/18 12:00 96.9 89 18 127/81 (96) 96 09/02/18 11:15 81 18 99 Room Air 21 09/02/18 11:00 84 18 97 Room Air 21 09/02/18 09:16 141/73 09/02/18 09:06 79 18 99 Room Air 21 09/02/18 09:00 Room Air 09/02/18 08:58 Room Air 21 09/02/18 08:58 81 18 98 Room Air 21 09/02/18 08:58 98 Room Air 21 Height (Feet): 5 Height (Inches): 10.00 Weight (Pounds): 214 Objective GEN; NAD, On RA HEENT: NCAT, MMM, EOMI Respiratory/Chest: CATB, no respiratory distress Abdomen: Soft, ND Skin: no rash Laboratory Tests Test 09/03/18 07:54 White Blood Count Pending Red Blood Count Pending Hemoglobin Pending Hematocrit Pending Mean Corpuscular Volume Pending Mean Corpuscular Hemoglobin Pending Mean Corpuscular Hemoglobin Concent Pending Red Cell Distribution Width Pending Platelet Count Pending Mean Platelet Volume Pending Neutrophils (%) (Auto) Pending Lymphocytes (%) (Auto) Pending Monocytes (%) (Auto) Pending Eosinophils (%) (Auto) Pending Basophils (%) (Auto) Pending Sodium Level Pending Potassium Level Pending Chloride Level Pending Carbon Dioxide Level Pending Blood Urea Nitrogen Pending Creatinine Pending Estimat Glomerular Filtration Rate Pending Glucose Level Pending Calcium Level Pending Current Medications Medications (Trade) Dose Ordered Sig/Rashel Route PRN Reason Start Time Stop Time Status Last Admin Dose Admin Acetaminophen (Tylenol) 650 mg Q4H PRN ORAL fever (temp>100.5F) 08/15/18 20:15 09/14/18 20:14 08/15/18 21:53 Al Hydroxide/Mg Hydroxide (Mylanta II) 30 ml Q6H PRN ORAL dyspepsia 08/15/18 20:15 09/14/18 20:14 Albuterol/ Ipratropium (Albuterol/ Ipratropium) 3 ml Q4HRT HHN 08/30/18 15:00 09/04/18 14:59 09/03/18 07:32 Aspirin (Ecotrin) 81 mg DAILY ORAL 08/16/18 09:00 09/15/18 08:59 09/02/18 09:16 Atorvastatin Calcium (Lipitor) 20 mg BEDTIME ORAL 08/23/18 21:00 09/22/18 20:59 09/02/18 21:12 Azithromycin (Zithromax) 250 mg DAILY ORAL 09/03/18 09:00 09/10/18 08:59 Benazepril HCl (Lotensin) 20 mg DAILY ORAL 08/20/18 12:01 09/19/18 12:00 09/02/18 09:16 Cefazolin Sodium 1 gm/Dextrose 55 ml @ 110 mls/hr Q8HR IVPB 08/29/18 14:00 09/05/18 13:59 09/03/18 05:26 Clonidine HCl (Catapres Tab) 0.1 mg Q4H PRN ORAL sbp more than 160 08/15/18 20:15 09/14/18 20:14 Dextrose (Dextrose 50%) 25 ml Q30M PRN IV Hypoglycemia 08/16/18 07:30 09/15/18 07:29 Dextrose (Dextrose 50%) 50 ml Q30M PRN IV Hypoglycemia 08/16/18 07:30 09/15/18 07:29 08/24/18 19:11 Docusate Sodium (Colace) 100 mg TWICE A DAY ORAL 08/30/18 09:00 09/29/18 08:59 09/02/18 18:37 Heparin Sodium (Porcine) (Heparin 5000 units/ml) 5,000 units EVERY 12 HOURS SUBQ 08/15/18 21:00 09/14/18 20:59 09/02/18 21:14 Ibuprofen (Advil) 600 mg Q8H PRN ORAL mild pain 08/20/18 12:00 09/19/18 11:59 08/29/18 21:13 Insulin Aspart (NovoLOG) BEFORE MEALS AND HS SUBQ 08/25/18 11:30 09/14/18 21:59 09/03/18 06:33 Insulin Aspart (NovoLOG) 10 units NOVOTIAC SUBQ 09/02/18 11:50 10/02/18 11:49 09/03/18 06:34 Insulin Glargine (Lantus (NON FORUMULARY)) 36 unit QHS SQ 08/30/18 21:00 09/24/18 22:00 09/02/18 21:26 Ondansetron HCl (Zofran) 4 mg Q6H PRN IVP Nausea & Vomiting 08/26/18 13:15 09/25/18 13:14 Polyethylene Glycol (Miralax) 17 gm BEDTIME ORAL 08/30/18 21:00 09/29/18 20:59 09/02/18 21:12 Pregabalin (Lyrica) 50 mg TWICE A DAY ORAL 08/16/18 09:00 09/15/18 08:59 09/02/18 18:37 Promethazine HCl/ Codeine (Phenergan with Codeine) 5 ml Q8H PRN ORAL For Cough 08/21/18 14:45 09/20/18 14:44 09/01/18 08:41 Sennosides (Senokot) 8.6 mg DAILYPRN PRN ORAL Constipation 09/02/18 14:45 10/02/18 14:44 Terence Snell MD Sep 03, 2018 08:33
[2018-09-03 08:35] LABS: BASOPHILS % (AUTO) 1.9 % (0.0-2.0); EOSINOPHILS % (AUTO) 3.6 % (0.0-3.0); HEMATOCRIT 41.6 % (42.0-52.0); LYMPHOCYTES % (AUTO) 21.6 % (20.0-45.0); MEAN CORPUSCULAR VOLUME 89 FL (80-99); MONOCYTES % (AUTO) 9.6 % (1.0-10.0); NEUTROPHILS % (AUTO) 63.3 % (45.0-75.0); PLATELET COUNT 227 K/UL (150-450); RED BLOOD COUNT 4.69 M/UL (4.70-6.10); RED CELL DISTRIBUTION WIDTH 11.4 % (11.6-14.8); WHITE BLOOD COUNT 6.1 K/UL (4.8-10.8)
[2018-09-03] MEDS ORDERED: Azithromycin 250mg tab ORAL SCH (09:00)
[2018-09-03 09:04] LABS: ANION GAP 8 mmol/L (5-15); BLOOD UREA NITROGEN 10 mg/dL (7-18); CALCIUM 9.6 MG/DL (8.5-10.1); CARBON DIOXIDE 28 MMOL/L (21-32); CHLORIDE 100 MMOL/L (98-107); CREATININE 0.9 MG/DL (0.55-1.30); POTASSIUM 4.5 MMOL/L (3.5-5.1); SODIUM 136 MMOL/L (136-145)
[2018-09-03] MEDS: Heparin 5000 units/ml inj SUBQ SCH (09:38)
[2018-09-03] MEDS: Benazepril 10mg tab ORAL SCH (09:41)
[2018-09-03] MEDS: Aspirin EC 81mg tab ORAL SCH (09:42)
[2018-09-03] MEDS: Docusate 100mg cap ORAL SCH (09:42)
[2018-09-03] MEDS: Lyrica 50mg cap ORAL SCH (09:42)
--- NOTE | 2018-09-03 10:50 | GI Progress Note ---
Assessment/Plan Problems: (1) Gastroparesis ICD Codes: K31.84 - Gastroparesis SNOMED: 706411161 (2) Hyperglycemia ICD Codes: R73.9 - Hyperglycemia, unspecified SNOMED: 06026880 (3) Intractable vomiting ICD Codes: R11.10 - Vomiting, unspecified SNOMED: 724822381, 049149928 Qualifiers: Qualified Codes: R11.2 - Nausea with vomiting, unspecified (4) Renal insufficiency ICD Codes: N28.9 - Disorder of kidney and ureter, unspecified SNOMED: 530216663, 435237202 (5) Gastroenteritis ICD Codes: K52.9 - Noninfective gastroenteritis and colitis, unspecified SNOMED: 94863237 (6) Malingering ICD Codes: Z76.5 - Malingerer [conscious simulation] SNOMED: 924485279 Status: unchanged Status Narrative Discussed with Dr. Thomas Assessment/Plan Assessment - N/V, Diarrhea - Abd pain - IDDM - HTN -Gastroparesis OB stool negative Now airborne precautions to rule out TB Recommendations Symptomatic treatment at this time Advance to ADA diet add Senokot prn hydration PPI Zofran as needed, Reglan for persistent vomiting Follow-up labs PT evaluation Outpatient EGD colonoscopy The patient was seen and examined at bedside and all new and available data was reviewed in the patients chart. I agree with the above findings, impression and plan. (Patient seen earlier today. Signature stamp does not reflect patient encounter time.). - Noé Thomas MD Subjective Subjective Denies any nausea or vomiting Denies any abdominal pain new complaint of constipation Objective Last 24 Hour Vital Signs Date Time Temp Pulse Resp B/P (MAP) Pulse Ox O2 Delivery O2 Flow Rate FiO2 09/03/18 10:42 83 16 98 Room Air 09/03/18 09:41 122/68 09/03/18 09:00 Room Air 09/03/18 08:00 97.7 104 18 122/68 (86) 98 09/03/18 07:40 80 16 100 Room Air 21 09/03/18 07:30 96 Room Air 09/03/18 07:30 Room Air 21 09/03/18 07:30 78 16 98 Room Air 09/03/18 04:03 98.0 74 18 98/51 (67) 100 09/03/18 04:02 Room Air 21 09/03/18 03:55 Room Air 21 09/02/18 22:22 85 18 100 Room Air 21 09/02/18 22:15 82 18 97 Room Air 21 09/02/18 19:53 Room Air 09/02/18 19:46 98.6 82 18 134/84 (101) 100 09/02/18 19:34 Room Air 21 09/02/18 19:34 Room Air 21 09/02/18 19:33 97 Room Air 21 09/02/18 19:33 Room Air 21 09/02/18 16:00 98.4 89 19 130/76 (94) 98 09/02/18 15:56 82 18 99 Room Air 21 09/02/18 15:46 85 18 98 Room Air 21 09/02/18 12:00 96.9 89 18 127/81 (96) 96 09/02/18 11:15 81 18 99 Room Air 21 09/02/18 11:00 84 18 97 Room Air 21 Intake and Output 09/02/18 09/03/18 19:00 07:00 Intake Total 1200 ml 750 ml Balance 1200 ml 750 ml Intake Oral 640 ml IV Total 110 ml Other 1200 ml # Voids 3 Laboratory Tests Test 09/03/18 07:54 White Blood Count 6.1 K/UL (4.8-10.8) Red Blood Count 4.69 M/UL (4.70-6.10) L Hemoglobin 14.0 G/DL (14.2-18.0) L Hematocrit 41.6 % (42.0-52.0) L Mean Corpuscular Volume 89 FL (80-99) Mean Corpuscular Hemoglobin 29.8 PG (27.0-31.0) Mean Corpuscular Hemoglobin Concent 33.7 G/DL (32.0-36.0) Red Cell Distribution Width 11.4 % (11.6-14.8) L Platelet Count 227 K/UL (150-450) Mean Platelet Volume 9.3 FL (6.5-10.1) Neutrophils (%) (Auto) 63.3 % (45.0-75.0) Lymphocytes (%) (Auto) 21.6 % (20.0-45.0) Monocytes (%) (Auto) 9.6 % (1.0-10.0) Eosinophils (%) (Auto) 3.6 % (0.0-3.0) H Basophils (%) (Auto) 1.9 % (0.0-2.0) Sodium Level 136 MMOL/L (136-145) Potassium Level 4.5 MMOL/L (3.5-5.1) Chloride Level 100 MMOL/L (98-107) Carbon Dioxide Level 28 MMOL/L (21-32) Anion Gap 8 mmol/L (5-15) Blood Urea Nitrogen 10 mg/dL (7-18) Creatinine 0.9 MG/DL (0.55-1.30) Estimat Glomerular Filtration Rate > 60 mL/min (>60) Glucose Level 285 MG/DL (74-106) H Calcium Level 9.6 MG/DL (8.5-10.1) Height (Feet): 5 Height (Inches): 10.00 Weight (Pounds): 214 General Appearance: WD/WN, no apparent distress, alert Cardiovascular: normal rate Respiratory/Chest: normal breath sounds, no respiratory distress Abdominal Exam: normal bowel sounds, non tender, soft Extremities: normal range of motion, non-tender Debby Vidal NP Sep 03, 2018 10:50
[2018-09-03 12:00] VITALS: BP 132/77
--- NOTE | 2018-09-03 12:17 | General Progress Note ---
Assessment/Plan Problem List: (1) Gastroenteritis ICD Codes: K52.9 - Noninfective gastroenteritis and colitis, unspecified SNOMED: 67082159 (2) Renal insufficiency ICD Codes: N28.9 - Disorder of kidney and ureter, unspecified SNOMED: 181973396, 612203305 (3) Intractable vomiting ICD Codes: R11.10 - Vomiting, unspecified SNOMED: 338581798, 167514841 Qualifiers: Qualified Codes: R11.2 - Nausea with vomiting, unspecified (4) Hyperglycemia ICD Codes: R73.9 - Hyperglycemia, unspecified SNOMED: 18344749 (5) Gastroparesis ICD Codes: K31.84 - Gastroparesis SNOMED: 663614589 Status: stable, progressing Assessment/Plan ivf adv diet cbc bmp am dc if clear Subjective Constitutional: Reports: weakness Allergies: Coded Allergies: INSULIN DETEMIR (Unverified Allergy, Unknown, Sweating, 08/16/18) All Systems: reviewed and negative except above Subjective calm in bed sl cough Objective Last 24 Hour Vital Signs Date Time Temp Pulse Resp B/P (MAP) Pulse Ox O2 Delivery O2 Flow Rate FiO2 09/03/18 10:52 83 16 100 Room Air 21 09/03/18 10:42 83 16 98 Room Air 09/03/18 09:41 122/68 09/03/18 09:00 Room Air 09/03/18 08:00 97.7 104 18 122/68 (86) 98 09/03/18 07:40 80 16 100 Room Air 09/03/18 07:30 96 Room Air 21 09/03/18 07:30 Room Air 09/03/18 07:30 78 16 98 Room Air 21 09/03/18 04:03 98.0 74 18 98/51 (67) 100 09/03/18 04:02 Room Air 21 09/03/18 03:55 Room Air 21 09/02/18 22:22 85 18 100 Room Air 21 09/02/18 22:15 82 18 97 Room Air 21 09/02/18 19:53 Room Air 09/02/18 19:46 98.6 82 18 134/84 (101) 100 09/02/18 19:34 Room Air 21 09/02/18 19:34 Room Air 21 09/02/18 19:33 97 Room Air 21 09/02/18 19:33 Room Air 21 09/02/18 16:00 98.4 89 19 130/76 (94) 98 09/02/18 15:56 82 18 99 Room Air 21 09/02/18 15:46 85 18 98 Room Air 21 Intake and Output 09/02/18 09/03/18 19:00 07:00 Intake Total 1200 ml 750 ml Balance 1200 ml 750 ml Intake Oral 640 ml IV Total 110 ml Other 1200 ml # Voids 3 Laboratory Tests 09/03/18 07:54: White Blood Count 6.1, Red Blood Count 4.69L, Hemoglobin 14.0L, Hematocrit 41.6L , Mean Corpuscular Volume 89, Mean Corpuscular Hemoglobin 29.8, Mean Corpuscular Hemoglobin Concent 33.7, Red Cell Distribution Width 11.4L, Platelet Count 227, Mean Platelet Volume 9.3, Neutrophils (%) (Auto) 63.3, Lymphocytes (%) (Auto) 21.6, Monocytes (%) (Auto) 9.6, Eosinophils (%) (Auto) 3.6H, Basophils (%) (Auto) 1.9, Sodium Level 136, Potassium Level 4.5, Chloride Level 100, Carbon Dioxide Level 28, Anion Gap 8, Blood Urea Nitrogen 10, Creatinine 0.9, Estimat Glomerular Filtration Rate > 60, Glucose Level 285H, Calcium Level 9.6 Height (Feet): 5 Height (Inches): 10.00 Weight (Pounds): 214 General Appearance: lethargic EENT: normal ENT inspection Neck: normal alignment Cardiovascular: normal peripheral pulses, normal rate, regular rhythm Respiratory/Chest: chest wall non-tender, lungs clear, normal breath sounds Abdomen: normal bowel sounds, non tender, soft Extremities: normal inspection Edema: no edema noted Arm (L), no edema noted Arm (R), no edema noted Leg (L), no edema noted Leg (R), no edema noted Pedal (L), no edema noted Pedal (R), no edema noted Generalized Neurologic: motor weakness Skin: normal pigmentation, warm/dry Stuart Silver DO Sep 03, 2018 12:17
--- NOTE | 2018-09-03 12:55 | Surgery Progress Note ---
Surgery Progress Note Subjective Symptoms: improved Objective Last 24 Hour Vital Signs Date Time Temp Pulse Resp B/P (MAP) Pulse Ox O2 Delivery O2 Flow Rate FiO2 09/03/18 12:00 97.5 97 18 132/77 (95) 99 09/03/18 10:52 83 16 100 Room Air 21 09/03/18 10:42 83 16 98 Room Air 21 09/03/18 09:41 122/68 09/03/18 09:00 Room Air 09/03/18 08:00 97.7 104 18 122/68 (86) 98 09/03/18 07:40 80 16 100 Room Air 21 09/03/18 07:30 96 Room Air 21 09/03/18 07:30 Room Air 21 09/03/18 07:30 78 16 98 Room Air 21 09/03/18 04:03 98.0 74 18 98/51 (67) 100 09/03/18 04:02 Room Air 21 09/03/18 03:55 Room Air 21 09/02/18 22:22 85 18 100 Room Air 09/02/18 22:15 82 18 97 Room Air 21 09/02/18 19:53 Room Air 09/02/18 19:46 98.6 82 18 134/84 (101) 100 09/02/18 19:34 Room Air 21 09/02/18 19:34 Room Air 21 09/02/18 19:33 97 Room Air 21 09/02/18 19:33 Room Air 21 09/02/18 16:00 98.4 89 19 130/76 (94) 98 09/02/18 15:56 82 18 99 Room Air 09/02/18 15:46 85 18 98 Room Air 21 I&O Intake and Output 09/02/18 09/03/18 19:00 07:00 Intake Total 1200 ml 750 ml Balance 1200 ml 750 ml Intake Oral 640 ml IV Total 110 ml Other 1200 ml # Voids 3 Dressing: dry Wound: clean Drains: none Cardiovascular: RSR Respiratory: clear Abdomen: soft, flat Extremities: no edema, no tenderness, no cyanosis Laboratory Tests Test 09/03/18 07:54 White Blood Count 6.1 K/UL (4.8-10.8) Red Blood Count 4.69 M/UL (4.70-6.10) L Hemoglobin 14.0 G/DL (14.2-18.0) L Hematocrit 41.6 % (42.0-52.0) L Mean Corpuscular Volume 89 FL (80-99) Mean Corpuscular Hemoglobin 29.8 PG (27.0-31.0) Mean Corpuscular Hemoglobin Concent 33.7 G/DL (32.0-36.0) Red Cell Distribution Width 11.4 % (11.6-14.8) L Platelet Count 227 K/UL (150-450) Mean Platelet Volume 9.3 FL (6.5-10.1) Neutrophils (%) (Auto) 63.3 % (45.0-75.0) Lymphocytes (%) (Auto) 21.6 % (20.0-45.0) Monocytes (%) (Auto) 9.6 % (1.0-10.0) Eosinophils (%) (Auto) 3.6 % (0.0-3.0) H Basophils (%) (Auto) 1.9 % (0.0-2.0) Sodium Level 136 MMOL/L (136-145) Potassium Level 4.5 MMOL/L (3.5-5.1) Chloride Level 100 MMOL/L (98-107) Carbon Dioxide Level 28 MMOL/L (21-32) Anion Gap 8 mmol/L (5-15) Blood Urea Nitrogen 10 mg/dL (7-18) Creatinine 0.9 MG/DL (0.55-1.30) Estimat Glomerular Filtration Rate > 60 mL/min (>60) Glucose Level 285 MG/DL (74-106) H Calcium Level 9.6 MG/DL (8.5-10.1) Plan Problems: (1) Finger laceration Assessment & Plan: laceration to left ring finger while shaving today. hemostasis now. dressings applied no signs of infection acutely. keep dressings in place for now - steri-strips/ gauze asked patient about tetanus. states had it in last 10 years but not sure about last 5 years will give tetanus booster will monitor for signs of infection dressings removed. wound looks great. healing well. no signs of infection okay to keep open to air okay to d/c from surgical standpoint keep hand clean. thank you Marv Brandon Sep 03, 2018 12:55
--- NOTE | 2018-09-04 17:36 | Discharge Summary ---
Discharge Summary Discharge Summary _ DATE OF ADMISSION: 08/15/2018 DATE OF DISCHARGE: 09/03/2018 DISCHARGED BY: Dr. Stuart Silver CONSULTANTS: Dr. Miguel Angel Vegas [facility] COURSE: Patient is a 53-year-old male, with history of diabetes, had been having stomach issues with nausea and vomiting for the past 2 days. Has history of type I diabetes and hypertension. Pain was described to be cramping, 8 out of 10, nonradiating. He denied any fever or chills. Denied any sick contacts or recent travel. He denied any recent antibiotic use. On evaluation at the ED, blood pressure was stable, heart rate was elevated to 120. He was noted to be later on febrile, temperature 101.2. Blood work showed glucose of 374. WBC was elevated to 19.7, hemoglobin and hematocrit were stable. Electrolytes were normal. Anion gap was 11. BUN was elevated to 29, creatinine 1.5. Troponin was negative. EKG showed sinus rhythm with no acute ischemic changes. Urinalysis showed 3+ protein, 4+ glucose, 4+ ketones, 3 + blood, negative nitrite, negative leukocyte esterase, 5-10 RBC, 0-2 WBC. He was then admitted for evaluation of hyperglycemia with intractable vomiting, renal insufficiency and gastroenteritis. GI was consulted. Patient denied hematochezia. He had combination of nausea, vomiting and diarrhea which is typically related to gastroenteritis. She was given IV hydration. Diet was advanced. She was advised to undergo colonoscopy screening as outpatient. C. difficile was negative. Stool culture negative. Blood glucose was monitored. Manager Regional was consulted. There was no evidence of DKA. She was given Levemir and NovoLog. Dose were adjusted accordingly. ID was consulted for evaluation of fever and leukocytosis. Patient was given Zosyn. Patient had been coughing. Chest x-ray showed right lower lung infiltrate. Sputum culture with Staphylococcus aureus. Patient was given levofloxacin. He complained of chest pain. Composite Assembler was consulted. Cardiac enzymes were monitored. He was continued on aspirin and atorvastatin. He was given benazepril. Echocardiogram done showed ejection fraction of 55% per line producer. CT of the chest was done. Findings showed right upper and lower lobe scattered areas of consolidation, nodularity, groundglass and equivocal tree-in-bud opacities. Patient needed to be ruled out for TB. He was given Zithromax and Ancef. He was placed on airborne isolation. Patient apparently lacerated his distal ring finger with a razor blade while shaving. There was bleeding noted. Pressure was applied. Surgery was called to evaluate the patient. Bleeding has stopped. Dressings were applied. He was ordered tetanus booster, but patient refused. There were no signs of infection seen the wound. PPD was negative. AFB x3 were negative. Cryptococcus antigen was negative. HIV negative. Blood culture was negative. He was monitored off antibiotic treatment. Wound dressings were removed. Wound looks good and healing. There were no signs of infection and he was advised to leave wound open to air. He was eventually discharged home. FINAL DIAGNOSES: Community-acquired pneumonia Nausea, vomiting and diarrhea secondary to gastroenteritis Acute kidney injury Type 1 diabetes Hyperlipidemia Hypertension Coronary artery disease Asthma Gastroparesis Atypical chest pain with no ischemic features on EKG and negative troponin Laceration to the left ring finger Sepsis from GI source, likely bacterial gastroenteritis DISPOSITION: Patient was discharged home. DISCHARGE MEDICATIONS: Refer to Discharge Medication List. DISCHARGE INSTRUCTIONS: Follow-up in a week. I have been assigned to complete a discharge summary on this account, I was not involved with the patient's management. Verónica Portillo NP Sep 04, 2018 17:36
== END 2018-09-03 14:30 | disposition home or self-care (01) | DRG 720 ==
LOC: EMR 16:35 → EDBEDREQ 18:03 → 3E 18:18 → 4E 08-25 10:45
DX: A41.9 Sepsis, unspecified organism (principal); N17.0 Acute kidney failure with tubular necrosis; E11.65 Type 2 diabetes mellitus with hyperglycemia; J18.9 Pneumonia, unspecified organism; K52.9 Noninfective gastroenteritis and colitis, unspecified; Z79.4 Long term (current) use of insulin; I10 Essential (primary) hypertension; E78.00 Pure hypercholesterolemia, unspecified; I25.10 Atherosclerotic heart disease of native coronary artery without angina pectoris; R07.89 Other chest pain; K31.84 Gastroparesis; I25.2 Old myocardial infarction; S61.215A Laceration without foreign body of left ring finger without damage to nail, initial encounter; W45.8XXA Other foreign body or object entering through skin, initial encounter; Y92.231 Patient bathroom in hospital as the place of occurrence of the external cause; Z76.5 Malingerer [conscious simulation]
CPT/HCPCS: 36415; 71045; 71250; 73521; 80048; 80053; 80061; 81003; 82009; 82164; 82270; 82378; 82962; 83036; 83615; 83735; 84100; 84443; 84484; 85007; 85025; 85651; 86140; 86171; 86580; 86612; 86635; 86703; 86738; 87040; 87045; 87070; 87116; 87181; 87205; 87324; 87385; 87449; 90471; 90714; 93005; 93306; 94640; 94664; 94760; 96361; 96374; 96375; 99285; J1815; J2405; J7620; J8499; S5561

== ENCOUNTER 2018-12-17 16:40 | Inpatient (IN) | payer MEDICAID ==
[~2018-12-17] VITALS: Ht 177.8 cm; Wt 95.3 kg
[~2018-12-17 16:40] MED LIST changes: +ASPIR 8181 MG ORAL; +ENSURE113 GM PO; +HUMALOG100 UNIT/3 SUBQ; +LANTUS SOL100 UNIT/1 SUBQ; +LEVOFLOXACIN500 MG ORAL; +LIPITOR20 MG ORAL; +LOTENSIN20 MG ORAL; +LYRICA50 MG ORAL; +PROAIR HFA8.5 GM INH
--- NOTE | 2018-12-17 16:50 | NUR ---
ED Nurse Note: PT WALKED IN TO ER TODAY FROM HOME. AOX4. PT C/O RIGHT SIDED RIB PAIN, 10/10 X 10 DAYS AGO. PT DENIES RECENT TRAUMA OR INJURY. PT ALSO STATES HIS BLOOD SUGAR IS HIGH. BG AT BEDSIDE: 121. DR RADHA CLEANING.
--- NOTE | 2018-12-17 17:03 | Emergency Room Report ---
History of Present Illness General Chief Complaint: General Complaint Source: Patient, Medical Record Present Illness HPI Patient presents with complaints of cough and right-sided chest and abdominal pain Patient had a fairly extensive hospital stay recently with pneumonia he reports that he was in [place] recently and again feels more short of breath with increased productive cough Denies any vomiting or diarrhea Patient has history of type 1 diabetes Low-grade fevers subjectively at home denies any neck pain or photophobia denies any rash Allergies: Coded Allergies: INSULIN DETEMIR (Unverified Allergy, Unknown, Sweating, 08/16/18) Patient History Past Medical History: see triage record Pertinent Family History: none Reviewed Nursing Documentation: PMH: Agreed; PSxH: Agreed Nursing Documentation-PMH Past Medical History: No History, Except For Hx Cardiac Problems: Yes Hx Hypertension: Yes Hx Asthma: Yes Hx Diabetes: Yes Hx Neurological Problems: Yes Hx Peripheral Neuropathy: Yes Review of Systems All Other Systems: negative except mentioned in HPI Physical Exam Vital Signs Date Time Temp Pulse Resp B/P (MAP) Pulse Ox O2 Delivery O2 Flow Rate FiO2 12/17/18 16:45 97.5 91 18 96 Room Air Sp02 EP Interpretation: reviewed, normal General Appearance: well appearing, no apparent distress Head: normocephalic, atraumatic Eyes: bilateral eye PERRL, bilateral eye EOMI ENT: hearing grossly normal, normal pharynx, TMs + canals normal, uvula midline Neck: full range of motion, supple, no meningismus, no bony tend Respiratory: no rhonchi, no respiratory distress, no retraction, no accessory muscle use, crackles - Right lower lobe Cardiovascular #1: normal peripheral pulses, regular rate, rhythm, no gallop, no JVD, no murmur Gastrointestinal: normal bowel sounds, non tender, soft, no mass, no organomegaly, non-distended, no guarding, no hernia, no pulsatile mass, no rebound Genitourinary: no CVA tenderness Musculoskeletal: normal inspection Neurologic: oriented x3, responsive, patrol inspector III-XII nml as tested, motor strength/ tone normal, sensory intact Psychiatric: mood/affect normal Skin: palpation normal, other - Some edema is noted bilaterally Lymphatic: normal inspection, no adenopathy Medical Decision Making Diagnostic Impression: Primary Impression: Dyspnea Additional Impressions: Diabetes mellitus Upper respiratory infection ER Course Patient is a fairly complex patient with multiple differential to consideration including but not limited to cardiac cardiopulmonary and vascular emergencies Patient's x-ray does not show any acute disease However as previous patient initial x-ray was also negative And CT imaging has shown the patient's abnormality We do have reassuring findings with the blood work at this time however the patient so remained short of breath given the complex recent presentation patient was placed into observation for further evaluation Labs Test 12/17/18 17:15 12/17/18 18:20 12/18/18 06:55 White Blood Count 8.6 K/UL (4.8-10.8) Red Blood Count 4.71 M/UL (4.70-6.10) Hemoglobin 14.4 G/DL (14.2-18.0) Hematocrit 40.4 % (42.0-52.0) Mean Corpuscular Volume 86 FL (80-99) Mean Corpuscular Hemoglobin 30.7 PG (27.0-31.0) Mean Corpuscular Hemoglobin Concent 35.7 G/DL (32.0-36.0) Red Cell Distribution Width 11.0 % (11.6-14.8) Platelet Count 197 K/UL (150-450) Mean Platelet Volume 7.9 FL (6.5-10.1) Neutrophils (%) (Auto) 64.7 % (45.0-75.0) Lymphocytes (%) (Auto) 22.1 % (20.0-45.0) Monocytes (%) (Auto) 10.2 % (1.0-10.0) Eosinophils (%) (Auto) 1.5 % (0.0-3.0) Basophils (%) (Auto) 1.5 % (0.0-2.0) Sodium Level 140 MMOL/L (136-145) Potassium Level 4.0 MMOL/L (3.5-5.1) Chloride Level 104 MMOL/L (98-107) Carbon Dioxide Level 28 MMOL/L (21-32) Anion Gap 8 mmol/L (5-15) Blood Urea Nitrogen 19 mg/dL (7-18) Creatinine 0.9 MG/DL (0.55-1.30) Estimat Glomerular Filtration Rate > 60 mL/min (>60) Glucose Level 144 MG/DL (74-106) Lactic Acid Level 1.30 mmol/L (0.4-2.0) Calcium Level 9.2 MG/DL (8.5-10.1) Total Bilirubin 0.5 MG/DL (0.2-1.0) Aspartate Amino Transf (AST/SGOT) 16 U/L (15-37) Alanine Aminotransferase (ALT/SGPT) 24 U/L (12-78) Alkaline Phosphatase 120 U/L (46-116) Total Creatine Kinase 175 U/L (26-308) Creatine Kinase MB 1.1 NG/ML (0.0-3.6) Creatine Kinase MB Relative Index 0.6 Troponin I 0.000 ng/mL (0.000-0.056) Pro-B-Type Natriuretic Peptide 14 pg/mL (0-125) Total Protein 6.9 G/DL (6.4-8.2) Albumin 3.7 G/DL (3.4-5.0) Globulin 3.2 g/dL Albumin/Globulin Ratio 1.2 (1.0-2.7) Lipase 175 U/L (73-393) Urine Color Pale yellow Urine Appearance Clear Urine pH 5 (4.5-8.0) Urine Specific [place] 1.015 (1.005-1.035) Urine Protein Negative (NEGATIVE) Urine Glucose (UA) 4+ (NEGATIVE) Urine Ketones 1+ (NEGATIVE) Urine Blood 2+ (NEGATIVE) Urine Nitrite Negative (NEGATIVE) Urine Bilirubin Negative (NEGATIVE) Urine Urobilinogen Normal MG/DL (0.0-1.0) Urine Leukocyte Esterase Negative (NEGATIVE) Urine RBC 2-4 /HPF (0 - 0) Urine WBC 0-2 /HPF (0 - 0) Urine Squamous Epithelial Cells None /LPF (NONE/OCC) Urine Bacteria Few /HPF (NONE) Rhythm Strip Diag. Results EP Interpretation: yes Rate: 60 Rhythm: NSR, no PVC's, no ectopy Chest X-Ray Diagnostic Results Chest X-Ray Diagnostic Results : Chest X-Ray Ordered: Yes # of Views/Limited/Complete: 1 View Indication: Shortness of Breath EP Interpretation: Yes Interpretation: no consolidation, no effusion, no pneumothorax Impression: No acute disease Electronically Signed by: Kim Bonilla DO Last Vital Signs Date Time Temp Pulse Resp B/P (MAP) Pulse Ox O2 Delivery O2 Flow Rate FiO2 12/17/18 16:45 97.5 91 18 96 Room Air Status: improved Disposition: PLACE IN OBSERVATION Condition: Improved Kim Bonilla DO December 17, 2018 17:03
[2018-12-17 17:04] VITALS: BP_SYST 127; BP_SYST 132; BP_DIAS 62; BP_DIAS 82
--- NOTE | 2018-12-17 17:15 | NUR ---
ED Nurse Note: PT REMINDED URINE SPECIMEN IS NEEDED. URINAL LEFT AT BEDSIDE.
[2018-12-17 17:32] LABS: BASOPHILS % (AUTO) 1.5 % (0.0-2.0); EOSINOPHILS % (AUTO) 1.5 % (0.0-3.0); HEMATOCRIT 40.4 % (42.0-52.0); HEMOGLOBIN 14.4 G/DL (14.2-18.0); LYMPHOCYTES % (AUTO) 22.1 % (20.0-45.0); MEAN CORPUSCULAR VOLUME 86 FL (80-99); MONOCYTES % (AUTO) 10.2 % (1.0-10.0); NEUTROPHILS % (AUTO) 64.7 % (45.0-75.0); PLATELET COUNT 197 K/UL (150-450); RED BLOOD COUNT 4.71 M/UL (4.70-6.10); WHITE BLOOD COUNT 8.6 K/UL (4.8-10.8)
[2018-12-17 17:38] LABS: ANION GAP 8 mmol/L (5-15); BLOOD UREA NITROGEN 19 mg/dL (7-18); CALCIUM 9.2 MG/DL (8.5-10.1); CARBON DIOXIDE 28 MMOL/L (21-32); CHLORIDE 104 MMOL/L (98-107); CREATININE 0.9 MG/DL (0.55-1.30); SODIUM 140 MMOL/L (136-145)
[2018-12-17 17:50] LABS: ALANINE AMINOTRANSFERASE 24 U/L (12-78); ALBUMIN 3.7 G/DL (3.4-5.0); ALBUMIN/GLOBULIN RATIO 1.2 (1.0-2.7); ALKALINE PHOSPHATASE 120 U/L (46-116); ASPARTATE AMINO TRANSFERASE 16 U/L (15-37); BILIRUBIN,TOTAL 0.5 MG/DL (0.2-1.0); CKMB 1.1 NG/ML (0.0-3.6); CREATINE KINASE 175 U/L (26-308)
--- NOTE | 2018-12-17 18:15 | NUR ---
ED Nurse Note: URINE COLLECTED AND SENT TO LAB.
[2018-12-17 18:32] LABS: APPEARANCE,URINE CLEAR; BILIRUBIN, URINE NEGATIVE (NEGATIVE); COLOR,URINE PALE YELLOW; GLUCOSE, URINE (UA) 4+ (NEGATIVE); KETONES,URINE 1+ (NEGATIVE); LEUKOCYTE ESTERASE ,URINE NEGATIVE (NEGATIVE); NITRITE,URINE NEGATIVE (NEGATIVE); PH,URINE 5 (4.5-8.0); PROTEIN,URINE NEGATIVE (NEGATIVE); UROBILINOGEN,URINE NORMAL MG/DL (0.0-1.0)
--- NOTE | 2018-12-17 19:04 | NUR ---
ED Nurse Note: REPORT GIVEN TO RAJNI BLACKMAN RN.
--- NOTE | 2018-12-17 19:06 | NUR ---
ED Nurse Note: RECEIVED PT FROM ERVIN FIGUEREDO . PATIENT RESTING COMFORTABLY IN NAD. PATIENT REPORTS 9/10 RIGHT RIB PAIN; NO FACIAL GRIMACING NOTED. VSS
[2018-12-17 19:10] VITALS: BP 123/61
--- NOTE | 2018-12-17 19:43 | NUR ---
ED Nurse Note: BELONGINGS LIST COMPLETED WITH PT.
--- NOTE | 2018-12-17 20:36 | NUR ---
TRANSFER TO FLOOR: Patient transferred to [address] as ordered, per md duarte. Report given to africa spear. patient ao4 nad vss. belongings sent with patient.
[2018-12-17] MEDS ORDERED: Nitroglycerin Subl 0.4mg tab SL PRN (20:47)
[2018-12-17] MEDS ORDERED: Ketorolac 30mg Inj IV PRN (20:48)
[2018-12-17] MEDS ORDERED: Miralax 17gm pkt ORAL PRN (21:00)
--- NOTE | 2018-12-17 21:19 | NUR ---
NURSE NOTES: Received patient from ER, report given by Aidan MUELLER, patient is admitted from Home, awake, alert, oriented, able to make his basic needs known, has cane at bedside, ambulates, SR, RA with breathing treatments prn q 4 hrs. Oriented patient to the room, call light is within reach, bed is in low position, locked and alarm is on. IV LAC 20 g with NS at 100 cc/hr. No skin issues, clean and intact. Will continue to monitor for safety and comfort.
[2018-12-17] MEDS: NovoLOG Insulin Flexpen SUBQ SCH (21:41)
[2018-12-17] MEDS: Heparin 5000 units/ml inj SUBQ SCH (21:42)
[2018-12-17] MEDS: Albuterol/Ipratropium 3ml neb HHN PRN (22:13)
[2018-12-18] VITALS: BP 131/72
[2018-12-18 04:00] VITALS: BP 133/70
[2018-12-18] MEDS: Morphine Sulfate 2mg/ml Inj(IV/IM USE ONLY) IVP PRN ×3 (06:17→21:44)
[2018-12-18] MEDS: NovoLOG Insulin Flexpen SUBQ SCH ×7 (06:24→21:43)
--- NOTE | 2018-12-18 06:52 | NUR ---
HAND-OFF: Report given to Alba MUELLER.
--- NOTE | 2018-12-18 07:29 | NUR ---
NURSE NOTES: Patient received resting in bed, alert and oriented. Denies pain or shortness of breath at this time. Breathing unlabored on room air. Patient is ambulatory. Bed locked in lowest position, hob elevated. Call light placed within reach. Will continue to monitor. by bedside.
[2018-12-18 07:34] LABS: BASOPHILS % (AUTO) 1.5 % (0.0-2.0); EOSINOPHILS % (AUTO) 2.2 % (0.0-3.0); HEMATOCRIT 39.9 % (42.0-52.0); HEMOGLOBIN 14.1 G/DL (14.2-18.0); LYMPHOCYTES % (AUTO) 26.5 % (20.0-45.0); MEAN CORPUSCULAR VOLUME 88 FL (80-99); MONOCYTES % (AUTO) 10.8 % (1.0-10.0); PLATELET COUNT 172 K/UL (150-450); RED BLOOD COUNT 4.55 M/UL (4.70-6.10); RED CELL DISTRIBUTION WIDTH 11.1 % (11.6-14.8); WHITE BLOOD COUNT 6.1 K/UL (4.8-10.8)
[2018-12-18 07:56] LABS: ALANINE AMINOTRANSFERASE 22 U/L (12-78); ALBUMIN/GLOBULIN RATIO 1.1 (1.0-2.7); ALKALINE PHOSPHATASE 93 U/L (46-116); ANION GAP 7 mmol/L (5-15); ASPARTATE AMINO TRANSFERASE 16 U/L (15-37); BILIRUBIN,TOTAL 0.6 MG/DL (0.2-1.0); BLOOD UREA NITROGEN 12 mg/dL (7-18); CALCIUM 8.4 MG/DL (8.5-10.1); CARBON DIOXIDE 26 MMOL/L (21-32); CHLORIDE 105 MMOL/L (98-107); CHOLESTEROL 188 MG/DL (< 200); CREATININE 0.9 MG/DL (0.55-1.30); HDL CHOLESTEROL 51 MG/DL (40-60); POTASSIUM 3.9 MMOL/L (3.5-5.1); SODIUM 138 MMOL/L (136-145); TRIGLYCERIDES 189 MG/DL (30-150)
[2018-12-18 08:00] VITALS: BP 124/69
[2018-12-18] MEDS: Lyrica 50mg cap ORAL SCH ×2 (08:17→17:16)
[2018-12-18] MEDS: Insulin NPH SUBQ SCH ×2 (08:24→17:13)
[2018-12-18] MEDS: Heparin 5000 units/ml inj SUBQ SCH ×2 (08:31→21:41)
[2018-12-18] MEDS ORDERED: Levofloxacin 500mg tab ORAL SCH (09:00)
--- NOTE | 2018-12-18 10:14 | NUR ---
TREE FALLERRESPIRATORY SUPPORT TECHNICIAN 67 Y/O FEMALE GERRI FROM [facility] TO [facility] [place] ER CC:GENERAL COMPLAINT SI:WEAKNESS . UPPER RESPIRATORY INFECTION . DYSPNEA VS: BP 137/83, P 91, T 97.5, RR 18, SpO2 96 RBC 4.55, H&H 14.1/39.9, URINE GLUCOSE 4+, URINE BLOOD 2+, BACTERIA FEW IS:ALBUTEROL 3ml HHN MORPHINE 2mg IVP NOVOLOG SUBQ NS 1L IV ADMITTED TO MED/SURG DCP: RETURN TO [facility] Addendum: 12/18/18 at 1156 by Tena Couch LVN 53 Y/O MALE FROM HOME CAME TO [facility] [place] ER DCP: RETURN HOME
[2018-12-18 12:00] VITALS: BP 127/71
--- NOTE | 2018-12-18 12:13 | Diagnostic Imaging Report ---
Indication: Dyspnea Comparison: 08/30/2018 A single view chest radiograph was obtained. Findings: Cardiomediastinal appearance is within normal limits for age. The lungs are clear. Pulmonary vascularity is appropriate. The diaphragmatic contour is smooth and costophrenic angles are sharp. No pleural effusions are identified. The bones are unremarkable. Impression: No acute findings
--- NOTE | 2018-12-18 13:03 | Consultation ---
History of Present Illness General Date patient seen: December 18, 2018 Chief Complaint: General Complaint Present Illness HPI 53 year old male with hx of type 1 DM, COPD, GERD presented to ER with complaints of cough and right-sided chest and abdominal pain. Pt also clamis to have Low-grade fevers subjectively at home denies any neck pain or photophobia denies any rash. Allergies: Coded Allergies: INSULIN DETEMIR (Unverified Allergy, Unknown, Sweating, 08/16/18) Medication History Scheduled Albuterol Sulfate* (Proair Hfa*), 2 PUFFS INH Q6H, (Reported) Aspirin* (Aspir 81*), 81 MG ORAL DAILY, (Reported) Atorvastatin Calcium* (Lipitor*), 20 MG ORAL BEDTIME, (Reported) Benazepril Hcl* (Lotensin*), 20 MG ORAL DAILY, (Reported) Insulin Glargine (Lantus), 30 UNITS SUBQ BEDTIME, (Reported) Insulin Lispro (Humalog), 8 UNITS SUBQ BEFORE MEALS, (Reported) Levofloxacin (Levofloxacin*), 750 MG ORAL DAILY Pregabalin (Lyrica), 50 MG ORAL TWICE A DAY, (Reported) Scheduled PRN Ibuprofen* (Motrin*), 600 MG ORAL Q8H PRN for For Pain Miscellaneous Medications Nutritional Supplement (Ensure), 113 GM PO, (Reported) Patient History Healthcare decision maker Resuscitation status Full Code Advanced Directive on File No Past Medical/Surgical History Past Medical/Surgical History: (1) Gastroparesis (2) Diabetes mellitus Review of Systems All Other Systems: negative except mentioned in HPI Physical Exam General Appearance: WD/WN, no apparent distress Lines, tubes and drains: peripheral HEENT: normocephalic, atraumatic Neck: non-tender, supple Respiratory/Chest: rhonchi - left, rhonchi - right Breasts: no masses Cardiovascular/Chest: normal peripheral pulses, normal rate Abdomen: normal bowel sounds, non tender Genitourinary/Rectal: normal genital exam, heme negative stool Extremities: normal range of motion, non-tender Last 24 Hour Vital Signs Date Time Temp Pulse Resp B/P (MAP) Pulse Ox O2 Delivery O2 Flow Rate FiO2 12/18/18 12:00 97.9 83 20 127/71 (89) 96 12/18/18 09:00 Room Air 12/18/18 08:00 98.4 74 20 124/69 (87) 96 12/18/18 04:00 98.2 70 16 133/70 (91) 12/18/18 00:00 98.8 75 16 131/72 (91) 12/17/18 22:35 82 20 98 Room Air 21 12/17/18 22:19 Room Air 12/17/18 22:10 66 20 96 Room Air 21 12/17/18 22:06 66 20 Room Air 21 12/17/18 20:36 98.0 77 16 123/61 100 Room Air 12/17/18 19:10 98.0 77 16 123/61 100 Room Air 12/17/18 17:04 98.0 84 16 127/62 98 Room Air 12/17/18 17:04 86 16 Room Air 12/17/18 16:45 97.5 91 18 96 Room Air Intake and Output 12/17/18 12/18/18 18:59 06:59 Intake Total 960 ml Output Total 750 ml Balance 210 ml Intake Oral 360 ml IV Total 600 ml Output Urine Total 750 ml # Voids 1 2 # Bowel Movements 1 Laboratory Tests Test 12/17/18 17:15 12/17/18 18:20 12/18/18 06:55 White Blood Count 8.6 K/UL (4.8-10.8) 6.1 K/UL (4.8-10.8) Red Blood Count 4.71 M/UL (4.70-6.10) 4.55 M/UL (4.70-6.10) L Hemoglobin 14.4 G/DL (14.2-18.0) 14.1 G/DL (14.2-18.0) L Hematocrit 40.4 % (42.0-52.0) L 39.9 % (42.0-52.0) L Mean Corpuscular Volume 86 FL (80-99) 88 FL (80-99) Mean Corpuscular Hemoglobin 30.7 PG (27.0-31.0) 31.0 PG (27.0-31.0) Mean Corpuscular Hemoglobin Concent 35.7 G/DL (32.0-36.0) 35.3 G/DL (32.0-36.0) Red Cell Distribution Width 11.0 % (11.6-14.8) L 11.1 % (11.6-14.8) L Platelet Count 197 K/UL (150-450) 172 K/UL (150-450) Mean Platelet Volume 7.9 FL (6.5-10.1) 9.5 FL (6.5-10.1) Neutrophils (%) (Auto) 64.7 % (45.0-75.0) 59.0 % (45.0-75.0) Lymphocytes (%) (Auto) 22.1 % (20.0-45.0) 26.5 % (20.0-45.0) Monocytes (%) (Auto) 10.2 % (1.0-10.0) H 10.8 % (1.0-10.0) H Eosinophils (%) (Auto) 1.5 % (0.0-3.0) 2.2 % (0.0-3.0) Basophils (%) (Auto) 1.5 % (0.0-2.0) 1.5 % (0.0-2.0) Sodium Level 140 MMOL/L (136-145) 138 MMOL/L (136-145) Potassium Level 4.0 MMOL/L (3.5-5.1) 3.9 MMOL/L (3.5-5.1) Chloride Level 104 MMOL/L (98-107) 105 MMOL/L (98-107) Carbon Dioxide Level 28 MMOL/L (21-32) 26 MMOL/L (21-32) Anion Gap 8 mmol/L (5-15) 7 mmol/L (5-15) Blood Urea Nitrogen 19 mg/dL (7-18) H 12 mg/dL (7-18) Creatinine 0.9 MG/DL (0.55-1.30) 0.9 MG/DL (0.55-1.30) Estimat Glomerular Filtration Rate > 60 mL/min (>60) > 60 mL/min (>60) Glucose Level 144 MG/DL (74-106) H 263 MG/DL (74-106) #H Lactic Acid Level 1.30 mmol/L (0.4-2.0) Calcium Level 9.2 MG/DL (8.5-10.1) 8.4 MG/DL (8.5-10.1) L Total Bilirubin 0.5 MG/DL (0.2-1.0) 0.6 MG/DL (0.2-1.0) Aspartate Amino Transf (AST/SGOT) 16 U/L (15-37) 16 U/L (15-37) Alanine Aminotransferase (ALT/SGPT) 24 U/L (12-78) 22 U/L (12-78) Alkaline Phosphatase 120 U/L (46-116) H 93 U/L (46-116) Total Creatine Kinase 175 U/L (26-308) Creatine Kinase MB 1.1 NG/ML (0.0-3.6) Creatine Kinase MB Relative Index 0.6 Troponin I 0.000 ng/mL (0.000-0.056) Pro-B-Type Natriuretic Peptide 14 pg/mL (0-125) Total Protein 6.9 G/DL (6.4-8.2) 5.8 G/DL (6.4-8.2) L Albumin 3.7 G/DL (3.4-5.0) 3.0 G/DL (3.4-5.0) L Globulin 3.2 g/dL 2.8 g/dL Albumin/Globulin Ratio 1.2 (1.0-2.7) 1.1 (1.0-2.7) Lipase 175 U/L (73-393) Urine Color Pale yellow Urine Appearance Clear Urine pH 5 (4.5-8.0) Urine Specific [place] 1.015 (1.005-1.035) Urine Protein Negative (NEGATIVE) Urine Glucose (UA) 4+ (NEGATIVE) H Urine Ketones 1+ (NEGATIVE) H Urine Blood 2+ (NEGATIVE) H Urine Nitrite Negative (NEGATIVE) Urine Bilirubin Negative (NEGATIVE) Urine Urobilinogen Normal MG/DL (0.0-1.0) Urine Leukocyte Esterase Negative (NEGATIVE) Urine RBC 2-4 /HPF (0 - 0) H Urine WBC 0-2 /HPF (0 - 0) Urine Squamous Epithelial Cells None /LPF (NONE/OCC) Urine Bacteria Few /HPF (NONE) Hemoglobin A1c 8.5 % (4.3-6.0) H Triglycerides Level 189 MG/DL (30-150) H Cholesterol Level 188 MG/DL (< 200) LDL Cholesterol 108 mg/dL (<100) H HDL Cholesterol 51 MG/DL (40-60) Cholesterol/HDL Ratio 3.7 (3.3-4.4) Thyroid Stimulating Hormone (TSH) 0.697 uiU/mL (0.358-3.740) Height (Feet): 5 Height (Inches): 10.00 Weight (Pounds): 210 Medications Current Medications Medications (Trade) Dose Ordered Sig/Rashel Route PRN Reason Start Time Stop Time Status Last Admin Dose Admin Acetaminophen (Tylenol) 650 mg Q4H PRN ORAL fever 12/17/18 20:45 01/16/19 20:44 Albuterol/ Ipratropium (Albuterol/ Ipratropium) 3 ml Q4H PRN HHN Shortness of Breath 12/17/18 20:45 12/22/18 20:44 12/17/18 22:13 Clonidine HCl (Catapres Tab) 0.1 mg Q4H PRN ORAL sbp more than 160 12/17/18 20:46 01/16/19 20:45 Dextrose (Dextrose 50%) 25 ml Q30M PRN IV Hypoglycemia 12/18/18 07:00 01/17/19 06:59 Dextrose (Dextrose 50%) 50 ml Q30M PRN IV Hypoglycemia 12/18/18 07:00 01/17/19 06:59 Heparin Sodium (Porcine) (Heparin 5000 units/ml) 5,000 units EVERY 12 HOURS SUBQ 12/17/18 21:00 01/16/19 20:59 12/18/18 08:31 Insulin Aspart (NovoLOG) BEFORE MEALS AND HS SUBQ 12/17/18 22:00 01/16/19 21:59 12/18/18 06:24 Insulin Aspart (NovoLOG) 8 units NOVOTIAC SUBQ 12/18/18 07:00 01/17/19 06:59 12/18/18 12:04 Insulin Human NPH (Humulin N) 14 units PRE BFAST AND DINNER SUBQ 12/18/18 07:00 01/17/19 06:59 12/18/18 08:24 Ketorolac Tromethamine (Toradol 30mg) 30 mg Q6H PRN IV moderate pain 4-6 12/17/18 20:48 12/22/18 20:47 Morphine Sulfate (Morphine Sulfate) 2 mg Q4H PRN IVP severe pain 7-10 12/17/18 20:47 12/24/18 20:46 12/18/18 06:17 Nitroglycerin (Ntg) 0.4 mg Q5M X 3 DOSES PRN SL Prn Chest Pain 12/17/18 20:47 01/16/19 20:46 Ondansetron HCl (Zofran) 4 mg Q6H PRN IVP Nausea & Vomiting 12/17/18 20:46 01/16/19 20:45 Polyethylene Glycol (Miralax) 17 gm HSPRN PRN ORAL Constipation 12/17/18 21:00 01/16/19 20:59 Pregabalin (Lyrica) 50 mg TWICE A DAY ORAL 12/18/18 09:00 01/17/19 08:59 12/18/18 08:17 Sodium Chloride 1,000 ml @ 100 mls/hr Q10H IVLG 12/17/18 22:00 01/16/19 21:59 12/18/18 08:27 Temazepam (Restoril) 15 mg HSPRN PRN ORAL Insomnia 12/17/18 21:00 12/24/18 20:59 Assessment/Plan Problem List: (1) Pneumonia ICD Codes: J18.9 - Pneumonia, unspecified organism SNOMED: 354309195 (2) Diabetes mellitus ICD Codes: E11.9 - Type 2 diabetes mellitus without complications SNOMED: 81538857 (3) Gastroparesis ICD Codes: K31.84 - Gastroparesis SNOMED: 383628967 Assessment/Plan: iv abx check sputum sliding scale endo to see dvr prophylaxis. Rohini Camargo MD December 18, 2018 13:03
[2018-12-18 16:00] VITALS: BP 131/61
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
[2018-12-18] MEDS: Albuterol/Ipratropium 3ml neb HHN PRN (17:21)
--- NOTE | 2018-12-18 18:00 | Consultation ---
DATE OF CONSULTATION: 12/18/2018 ENDOCRINOLOGY CONSULTATION CONSULTING PHYSICIAN: Mac Vegas M.D. REFERRING PHYSICIAN: Stuart Silver D.O. REASON FOR CONSULTATION: Diabetes management. HISTORY OF PRESENT ILLNESS: The patient is well known to me from his previous admission to [facility] with a long-standing stay for pneumonia, came back with cough and right-sided chest pain. Admitted recently with pneumonia and reports that he was in [place] recently and feeling more short of breath and increased productive cough. The patient has history of insulin-dependent diabetes, has allergy to Levemir and he takes Lantus and Humalog at home. PAST MEDICAL HISTORY: 1. Insulin-dependent diabetes. 2. Recent pneumonia. 3. Hypertension. 4. Asthma. REVIEW OF SYSTEMS: As per HPI. MEDICATIONS: Reviewed and reconciled. SOCIAL HISTORY: No smoking, alcohol, or drug use. LABORATORY VALUES: WBC 8, hemoglobin 14, hematocrit 40, platelets of 197. Sodium 140, potassium 4.0, chloride 104, bicarb 28, BUN 19, creatinine 0.9, glucose 144. PHYSICAL EXAMINATION: VITAL SIGNS: Blood pressure 133/70, pulse of 70, temperature of 98, and respiratory rate 16. HEENT: Pupils are equal and reactive to light. Sclerae anicteric. NECK: No JVD. No thyromegaly. LUNGS: Crackles, scattered. HEART: Regular rate and rhythm. ABDOMEN: Positive bowel sounds. Soft. EXTREMITIES: No clubbing or cyanosis. Positive for trace edema. DIAGNOSES: 1. Diabetes, out of control. 2. Chest pain. 3. Cough, rule out pneumonia. DISCUSSION: The patient is allergic to Levemir. We will treat with basal insulin NPH 40 units b.i.d. NovoLog 8 units before each meal with admission sliding scale. Further adjustment according to the blood glucose values. Thank you Dr. Silver for the courtesy of this consultation. Mac Vegas M.D. DR: ERVIN/YVETTE JOB#: [id number] CC: AGUS
[2018-12-18] MEDS ORDERED: Doxycycline Monohydrate 100mg ORAL SCH (18:30)
[2018-12-18] MEDS: cefTRIAXone 1 GM in D5W 55 ML IVPB SCH (19:24)
--- NOTE | 2018-12-18 19:59 | NUR ---
NURSE NOTES: Pt received in bed, alert and oriented X 4, aware of sputum and urine to be collected, able to make needs known, bed in lowest position, no c/o pain or signs of distress at the moment, will continue to monitor.
--- NOTE | 2018-12-18 19:59 | NUR ---
HAND-OFF: Report given to Joellen MUELLER.
[2018-12-18 21:00] VITALS: BP 133/63
[2018-12-19] VITALS: BP 117/59
--- NOTE | 2018-12-19 02:50 | NUR ---
HAND-OFF: Report given to ERVIN Hill.
[2018-12-19 04:00] VITALS: BP 119/60
[2018-12-19 06:15] LABS: BASOPHILS % (AUTO) 1.2 % (0.0-2.0); EOSINOPHILS % (AUTO) 1.8 % (0.0-3.0); HEMATOCRIT 38.1 % (42.0-52.0); HEMOGLOBIN 13.3 G/DL (14.2-18.0); LYMPHOCYTES % (AUTO) 31.2 % (20.0-45.0); MEAN CORPUSCULAR VOLUME 89 FL (80-99); NEUTROPHILS % (AUTO) 54.7 % (45.0-75.0); PLATELET COUNT 168 K/UL (150-450); RED CELL DISTRIBUTION WIDTH 11.6 % (11.6-14.8); WHITE BLOOD COUNT 6.8 K/UL (4.8-10.8)
[2018-12-19 06:20] LABS: ANION GAP 6 mmol/L (5-15); BLOOD UREA NITROGEN 8 mg/dL (7-18); CALCIUM 8.5 MG/DL (8.5-10.1); CARBON DIOXIDE 30 MMOL/L (21-32); CHLORIDE 108 MMOL/L (98-107); CREATININE 0.9 MG/DL (0.55-1.30); POTASSIUM 3.9 MMOL/L (3.5-5.1); SODIUM 144 MMOL/L (136-145)
[2018-12-19] MEDS: NovoLOG Insulin Flexpen SUBQ SCH ×7 (06:28→20:53)
[2018-12-19] MEDS: Insulin NPH SUBQ SCH (06:29)
--- NOTE | 2018-12-19 06:54 | General Progress Note ---
Assessment/Plan Problem List: (1) Diabetes mellitus ICD Codes: E11.9 - Type 2 diabetes mellitus without complications SNOMED: 15168725 (2) Gastroparesis ICD Codes: K31.84 - Gastroparesis SNOMED: 522075403 Assessment/Plan: continue NPH 14 units - will ask pharmacy to change to Lantus 26 units (patient has own supply) continue Novolog 8 units ac tid + NISS ac / hs Subjective Allergies: Coded Allergies: INSULIN DETEMIR (Unverified Allergy, Unknown, Sweating, 08/16/18) All Systems: reviewed and negative except above Subjective events noted Item Value Date Time Bedside Blood Glucose 113 mg/dl 12/19/18 0629 Bedside Blood Glucose 254 mg/dl H 12/18/18 2143 Bedside Blood Glucose 157 mg/dl H 12/18/18 1720 Bedside Blood Glucose 70 mg/dl 12/18/18 1204 Objective Last 24 Hour Vital Signs Date Time Temp Pulse Resp B/P (MAP) Pulse Ox O2 Delivery O2 Flow Rate FiO2 12/19/18 04:00 98.1 80 18 119/60 (79) 97 12/19/18 00:00 98.1 88 18 117/59 (78) 98 12/18/18 23:13 84 20 Room Air 21 12/18/18 21:00 100.0 98 19 133/63 (86) 95 12/18/18 21:00 Room Air 12/18/18 17:33 84 20 98 Room Air 21 12/18/18 17:21 68 20 97 Room Air 21 12/18/18 16:00 98.5 84 20 131/61 (84) 96 12/18/18 12:00 97.9 83 20 127/71 (89) 96 12/18/18 09:00 Room Air 12/18/18 08:00 98.4 74 20 124/69 (87) 96 Intake and Output 12/18/18 12/19/18 19:00 07:00 Intake Total 1130 ml 200 ml Output Total 2900 ml Balance -1770 ml 200 ml Intake Oral 1130 ml IV Total 200 ml Output Urine Total 2900 ml # Voids 3 Laboratory Tests 12/18/18 06:55: White Blood Count 6.1, Red Blood Count 4.55L, Hemoglobin 14.1L, Hematocrit 39.9L , Mean Corpuscular Volume 88, Mean Corpuscular Hemoglobin 31.0, Mean Corpuscular Hemoglobin Concent 35.3, Red Cell Distribution Width 11.1L, Platelet Count 172, Mean Platelet Volume 9.5, Neutrophils (%) (Auto) 59.0, Lymphocytes (%) (Auto) 26.5, Monocytes (%) (Auto) 10.8H, Eosinophils (%) (Auto) 2.2, Basophils (%) (Auto) 1.5, Sodium Level 138, Potassium Level 3.9, Chloride Level 105, Carbon Dioxide Level 26, Anion Gap 7, Blood Urea Nitrogen 12, Creatinine 0.9, Estimat Glomerular Filtration Rate > 60, Glucose Level 263#H, Hemoglobin A1c 8.5H, Calcium Level 8.4L, Total Bilirubin 0.6, Aspartate Amino Transf (AST/SGOT) 16, Alanine Aminotransferase (ALT/SGPT) 22, Alkaline Phosphatase 93, Total Protein 5.8L, Albumin 3.0L, Globulin 2.8, Albumin/ Globulin Ratio 1.1, Triglycerides Level 189H, Cholesterol Level 188, LDL Cholesterol 108H, HDL Cholesterol 51, Cholesterol/HDL Ratio 3.7, Thyroid Stimulating Hormone (TSH) 0.697 12/18/18 22:00: Urine Legionella Antigen [Pending] 12/19/18 05:30: White Blood Count 6.8, Red Blood Count 4.30L, Hemoglobin 13.3L, Hematocrit 38.1L , Mean Corpuscular Volume 89, Mean Corpuscular Hemoglobin 30.9, Mean Corpuscular Hemoglobin Concent 34.8, Red Cell Distribution Width 11.6, Platelet Count 168, Mean Platelet Volume 8.8, Neutrophils (%) (Auto) 54.7, Lymphocytes (% ) (Auto) 31.2, Monocytes (%) (Auto) 11.0H, Eosinophils (%) (Auto) 1.8, Basophils (%) (Auto) 1.2, Sodium Level 144, Potassium Level 3.9, Chloride Level 108H, Carbon Dioxide Level 30, Anion Gap 6, Blood Urea Nitrogen 8, Creatinine 0.9, Estimat Glomerular Filtration Rate > 60, Glucose Level 113#H, Calcium Level 8.5 Height (Feet): 5 Height (Inches): 10.00 Weight (Pounds): 210 General Appearance: no apparent distress Neck: normal alignment Cardiovascular: normal rate Respiratory/Chest: lungs clear Abdomen: normal bowel sounds Objective Current Medications Medications (Trade) Dose Ordered Sig/Rashel Route PRN Reason Start Time Stop Time Status Last Admin Dose Admin Acetaminophen (Tylenol) 650 mg Q4H PRN ORAL fever 12/17/18 20:45 01/16/19 20:44 Albuterol/ Ipratropium (Albuterol/ Ipratropium) 3 ml Q4H PRN HHN Shortness of Breath 12/17/18 20:45 12/22/18 20:44 12/18/18 17:21 Ceftriaxone Sodium 1 gm/ Dextrose 55 ml @ 110 mls/hr Q24H IVPB 12/18/18 18:30 12/25/18 18:29 12/18/18 19:24 Clonidine HCl (Catapres Tab) 0.1 mg Q4H PRN ORAL sbp more than 160 12/17/18 20:46 01/16/19 20:45 Dextrose (Dextrose 50%) 25 ml Q30M PRN IV Hypoglycemia 12/18/18 07:00 01/17/19 06:59 Dextrose (Dextrose 50%) 50 ml Q30M PRN IV Hypoglycemia 12/18/18 07:00 01/17/19 06:59 Doxycycline Monohydrate (Doxycycline Monohydrate) 100 mg EVERY 12 HOURS ORAL 12/19/18 09:00 12/26/18 08:59 Heparin Sodium (Porcine) (Heparin 5000 units/ml) 5,000 units EVERY 12 HOURS SUBQ 12/17/18 21:00 01/16/19 20:59 12/18/18 21:41 Insulin Aspart (NovoLOG) BEFORE MEALS AND HS SUBQ 12/17/18 22:00 01/16/19 21:59 12/19/18 06:28 Insulin Aspart (NovoLOG) 8 units NOVOTIAC SUBQ 12/18/18 07:00 01/17/19 06:59 12/19/18 06:29 Insulin Human NPH (Humulin N) 14 units PRE BFAST AND DINNER SUBQ 12/18/18 07:00 01/17/19 06:59 12/19/18 06:29 Ketorolac Tromethamine (Toradol 30mg) 30 mg Q6H PRN IV moderate pain 4-6 12/17/18 20:48 12/22/18 20:47 Morphine Sulfate (Morphine Sulfate) 2 mg Q4H PRN IVP severe pain 7-10 12/17/18 20:47 12/24/18 20:46 12/18/18 21:44 Nitroglycerin (Ntg) 0.4 mg Q5M X 3 DOSES PRN SL Prn Chest Pain 12/17/18 20:47 01/16/19 20:46 Ondansetron HCl (Zofran) 4 mg Q6H PRN IVP Nausea & Vomiting 12/17/18 20:46 01/16/19 20:45 Polyethylene Glycol (Miralax) 17 gm HSPRN PRN ORAL Constipation 12/17/18 21:00 01/16/19 20:59 Pregabalin (Lyrica) 50 mg TWICE A DAY ORAL 12/18/18 09:00 01/17/19 08:59 12/18/18 17:16 Sodium Chloride 1,000 ml @ 100 mls/hr Q10H IVLG 12/17/18 22:00 01/16/19 21:59 12/19/18 04:01 Temazepam (Restoril) 15 mg HSPRN PRN ORAL Insomnia 12/17/18 21:00 12/24/18 20:59 Mac Vegas MD December 19, 2018 06:53
--- NOTE | 2018-12-19 07:18 | NUR ---
HAND-OFF: Report given to Alba MUELLER.
--- NOTE | 2018-12-19 07:19 | NUR ---
NURSE NOTES: Patient received eating breakfast independently in bed. Alert and oriented, no changes in LOC noted. Ambulatory. Breathing unlabored on room air. Denies pain or SOB at this time. Bed locked in lowest position, call light placed within reach. Will continue to monitor.
[2018-12-19 08:00] VITALS: BP 132/70
[2018-12-19] MEDS: Albuterol/Ipratropium 3ml neb HHN PRN ×2 (08:33→10:56)
[2018-12-19] MEDS: Doxycycline Monohydrate 100mg ORAL SCH ×2 (08:34→20:50)
[2018-12-19] MEDS: Lyrica 50mg cap ORAL SCH ×2 (08:35→16:56)
[2018-12-19] MEDS: Heparin 5000 units/ml inj SUBQ SCH ×2 (08:41→20:52)
[2018-12-19] MEDS: Morphine Sulfate 2mg/ml Inj(IV/IM USE ONLY) IVP PRN ×2 (10:22→23:48)
--- NOTE | 2018-12-19 10:45 | Diagnostic Imaging Report ---
Indication: Cough Technique: Continuous helical transaxial imaging of the chest was obtained from the thoracic inlet to the upper abdomen. No intravenous contrast was administered. Coronal 2-D reformats were also obtained. Total Dose length Product (DLP): 694.[address] Dose Index Volume (CTDIvol): 20.38 mGy Comparison: CT chest 08/24/2018. Chest x-ray 12/17/2018 Findings: The lungs appear clear currently. This is vastly improved since the prior occasion from 08/24/2018 which showed extensive tree-in-bud small airways disease. These have resolved and indicate resolution of an inflammatory/infectious process. No consolidation identified. No pleural or pericardial effusion identified. No adenopathy seen. Mild calcification of the coronary arteries noted. Visualized upper abdomen is unremarkable. Axilla appear clear. IMPRESSION: No acute process identified. Interval resolution of extensive infiltrates previously demonstrated 08/24/2018. Coronary artery atherosclerotic disease The CT scanner at [facility] is accredited by the [employer] and the scans are performed using dose optimization techniques as appropriate to a performed exam including Automatic Exposure control.
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
[2018-12-19] MEDS: Albuterol/Ipratropium 3ml neb HHN SCH ×4 (11:00→23:57)
--- NOTE | 2018-12-19 11:26 | NUR ---
NURSE NOTES: Micro notified RN of patient's positive blood culture results. made aware, stated he will follow up.
[2018-12-19 12:00] VITALS: BP 137/74
[2018-12-19] MEDS ORDERED: Vancomycin 1.5gm Premix IVPB ONE (12:00)
--- NOTE | 2018-12-19 14:50 | NUR ---
CASE MANAGEMENT: REVIEW SI: UPPER RESP INFECTION . DYSPNEA T 98.1 HR 102 RR 20 BP 137/74 SAT 95% ROOM AIR CHLORIDE 108 GLUCOSE 113 IS: VANCO IV Q8HR ALBUTEROL HHN Q4HR DOXYCYCLINE PO Q12HR CEFTRIAXONE IV Q24HR NS IVF @ 100ML/HR MED/SURG STATUS DCP: PATIENT IS FROM HOME
[2018-12-19 16:00] VITALS: BP 154/76
[2018-12-19] MEDS: cefTRIAXone 1 GM in D5W 55 ML IVPB SCH (17:03)
--- NOTE | 2018-12-19 19:22 | NUR ---
NURSE NOTES: Pt received in bed at lowest position, call light within reach, able to make needs known, no c/o pain or signs of distress, at bedside, IV fluids running, will continue to monitor.
[2018-12-19] MEDS: Vancomycin 1gm/D5W 275ml IVPB SCH ×2 (19:54)
[2018-12-19 20:00] VITALS: BP 141/77
[2018-12-19] MEDS: LANTUS 100 UNIT/ML SUBQ SCH (20:55)
--- NOTE | 2018-12-19 21:25 | General Progress Note ---
Assessment/Plan Problem List: (1) Gastroparesis ICD Codes: K31.84 - Gastroparesis SNOMED: 164381004 (2) ATN (acute tubular necrosis) ICD Codes: N17.0 - Acute kidney failure with tubular necrosis SNOMED: 46017674 (3) Pneumonia ICD Codes: J18.9 - Pneumonia, unspecified organism SNOMED: 969202379 (4) Diabetes mellitus ICD Codes: E11.9 - Type 2 diabetes mellitus without complications SNOMED: 83844468 Status: progressing Assessment/Plan: afebrile nac pna abx per id atn no vomitting reviewed chart and labs Subjective ROS Limited/Unobtainable: Yes Allergies: Coded Allergies: INSULIN DETEMIR (Unverified Allergy, Unknown, Sweating, 08/16/18) Objective Last 24 Hour Vital Signs Date Time Temp Pulse Resp B/P (MAP) Pulse Ox O2 Delivery O2 Flow Rate FiO2 12/19/18 20:31 89 18 97 Room Air 21 12/19/18 20:22 90 16 95 Room Air 21 12/19/18 20:22 Room Air 21 12/19/18 20:22 90 16 Room Air 21 12/19/18 20:00 98.8 87 18 141/77 (98) 95 12/19/18 16:00 98.2 93 20 154/76 (102) 96 12/19/18 15:33 92 18 99 Room Air 21 12/19/18 15:24 88 18 96 Room Air 21 12/19/18 12:00 98.1 102 20 137/74 (95) 95 12/19/18 10:57 91 16 99 Room Air 21 12/19/18 10:50 89 16 97 Room Air 21 12/19/18 09:00 Room Air 12/19/18 08:34 89 18 99 Room Air 21 12/19/18 08:24 86 18 96 Room Air 21 12/19/18 08:00 97.9 77 20 132/70 (90) 95 12/19/18 04:00 98.1 80 18 119/60 (79) 97 12/19/18 00:00 98.1 88 18 117/59 (78) 98 12/18/18 23:13 84 20 Room Air 21 Intake and Output 12/18/18 12/19/18 19:00 07:00 Intake Total 1130 ml 200 ml Output Total 2900 ml Balance -1770 ml 200 ml Intake Oral 1130 ml IV Total 200 ml Output Urine Total 2900 ml # Voids 3 Laboratory Tests 12/18/18 22:00: Urine Legionella Antigen [Pending] 12/19/18 05:30: White Blood Count 6.8, Red Blood Count 4.30L, Hemoglobin 13.3L, Hematocrit 38.1L , Mean Corpuscular Volume 89, Mean Corpuscular Hemoglobin 30.9, Mean Corpuscular Hemoglobin Concent 34.8, Red Cell Distribution Width 11.6, Platelet Count 168, Mean Platelet Volume 8.8, Neutrophils (%) (Auto) 54.7, Lymphocytes (% ) (Auto) 31.2, Monocytes (%) (Auto) 11.0H, Eosinophils (%) (Auto) 1.8, Basophils (%) (Auto) 1.2, Sodium Level 144, Potassium Level 3.9, Chloride Level 108H, Carbon Dioxide Level 30, Anion Gap 6, Blood Urea Nitrogen 8, Creatinine 0.9, Estimat Glomerular Filtration Rate > 60, Glucose Level 113#H, Calcium Level 8.5 Height (Feet): 5 Height (Inches): 10.00 Weight (Pounds): 210 Cardiovascular: normal rate Respiratory/Chest: chest wall non-tender Abdomen: soft Kim Billings MD December 19, 2018 21:25
[2018-12-20] VITALS: BP 122/73
[2018-12-20] MEDS: Albuterol/Ipratropium 3ml neb HHN SCH ×6 (03:24→23:00)
[2018-12-20] MEDS: Vancomycin 1gm/D5W 275ml IVPB SCH ×4 (03:44→11:47)
[2018-12-20] MEDS: NovoLOG Insulin Flexpen SUBQ SCH ×7 (06:52→20:25)
--- NOTE | 2018-12-20 07:25 | NUR ---
NURSE NOTES: RN received pt in stable condition, alert and oriented in bed. No acute distress or SOB. Pt states pain management is priority; pain 8/10. Bed in low, locked position, call light within reach. Will administer meds as scheduled and PRN for pain. Will continue plan of care.
--- NOTE | 2018-12-20 07:26 | NUR ---
NURSE NOTES: RN received pt in stable condition, sleeping in bed. No acute distress or SOB. Bed in low, locked position, call light within reach. Will continue plan of care.
--- NOTE | 2018-12-20 07:30 | NUR ---
HAND-OFF: Report given to ERVIN Sanchez.
[2018-12-20 08:00] VITALS: BP 132/65
[2018-12-20] MEDS: Doxycycline Monohydrate 100mg ORAL SCH ×2 (08:08→20:19)
[2018-12-20] MEDS: Morphine Sulfate 2mg/ml Inj(IV/IM USE ONLY) IVP PRN ×4 (08:08→23:14)
[2018-12-20] MEDS: Lyrica 50mg cap ORAL SCH ×2 (08:08→17:34)
[2018-12-20] MEDS: Heparin 5000 units/ml inj SUBQ SCH ×2 (08:09→20:23)
--- NOTE | 2018-12-20 09:02 | General Progress Note ---
Assessment/Plan Problem List: (1) Diabetes mellitus ICD Codes: E11.9 - Type 2 diabetes mellitus without complications SNOMED: 83170552 (2) Gastroparesis ICD Codes: K31.84 - Gastroparesis SNOMED: 294386147 Status: progressing Assessment/Plan: continue Lantus 26 units (patient has own supply) continue Novolog 8 units ac tid + NISS ac / hs Subjective Allergies: Coded Allergies: INSULIN DETEMIR (Unverified Allergy, Unknown, Sweating, 08/16/18) All Systems: reviewed and negative except above Subjective events noted Current Medications Medications (Trade) Dose Ordered Sig/Rashel Route PRN Reason Start Time Stop Time Status Last Admin Dose Admin Acetaminophen (Tylenol) 650 mg Q4H PRN ORAL fever 12/17/18 20:45 01/16/19 20:44 Albuterol/ Ipratropium (Albuterol/ Ipratropium) 3 ml Q4HRT HHN 12/19/18 11:00 12/24/18 10:59 12/20/18 07:33 Ceftriaxone Sodium 1 gm/ Dextrose 55 ml @ 110 mls/hr Q24H IVPB 12/18/18 18:30 12/25/18 18:29 12/19/18 17:03 Clonidine HCl (Catapres Tab) 0.1 mg Q4H PRN ORAL sbp more than 160 12/17/18 20:46 01/16/19 20:45 Dextrose (Dextrose 50%) 25 ml Q30M PRN IV Hypoglycemia 12/18/18 07:00 01/17/19 06:59 Dextrose (Dextrose 50%) 50 ml Q30M PRN IV Hypoglycemia 12/18/18 07:00 01/17/19 06:59 Doxycycline Monohydrate (Doxycycline Monohydrate) 100 mg EVERY 12 HOURS ORAL 12/19/18 09:00 12/26/18 08:59 12/20/18 08:08 Heparin Sodium (Porcine) (Heparin 5000 units/ml) 5,000 units EVERY 12 HOURS SUBQ 12/17/18 21:00 01/16/19 20:59 12/20/18 08:09 Insulin Aspart (NovoLOG) BEFORE MEALS AND HS SUBQ 12/17/18 22:00 01/16/19 21:59 12/20/18 06:52 Insulin Aspart (NovoLOG) 8 units NOVOTIAC SUBQ 12/18/18 07:00 01/17/19 06:59 12/20/18 06:53 Ketorolac Tromethamine (Toradol 30mg) 30 mg Q6H PRN IV moderate pain 4-6 12/17/18 20:48 12/22/18 20:47 Morphine Sulfate (Morphine Sulfate) 2 mg Q4H PRN IVP severe pain 7-10 12/17/18 20:47 12/24/18 20:46 12/20/18 08:08 Nitroglycerin (Ntg) 0.4 mg Q5M X 3 DOSES PRN SL Prn Chest Pain 12/17/18 20:47 01/16/19 20:46 Ondansetron HCl (Zofran) 4 mg Q6H PRN IVP Nausea & Vomiting 12/17/18 20:46 01/16/19 20:45 Patient Own Medication (Patient's Own Med) 26 ea QHS SUBQ 12/19/18 21:00 01/18/19 20:59 12/19/18 20:55 Polyethylene Glycol (Miralax) 17 gm HSPRN PRN ORAL Constipation 12/17/18 21:00 01/16/19 20:59 Pregabalin (Lyrica) 50 mg TWICE A DAY ORAL 12/18/18 09:00 01/17/19 08:59 12/20/18 08:08 Sodium Chloride 1,000 ml @ 100 mls/hr Q10H IVLG 12/17/18 22:00 01/16/19 21:59 12/20/18 03:44 Temazepam (Restoril) 15 mg HSPRN PRN ORAL Insomnia 12/17/18 21:00 12/24/18 20:59 Vancomycin HCl (Vanco rx to dose) 1 ea DAILY PRN MISC Per rx protocol 12/19/18 10:45 01/18/19 10:44 Vancomycin HCl 1 gm/Dextrose 275 ml @ 183.708 mls/hr Q8HR@0400,1200,2000 IVPB 12/19/18 20:00 12/24/18 19:59 12/20/18 03:44 Objective Last 24 Hour Vital Signs Date Time Temp Pulse Resp B/P (MAP) Pulse Ox O2 Delivery O2 Flow Rate FiO2 12/20/18 08:38 97.3 12/20/18 08:00 98.3 104 18 132/65 (87) 93 12/20/18 07:43 76 18 98 Room Air 21 12/20/18 07:33 85 18 95 Room Air 21 12/20/18 03:36 83 18 96 Room Air 21 12/20/18 03:24 79 18 98 Room Air 21 12/20/18 00:06 83 16 97 Room Air 21 12/20/18 00:00 97.3 87 18 122/73 (89) 96 12/19/18 23:57 84 18 96 Room Air 21 12/19/18 21:00 Room Air 12/19/18 20:31 89 18 97 Room Air 21 12/19/18 20:22 90 16 95 Room Air 21 12/19/18 20:22 Room Air 21 12/19/18 20:22 90 16 Room Air 21 12/19/18 20:00 98.8 87 18 141/77 (98) 95 12/19/18 16:00 98.2 93 20 154/76 (102) 96 12/19/18 15:33 92 18 99 Room Air 21 12/19/18 15:24 88 18 96 Room Air 21 12/19/18 12:00 98.1 102 20 137/74 (95) 95 12/19/18 10:57 91 16 99 Room Air 21 12/19/18 10:50 89 16 97 Room Air 21 Intake and Output 12/19/18 12/20/18 19:00 07:00 Intake Total 960 ml Output Total 2300 ml 1600 ml Balance -1340 ml -1600 ml Intake Oral 960 ml Output Urine Total 2300 ml 1600 ml # Bowel Movements 1 Laboratory Tests 12/20/18 05:30: Coccidioides Antibody (Comp Fix) [Pending] Height (Feet): 5 Height (Inches): 10.00 Weight (Pounds): 210 General Appearance: no apparent distress Neck: normal alignment Cardiovascular: normal rate Respiratory/Chest: lungs clear Abdomen: normal bowel sounds Objective Current Medications Medications (Trade) Dose Ordered Sig/Rashel Route PRN Reason Start Time Stop Time Status Last Admin Dose Admin Acetaminophen (Tylenol) 650 mg Q4H PRN ORAL fever 12/17/18 20:45 01/16/19 20:44 Albuterol/ Ipratropium (Albuterol/ Ipratropium) 3 ml Q4HRT HHN 12/19/18 11:00 12/24/18 10:59 12/20/18 07:33 Ceftriaxone Sodium 1 gm/ Dextrose 55 ml @ 110 mls/hr Q24H IVPB 12/18/18 18:30 12/25/18 18:29 12/19/18 17:03 Clonidine HCl (Catapres Tab) 0.1 mg Q4H PRN ORAL sbp more than 160 12/17/18 20:46 01/16/19 20:45 Dextrose (Dextrose 50%) 25 ml Q30M PRN IV Hypoglycemia 12/18/18 07:00 01/17/19 06:59 Dextrose (Dextrose 50%) 50 ml Q30M PRN IV Hypoglycemia 12/18/18 07:00 01/17/19 06:59 Doxycycline Monohydrate (Doxycycline Monohydrate) 100 mg EVERY 12 HOURS ORAL 12/19/18 09:00 12/26/18 08:59 12/20/18 08:08 Heparin Sodium (Porcine) (Heparin 5000 units/ml) 5,000 units EVERY 12 HOURS SUBQ 12/17/18 21:00 01/16/19 20:59 12/20/18 08:09 Insulin Aspart (NovoLOG) BEFORE MEALS AND HS SUBQ 12/17/18 22:00 01/16/19 21:59 12/20/18 06:52 Insulin Aspart (NovoLOG) 8 units NOVOTIAC SUBQ 12/18/18 07:00 01/17/19 06:59 12/20/18 06:53 Ketorolac Tromethamine (Toradol 30mg) 30 mg Q6H PRN IV moderate pain 4-6 12/17/18 20:48 12/22/18 20:47 Morphine Sulfate (Morphine Sulfate) 2 mg Q4H PRN IVP severe pain 7-10 12/17/18 20:47 12/24/18 20:46 12/20/18 08:08 Nitroglycerin (Ntg) 0.4 mg Q5M X 3 DOSES PRN SL Prn Chest Pain 12/17/18 20:47 01/16/19 20:46 Ondansetron HCl (Zofran) 4 mg Q6H PRN IVP Nausea & Vomiting 12/17/18 20:46 01/16/19 20:45 Patient Own Medication (Patient's Own Med) 26 ea QHS SUBQ 12/19/18 21:00 01/18/19 20:59 12/19/18 20:55 Polyethylene Glycol (Miralax) 17 gm HSPRN PRN ORAL Constipation 12/17/18 21:00 01/16/19 20:59 Pregabalin (Lyrica) 50 mg TWICE A DAY ORAL 12/18/18 09:00 01/17/19 08:59 12/20/18 08:08 Sodium Chloride 1,000 ml @ 100 mls/hr Q10H IVLG 12/17/18 22:00 01/16/19 21:59 12/20/18 03:44 Temazepam (Restoril) 15 mg HSPRN PRN ORAL Insomnia 12/17/18 21:00 12/24/18 20:59 Vancomycin HCl (Vanco rx to dose) 1 ea DAILY PRN MISC Per rx protocol 12/19/18 10:45 01/18/19 10:44 Vancomycin HCl 1 gm/Dextrose 275 ml @ 183.708 mls/hr Q8HR@0400,1200,2000 IVPB 12/19/18 20:00 12/24/18 19:59 12/20/18 03:44 Mac Vegas MD December 20, 2018 09:02
--- NOTE | 2018-12-20 11:24 | NUR ---
NURSE NOTES: Pt BS 67; nurse held insulin and provided pt with juice and crackers. Pt alert and oriented; no distress or sxs of hypoglycemia.
[2018-12-20 12:00] VITALS: BP 138/79
[2018-12-20 16:00] VITALS: BP 144/82
--- NOTE | 2018-12-20 17:12 | NUR ---
CASE MANAGEMENT: REVIEW SI: UPPER RESP INFECTION . DYSPNEA T 97.3 HR 83 RR 18 BP 144/82 SAT 97% ROOM AIR IS: VANCO IV Q8HR ALBUTEROL HHN Q4HR DOXYCYCLINE PO Q12HR CEFTRIAXONE IV Q24HR NS IVF @ 100ML/HR MED/SURG STATUS DCP: PATIENT IS FROM HOME
[2018-12-20] MEDS: cefTRIAXone 1 GM in D5W 55 ML IVPB SCH (17:34)
--- NOTE | 2018-12-20 19:21 | NUR ---
HAND-OFF: Report given to ERVIN Cuenca.
--- NOTE | 2018-12-20 19:53 | NUR ---
NURSE NOTES: Pt received in bed with at bedside, call light within reach, able to make needs known, IV fluids running, no c/o of pain just asking for a sandwich, will continue to monitor.
[2018-12-20 20:00] VITALS: BP 144/79
[2018-12-20] MEDS: LANTUS 100 UNIT/ML SUBQ SCH (20:56)
[2018-12-20] MEDS: Vancomycin 1.25gm Premix IVPB SCH (20:56)
--- NOTE | 2018-12-20 21:43 | General Progress Note ---
Assessment/Plan Problem List: (1) Gastroparesis ICD Codes: K31.84 - Gastroparesis SNOMED: 267181395 (2) ATN (acute tubular necrosis) ICD Codes: N17.0 - Acute kidney failure with tubular necrosis SNOMED: 05854641 (3) Pneumonia ICD Codes: J18.9 - Pneumonia, unspecified organism SNOMED: 187401570 (4) Diabetes mellitus ICD Codes: E11.9 - Type 2 diabetes mellitus without complications SNOMED: 51092000 Status: progressing Assessment/Plan: pna no wheezing azotemia improving afebrile nac nidds no vomitting reviewed chart and labs Subjective ROS Limited/Unobtainable: Yes Allergies: Coded Allergies: INSULIN DETEMIR (Unverified Allergy, Unknown, Sweating, 08/16/18) Objective Last 24 Hour Vital Signs Date Time Temp Pulse Resp B/P (MAP) Pulse Ox O2 Delivery O2 Flow Rate FiO2 12/20/18 20:53 75 20 97 Room Air 21 12/20/18 20:00 96.9 80 18 144/79 (100) 96 12/20/18 17:07 97.9 12/20/18 16:00 97.9 69 18 144/82 (102) 97 12/20/18 14:15 88 20 100 Room Air 21 12/20/18 14:05 88 20 96 Room Air 21 12/20/18 12:19 Room Air 12/20/18 12:19 Room Air 12/20/18 12:00 98.0 83 18 138/79 (98) 96 12/20/18 09:00 Room Air 12/20/18 08:00 98.3 104 18 132/65 (87) 93 12/20/18 07:43 76 18 98 Room Air 21 12/20/18 07:33 85 18 95 Room Air 21 12/20/18 03:36 83 18 96 Room Air 21 12/20/18 03:24 79 18 98 Room Air 21 12/20/18 00:06 83 16 97 Room Air 21 12/20/18 00:00 97.3 87 18 122/73 (89) 96 12/19/18 23:57 84 18 96 Room Air 21 Intake and Output 12/19/18 12/20/18 18:59 06:59 Intake Total 960 ml Output Total 2300 ml 1600 ml Balance -1340 ml -1600 ml Intake Oral 960 ml Output Urine Total 2300 ml 1600 ml # Bowel Movements 1 Laboratory Tests 12/20/18 05:30: Coccidioides Antibody (Comp Fix) [Pending] 12/20/18 19:30: Vancomycin Level Trough 12.0 Height (Feet): 5 Height (Inches): 10.00 Weight (Pounds): 210 Cardiovascular: normal rate Respiratory/Chest: lungs clear Abdomen: soft Kim Billings MD December 20, 2018 21:43
[2018-12-21] VITALS: BP 135/76
[2018-12-21] MEDS: Albuterol/Ipratropium 3ml neb HHN SCH ×6 (03:00→22:42)
[2018-12-21] MEDS: Vancomycin 1.25gm Premix IVPB SCH ×2 (05:39→13:07)
[2018-12-21] MEDS: NovoLOG Insulin Flexpen SUBQ SCH ×7 (06:50→21:53)
--- NOTE | 2018-12-21 06:59 | General Progress Note ---
Assessment/Plan Problem List: (1) Diabetes mellitus ICD Codes: E11.9 - Type 2 diabetes mellitus without complications SNOMED: 90233632 (2) Gastroparesis ICD Codes: K31.84 - Gastroparesis SNOMED: 668765745 Status: progressing Assessment/Plan: continue Lantus 26 units (patient has own supply) continue Novolog 8 units ac tid + NISS ac / hs Subjective Allergies: Coded Allergies: INSULIN DETEMIR (Unverified Allergy, Unknown, Sweating, 08/16/18) All Systems: reviewed and negative except above Subjective events noted Item Value Date Time Bedside Blood Glucose 138 mg/dl H 12/20/18 0653 Bedside Blood Glucose 151 mg/dl H 12/19/18 2100 Bedside Blood Glucose 264 mg/dl H 12/19/18 1705 Bedside Blood Glucose 106 mg/dl 12/19/18 1149 Bedside Blood Glucose 112 mg/dl 12/21/18 0650 Bedside Blood Glucose 147 mg/dl H 12/20/18 2100 Bedside Blood Glucose 285 mg/dl H 12/20/18 1639 Bedside Blood Glucose Critically Low Result 12/20/18 1136 Objective Last 24 Hour Vital Signs Date Time Temp Pulse Resp B/P (MAP) Pulse Ox O2 Delivery O2 Flow Rate FiO2 12/21/18 03:20 Room Air 12/21/18 03:19 Room Air 12/21/18 00:00 97.3 77 18 135/76 (95) 95 12/20/18 23:44 97.3 12/20/18 23:17 Room Air 12/20/18 23:16 Room Air 12/20/18 21:03 76 18 100 Room Air 21 12/20/18 21:00 Room Air 12/20/18 20:53 75 20 97 Room Air 21 12/20/18 20:00 96.9 80 18 144/79 (100) 96 12/20/18 16:00 97.9 69 18 144/82 (102) 97 12/20/18 14:15 88 20 100 Room Air 21 12/20/18 14:05 88 20 96 Room Air 21 12/20/18 12:19 Room Air 12/20/18 12:19 Room Air 12/20/18 12:00 98.0 83 18 138/79 (98) 96 12/20/18 09:00 Room Air 12/20/18 08:00 98.3 104 18 132/65 (87) 93 12/20/18 07:43 76 18 98 Room Air 21 12/20/18 07:33 85 18 95 Room Air 21 Intake and Output 12/20/18 12/21/18 19:00 07:00 Intake Total 450 ml 1766.666 ml Output Total 1550 ml Balance 450 ml 216.666 ml Intake Oral 450 ml 700 ml IV Total 1066.666 ml Output Urine Total 1550 ml Laboratory Tests 12/20/18 19:30: Vancomycin Level Trough 12.0 Height (Feet): 5 Height (Inches): 10.00 Weight (Pounds): 210 General Appearance: no apparent distress Neck: normal alignment Cardiovascular: normal rate Respiratory/Chest: lungs clear Abdomen: normal bowel sounds Objective Current Medications Medications (Trade) Dose Ordered Sig/Rashel Route PRN Reason Start Time Stop Time Status Last Admin Dose Admin Acetaminophen (Tylenol) 650 mg Q4H PRN ORAL fever 12/17/18 20:45 01/16/19 20:44 Albuterol/ Ipratropium (Albuterol/ Ipratropium) 3 ml Q4HRT HHN 12/19/18 11:00 12/24/18 10:59 12/20/18 20:53 Ceftriaxone Sodium 1 gm/ Dextrose 55 ml @ 110 mls/hr Q24H IVPB 12/18/18 18:30 12/25/18 18:29 12/20/18 17:34 Clonidine HCl (Catapres Tab) 0.1 mg Q4H PRN ORAL sbp more than 160 12/17/18 20:46 01/16/19 20:45 Dextrose (Dextrose 50%) 25 ml Q30M PRN IV Hypoglycemia 12/18/18 07:00 01/17/19 06:59 Dextrose (Dextrose 50%) 50 ml Q30M PRN IV Hypoglycemia 12/18/18 07:00 01/17/19 06:59 Doxycycline Monohydrate (Doxycycline Monohydrate) 100 mg EVERY 12 HOURS ORAL 12/19/18 09:00 12/26/18 08:59 12/20/18 20:19 Heparin Sodium (Porcine) (Heparin 5000 units/ml) 5,000 units EVERY 12 HOURS SUBQ 12/17/18 21:00 01/16/19 20:59 12/20/18 20:23 Insulin Aspart (NovoLOG) BEFORE MEALS AND HS SUBQ 12/17/18 22:00 01/16/19 21:59 12/21/18 06:50 Insulin Aspart (NovoLOG) 8 units NOVOTIAC SUBQ 12/18/18 07:00 01/17/19 06:59 12/21/18 06:50 Ketorolac Tromethamine (Toradol 30mg) 30 mg Q6H PRN IV moderate pain 4-6 12/17/18 20:48 12/22/18 20:47 Morphine Sulfate (Morphine Sulfate) 2 mg Q4H PRN IVP severe pain 7-10 12/17/18 20:47 12/24/18 20:46 12/20/18 23:14 Nitroglycerin (Ntg) 0.4 mg Q5M X 3 DOSES PRN SL Prn Chest Pain 12/17/18 20:47 01/16/19 20:46 Ondansetron HCl (Zofran) 4 mg Q6H PRN IVP Nausea & Vomiting 12/17/18 20:46 01/16/19 20:45 Patient Own Medication (Patient's Own Med) 26 ea QHS SUBQ 12/19/18 21:00 01/18/19 20:59 12/20/18 20:56 Polyethylene Glycol (Miralax) 17 gm HSPRN PRN ORAL Constipation 12/17/18 21:00 01/16/19 20:59 Pregabalin (Lyrica) 50 mg TWICE A DAY ORAL 12/18/18 09:00 01/17/19 08:59 12/20/18 17:34 Sodium Chloride 1,000 ml @ 100 mls/hr Q10H IVLG 12/17/18 22:00 01/16/19 21:59 12/20/18 20:21 Temazepam (Restoril) 15 mg HSPRN PRN ORAL Insomnia 12/17/18 21:00 12/24/18 20:59 Vancomycin HCl (Vanco rx to dose) 1 ea DAILY PRN MISC Per rx protocol 12/19/18 10:45 01/18/19 10:44 Vancomycin HCl/ Dextrose 275 ml @ 183.333 mls/hr Q8H IVPB 12/20/18 21:00 12/25/18 20:59 12/21/18 05:39 Mac Vegas MD December 21, 2018 06:59
--- NOTE | 2018-12-21 07:12 | NUR ---
NURSE NOTES: RN received pt in stable condition awake and oriented in bed. No acute distress or SOB. Bed in low, locked position, call light within reach. Pt requested to take a shower. RN wrapped IV site and escorted pt to shower. Pt family member outside shower door. Will continue to monitor.
--- NOTE | 2018-12-21 07:12 | NUR ---
HAND-OFF: Report given to ERVIN Hutchison.
[2018-12-21 08:00] VITALS: BP 126/77
[2018-12-21] MEDS: Doxycycline Monohydrate 100mg ORAL SCH ×2 (08:27→21:18)
[2018-12-21] MEDS: Heparin 5000 units/ml inj SUBQ SCH ×2 (08:28→21:00)
[2018-12-21] MEDS: Lyrica 50mg cap ORAL SCH ×2 (08:28→17:13)
[2018-12-21] MEDS: Morphine Sulfate 2mg/ml Inj(IV/IM USE ONLY) IVP PRN ×2 (09:29→13:07)
--- NOTE | 2018-12-21 10:01 | NUR ---
NURSE NOTES: Pt requested Morphine for 8/ pain. RN attempted to pull out of Pyxis. Miscounted; discrepancy resolved with charge nurse. RN was able to pull Morphine out of Pyxis after resolution. Pt IV no longer patent, although flushed in AM. RN wasted Morphine with charge nurse. Will start new IV.
--- NOTE | 2018-12-21 11:23 | NUR ---
NURSE NOTES: Pt stated he was feeling hypoglycemic; BS 77. Pt requested juice and crackers; hold insulin.
[2018-12-21 12:00] VITALS: BP 128/80
--- NOTE | 2018-12-21 13:20 | General Progress Note ---
Assessment/Plan Problem List: (1) Dyspnea ICD Codes: R06.00 - Dyspnea, unspecified SNOMED: 908079205 (2) Fever ICD Codes: R50.9 - Fever, unspecified SNOMED: 822954881 (3) Cough ICD Codes: R05 - Cough SNOMED: 35439775 (4) Malnutrition ICD Codes: E46 - Unspecified protein-calorie malnutrition SNOMED: 66149271 (5) Pneumonia ICD Codes: J18.9 - Pneumonia, unspecified organism SNOMED: 769507743 (6) Diabetes mellitus ICD Codes: E11.9 - Type 2 diabetes mellitus without complications SNOMED: 07216972 Status: stable, progressing, tolerating diet Assessment/Plan: o2 pulm tx abx cbc bmp am Subjective Constitutional: Reports: weakness Allergies: Coded Allergies: INSULIN DETEMIR (Unverified Allergy, Unknown, Sweating, 08/16/18) All Systems: reviewed and negative except above Subjective calm in bed Objective Last 24 Hour Vital Signs Date Time Temp Pulse Resp B/P (MAP) Pulse Ox O2 Delivery O2 Flow Rate FiO2 12/21/18 12:00 97.5 91 20 128/80 (96) 97 12/21/18 11:23 83 20 100 Room Air 21 12/21/18 11:13 83 20 95 Room Air 21 12/21/18 09:00 Room Air 12/21/18 08:00 97.8 88 18 126/77 (93) 98 12/21/18 07:57 Room Air 12/21/18 07:55 Room Air 12/21/18 03:20 Room Air 12/21/18 03:19 Room Air 12/21/18 00:00 97.3 77 18 135/76 (95) 95 12/20/18 23:44 97.3 12/20/18 23:17 Room Air 12/20/18 23:16 Room Air 12/20/18 21:03 76 18 100 Room Air 21 12/20/18 21:00 Room Air 12/20/18 20:53 75 20 97 Room Air 21 12/20/18 20:00 96.9 80 18 144/79 (100) 96 12/20/18 16:00 97.9 69 18 144/82 (102) 97 12/20/18 14:15 88 20 100 Room Air 21 12/20/18 14:05 88 20 96 Room Air 21 Intake and Output 12/20/18 12/21/18 19:00 07:00 Intake Total 450 ml 1766.666 ml Output Total 1550 ml Balance 450 ml 216.666 ml Intake Oral 450 ml 700 ml IV Total 1066.666 ml Output Urine Total 1550 ml Laboratory Tests 12/20/18 19:30: Vancomycin Level Trough 12.0 Height (Feet): 5 Height (Inches): 10.00 Weight (Pounds): 210 General Appearance: lethargic EENT: normal ENT inspection Neck: normal alignment Cardiovascular: normal peripheral pulses, normal rate, regular rhythm Respiratory/Chest: chest wall non-tender, lungs clear, normal breath sounds Abdomen: normal bowel sounds, non tender, soft Extremities: normal inspection Edema: no edema noted Arm (L), no edema noted Arm (R), no edema noted Leg (L), no edema noted Leg (R), no edema noted Pedal (L), no edema noted Pedal (R), no edema noted Generalized Neurologic: responsive, motor weakness Skin: normal pigmentation, warm/dry Stuart Silver DO December 21, 2018 13:20
--- NOTE | 2018-12-21 13:35 | Pulmonology Progress Note ---
Assessment/Plan Problems: (1) Pneumonia (2) Diabetes mellitus (3) Gastroparesis Assessment/Plan improving afebrile dc planning Subjective ROS Limited/Unobtainable: No Constitutional: Reports: no symptoms HEENT: Repors: no symptoms Respiratory: Reports: no symptoms Allergies: Coded Allergies: INSULIN DETEMIR (Unverified Allergy, Unknown, Sweating, 08/16/18) Objective Last 24 Hour Vital Signs Date Time Temp Pulse Resp B/P (MAP) Pulse Ox O2 Delivery O2 Flow Rate FiO2 12/21/18 12:00 97.5 91 20 128/80 (96) 97 12/21/18 11:23 83 20 100 Room Air 21 12/21/18 11:13 83 20 95 Room Air 21 12/21/18 09:00 Room Air 12/21/18 08:00 97.8 88 18 126/77 (93) 98 12/21/18 07:57 Room Air 12/21/18 07:55 Room Air 12/21/18 03:20 Room Air 12/21/18 03:19 Room Air 12/21/18 00:00 97.3 77 18 135/76 (95) 95 12/20/18 23:44 97.3 12/20/18 23:17 Room Air 12/20/18 23:16 Room Air 12/20/18 21:03 76 18 100 Room Air 21 12/20/18 21:00 Room Air 12/20/18 20:53 75 20 97 Room Air 21 12/20/18 20:00 96.9 80 18 144/79 (100) 96 12/20/18 16:00 97.9 69 18 144/82 (102) 97 12/20/18 14:15 88 20 100 Room Air 21 12/20/18 14:05 88 20 96 Room Air 21 Intake and Output 12/20/18 12/21/18 19:00 07:00 Intake Total 450 ml 1766.666 ml Output Total 1550 ml Balance 450 ml 216.666 ml Intake Oral 450 ml 700 ml IV Total 1066.666 ml Output Urine Total 1550 ml General Appearance: WD/WN HEENT: normocephalic, anicteric Respiratory/Chest: chest wall non-tender, normal breath sounds Cardiovascular: normal peripheral pulses, regular rhythm Abdomen: no organomegaly Extremities: no cyanosis Skin: no lesions Microbiology Date/Time Source Procedure Growth Status 12/19/18 12:30 Blood Blood Culture - Preliminary NO GROWTH AFTER 24 HOURS Resulted 12/19/18 12:20 Blood Blood Culture - Preliminary NO GROWTH AFTER 24 HOURS Resulted 12/18/18 20:08 Sputum Induced Gram Stain - Final Complete 12/18/18 20:08 Sputum Induced Sputum Culture - Final NORMAL UPPER RESPIRATORY YURIDIA PRESENT Complete Laboratory Tests 12/20/18 19:30: Vancomycin Level Trough 12.0 Current Medications Medications (Trade) Dose Ordered Sig/Rashel Route PRN Reason Start Time Stop Time Status Last Admin Dose Admin Acetaminophen (Tylenol) 650 mg Q4H PRN ORAL fever 12/17/18 20:45 01/16/19 20:44 Albuterol/ Ipratropium (Albuterol/ Ipratropium) 3 ml Q4HRT HHN 12/19/18 11:00 12/24/18 10:59 12/21/18 11:12 Ceftriaxone Sodium 1 gm/ Dextrose 55 ml @ 110 mls/hr Q24H IVPB 12/18/18 18:30 12/25/18 18:29 12/20/18 17:34 Clonidine HCl (Catapres Tab) 0.1 mg Q4H PRN ORAL sbp more than 160 12/17/18 20:46 01/16/19 20:45 Dextrose (Dextrose 50%) 25 ml Q30M PRN IV Hypoglycemia 12/18/18 07:00 01/17/19 06:59 Dextrose (Dextrose 50%) 50 ml Q30M PRN IV Hypoglycemia 12/18/18 07:00 01/17/19 06:59 Doxycycline Monohydrate (Doxycycline Monohydrate) 100 mg EVERY 12 HOURS ORAL 12/19/18 09:00 12/26/18 08:59 12/21/18 08:27 Heparin Sodium (Porcine) (Heparin 5000 units/ml) 5,000 units EVERY 12 HOURS SUBQ 12/17/18 21:00 01/16/19 20:59 12/21/18 08:28 Insulin Aspart (NovoLOG) BEFORE MEALS AND HS SUBQ 12/17/18 22:00 01/16/19 21:59 12/21/18 06:50 Insulin Aspart (NovoLOG) 8 units NOVOTIAC SUBQ 12/18/18 07:00 01/17/19 06:59 12/21/18 06:50 Ketorolac Tromethamine (Toradol 30mg) 30 mg Q6H PRN IV moderate pain 4-6 12/17/18 20:48 12/22/18 20:47 Morphine Sulfate (Morphine Sulfate) 2 mg Q4H PRN IVP severe pain 7-10 12/17/18 20:47 12/24/18 20:46 12/21/18 13:07 Nitroglycerin (Ntg) 0.4 mg Q5M X 3 DOSES PRN SL Prn Chest Pain 12/17/18 20:47 01/16/19 20:46 Ondansetron HCl (Zofran) 4 mg Q6H PRN IVP Nausea & Vomiting 12/17/18 20:46 01/16/19 20:45 Patient Own Medication (Patient's Own Med) 26 ea QHS SUBQ 12/19/18 21:00 01/18/19 20:59 12/20/18 20:56 Polyethylene Glycol (Miralax) 17 gm HSPRN PRN ORAL Constipation 12/17/18 21:00 01/16/19 20:59 Pregabalin (Lyrica) 50 mg TWICE A DAY ORAL 12/18/18 09:00 01/17/19 08:59 12/21/18 08:28 Sodium Chloride 1,000 ml @ 100 mls/hr Q10H IVLG 12/17/18 22:00 01/16/19 21:59 12/20/18 20:21 Temazepam (Restoril) 15 mg HSPRN PRN ORAL Insomnia 12/17/18 21:00 12/24/18 20:59 Vancomycin HCl (Vanco rx to dose) 1 ea DAILY PRN MISC Per rx protocol 12/19/18 10:45 01/18/19 10:44 Vancomycin HCl/ Dextrose 275 ml @ 183.333 mls/hr Q8H IVPB 12/20/18 21:00 12/25/18 20:59 12/21/18 13:07 Rohini Camargo MD December 21, 2018 13:35
[2018-12-21] MEDS ORDERED: AUGMENTIN 875-1 EAC1 ORAL (13:36)
--- NOTE | 2018-12-21 13:55 | NUR ---
NURSE NOTES: RN received discharge order. Pt refusing to leave until AM. Dr. Camargo and charge nurse aware.
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
[2018-12-21 16:00] VITALS: BP 122/77
[2018-12-21] MEDS: cefTRIAXone 1 GM in D5W 55 ML IVPB SCH (18:30)
--- NOTE | 2018-12-21 19:20 | NUR ---
HAND-OFF: Report given to ERVIN Dick.
--- NOTE | 2018-12-21 19:22 | NUR ---
NURSE NOTES: RN received pt in stable condition awake, alert and oriented in bed. No acute distress or SOB. Bed in low, locked position, call light within reach. Will continue to monitor
--- NOTE | 2018-12-21 19:47 | Cardiology Report ---
APPROVED REPORT EKG Measurement Heart [id number] MA [id number] Normal sinus rhythm Normal ECG
[2018-12-21 20:00] VITALS: BP 141/63
[2018-12-21] MEDS: LANTUS 100 UNIT/ML SUBQ SCH (21:53)
[2018-12-22] MEDS: Albuterol/Ipratropium 3ml neb HHN SCH ×2 (03:35→07:00)
[2018-12-22] MEDS: NovoLOG Insulin Flexpen SUBQ SCH ×2 (06:35→06:36)
--- NOTE | 2018-12-22 06:39 | General Progress Note ---
Assessment/Plan Problem List: (1) Diabetes mellitus ICD Codes: E11.9 - Type 2 diabetes mellitus without complications SNOMED: 69254463 (2) Gastroparesis ICD Codes: K31.84 - Gastroparesis SNOMED: 479657479 Status: stable, progressing, tolerating diet Assessment/Plan: continue Lantus 26 units (patient has own supply) continue Novolog 8 units ac tid + NISS ac / hs Subjective Allergies: Coded Allergies: INSULIN DETEMIR (Unverified Allergy, Unknown, Sweating, 08/16/18) All Systems: reviewed and negative except above Subjective events noted Item Value Date Time Bedside Blood Glucose 139 mg/dl H 12/22/18 0636 Bedside Blood Glucose 225 mg/dl H 12/21/18 2153 Bedside Blood Glucose 312 mg/dl H 12/21/18 1642 Bedside Blood Glucose 77 mg/dl 12/21/18 1130 Bedside Blood Glucose 112 mg/dl 12/21/18 0650 Objective Last 24 Hour Vital Signs Date Time Temp Pulse Resp B/P (MAP) Pulse Ox O2 Delivery O2 Flow Rate FiO2 12/22/18 03:35 Room Air 21 12/22/18 03:35 Room Air 21 12/21/18 22:56 97 20 98 Room Air 21 12/21/18 22:42 95 20 97 Room Air 21 12/21/18 21:00 Room Air 12/21/18 20:00 98.4 85 18 141/63 (89) 96 12/21/18 19:32 84 20 99 Room Air 21 12/21/18 19:22 82 20 96 Room Air 21 12/21/18 16:00 97.9 86 19 122/77 (92) 98 12/21/18 15:24 80 20 99 Room Air 21 12/21/18 15:10 79 20 96 Room Air 21 12/21/18 13:37 97.5 12/21/18 12:00 97.5 91 20 128/80 (96) 97 12/21/18 11:23 83 20 100 Room Air 21 12/21/18 11:13 83 20 95 Room Air 21 12/21/18 09:00 Room Air 12/21/18 08:00 97.8 88 18 126/77 (93) 98 12/21/18 07:57 Room Air 12/21/18 07:55 Room Air Intake and Output 12/21/18 12/22/18 19:00 07:00 Intake Total 1280 ml 55 ml Output Total 1100 ml Balance 1280 ml -1045 ml Intake Oral 1280 ml IV Total 55 ml Output Urine Total 1100 ml # Voids 6 Height (Feet): 5 Height (Inches): 10.00 Weight (Pounds): 210 General Appearance: no apparent distress Neck: normal alignment Cardiovascular: normal rate Respiratory/Chest: lungs clear Abdomen: normal bowel sounds Pelvis: normal external exam Objective Current Medications Medications (Trade) Dose Ordered Sig/Rashel Route PRN Reason Start Time Stop Time Status Last Admin Dose Admin Acetaminophen (Tylenol) 650 mg Q4H PRN ORAL fever 12/17/18 20:45 01/16/19 20:44 Albuterol/ Ipratropium (Albuterol/ Ipratropium) 3 ml Q4HRT HHN 12/19/18 11:00 12/24/18 10:59 12/21/18 22:42 Ceftriaxone Sodium 1 gm/ Dextrose 55 ml @ 110 mls/hr Q24H IVPB 12/18/18 18:30 12/25/18 18:29 12/21/18 18:30 Clonidine HCl (Catapres Tab) 0.1 mg Q4H PRN ORAL sbp more than 160 12/17/18 20:46 01/16/19 20:45 Dextrose (Dextrose 50%) 25 ml Q30M PRN IV Hypoglycemia 12/18/18 07:00 01/17/19 06:59 Dextrose (Dextrose 50%) 50 ml Q30M PRN IV Hypoglycemia 12/18/18 07:00 01/17/19 06:59 Doxycycline Monohydrate (Doxycycline Monohydrate) 100 mg EVERY 12 HOURS ORAL 12/19/18 09:00 12/26/18 08:59 12/21/18 21:18 Heparin Sodium (Porcine) (Heparin 5000 units/ml) 5,000 units EVERY 12 HOURS SUBQ 12/17/18 21:00 01/16/19 20:59 12/21/18 08:28 Insulin Aspart (NovoLOG) BEFORE MEALS AND HS SUBQ 12/17/18 22:00 01/16/19 21:59 12/22/18 06:36 Insulin Aspart (NovoLOG) 8 units NOVOTIAC SUBQ 12/18/18 07:00 01/17/19 06:59 12/22/18 06:35 Ketorolac Tromethamine (Toradol 30mg) 30 mg Q6H PRN IV moderate pain 4-6 12/17/18 20:48 12/22/18 20:47 Patient Own Medication (Patient's Own Med) 26 ea QHS SUBQ 12/19/18 21:00 01/18/19 20:59 12/21/18 21:53 Pregabalin (Lyrica) 50 mg TWICE A DAY ORAL 12/18/18 09:00 01/17/19 08:59 12/21/18 17:13 Temazepam (Restoril) 15 mg HSPRN PRN ORAL Insomnia 12/17/18 21:00 12/24/18 20:59 Mac Vegas MD December 22, 2018 06:39
--- NOTE | 2018-12-22 07:30 | NUR ---
NURSE NOTES: Pt left with , Ananya as bedside, Ambulated, in no acute distress, VSS, pt is leaving walking in a private vehicle with his . Discharged to home- All discharge papers signed, belongings list gone through and signed.
--- NOTE | 2018-12-22 07:30 | NUR ---
NURSE NOTES: RN received pt in stable condition, no acute distress or SOB. Pt discharged and ambulating steadily and independently out of the building with family member at change of shift. Evening RN completed discharge paperwork, reviewed with pt, accounted for belongings with pt.
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
== END 2018-12-22 07:45 | disposition home or self-care (01) | DRG 145 ==
LOC: EMR 17:06 → 4E 19:41 → EDBEDREQ 20:25
DX: J20.9 Acute bronchitis, unspecified (principal); N17.0 Acute kidney failure with tubular necrosis; J18.9 Pneumonia, unspecified organism; E46 Unspecified protein-calorie malnutrition; K31.84 Gastroparesis; E10.43 Type 1 diabetes mellitus with diabetic autonomic (poly)neuropathy; E10.65 Type 1 diabetes mellitus with hyperglycemia; Z68.30 Body mass index [BMI] 30.0-30.9, adult; Z79.4 Long term (current) use of insulin; Z88.8 Allergy status to other drugs, medicaments and biological substances; J44.9 Chronic obstructive pulmonary disease, unspecified; K21.9 Gastro-esophageal reflux disease without esophagitis; E78.5 Hyperlipidemia, unspecified; I10 Essential (primary) hypertension; I25.10 Atherosclerotic heart disease of native coronary artery without angina pectoris; I25.2 Old myocardial infarction; V89.2XXS Person injured in unspecified motor-vehicle accident, traffic, sequela
CPT/HCPCS: 36415; 71045; 71250; 80048; 80053; 80061; 80202; 81003; 82164; 82550; 82553; 82962; 83036; 83605; 83690; 83880; 84443; 84484; 85025; 86635; 87040; 87070; 87181; 87205; 93005; 94640; 94664; 99285; J1815; J7620

== ENCOUNTER 2019-08-03 23:34 | Emergency (ER) | payer MEDICAID ==
[~2019-08-03] VITALS: Ht 180.3 cm; Wt 99.8 kg
[~2019-08-03 23:34] MED LIST changes: +AUGMENTIN 875-1 EAC1 ORAL
--- NOTE | 2019-08-03 23:46 | NUR ---
pt not in the lobby , per family pt went to restroom.
--- NOTE | 2019-08-04 00:14 | NUR ---
ED Nurse Note: pt presents to ED c/o cough and congestion for 2 weeks. pt states that he went to [facility] where he was diagnosed with bronchitis and prescribed amoxicllin. pt reports he has only beent aking it for 1 day due to some complications he encountered at the pharmacy. pt states that he has green phlegm come up when he coughs that has made it difficult for him to breathe. pt also mentions that the last time he had these symptoms, he was diagnosed with pneumonia and is concerned he has it again.
[2019-08-04] MEDS ORDERED: Albuterol ud Inhalation HHN ONE (00:15)
[2019-08-04] MEDS ORDERED: Ipratropium 0.02% Inh Soln 2.5ml UD HHN ONE (00:15)
--- NOTE | 2019-08-04 00:15 | Emergency Room Report ---
History of Present Illness General Chief Complaint: Upper Respiratory Illness Source: Patient, Medical Record Present Illness HPI This is a 54-year-old male with past medical history of diabetes, hypertension, asthma. He is also was a smoker. He quit less than 4 weeks ago. He presents with complaint of a cough and congestion. Thinks that he has pneumonia. This been ongoing for 2 weeks. He went to [facility] a couple weeks ago. He was diagnosed with bronchitis and prescribed amoxicillin. He only filled his prescription yesterday. He said he is not feeling well. [place] like he has pneumonia. Has been coughing up greenish phlegm. No fever chills. No nausea no vomiting. After he went to [facility] and he was at [facility] the day after that. They agree with his diagnosis of bronchitis. Patient denies any diaphoresis. No exertional component. Worse with coughing. Better with rest. Allergies: Coded Allergies: INSULIN DETEMIR (Unverified Allergy, Unknown, Sweating, 08/16/18) Patient History Past Medical History: see triage record, old chart reviewed, DM, asthma Past Surgical History: other Pertinent Family History: none Social History: Denies: smoking - Quit 3 to 4 weeks ago Immunizations: other Reviewed Nursing Documentation: PMH: Agreed; PSxH: Agreed Nursing Documentation-PMH Past Medical History: No History, Except For Hx Cardiac Problems: Yes Hx Hypertension: Yes Hx Asthma: Yes Hx Diabetes: Yes Hx Cancer: No Hx Gastrointestinal Problems: No Hx Neurological Problems: Yes Hx Peripheral Neuropathy: Yes Review of Systems Eye: Denies: eye pain, blurred vision ENT: Denies: ear pain, nose congestion, throat swelling Respiratory: Reports: cough, shortness of breath, sputum Cardiovascular: Denies: chest pain, palpitations Gastrointestinal: Denies: abdominal pain, diarrhea, nausea, vomiting Musculoskeletal: Denies: back pain, joint pain Skin: Denies: rash Neurological: Denies: headache, numbness Endocrine: Denies: increased thirst, increased urine Hematologic/Lymphatic: Denies: easy bruising All Other Systems: negative except mentioned in HPI Physical Exam Vital Signs Date Time Temp Pulse Resp B/P (MAP) Pulse Ox O2 Delivery O2 Flow Rate FiO2 08/04/19 00:00 97.9 95 18 125/73 (90) 10 Room Air Vitals unremarkable. Pulse ox 93% on room air Sp02 EP Interpretation: reviewed, normal General Appearance: well appearing, no apparent distress, alert Head: normocephalic, atraumatic Eyes: bilateral eye PERRL, bilateral eye EOMI ENT: hearing grossly normal, normal pharynx Neck: full range of motion, supple, no meningismus Respiratory: chest non-tender, lungs clear, normal breath sounds Cardiovascular #1: regular rate, rhythm, no murmur Gastrointestinal: normal bowel sounds, non tender, no mass, no organomegaly, no bruit, non-distended Musculoskeletal: back normal, normal range of motion, gait/station normal Psychiatric: mood/affect normal Medical Decision Making Diagnostic Impression: Primary Impression: Upper respiratory infection Qualified Codes: J06.9 - Acute upper respiratory infection, unspecified Additional Impressions: Diabetes mellitus Qualified Codes: E10.9 - Type 1 diabetes mellitus without complications Asthma exacerbation Qualified Codes: J45.21 - Mild intermittent asthma with (acute) exacerbation ER Course Patient with a cough. Better after breathing treatment. He just started Augmentin yesterday. We will continue with it. This may be COPD exacerbation. No evidence of any pneumonia. No evidence of ACS, PE, dissection to name a few. Will discharge home. EKG Diagnostic Results Rate: normal Rhythm: NSR ST Segments: no acute changes Rhythm Strip Diag. Results EP Interpretation: yes Rate: 87 Rhythm: NSR, no PVC's, no ectopy Last Vital Signs Date Time Temp Pulse Resp B/P (MAP) Pulse Ox O2 Delivery O2 Flow Rate FiO2 08/04/19 00:00 97.9 95 18 125/73 (90) 10 Room Air Status: improved Disposition: HOME, SELF-CARE Condition: Stable Scripts Prednisone* (PREDNISONE*) 20 Mg Tablet 40 MG ORAL DAILY, #10 TAB Prov: Kwasi Vidal MD 08/04/19 Patient Instructions: Upper Respiratory Infection, Adult Additional Instructions: Continue with the antibiotics. Use your inhaler every 4 hours for cough and congestion. Follow-up with in 7 days. Return if worse. Kwasi Vidal MD Aug 04, 2019 00:15
[2019-08-04 00:17] VITALS: BP 125/73
[2019-08-04 00:37] LABS: BASOPHILS % (AUTO) 1.5 % (0.0-2.0); EOSINOPHILS % (AUTO) 3.1 % (0.0-3.0); HEMATOCRIT 41.6 % (42.0-52.0); HEMOGLOBIN 14.4 G/DL (14.2-18.0); LYMPHOCYTES % (AUTO) 21.1 % (20.0-45.0); MEAN CORPUSCULAR VOLUME 90 FL (80-99); MONOCYTES % (AUTO) 12.7 % (1.0-10.0); NEUTROPHILS % (AUTO) 61.6 % (45.0-75.0); PLATELET COUNT 171 K/UL (150-450); RED BLOOD COUNT 4.63 M/UL (4.70-6.10); WHITE BLOOD COUNT 7.6 K/UL (4.8-10.8)
[2019-08-04 00:53] LABS: ANION GAP 6 mmol/L (5-15); BLOOD UREA NITROGEN 14 mg/dL (7-18); CALCIUM 8.5 MG/DL (8.5-10.1); CARBON DIOXIDE 28 MMOL/L (21-32); CHLORIDE 102 MMOL/L (98-107); CREATININE 1.1 MG/DL (0.55-1.30); SODIUM 136 MMOL/L (136-145)
[2019-08-04 00:58] LABS: ALANINE AMINOTRANSFERASE 28 U/L (12-78); ALBUMIN 3.6 G/DL (3.4-5.0); ALBUMIN/GLOBULIN RATIO 1.1 (1.0-2.7); ALKALINE PHOSPHATASE 120 U/L (46-116); ASPARTATE AMINO TRANSFERASE 26 U/L (15-37); BILIRUBIN,TOTAL 0.7 MG/DL (0.2-1.0)
[2019-08-04 01:01] LABS: APPEARANCE,URINE CLEAR; BILIRUBIN, URINE NEGATIVE (NEGATIVE); COLOR,URINE PALE YELLOW; GLUCOSE, URINE (UA) 4+ (NEGATIVE); KETONES,URINE 3+ (NEGATIVE); LEUKOCYTE ESTERASE ,URINE NEGATIVE (NEGATIVE); NITRITE,URINE NEGATIVE (NEGATIVE); PH,URINE 5 (4.5-8.0); PROTEIN,URINE 1+ (NEGATIVE); UROBILINOGEN,URINE 1 MG/DL (0.0-1.0)
[2019-08-04] MEDS ORDERED: Insulin Human Regular 100units/ml 3ml IV ONE (01:15)
--- NOTE | 2019-08-04 01:21 | NUR ---
ED Nurse Note: pt has a friend at bedside
[2019-08-04] MEDS ORDERED: PREDNISONE20 MG ORAL (01:43)
[2019-08-04 01:55] VITALS: BP 125/73
--- NOTE | 2019-08-04 01:55 | NUR ---
ER DISCHARGE NOTE: Patient is cleared to be discharged per ERMD, pt is aox4, on room air, with stable vital signs. pt was given dc and prescription instructions, pt was able to verbalize understanding, he has a f/u appt with PCP in the AM. pt id band and iv site removed without complications. pt is able to ambulate with steady gait. pt took all belongings.
--- NOTE | 2019-08-04 02:03 | Diagnostic Imaging Report ---
EXAM: XR Chest, 1 View CLINICAL HISTORY: SOB TECHNIQUE: Frontal view of the chest. COMPARISON: December 17, 2018 chest x-ray FINDINGS: Lungs: Unremarkable. No consolidation. Pleural space: Unremarkable. No pneumothorax. Heart: Unremarkable. No cardiomegaly. Mediastinum: Unremarkable. Bones/joints: Unremarkable. IMPRESSION: Normal chest x-ray.
== END 2019-08-04 01:55 | disposition home or self-care (01) ==
LOC: EMR 23:50
DX: J06.9 Acute upper respiratory infection, unspecified (principal); J45.21 Mild intermittent asthma with (acute) exacerbation; I10 Essential (primary) hypertension; E10.42 Type 1 diabetes mellitus with diabetic polyneuropathy; F17.200 Nicotine dependence, unspecified, uncomplicated
CPT/HCPCS: 36415; 71045; 80053; 81003; 82962; 84484; 85025; 93005; 96374; J1815; Z7502; 99284